=== PATIENT | female | born 1975 | race Asian ===

== ENCOUNTER 2018-06-17 10:47 | Emergency (ER) | payer OTHER, SELFPAY ==
[2018-06-17 10:55] VITALS: BP 162/89; PULSE 104; RESP 20; TEMP 36.4; O2SAT 95; BMI 39.3
[2018-06-17 11:00] VITALS: BP 148/78; PULSE 85; O2SAT 98
[2018-06-17 11:14] LABS: Bacteria Urine None Seen
--- NOTE | 2018-06-17 11:17 | DI.CT.S_ITS ---
PROCEDURE: CT KIDNEY URETER BLADDER (KUB) INDICATIONS: left flank pain TECHNIQUE: Noncontrast 5 mm thick sections acquired from the diaphragms to the symphysis. 5 mm thick coronal and sagittal reformats were then performed. For radiation dose reduction, the following was used: automated exposure control, adjustment of mA and/or kV according to patient size. COMPARISON: [facility], [place], ABDOMEN COMPLETE, 10/05/2016, 22:27. FINDINGS: Image quality: Diagnostic. Lung bases: Lung bases are clear. Heart size is normal. Urinary system: Both kidneys are normal in size. Multiple small (2-5 mm) calculi are evident within both kidneys. No ureteral calculi are evident. No hydronephrosis or perinephric fat stranding. Both ureters appear non-dilated throughout their expected courses. Bladder wall thickness is normal; no calcified bladder stones. Other solid organs: The liver is enlarged and noted to be diffusely hypodense when compared to the spleen. No obvious liver lesions are evident. The liver measures up to 25 cm in craniocaudal dimension. Gallbladder is not enlarged. Pancreas is normal in contours. Spleen is normal in size. No adrenal nodules. Peritoneum and bowel: Unenhanced bowel loops demonstrate normal wall thickness and caliber. No free fluid or air. Nodes and vessels: No retroperitoneal or mesenteric adenopathy by size criteria. Aorta and inferior vena cava are normal in caliber. There is mild aortic atherosclerosis. Other pelvic soft tissues: No free pelvic fluid. No inguinal hernias or adenopathy. The uterus is surgically absent. The ovaries are not definitely seen. Bones: No suspicious bony lesions. No vertebral body compression fractures. IMPRESSION: 1. Multiple bilateral nonobstructing renal calculi. No hydronephrosis or ureteral calculi. 2. Hepatomegaly and hepatic steatosis. 3. No bowel obstruction. Dictated by: Shan Hammonds M.D. on 06/17/2018 at 10:37 Approved by: Shan Hammonds M.D. on 06/17/2018 at 10:46
[2018-06-17 11:23] LABS: Add Manual Diff / Slide Review NO; Basophils Percent Auto 0.6 % (0-2); Eosinophils Percent Auto 3.1 % (2-4); Hematocrit 41.5 % (36-46); Hemoglobin 14.5 g/dL (12.0-16.0); Lymphocytes Percent Auto 31.8 % (25-40); Mean Corpuscular HGB Conc 34.8 % (30-36); Mean Corpuscular Hemoglobin 29.6 PG (26-34); Mean Corpuscular Volume 84.9 fL (80-100); Monocytes Percent Auto 7.3 % (3-14); Neutrophils Absolute Auto 3600 /uL (3000-5900); Neutrophils Percent Auto 57.2 % (50-75); Platelet Count 216 X10^3/uL (150-400); Red Blood Cell Count 4.89 X10^6/uL (4.0-5.2); Red Cell Distribution Width 13.6 % (11.6-14.8); White Blood Cell Count 6.2 X10^3/uL (4.5-11.0)
--- NOTE | 2018-06-17 11:23 | ED_ITS ---
HPI - Female Genitourinary General Chief complaint: Urogenital-Female Stated complaint: poss kidney stone, left side pain Time Seen by Provider: 06/17/18 11:10 Source: patient Mode of arrival: ambulatory Limitations: no limitations History of Present Illness HPI Narrative: Patient is a 43-year-old female presents with left flank pain. She says started about an hour and half ago. He does have a history of kidney stones she says this is different is mostly in her back and not radiating around to her abdomen. She said she had an ultrasound at [facility] which did show kidney stones. She feels nauseated. Related Data Home Medications Medication Instructions Recorded Confirmed albuterol sulfate 3 ml INH Q6HP PRN 06/17/18 06/17/18 albuterol sulfate [ProAir HFA] 1 puff INHALATION PRN PRN 06/17/18 06/17/18 hydroxychloroquine 200 mg PO DAILY 06/17/18 06/17/18 metoprolol succinate 50 mg PO DAILY 06/17/18 06/17/18 sulfasalazine 500 mg PO QID 06/17/18 06/17/18 Allergies Allergy/AdvReac Type Severity Reaction Status Date / Time cephalexin [From KEFLEX] Allergy Unknown Verified 06/17/18 11:24 ciprofloxacin [CIPROFLOXACIN] Allergy Unknown Verified 06/17/18 11:24 milk [MILK] Allergy Unknown Verified 06/17/18 11:24 Review of Systems Review of Systems GENERAL: Denies chills, fatigue, malaise, fever, sweats, travel HEENT: Denies sinus pain, ear pain, sore throat, difficulty swallowing, neck pain RESPIRATORY: Denies dyspnea, cough, wheezing, hemoptysis, sputum. CARDIOVASCULAR: Denies chest pain, palpitations, orthopnea, edema GASTROINTESTINAL: Denies nausea, vomiting, abdominal pain, diarrhea, constipation, melena. : See HPI MUSCULOSKELETAL: Denies weakness, joint pain, or bony pain SKIN: No rash, no erythema, no pruritus NEUROLOGIC: Denies weakness, dizziness, headache, numbness, change in speech, confusion PSYCHIATRIC: No concerning psychosocial issues. 12 point review of systems is negative except for those stated above and HPI PFSH Social History Smoking Status: Never smoker Exam Initial Vital Signs Initial Vital Signs: Vital Signs Temperature 97.5 F L 06/17/18 10:55 Pulse Rate 104 H 06/17/18 10:55 Respiratory Rate 20 06/17/18 10:55 Blood Pressure 162/89 H 06/17/18 10:55 Pulse Oximetry 95 06/17/18 10:55 GENERAL: None female appears in pain HEENT: Head atraumatic,EOMI, pupils reactive, neck is supple CARDIOVASCULAR: Regular rate and rhythm without murmurs, rubs or gallops. RESPIRATORY: Breath sounds equal bilaterally, no wheezes rales or rhonchi. ABDOMEN: Soft, nontender. Normoactive bowel sounds all 4 quadrants. No guarding or rebound. : Left CVA tenderness EXTREMITIES: Normal range of motion, no clubbing or edema. Neurovascularly intact NEUROLOGICAL: Alert and oriented x4.Normal gait and speech. SKIN: Warm, dry, no laceration, no petechiae, no rashes or lesions. Course Orders Ordered: ED Orders 06/17/18 11:00 Urine Microscopic Stat 06/17/18 11:10 Complete Blood Count AUTO DIFF Stat Comprehensive Metabolic Panel Stat Lipase Stat 06/17/18 11:17 CT kidney ureter bladder (KUB) Stat Discontinued Medications Sodium Chloride (Normal Saline 0.9%) 1,000 mls @ 1,000 mls/hr IV CONT FREDI Last Infusion: 06/17/18 12:25 Dose: 0 mls/hr Admin: 06/17/18 11:29 Dose: 1,000 mls/hr Ketorolac Tromethamine (Toradol) 30 mg IV NOW ONE Stop: 06/17/18 11:18 Last Admin: 06/17/18 11:29 Dose: 30 mg Ondansetron HCl (Zofran) 4 mg IV NOW ONE Stop: 06/17/18 11:18 Last Admin: 06/17/18 11:29 Dose: 4 mg Vital Signs - 8 hr 06/17/18 10:55 06/17/18 11:00 06/17/18 12:00 Temperature 97.5 F L Pulse Rate 104 H 85 85 Respiratory Rate 20 Blood Pressure 162/89 H Blood Pressure [Left Arm] 148/78 H 100/66 Pulse Oximetry 95 98 95 06/17/18 12:50 Temperature Pulse Rate 89 Respiratory Rate 18 Blood Pressure 121/72 Blood Pressure [Left Arm] Pulse Oximetry 99 MDM - Female Genitourinary Lab Data Attestation: I reviewed the patient's lab results. Result diagrams: 06/17/18 11:10 06/17/18 11:10 Lab Results 06/17/18 06/17/18 06/17/18 Range/Units 11:00 11:10 11:10 WBC 6.2 (4.5-11.0) X10^3/uL RBC 4.89 (4.0-5.2) X10^6/uL Hgb 14.5 (12.0-16.0) g/dL Hct 41.5 (36-46) % MCV 84.9 (80-100) fL MCH 29.6 (26-34) PG MCHC 34.8 (30-36) % RDW 13.6 (11.6-14.8) % Plt Count 216 (150-400) X10^3/uL Neut % (Auto) 57.2 (50-75) % Lymph % (Auto) 31.8 (25-40) % [place] % (Auto) 7.3 (3-14) % Eos % (Auto) 3.1 (2-4) % Baso % (Auto) 0.6 (0-2) % Neut # (Auto) 3600 (7254-1768) /uL Sodium 141 (137-145) mmol/L Potassium 4.2 (3.4-5.1) mmol/L Chloride 102 (98-107) mmol/L Carbon Dioxide 24 (22-32) mmol/L BUN 20 H (7-17) mg/dL Creatinine 0.50 L (0.52-1.04) mg/dL Estimated GFR > 60.0 (>60) mL/min BUN/Creatinine Ratio 40.0 H (6-22) Glucose 148 H (70-100) mg/dL Calcium 8.6 (8.4-10.2) mg/dL Total Bilirubin 0.6 (0.2-1.3) mg/dL AST 98 H (14-36) IU/L ALT 82 H (9-52) IU/L Alkaline Phosphatase 71 (38-126) U/L Total Protein 7.7 (6.3-8.2) g/dL Albumin 4.6 (3.5-5.0) g/dL Globulin 3.1 (1.7-4.1) g/dL Albumin/Globulin Ratio 1.5 (1.0-2.8) Lipase 99 (23-300) U/L Urine RBC 5-10/hpf H (0-5/HPF) Urine WBC 5-10/hpf H (0-5/HPF) Ur Squamous Epith Cells 10-30 /hpf H Urine Bacteria None seen (None) Hyaline Casts 1-5/lpf (None) Ur Culture Indicated? Cult not indicated Micro UA Comment Not Reportable Urine Dip Bedside Urine Glucose Negative Bedside Urine Bilirubin - Negative Bedside Urine Ketone - Negative Urine Specific [place] 1.025 Bedside Urine Occult Blood +/- Bedside Urine pH 6.0 Bedside Urine Protein + 30 Bedside Urine Urobilinogen - Negative Bedside Urine Nitrite - Negative Bedside Urine Leukocytes - Negative Esterase Imaging Data CT scan - abdomen: Radiologist's impression: PROCEDURE: CT KIDNEY URETER BLADDER (KUB) INDICATIONS: left flank pain TECHNIQUE: Noncontrast 5 mm thick sections acquired from the diaphragms to the symphysis. 5 mm thick coronal and sagittal reformats were then performed. For radiation dose reduction, the following was used: automated exposure control, adjustment of mA and/or kV according to patient size. COMPARISON: [facility], [place], ABDOMEN COMPLETE, 10/05/2016, 22:27. FINDINGS: Image quality: Diagnostic. Lung bases: Lung bases are clear. Heart size is normal. Urinary system: Both kidneys are normal in size. Multiple small (2-5 mm) calculi are evident within both kidneys. No ureteral calculi are evident. No hydronephrosis or perinephric fat stranding. Both ureters appear non-dilated throughout their expected courses. Bladder wall thickness is normal; no calcified bladder stones. Other solid organs: The liver is enlarged and noted to be diffusely hypodense when compared to the spleen. No obvious liver lesions are evident. The liver measures up to 25 cm in craniocaudal dimension. Gallbladder is not enlarged. Pancreas is normal in contours. Spleen is normal in size. No adrenal nodules. Peritoneum and bowel: Unenhanced bowel loops demonstrate normal wall thickness and caliber. No free fluid or air. Nodes and vessels: No retroperitoneal or mesenteric adenopathy by size criteria. Aorta and inferior vena cava are normal in caliber. There is mild aortic atherosclerosis. Other pelvic soft tissues: No free pelvic fluid. No inguinal hernias or adenopathy. The uterus is surgically absent. The ovaries are not definitely seen. Bones: No suspicious bony lesions. No vertebral body compression fractures. IMPRESSION: 1. Multiple bilateral nonobstructing renal calculi. No hydronephrosis or ureteral calculi. 2. Hepatomegaly and hepatic steatosis. 3. No bowel obstruction. Dictated by: Shan Hammonds M.D. on 06/17/2018 at 10:37 MDM Narrative Medical decision making narrative: No source of left flank pain. Possible muscle strain she says it feels better when she pushes on it. No Sign of infection. She feels ready and able to go. Discharge Plan Departure Patient Disposition: Home Clinical Impression: Back pain Discharge Date/Time: 06/17/18 12:50 Interventions: ED Discharge Assessment Last Done: 06/17/18 12:50 Instructions: DI for Thoracic Back Pain Activity Restrictions/Additional Instructions: *You have been diagnosed with thoracic back pain *What to do: Blood work and CT did not show any kidney stone or infection. Recommend heating pad increasing activity as tolerated, no strenuous exercise *Continue to take medications as directed Motrin 800 mg every 8 hr if needed for pain *Follow up with your primary care provider in 2-3 days *Return to ER if you should have worsening back pain, fever, or any new, worsening or concerning symptoms Prescriptions: No Action metoprolol succinate 50 mg tablet extended release 24 hr 50 mg PO DAILY RF: 0 albuterol sulfate [ProAir HFA] 90 mcg/actuation HFA aerosol inhaler 1 puff Inhalation PRN PRN (Reason: Shortness Of Breath) RF: 0 albuterol sulfate 2.5 MG/3 ML solution for nebulization 3 ml INH Q6HP PRN (Reason: Shortness Of Breath) RF: 0 hydroxychloroquine 200 mg tablet 200 mg PO DAILY RF: 0 sulfasalazine 500 mg tablet,delayed release (DR/EC) 500 mg PO QID RF: 0
[2018-06-17 11:28] LABS: RBC Urine 5-10/HPF (0-5/HPF); WBC Urine 5-10/HPF (0-5/HPF)
[2018-06-17 11:29] LABS: Culture Indicated Urine Cult Not Indicated; Hyaline Casts Urine 1-5/LPF; Squamous Epithelial Cell Urine 10-30 /HPF
[2018-06-17] MEDS: SODIUM CHLORIDE 0.9% 1,000 ML 1000 ML IV (11:29)
[2018-06-17] MEDS: ONDANSETRON 4 MG/2 ML INJ IV (11:29)
[2018-06-17] MEDS: KETOROLAC 60 MG/2 ML VIAL 30 MG IV (11:29)
[2018-06-17 11:30] LABS: Alanine Aminotransferase 82 IU/L (9-52); Albumin 4.6 g/dL (3.5-5.0); Albumin Globulin Ratio 1.5 (1.0-2.8); Alkaline Phosphatase 71 U/L (38-126); Aspartate Aminotransferase 98 IU/L (14-36); Bilirubin Total 0.6 mg/dL (0.2-1.3); Blood Urea Nitrogen 20 mg/dL (7-17); Calcium 8.6 mg/dL (8.4-10.2); Carbon Dioxide 24 mmol/L (22-32); Chloride 102 mmol/L (98-107); Estimated Glomerular Filt Rate > 60.0 mL/min (>60); Globulin 3.1 g/dL (1.7-4.1); Glucose 148 mg/dL (70-100); HEMOLYSIS 29 (0-50); Lipase 99 U/L (23-300); Potassium 4.2 mmol/L (3.4-5.1); Sodium 141 mmol/L (137-145); Total Protein 7.7 g/dL (6.3-8.2)
[2018-06-17 12:00] VITALS: BP 100/66; PULSE 85; O2SAT 95
[2018-06-17 12:50] VITALS: BP 121/72; PULSE 89; RESP 18; O2SAT 99
== END 2018-06-17 12:50 | disposition home or self-care (01) ==
PROVIDERS: Emergency Provider Emergency Medicine
DX: M54.9 Dorsalgia, unspecified (principal)
CPT/HCPCS: 36591; 74176; 80053; 81003; 81015; 83690; 85025; 96361; 96374; 96375; 99283; 99284; J1885; J2405

== ENCOUNTER 2019-03-24 07:30 | Emergency (ER) | payer OTHER, MEDICAID, SELFPAY ==
[2019-03-24 07:30] VITALS: BP 178/124; PULSE 89; RESP 24; TEMP 35.7; O2SAT 100
--- NOTE | 2019-03-24 07:39 | ED_ITS ---
HPI - Female Genitourinary General Chief complaint: Abdominal Pain Stated complaint: 'kidney stones' Time Seen by Provider: 03/24/19 07:34 Source: patient Mode of arrival: ambulatory Limitations: no limitations History of Present Illness HPI Narrative: This is a 44-year-old female [facility] of left flank pain starting to radiate around to the front. Patient states she woke up with pain this morning. She states it feels like when she had kidney stones in the past. Patient has had some nausea and vomiting this morning. No fevers. She denies any frontal abdominal pain and states just the flank kind of on the side on the left. Patient noticed a little bit of difficulty with urination but did appreciate dysuria or frequency. She has not noted any hematuria. Patient states that she typically has diarrhea but relates that to her metformin. She is on metformin for diabetes she takes medication for rheumatoid arthritis. Patient states she has had hysterectomy, appendectomy and tonsillectomy. Related Data Home Medications Medication Instructions Recorded Confirmed albuterol sulfate 3 ml INH Q6HP PRN 06/17/18 06/17/18 albuterol sulfate [ProAir HFA] 1 puff INHALATION PRN PRN 06/17/18 06/17/18 hydroxychloroquine 200 mg PO DAILY 06/17/18 06/17/18 metoprolol succinate 50 mg PO DAILY 06/17/18 06/17/18 sulfasalazine 500 mg PO QID 06/17/18 06/17/18 Previous Rx's Medication Instructions Recorded oxycodone-acetaminophen [Percocet] 1 tab PO Q4-6H PRN #14 tab 03/24/19 tamsulosin [Flomax] 0.4 mg PO DAILY #5 cap 03/24/19 Allergies Allergy/AdvReac Type Severity Reaction Status Date / Time cephalexin [From KEFLEX] Allergy Unknown Verified 03/24/19 07:45 ciprofloxacin [CIPROFLOXACIN] Allergy Unknown Verified 03/24/19 07:45 milk [MILK] Allergy Unknown Verified 03/24/19 07:45 Review of Systems Review of Systems ROS Unobtainable: All systems reviewed & are unremarkable except as noted in HPI and below Constitutional Constitutional: Denies chills and Denies fever(s) Cardiovascular Cardiovascular: Denies chest pain and Denies dyspnea Respiratory Respiratory: Denies dyspnea Gastrointestinal Gastrointestinal: Reports abdominal pain (left flank/side), Denies change in bowel habits, Denies change in stool character, Reports diarrhea, Reports nausea and Reports vomiting Genitourinary Genitourinary: Denies abnormal vaginal bleeding, Denies hematuria, Denies urinary frequency, Denies dysuria, Denies flank pain, Denies urinary incontinence, Reports urinary hesitancy and Denies urinary urgency Integumentary/Breasts Skin/Breast: Denies rash PFSH Social History Smoking Status: Never smoker Social History Smoking Status: Former smoker Exam Narrative Exam Narrative: GENERAL: Alert and oriented x three, obese female in moderate distress. HEENT: Head normocephalic, atraumatic, EOMI, pupils reactive, face symmetric, moist mucous membranes NECK: Supple, full range of motion CARDIOVASCULAR: Regular rate and rhythm without murmurs, rubs or gallops. RESPIRATORY: Breath sounds equal bilaterally, no wheezes rales or rhonchi. ABDOMEN: Soft, mild left lower quadrant. Normoactive bowel sounds all 4 quadrants. No guarding or rebound, rigidity, no mass : Mild left CVA tenderness, no right CVA tenderness. EXTREMITIES: Normal range of motion, no clubbing or edema. Neurovascularly intact NEUROLOGICAL: Cranial nerves II through XII grossly intact. Moving all extremities SKIN: Warm, dry, no petechiae, no rashes or lesions. Initial Vital Signs Initial Vital Signs: Vital Signs Temperature 96.2 F L 03/24/19 07:30 Pulse Rate 89 03/24/19 07:30 Respiratory Rate 24 03/24/19 07:30 Blood Pressure 178/124 H 03/24/19 07:30 Pulse Oximetry 100 03/24/19 07:30 Course Orders Ordered: ED Orders 03/24/19 10:01 Urine Microscopic Stat Discontinued Medications Sodium Chloride (Normal Saline 0.9%) 1,000 mls @ 1,000 mls/hr IV BOLUS ONE Stop: 03/24/19 08:37 Last Infusion: 03/24/19 08:46 Dose: 0 mls/hr Documented by: Admin: 03/24/19 07:53 Dose: 1,000 mls/hr Documented by: JOSIE Ketorolac Tromethamine (Toradol) 30 mg IV NOW ONE Stop: 03/24/19 07:39 Last Admin: 03/24/19 07:54 Dose: Not Given Documented by: JOSIE Ketorolac Tromethamine (Toradol) 30 mg IV NOW ONE Stop: 03/24/19 07:46 Last Admin: 03/24/19 07:54 Dose: Not Given Documented by: JOSIE Ketorolac Tromethamine (Toradol) 30 mg IV NOW ONE Stop: 03/24/19 08:01 Last Admin: 03/24/19 07:52 Dose: 30 mg Documented by: JOSIE Morphine Sulfate (Morphine) 4 mg IV NOW ONE Stop: 03/24/19 08:37 Last Admin: 03/24/19 08:40 Dose: 4 mg Documented by: JOSIE Morphine Sulfate (Morphine) 4 mg IV NOW ONE Stop: 03/24/19 08:38 Last Admin: 03/24/19 08:40 Dose: Not Given Documented by: JOSIE Ondansetron HCl (Zofran) 4 mg IV NOW ONE Stop: 03/24/19 07:39 Last Admin: 03/24/19 07:53 Dose: 4 mg Documented by: JOSIE Tamsulosin HCl (Flomax) 0.4 mg PO NOW ONE Stop: 03/24/19 09:15 Last Admin: 03/24/19 09:20 Dose: 0.4 mg Documented by: JOSIE Vital Signs Vital signs: Vital Signs - 8 hr 03/24/19 07:30 Temperature 96.2 F L Pulse Rate 89 Respiratory Rate 24 Blood Pressure 178/124 H Pulse Oximetry 100 MDM - Female Genitourinary Lab Data Attestation: I reviewed the patient's lab results. Result diagrams: 03/24/19 07:38 03/24/19 07:38 Labs: Lab Results 03/24/19 03/24/19 03/24/19 Range/Units 07:38 07:38 07:58 WBC 10.0 (4.5-11.0) X10^3/uL RBC 4.77 (4.0-5.2) X10^6/uL Hgb 14.3 (12.0-16.0) g/dL Hct 40.6 (36-46) % MCV 85.1 (80-100) fL MCH 29.9 (26-34) PG MCHC 35.1 (30-36) % RDW 13.7 (11.6-14.8) % Plt Count 221 (150-400) X10^3/uL Neut % (Auto) 66.7 (50-75) % Lymph % (Auto) 24.7 L (25-40) % [place] % (Auto) 5.9 (3-14) % Eos % (Auto) 2.2 (2-4) % Baso % (Auto) 0.5 (0-2) % Neut # (Auto) 6700 (2872-6128) /uL Lymph # (Auto) 2500 (1752-9071) /uL [place] # (Auto) 600 (0-900) /uL Eos # (Auto) 200 (0-450) /uL Baso # (Auto) 0 (0-100) /uL Sodium 139 (137-145) mmol/L Potassium 4.3 (3.4-5.1) mmol/L Chloride 101 (98-107) mmol/L Carbon Dioxide 22 (22-32) mmol/L BUN 14 (7-17) mg/dL Creatinine 0.50 L (0.52-1.04) mg/dL Estimated GFR > 60.0 (>60) mL/min BUN/Creatinine Ratio 28.0 H (6-22) Glucose 152 H (70-100) mg/dL Calcium 8.9 (8.4-10.2) mg/dL Total Bilirubin 0.5 (0.2-1.3) mg/dL AST 39 H (14-36) IU/L ALT 53 H (9-52) IU/L Alkaline Phosphatase 67 (38-126) U/L Total Protein 7.6 (6.3-8.2) g/dL Albumin 4.5 (3.5-5.0) g/dL Globulin 3.1 (1.7-4.1) g/dL Albumin/Globulin Ratio 1.5 (1.0-2.8) Lipase 145 (23-300) U/L Urine RBC (0-5/HPF) Urine WBC (0-5/HPF) Ur Squamous Epith Cells (0-5/HPF) Urine Bacteria (None) Ur Culture Indicated? 03/24/19 Range/Units 10:01 WBC (4.5-11.0) X10^3/uL RBC (4.0-5.2) X10^6/uL Hgb (12.0-16.0) g/dL Hct (36-46) % MCV (80-100) fL MCH (26-34) PG MCHC (30-36) % RDW (11.6-14.8) % Plt Count (150-400) X10^3/uL Neut % (Auto) (50-75) % Lymph % (Auto) (25-40) % [place] % (Auto) (3-14) % Eos % (Auto) (2-4) % Baso % (Auto) (0-2) % Neut # (Auto) (3805-8986) /uL Lymph # (Auto) (7843-2989) /uL [place] # (Auto) (0-900) /uL Eos # (Auto) (0-450) /uL Baso # (Auto) (0-100) /uL Sodium (137-145) mmol/L Potassium (3.4-5.1) mmol/L Chloride (98-107) mmol/L Carbon Dioxide (22-32) mmol/L BUN (7-17) mg/dL Creatinine (0.52-1.04) mg/dL Estimated GFR (>60) mL/min BUN/Creatinine Ratio (6-22) Glucose (70-100) mg/dL Calcium (8.4-10.2) mg/dL Total Bilirubin (0.2-1.3) mg/dL AST (14-36) IU/L ALT (9-52) IU/L Alkaline Phosphatase (38-126) U/L Total Protein (6.3-8.2) g/dL Albumin (3.5-5.0) g/dL Globulin (1.7-4.1) g/dL Albumin/Globulin Ratio (1.0-2.8) Lipase (23-300) U/L Urine RBC >100/hpf H (0-5/HPF) Urine WBC 0-1/hpf (0-5/HPF) Ur Squamous Epith Cells 1-5 /hpf D (0-5/HPF) Urine Bacteria Few (2-10) H (None) Ur Culture Indicated? Cult not indicated Urine Dip Bedside Urine Glucose Negative Bedside Urine Bilirubin - Negative Bedside Urine Ketone +/- 5 Urine Specific [place] 1.020 Bedside Urine Occult Blood +++ Bedside Urine pH 6 Bedside Urine Protein ++ 100 Bedside Urine Urobilinogen - Negative Bedside Urine Nitrite - Negative Bedside Urine Leukocytes - Negative Esterase Imaging Data CT scan - abdomen: Radiologist's impression: [address] [address] [address] Scan Report Signed Patient: Arabella Saleem MMR#: [id number] : 1975Acct:[id number] Age/Sex: 44 / FDate of Service: 03/24/19 Loc: ED Accession Number: [id number] Procedure: CT kidney ureter bladder (KUB) Ordering Provider: Candida Mata D.O. PROCEDURE: CT KIDNEY URETER BLADDER (KUB) INDICATIONS: left flank pain, hx stones, htn TECHNIQUE: Noncontrast 5 mm thick sections acquired from the diaphragms to the symphysis. 5 mm thick coronal and sagittal reformats were then performed. For radiation dose reduction, the following was used: automated exposure control, adjustment of mA and/or kV according to patient size. COMPARISON: [facility], CT, CT KIDNEY URETER BLADDER (KUB), 06/17/2018, 11:19. FINDINGS: Image quality: Excellent. Lung bases: Lung bases are clear. Heart size is normal. Urinary system: Both kidneys are normal in size. There are bilateral small kidney ranging in size from 1-3 mm. Within the proximal left ureter there is a impacted 4 mm calculus measuring 702 Hounsfield units in the radiodensity. This produces mild to moderate left-sided proximal hydroureter and hydronephrosis. No right-sided hydronephrosis or perinephric fat stranding. Both ureters appear otherwise non-dilated throughout their expected courses. Bladder wall thickness is normal; no calcified bladder stones. Other solid organs: Liver is mildly enlarged in size and is markedly fatty infiltrated. Gallbladder appears normal. Pancreas is normal in contours. Spleen is normal in size. No adrenal nodules. Peritoneum and bowel: Unenhanced bowel loops demonstrate normal wall thickness and caliber. No free fluid or air. Nodes and vessels: No retroperitoneal or mesenteric adenopathy by size criter ia. Aorta and inferior vena cava are normal in caliber. Abdominal wall: No ventral hernias. Pelvis: No free pelvic fluid. No inguinal hernias or adenopathy. Bones: No suspicious bony lesions. No vertebral body compression fractures. IMPRESSION: 1. There is an unexpected finding of markedly fatty infiltrated liver, and hepatomegaly. Please correlate clinically for the underlying cause. 2. Scattered nonobstructive calculi are present within the collecting system of each kidney, ranging in size from 1-3 mm. 3. There is mild to moderate left-sided hydronephrosis and proximal left hydroureter secondary to a 702 Hounsfield unit 4 mm calculus impacted in the proximal left ureter. Dictated by: Mika Menard M.D. on 03/24/2019 at 8:24 Approved by: Mika Menard M.D. on 03/24/2019 at 8:29 [facility] Narrative Medical decision making narrative: Recheck after medications, patient is improved. She is not pain free at this time but would like to allow the Toradol longer to work. Patient received narcotic pain medication which was more helpful. Patient does have a kidney stone on her CT, she also has hepatomegaly and fatty liver which she noted she has been told in the past and they are following. She also some slight elevation in her LFTs. Otherwise renal functi on is normal, urine does not show any signs of infection at this time. It was sent for microscopy. Patient was given a dose of Flomax orally. Discussed plans for follow-up with Urology and she does have some hydro and if her symptoms are not improving in 24 hours she should call. Patient has contact information through for [facility] urology. Was also given a more local provider if she she prefers. Patient is comfortable with the plan her pain is much more controlled at this time, we discussed signs and symptoms to return for. Discharge Plan Departure Patient Disposition: Home Clinical Impression: Kidney stone, Fatty liver Discharge Date/Time: 03/24/19 10:37 Instructions: DI for Kidney Stones Activity Restrictions/Additional Instructions: Follow-up with Urology, call for an appointment. Continue to take Flomax once daily until gone. Continue ibuprofen 800 mg every 8 hours as needed for pain. In addition you may take pain medications as needed, these medications can make you sleepy do not drive, perform hazardous activities or make any major decided since while taking them. Return to the emergency department for new or worsening symptoms, fevers greater than 100.4 F, persistent vomiting, rapidly worsening flank or abdominal pain, lightheadedness, passing out, black or bloody stools, inability urinate or other new or concerning symptoms. Prescriptions: New tamsulosin [Flomax] 0.4 mg capsule 0.4 mg PO DAILY Qty: 5 RF: 0 oxycodone-acetaminophen [Percocet] 5-325 mg tablet 1 tab PO Q4-6H PRN (Reason: pain) Qty: 14 RF: 0 No Action metoprolol succinate 50 mg tablet extended release 24 hr 50 mg PO DAILY RF: 0 albuterol sulfate [ProAir HFA] 90 mcg/actuation HFA aerosol inhaler 1 puff Inhalation PRN PRN (Reason: Shortness Of Breath) RF: 0 albuterol sulfate 2.5 MG/3 ML solution for nebulization 3 ml INH Q6HP PRN (Reason: Shortness Of Breath) RF: 0 hydroxychloroquine 200 mg tablet 200 mg PO DAILY RF: 0 sulfasalazine 500 mg tablet,delayed release (DR/EC) 500 mg PO QID RF: 0 Referrals: Gideon Gomez MD [Physician] - Stand Alone Forms: Work Release Note
--- NOTE | 2019-03-24 07:43 | DI.CT.S_ITS ---
PROCEDURE: CT KIDNEY URETER BLADDER (KUB) INDICATIONS: left flank pain, hx stones, htn TECHNIQUE: Noncontrast 5 mm thick sections acquired from the diaphragms to the symphysis. 5 mm thick coronal and sagittal reformats were then performed. For radiation dose reduction, the following was used: automated exposure control, adjustment of mA and/or kV according to patient size. COMPARISON: [facility], CT, CT KIDNEY URETER BLADDER (KUB), 06/17/2018, 11:19. FINDINGS: Image quality: Excellent. Lung bases: Lung bases are clear. Heart size is normal. Urinary system: Both kidneys are normal in size. There are bilateral small kidney ranging in size from 1-3 mm. Within the proximal left ureter there is a impacted 4 mm calculus measuring 702 Hounsfield units in the radiodensity. This produces mild to moderate left-sided proximal hydroureter and hydronephrosis. No right-sided hydronephrosis or perinephric fat stranding. Both ureters appear otherwise non-dilated throughout their expected courses. Bladder wall thickness is normal; no calcified bladder stones. Other solid organs: Liver is mildly enlarged in size and is markedly fatty infiltrated. Gallbladder appears normal. Pancreas is normal in contours. Spleen is normal in size. No adrenal nodules. Peritoneum and bowel: Unenhanced bowel loops demonstrate normal wall thickness and caliber. No free fluid or air. Nodes and vessels: No retroperitoneal or mesenteric adenopathy by size criteria. Aorta and inferior vena cava are normal in caliber. Abdominal wall: No ventral hernias. Pelvis: No free pelvic fluid. No inguinal hernias or adenopathy. Bones: No suspicious bony lesions. No vertebral body compression fractures. IMPRESSION: 1. There is an unexpected finding of markedly fatty infiltrated liver, and hepatomegaly. Please correlate clinically for the underlying cause. 2. Scattered nonobstructive calculi are present within the collecting system of each kidney, ranging in size from 1-3 mm. 3. There is mild to moderate left-sided hydronephrosis and proximal left hydroureter secondary to a 702 Hounsfield unit 4 mm calculus impacted in the proximal left ureter. Dictated by: Mika Menard M.D. on 03/24/2019 at 8:24 Approved by: Mika Menard M.D. on 03/24/2019 at 8:29
[2019-03-24 07:48] LABS: Add Manual Diff / Slide Review NO; Basophils Absolute Auto 0 /uL (0-100); Basophils Percent Auto 0.5 % (0-2); Eosinophils Absolute Auto 200 /uL (0-450); Eosinophils Percent Auto 2.2 % (2-4); Hematocrit 40.6 % (36-46); Hemoglobin 14.3 g/dL (12.0-16.0); Lymphocytes Absolute Auto 2500 /uL (1100-4500); Lymphocytes Percent Auto 24.7 % (25-40); Mean Corpuscular HGB Conc 35.1 % (30-36); Mean Corpuscular Hemoglobin 29.9 PG (26-34); Mean Corpuscular Volume 85.1 fL (80-100); Monocytes Absolute Auto 600 /uL (0-900); Monocytes Percent Auto 5.9 % (3-14); Neutrophils Absolute Auto 6700 /uL (1500-7000); Neutrophils Percent Auto 66.7 % (50-75); Platelet Count 221 X10^3/uL (150-400); Red Blood Cell Count 4.77 X10^6/uL (4.0-5.2); Red Cell Distribution Width 13.7 % (11.6-14.8)
[2019-03-24] MEDS: KETOROLAC 60 MG/2 ML VIAL 30 MG IV (07:52)
[2019-03-24] MEDS: ONDANSETRON 4 MG/2 ML INJ IV (07:53)
[2019-03-24] MEDS: SODIUM CHLORIDE 0.9% 1,000 ML 1000 ML IV (07:53)
[2019-03-24 08:00] LABS: Alanine Aminotransferase 53 IU/L (9-52); Albumin 4.5 g/dL (3.5-5.0); Albumin Globulin Ratio 1.5 (1.0-2.8); Alkaline Phosphatase 67 U/L (38-126); Aspartate Aminotransferase 39 IU/L (14-36); Bilirubin Total 0.5 mg/dL (0.2-1.3); Blood Urea Nitrogen 14 mg/dL (7-17); Calcium 8.9 mg/dL (8.4-10.2); Carbon Dioxide 22 mmol/L (22-32); Chloride 101 mmol/L (98-107); Estimated Glomerular Filt Rate > 60.0 mL/min (>60); Globulin 3.1 g/dL (1.7-4.1); Glucose 152 mg/dL (70-100); HEMOLYSIS < 15 (0-50); Potassium 4.3 mmol/L (3.4-5.1); Sodium 139 mmol/L (137-145); Total Protein 7.6 g/dL (6.3-8.2)
[2019-03-24 08:20] LABS: Lipase 145 U/L (23-300)
[2019-03-24 08:30] VITALS: BP 153/81; PULSE 91; RESP 25; O2SAT 98
[2019-03-24] MEDS: MORPHINE 4 MG/ML INJ IV (08:40)
[2019-03-24] MEDS: TAMSULOSIN 0.4 MG CAPSULE PO (09:20)
[2019-03-24 09:30] VITALS: BP 142/79; PULSE 90; RESP 15; O2SAT 98
[2019-03-24 10:15] LABS: Bacteria Urine Few (2-10); Culture Indicated Urine Cult Not Indicated; RBC Urine >100/HPF (0-5/HPF); Squamous Epithelial Cell Urine 1-5 /HPF (0-5/HPF); WBC Urine 0-1/HPF (0-5/HPF)
[2019-03-24 10:26] VITALS: BP 138/67; PULSE 90; RESP 18; O2SAT 98
== END 2019-03-24 10:37 | disposition home or self-care (01) ==
PROVIDERS: Emergency Provider Emergency Medicine
DX: N20.0 Calculus of kidney (principal); Z87.442 Personal history of urinary calculi; K76.0 Fatty (change of) liver, not elsewhere classified
CPT/HCPCS: 36591; 74176; 80053; 81003; 81015; 83690; 85025; 96361; 96374; 96375; 99283; 99284; J1885; J2270; J2405

== ENCOUNTER 2019-04-08 01:40 | Emergency (ER) | payer OTHER, MEDICAID, SELFPAY ==
[2019-04-08] VITALS (7 sets, daily range): BP systolic 143–190; BP diastolic 87–124; PULSE 80–99; RESP 15–20; TEMP 36.5; O2SAT 99–100
--- NOTE | 2019-04-08 02:18 | DI.RAD.S_ITS ---
PROCEDURE: XR CHEST 1V INDICATIONS: hypertension TECHNIQUE: One view of the chest was acquired. COMPARISON: [facility], CHEST 2 VIEW, 12/04/2016, 10:53. [facility], CHEST 2 VIEW, 11/30/2016, 23:45. FINDINGS: Surgical changes and devices: None. Lungs and pleura: Lungs are clear. No pleural effusions or pneumothorax. Mediastinum: Mediastinal contours appear normal. Heart size is normal. Bones and chest wall: No suspicious bony lesions. Overlying soft tissues appear unremarkable. IMPRESSION: Normal for age, source of current reported hypertension, CHF is not present. Dictated by: Mika Menard M.D. on 04/08/2019 at 8:46 Approved by: Mika Menard M.D. on 04/08/2019 at 8:48
--- NOTE | 2019-04-08 02:18 | DI.CT.S_ITS ---
PROCEDURE: CT HEAD/BRAIN WO CON INDICATIONS: headache and hypertension TECHNIQUE: Noncontrast 4.5 mm thick angled axial sections acquired from the foramen magnum to the vertex, with coronal and sagittal reformats. For radiation dose reduction, the following was used: automated exposure control, adjustment of mA and/or kV according to patient size. COMPARISON: None. FINDINGS: Image quality: Excellent. CSF spaces: Basal cisterns are patent. No extra-axial fluid collections. Ventricles are normal in size and shape. Brain: No midline shift. No intracranial masses or hemorrhage. Bridges-white matter interface is normal. Skull and face: Calvarium and visualized facial bones are intact, without suspicious lesions. Sinuses: Visualized sinuses and mastoids are clear. IMPRESSION: No acute process. Dictated by: David Almazan M.D. on 04/08/2019 at 7:53 Approved by: David Almazan M.D. on 04/08/2019 at 7:55
--- NOTE | 2019-04-08 02:25 | ED_ITS ---
HPI - Headache General Chief Complaint: Headache Stated Complaint: Headache, HBP Time Seen by Provider: 04/08/19 01:50 Source: patient Mode of arrival: ambulatory Limitations: no limitations History of Present Illness HPI Narrative: Patient is a 44-year-old female with history of hypertension presenting with hypertension and headache. She says she started headache a few days ago however noticed that she had significant increase in her headache and blood pressure this evening. Her blood pressure was 180 at home and now 190/124 here. She denies any weakness numbness tingling or visual changes. She has no nausea or vomiting. No chest pain or shortness of breath. She has not taken anything for pain. Related Data Home Medications Medication Instructions Recorded Confirmed albuterol sulfate 3 ml INH Q6HP PRN 06/17/18 06/17/18 albuterol sulfate [ProAir HFA] 1 puff INHALATION PRN PRN 06/17/18 06/17/18 hydroxychloroquine 200 mg PO DAILY 06/17/18 06/17/18 metoprolol succinate 50 mg PO DAILY 06/17/18 06/17/18 sulfasalazine 500 mg PO QID 06/17/18 06/17/18 Previous Rx's Medication Instructions Recorded oxycodone-acetaminophen [Percocet] 1 tab PO Q4-6H PRN #14 tab 03/24/19 tamsulosin [Flomax] 0.4 mg PO DAILY #5 cap 03/24/19 Allergies Allergy/AdvReac Type Severity Reaction Status Date / Time cephalexin [From KEFLEX] Allergy Unknown Verified 03/24/19 07:45 ciprofloxacin [CIPROFLOXACIN] Allergy Unknown Verified 03/24/19 07:45 milk [MILK] Allergy Unknown Verified 03/24/19 07:45 Review of Systems Review of Systems ROS Unobtainable: All systems reviewed & are unremarkable except as noted in HPI and below Constitutional Constitutional: Denies chills, Denies fever(s), Reports headache(s), Denies lethargy and Denies weakness Eyes Eyes: Denies change in vision, Denies eye discharge, Denies irritation and Denies loss of vision ENT Ears, Nose, Mouth, and Throat: Denies change in voice, Reports headache(s), Denies neck pain and Denies sore throat Cardiovascular Cardiovascular: Denies dyspnea and Denies dyspnea on exertion Respiratory Respiratory: Denies cough, Denies dyspnea, Denies dyspnea on exertion and Denies wheezing Gastrointestinal Gastrointestinal: Denies abdominal pain, Denies change in bowel habits, Denies diarrhea, Denies nausea and Denies vomiting Genitourinary Genitourinary: Denies hematuria, Denies flank pain, Denies urinary incontinence and Denies urinary urgency Musculoskeletal Musculoskeletal: Denies neck pain Integumentary/Breasts Skin/Breast: Denies pruritus, Denies erythema, Denies rash and Denies wounds Neurologic Neurologic: Reports headache(s), Denies lack of coordination, Denies loss of vision, Denies convulsions and Denies weakness Allergic/Immunologic Allergic/Immunologic: Denies wheezing COUNTS INCLUDE 234 BEDS AT THE [facility] Medical History Hypertension (Acute) Social History Smoking Status: Former smoker Social History Smoking Status: Former smoker Exam Initial Vital Signs Initial Vital Signs: Vital Signs Temperature 97.7 F 04/08/19 01:46 Pulse Rate 99 H 04/08/19 01:46 Respiratory Rate 20 04/08/19 01:46 Blood Pressure 190/124 H 04/08/19 01:46 Pulse Oximetry 99 04/08/19 01:46 GENERAL: Well-appearing, well-nourished and in no acute distress. HEENT: Head atraumatic,EOMI, pupils reactive, face symmetric, moist mucous membranes CARDIOVASCULAR: Regular rate and rhythm without murmurs, rubs or gallops. RESPIRATORY: Breath sounds equal bilaterally, no wheezes rales or rhonchi. ABDOMEN: Soft, nontender. Normoactive bowel sounds all 4 quadrants. No guarding or rebound. EXTREMITIES: Normal range of motion, no clubbing or edema. Neurovascularly intact NEUROLOGICAL: Alert and oriented x4.Normal gait and speech. 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 Scores NIH Stroke Scale Level of Conciousness: Alert, keenly responsive Ask month/age: Answers both questions correctly. Open/close eyes, close hand: Performs both tasks correctly Best gaze horizontal: Normal Visual mcconnell: No visual loss Facial palsy: Normal symetrical movement Left arm drift: No drift for full 10 sec Right arm drift: No drift for full 10 sec Left leg drift: No drift for full 10 sec Right leg drift: No drift for full 10 sec Limb ataxia: Absent Sensory on face/arms/legs: Normal, no sensory loss Best language: No aphasia, normal Dysarthria: Normal Extinction or inattention: No abnormality Total NIH Stroke scale score: 0 Course Orders Ordered: ED Orders 04/08/19 02:00 Complete Blood Count AUTO DIFF Stat Comprehensive Metabolic Panel Stat Lipase Stat Partial Thromboplastin Time Stat Prothrombin Time INR Stat Troponin & CK Cardiac Panel Stat 04/08/19 02:18 CT head/brain wo con Stat XR chest 1V Stat EKG-12 Lead Stat Discontinued Medications Sodium Chloride (Normal Saline 0.9%) 1,000 mls @ 150 mls/hr IV CONT FREDI Last Infusion: 04/08/19 04:00 Dose: 150 mls/hr Documented by: Admin: 04/08/19 02:32 Dose: 150 mls/hr Documented by: GERMÁN Ketorolac Tromethamine (Toradol) 30 mg IV NOW ONE Stop: 04/08/19 03:01 Last Admin: 04/08/19 03:23 Dose: 30 mg Documented by: GERMÁN Labetalol HCl (Trandate) 10 mg IV NOW ONE Stop: 04/08/19 03:01 Last Admin: 04/08/19 03:26 Dose: 10 mg Documented by: GERMÁN Vital Signs Vital signs: Vital Signs - 8 hr 04/08/19 01:46 04/08/19 03:02 04/08/19 03:26 Temperature 97.7 F Pulse Rate 99 H 97 H 80 Respiratory Rate 20 18 Blood Pressure 190/124 H 162/97 H Blood Pressure [Left Arm] 165/90 H Pulse Oximetry 99 100 04/08/19 03:34 04/08/19 03:39 04/08/19 04:01 Temperature Pulse Rate 88 90 Respiratory Rate 16 Blood Pressure 156/102 H Blood Pressure [Left Arm] 170/91 H 164/99 H Pulse Oximetry 04/08/19 04:40 Temperature Pulse Rate 82 Respiratory Rate 15 Blood Pressure 143/87 H Blood Pressure [Left Arm] Pulse Oximetry 99 MDM - Headache Lab Data Attestation: I reviewed the patient's lab results. Result diagrams: 04/08/19 02:00 04/08/19 02:00 Labs: Lab Results 04/08/19 04/08/19 04/08/19 Range/Units 02:00 02:00 02:00 WBC 8.5 (4.5-11.0) X10^3/uL RBC 4.75 (4.0-5.2) X10^6/uL Hgb 14.3 (12.0-16.0) g/dL Hct 40.5 (36-46) % MCV 85.2 (80-100) fL MCH 30.0 (26-34) PG MCHC 35.2 (30-36) % RDW 13.7 (11.6-14.8) % Plt Count 234 (150-400) X10^3/uL Neut % (Auto) 51.7 (50-75) % Lymph % (Auto) 38.1 (25-40) % [place] % (Auto) 5.7 (3-14) % Eos % (Auto) 3.9 (2-4) % Baso % (Auto) 0.6 (0-2) % Neut # (Auto) 4400 (0674-5983) /uL Lymph # (Auto) 3200 (8389-6174) /uL [place] # (Auto) 500 (0-900) /uL Eos # (Auto) 300 (0-450) /uL Baso # (Auto) 100 (0-100) /uL PT 9.7 L (10.1-12.7) SECONDS INR 0.9 (0.9-1.3) APTT 32 (26.4-36.2) SECONDS Sodium 139 (137-145) mmol/L Potassium 3.7 (3.4-5.1) mmol/L Chloride 101 (98-107) mmol/L Carbon Dioxide 25 (22-32) mmol/L BUN 13 (7-17) mg/dL Creatinine 0.40 L (0.52-1.04) mg/dL Estimated GFR > 60.0 (>60) mL/min BUN/Creatinine Ratio 32.5 H (6-22) Glucose 143 H (70-100) mg/dL Calcium 9.2 (8.4-10.2) mg/dL Total Bilirubin 0.4 (0.2-1.3) mg/dL AST 49 H (14-36) IU/L ALT 86 H (9-52) IU/L Alkaline Phosphatase 65 (38-126) U/L Total Creatine Kinase 57 (30-135) U/L CK-MB (CK-2) TNP CK-MB (CK-2) Rel Index TNP Troponin I < 0.012 (0.01-0.034) ng/mL Total Protein 7.7 (6.3-8.2) g/dL Albumin 4.6 (3.5-5.0) g/dL Globulin 3.1 (1.7-4.1) g/dL Albumin/Globulin Ratio 1.5 (1.0-2.8) Lipase 205 (23-300) U/L Imaging Data CT scan - head: Radiologist's impression: health information tech report: No acute intracranial process Chest x-ray: Attestation: I personally reviewed and interpreted this imaging study as follows: Radiologist's impression: No acute intracranial process ECG Data Attestation: I personally reviewed and interpreted this ECG as follows: Prior ECG tracings: available for review Interpretation: Normal sinus rhythm rate 96 p.r. interval 158 QRS 87 QTC 440 Q- wave noted in lead 3 unchanged from previous EKGs no ST changes MDM Narrative Medical decision making narrative: The patient blood pressure continues to be elevated in the ED she continues to have pain on the left side of her head. Head CT is negative no focal deficits. She is given a dose of labetalol and Toradol overall her symptoms improved significantly. Blood pressure also improved. Discharge Plan Departure Patient Disposition: Home Clinical Impression: Hypertension Qualifiers: Hypertension type: essential hypertension Qualified Code(s): I10 - Essential (primary) hypertension Headache Qualifiers: Headache type: unspecified Headache chronicity pattern: acute headache Intractability: not intractable Qualified Code(s): R51 - Headache Discharge Date/Time: 04/08/19 04:20 Instructions: Essential Hypertension, DI for Headache Activity Restrictions/Additional Instructions: *You have been diagnosed with headache and hypertension *What to do: Recommend take your blood pressure once daily same time every day and write it down. This will help her PCP monitor and adjust her blood pressure medications if needed *Continue to take medications as directed *Follow up with your primary care provider in 2-3 days *Return to ER if you should have worsening headache, chest pain, persistent vom iting, weakness, numbness, tingling or any new, worsening or concerning symptoms Prescriptions: No Action metoprolol succinate 50 mg tablet extended release 24 hr 50 mg PO DAILY RF: 0 albuterol sulfate [ProAir HFA] 90 mcg/actuation HFA aerosol inhaler 1 puff Inhalation PRN PRN (Reason: Shortness Of Breath) RF: 0 albuterol sulfate 2.5 MG/3 ML solution for nebulization 3 ml INH Q6HP PRN (Reason: Shortness Of Breath) RF: 0 hydroxychloroquine 200 mg tablet 200 mg PO DAILY RF: 0 sulfasalazine 500 mg tablet,delayed release (DR/EC) 500 mg PO QID RF: 0 tamsulosin [Flomax] 0.4 mg capsule 0.4 mg PO DAILY Qty: 5 RF: 0 oxycodone-acetaminophen [Percocet] 5-325 mg tablet 1 tab PO Q4-6H PRN (Reason: pain) Qty: 14 RF: 0
[2019-04-08 02:27] LABS: Add Manual Diff / Slide Review NO; Basophils Absolute Auto 100 /uL (0-100); Basophils Percent Auto 0.6 % (0-2); Eosinophils Absolute Auto 300 /uL (0-450); Eosinophils Percent Auto 3.9 % (2-4); Hematocrit 40.5 % (36-46); Hemoglobin 14.3 g/dL (12.0-16.0); Lymphocytes Absolute Auto 3200 /uL (1100-4500); Lymphocytes Percent Auto 38.1 % (25-40); Mean Corpuscular HGB Conc 35.2 % (30-36); Mean Corpuscular Volume 85.2 fL (80-100); Monocytes Absolute Auto 500 /uL (0-900); Monocytes Percent Auto 5.7 % (3-14); Neutrophils Absolute Auto 4400 /uL (1500-7000); Neutrophils Percent Auto 51.7 % (50-75); Platelet Count 234 X10^3/uL (150-400); Red Blood Cell Count 4.75 X10^6/uL (4.0-5.2); Red Cell Distribution Width 13.7 % (11.6-14.8); White Blood Cell Count 8.5 X10^3/uL (4.5-11.0)
[2019-04-08 02:29] LABS: INR 0.9 (0.9-1.3); Prothrombin Time 9.7 SECONDS (10.1-12.7)
[2019-04-08 02:31] LABS: PTT Partial Thromboplastin Tim 32 SECONDS (26.4-36.2)
[2019-04-08] MEDS: SODIUM CHLORIDE 0.9% 1,000 ML 150 ML IV (02:32)
[2019-04-08 02:33] LABS: Alanine Aminotransferase 86 IU/L (9-52); Albumin 4.6 g/dL (3.5-5.0); Albumin Globulin Ratio 1.5 (1.0-2.8); Alkaline Phosphatase 65 U/L (38-126); Aspartate Aminotransferase 49 IU/L (14-36); BUN Creatinine Ratio 32.5 (6-22); Bilirubin Total 0.4 mg/dL (0.2-1.3); Blood Urea Nitrogen 13 mg/dL (7-17); Calcium 9.2 mg/dL (8.4-10.2); Carbon Dioxide 25 mmol/L (22-32); Chloride 101 mmol/L (98-107); Creatine Kinase 57 U/L (30-135); Estimated Glomerular Filt Rate > 60.0 mL/min (>60); Globulin 3.1 g/dL (1.7-4.1); Glucose 143 mg/dL (70-100); HEMOLYSIS < 15 (0-50); Lipase 205 U/L (23-300); Potassium 3.7 mmol/L (3.4-5.1); Sodium 139 mmol/L (137-145); Total Protein 7.7 g/dL (6.3-8.2)
[2019-04-08 02:44] LABS: Troponin I < 0.012 ng/mL (0.01-0.034)
--- NOTE | 2019-04-08 03:00 | PC.NURSE ---
PT states Headache for past few days, worse tonight with elevated BP. Pt has hx of HTN. States home BP was 180 and denies any weakness numbness tingling or visual changes. Denies chest pain or shortness of breath.
[2019-04-08] MEDS: KETOROLAC 60 MG/2 ML VIAL 30 MG IV (03:23)
[2019-04-08] MEDS: LABETALOL 20 MG/4 ML SYRINGE 10 MG IV (03:26)
== END 2019-04-08 04:20 | disposition home or self-care (01) ==
PROVIDERS: Emergency Provider Emergency Medicine
DX: I10 Essential (primary) hypertension (principal); R51 Headache
CPT/HCPCS: 36591; 70450; 71045; 80053; 82550; 83690; 84484; 85025; 85610; 85730; 93005; 96361; 96374; 96375; 99283; 99285; J1885

== ENCOUNTER 2019-05-18 18:29 | Emergency (ER) | payer OTHER, MEDICAID, SELFPAY ==
[2019-05-18 18:45] VITALS: BP 199/118; PULSE 97; RESP 18; TEMP 36.4; O2SAT 100
--- NOTE | 2019-05-18 18:50 | DI.US.S_ITS ---
PROCEDURE: US ABDOMEN LIMITED INDICATIONS: RIGHT UPPER QUADRANT PAIN; NAUSEA TECHNIQUE: Real-time focused scanning was performed of the abdomen, with image documentation. COMPARISON: None. FINDINGS: Severely echogenic liver diffusely. No focal hepatic lesion identified. The liver measures 20.5 cm in length. Gallbladder sludge is present however no wall thickening or pericholecystic fluid. Positive sonographic Darden sign noted. No biliary duct dilatation. Distal common bile duct measures 5 mm. And is normal sonographically visualized. IMPRESSION: Coarse echogenic liver suggesting diffuse hepatocellular disease/fatty infiltration. Please correlate with LFTs. Gallbladder sludge and positive sonographic Darden sign however no wall thickening or pericholecystic fluid. Recommend clinical correlation with LFTs to exclude acute cholecystitis. No evidence of bile duct dilatation. Dictated by: David Almazan M.D. on 05/18/2019 at 19:55 Approved by: David Almazan M.D. on 05/18/2019 at 19:56
[2019-05-18] MEDS: SODIUM CHLORIDE 0.9% 1,000 ML 150 ML IV (18:57)
[2019-05-18] MEDS: MORPHINE 4 MG/ML INJ IV (18:57)
[2019-05-18] MEDS: ONDANSETRON 4 MG/2 ML INJ IV (18:58)
[2019-05-18 19:05] VITALS: BP 191/118; PULSE 97; RESP 18; TEMP 36.4; O2SAT 100; BMI 37.5
[2019-05-18 19:08] LABS: Add Manual Diff / Slide Review NO; Basophils Absolute Auto 0 /uL (0-100); Basophils Percent Auto 0.4 % (0-2); Eosinophils Absolute Auto 200 /uL (0-450); Eosinophils Percent Auto 2.9 % (2-4); Hematocrit 41.4 % (36-46); Hemoglobin 14.3 g/dL (12.0-16.0); Lymphocytes Absolute Auto 2800 /uL (1100-4500); Lymphocytes Percent Auto 33.9 % (25-40); Mean Corpuscular HGB Conc 34.6 % (30-36); Mean Corpuscular Hemoglobin 29.9 PG (26-34); Mean Corpuscular Volume 86.5 fL (80-100); Monocytes Absolute Auto 400 /uL (0-900); Neutrophils Absolute Auto 4800 /uL (1500-7000); Neutrophils Percent Auto 57.8 % (50-75); Platelet Count 216 X10^3/uL (150-400); Red Blood Cell Count 4.79 X10^6/uL (4.0-5.2); White Blood Cell Count 8.4 X10^3/uL (4.5-11.0)
[2019-05-18 19:24] LABS: Alanine Aminotransferase 90 IU/L (9-52); Albumin 4.8 g/dL (3.5-5.0); Albumin Globulin Ratio 1.6 (1.0-2.8); Alkaline Phosphatase 72 U/L (38-126); Aspartate Aminotransferase 67 IU/L (14-36); Bilirubin Total 0.4 mg/dL (0.2-1.3); Blood Urea Nitrogen 16 mg/dL (7-17); Calcium 9.8 mg/dL (8.4-10.2); Carbon Dioxide 28 mmol/L (22-32); Chloride 100 mmol/L (98-107); Estimated Glomerular Filt Rate > 60.0 mL/min (>60); Glucose 138 mg/dL (70-100); HEMOLYSIS < 15 (0-50); Lipase 174 U/L (23-300); Sodium 138 mmol/L (137-145); Total Protein 7.8 g/dL (6.3-8.2)
[2019-05-18 19:26] VITALS: BP 166/86; PULSE 95; O2SAT 99
--- NOTE | 2019-05-18 19:53 | ED.ABDPAIN ---
HPI - Abdominal Pain <KENISHA Ramos - Last Filed: 05/18/19 23:16> General Chief Complaint: Abdominal Pain Stated Complaint: abd/back pain 20 minutes pain level 9 Time Seen by Provider: 05/18/19 18:31 Source: patient Mode of arrival: Ambulatory Limitations: no limitations History of Present Illness HPI narrative: This is a 44 year female, former smoker, presents to ED with sudden onset of right upper quadrant pain with nausea onset at 30 minutes prior coming into ED. Patient denies fever for vomiting but reports chills. Patient has history of hysterectomy and mesh surgery in the past with complication with infection with resulted in additional surgeries. Patient denies abnormal vaginal discharge or bleeding. Patient has history of hepatomegaly and fatty infiltrated liver, kidney stones per CT scan test that was done in 03/24/2019. Patient reports this pain feels different from her kidney stone discomfort. Related Data Home Medications Medication Instructions Recorded Confirmed albuterol sulfate 3 ml INH Q6HP PRN 06/17/18 06/17/18 albuterol sulfate [ProAir HFA] 1 puff INHALATION PRN PRN 06/17/18 06/17/18 hydroxychloroquine 200 mg PO DAILY 06/17/18 06/17/18 metoprolol succinate 50 mg PO DAILY 06/17/18 06/17/18 sulfasalazine 500 mg PO QID 06/17/18 06/17/18 Previous Rx's Medication Instructions Recorded oxycodone-acetaminophen [Percocet] 1 tab PO Q4-6H PRN #14 tab 03/24/19 tamsulosin [Flomax] 0.4 mg PO DAILY #5 cap 03/24/19 omeprazole 20 mg PO DAILY #14 cap 05/18/19 Allergies Allergy/AdvReac Type Severity Reaction Status Date / Time cephalexin [From KEFLEX] Allergy Unknown Verified 05/18/19 19:04 ciprofloxacin [CIPROFLOXACIN] Allergy Unknown Verified 05/18/19 19:04 milk [MILK] Allergy Unknown Verified 05/18/19 19:04 Review of Systems <KENISHA Ramos - Last Filed: 05/18/19 23:16> Review of Systems Narrative: General: See HPI HEENT: Denies sinus pain, ear pain, sore throat, difficulty swallowing, dizziness. Respiratory: Denies dyspnea, cough, wheezing, hemoptysis, sputum. Cardiovascular: Denies chest pain, palpitations, orthopnea, edema. Gastrointestinal: HPI : Denies dysuria, frequency, incontinence, hematuria, urinary retention. Musculoskeletal: Denies weakness, joint pain or bony pain. Skin: Denies rash, skin lesions, or other. Neurologic: Denies weakness, headache, numbness, change in speech, confusion, seizures, incoordination. Psychiatric: No concerning psychosocial issues. 12-point review of systems is negative except for those stated above. 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 Head: Normal cephalic, atraumatic. No scalp or temporal tenderness, palpable mass or rash. EYES: Pupils are equal, round, and reactive to light and accommodation. Extraocular muscles are intact bilaterally. There is no subconjunctival hemorrhage, exudate and sclera non-icteric. ENT: Bilateral auditory canals and tympanic membranes clear. Hearing grossly intact. Nose without bleeding, purulent discharge or deviation. Facial sinuses nontender to palpate. Mucous membrane moist, no mucosal lesion. Throat without erythema, tonsillar hypertrophy or exudate. Uvula in midline, airway patent. Neck: Trachea in midline. No JVD, non-tender without lymphadenopathy. No masses or thyroid megaly. Supple, non-tender and no meningeal signs. CARDIAC: Normal regular rate and rhythm without murmurs, gallops, or rubs. No chest wall tenderness. No peripheral edema, cyanosis or pallor. Capillary refill is less than 2 seconds. RESPIRATORY: Lungs are clear to auscultate bilaterally. No cough, wheezes, rales, or rhonchi. No stridor, respiratory distress, increase work of breathing, or accessary muscle used. ABD: Abdomen soft and non-distended, tender on right upper abdomen with Darden's sign. No guarding or rebound tenderness to palpate. Bowel sounds are normal in all 4 quadrants. There is no palpable masses or organomegaly. EXT: Full painless ROM of all extremities with no loss of sensation, strength, effusion or edema. SKIN: Warm, dry, normal color for patient. No erythema, lesions or rash over visible areas. BACK: Nontender without deformity or crepitance. No flank tenderness. NEUROLOGICAL: Alert and oriented to place, time and person. Sensation and motor function intact bilaterally. No facial droops, dysphasia. PSYCHIATRIC: Good judgement and reason, without hallucinations, abnormal affect or abnormal behaviors during the examination. Initial Vital Signs Initial Vital Signs: Vital Signs Temperature 97.6 F 05/18/19 18:45 Pulse Rate 97 H 05/18/19 18:45 Respiratory Rate 18 05/18/19 18:45 Blood Pressure 199/118 H 05/18/19 18:45 Pulse Oximetry 100 05/18/19 18:45 <Foreign Aguilar DO - Last Filed: 05/19/19 04:58> Initial Vital Signs Initial Vital Signs: Vital Signs Temperature 97.6 F 05/18/19 18:45 Pulse Rate 97 H 05/18/19 18:45 Respiratory Rate 18 05/18/19 18:45 Blood Pressure 199/118 H 05/18/19 18:45 Pulse Oximetry 100 05/18/19 18:45 Scores <KENISHA Ramos - Last Filed: 05/18/19 23:16> GCS Ricky coma scale eye opening: Spontaneous Ricky coma scale verbal response: Orientated [place] coma scale motor response: Obey commands [place] coma scale total score: 15 Course <KENISHA Ramos - Last Filed: 05/18/19 23:16> Orders Ordered: Discontinued Medications Hydrocodone Bitart/Acetaminophen (Vicodin Prepack) 1 bottle MIS SEEINSTR ONE Stop: 05/18/19 21:42 Last Admin: 05/18/19 21:50 Dose: 1 bottle Documented by: ANGEL Sodium Chloride (Normal Saline 0.9%) 1,000 mls @ 150 mls/hr IV CONT FREDI Last Infusion: 05/18/19 21:39 Dose: 0 mls/hr Documented by: Admin: 05/18/19 18:57 Dose: 150 mls/hr Documented by: ANGEL Morphine Sulfate (Morphine) 4 mg IV NOW ONE Stop: 05/18/19 18:51 Last Admin: 05/18/19 18:57 Dose: 4 mg Documented by: ANGEL Ondansetron HCl (Zofran) 4 mg IV NOW ONE Stop: 05/18/19 18:51 Last Admin: 05/18/19 18:58 Dose: 4 mg Documented by: ANGEL Ondansetron HCl (Zofran Odt Prepack) 1 bottle MISC SEEINSTR ONE Stop: 05/18/19 21:12 Last Admin: 05/18/19 21:25 Dose: 1 bottle Documented by: ANGEL Pantoprazole Sodium (Protonix) 40 mg IV NOW ONE Stop: 05/18/19 21:12 Last Admin: 05/18/19 21:25 Dose: 40 mg Documented by: ANGEL Reevaluation(s) Reevaluation #1: pain much improved Time: 21:00 Consultations Consultation #1: Dr. Elmore-Out patient follow up for an evaluation, options for elective cholecystectomy Time: 21:25 Vital Signs Vital signs: Vital Signs - 8 hr 05/18/19 21:10 05/18/19 21:32 Pulse Rate 94 H 96 H Respiratory Rate 18 Blood Pressure [Right Arm] 148/82 H 159/61 H Pulse Oximetry 98 96 <Foreign Aguilar DO - Last Filed: 05/19/19 04:58> Orders Ordered: Discontinued Medications Hydrocodone Bitart/Acetaminophen (Vicodin Prepack) 1 bottle MISC SEEINSTR ONE Stop: 05/18/19 21:42 Last Admin: 05/18/19 21:50 Dose: 1 bottle Documented by: ANGEL Sodium Chloride (Normal Saline 0.9%) 1,000 mls @ 150 mls/hr IV CONT FREDI Last Infusion: 05/18/19 21:39 Dose: 0 mls/hr Documented by: Admin: 05/18/19 18:57 Dose: 150 mls/hr Documented by: ANGEL Morphine Sulfate (Morphine) 4 mg IV NOW ONE Stop: 05/18/19 18:51 Last Admin: 05/18/19 18:57 Dose: 4 mg Documented by: ANGEL Ondansetron HCl (Zofran) 4 mg IV NOW ONE Stop: 05/18/19 18:51 Last Admin: 05/18/19 18:58 Dose: 4 mg Documented by: ANGEL Ondansetron HCl (Zofran Odt Prepack) 1 bottle MISC SEEINSTR ONE Stop: 05/18/19 21:12 Last Admin: 05/18/19 21:25 Dose: 1 bottle Documented by: ANGEL Pantoprazole Sodium (Protonix) 40 mg IV NOW ONE Stop: 05/18/19 21:12 Last Admin: 05/18/19 21:25 Dose: 40 mg Documented by: ANGEL Vital Signs Vital signs: Vital Signs - 8 hr 05/18/19 21:10 05/18/19 21:32 Pulse Rate 94 H 96 H Respiratory Rate 18 Blood Pressure [Right Arm] 148/82 H 159/61 H Pulse Oximetry 98 96 MDM - Abdominal Pain <Lauro KENISHA Pimentel - Last Filed: 05/18/19 23:16> Differential Diagnosis Differential diagnosis: Likely pancreatitis, small bowel obstruction and other (Cholecystitis) Medical Records Attestation: I reviewed the patient's medical records. Lab Data Attestation: I reviewed the patient's lab results. Result diagrams: 05/18/19 19:02 05/18/19 19:02 Labs: Lab Results 05/18/19 05/18/19 Range/Units 19:02 19:02 WBC 8.4 (4.5-11.0) X10^3/uL RBC 4.79 (4.0-5.2) X10^6/uL Hgb 14.3 (12.0-16.0) g/dL Hct 41.4 (36-46) % MCV 86.5 (80-100) fL MCH 29.9 (26-34) PG MCHC 34.6 (30-36) % RDW 13.0 (11.6-14.8) % Plt Count 216 (150-400) X10^3/uL Neut % (Auto) 57.8 (50-75) % Lymph % (Auto) 33.9 (25-40) % [place] % (Auto) 5.0 (3-14) % Eos % (Auto) 2.9 (2-4) % Baso % (Auto) 0.4 (0-2) % Neut # (Auto) 4800 (8623-8095) /uL Lymph # (Auto) 2800 (5642-3365) /uL [place] # (Auto) 400 (0-900) /uL Eos # (Auto) 200 (0-450) /uL Baso # (Auto) 0 (0-100) /uL Sodium 138 (137-145) mmol/L Potassium 4.0 (3.4-5.1) mmol/L Chloride 100 (98-107) mmol/L Carbon Dioxide 28 (22-32) mmol/L BUN 16 (7-17) mg/dL Creatinine 0.50 L (0.52-1.04) mg/dL Estimated GFR > 60.0 (>60) mL/min BUN/Creatinine Ratio 32.0 H (6-22) Glucose 138 H (70-100) mg/dL Calcium 9.8 (8.4-10.2) mg/dL Total Bilirubin 0.4 (0.2-1.3) mg/dL AST 67 H (14-36) IU/L ALT 90 H (9-52) IU/L Alkaline Phosphatase 72 (38-126) U/L Total Protein 7.8 (6.3-8.2) g/dL Albumin 4.8 (3.5-5.0) g/dL Globulin 3.0 (1.7-4.1) g/dL Albumin/Globulin Ratio 1.6 (1.0-2.8) Lipase 174 (23-300) U/L Point of care testing: Urine Dip Bedside Urine Glucose Negative Bedside Urine Bilirubin - Negative Bedside Urine Ketone +/- 5 Urine Specific [place] 1.015 Bedside Urine Occult Blood - Negative Bedside Urine pH 6.0 Bedside Urine Protein + 30 Bedside Urine Urobilinogen - Negative Bedside Urine Nitrite - Negative Bedside Urine Leukocytes - Negative Esterase Imaging Data US-Abd limited: Radiologist's impression: [address] [address] Ultrasound Report Signed Patient: Arabella Saleem MMR#: [id number] : 1975Acct:[id number] Age/Sex: 44 / FDate of Service: 05/18/19 Loc: ED Accession Number: [id number] Procedure: US abdomen limited Ordering Provider: Lauro Pimentel PROCEDURE: US ABDOMEN LIMITED INDICATIONS: RIGHT UPPER QUADRANT PAIN; NAUSEA TECHNIQUE: Real-time focused scanning was performed of the abdomen, with image documentation. COMPARISON: None. FINDINGS: Severely echogenic liver diffusely. No focal hepatic lesion identified. The liver measures 20.5 cm in length. Gallbladder sludge is present however no wall thickening or pericholecystic fluid. Positive sonographic Darden sign noted. No biliary duct dilatation. Distal common bile duct measures 5 mm. And is normal sonographically visualized. IMPRESSION: Coarse echogenic liver suggesting diffuse hepatocellular disease/fatty infiltration. Please correlate with LFTs. Gallbladder sludge and positive sonographic Darden sign however no wall thickening or pericholecystic fluid. Recommend clinical correlation with LFTs to exclude acute cholecystitis. No evidence of bile duct dilatation. Dictated by: David Almazan M.D. on 05/18/2019 at 19:55 Approved by: David Almazan M.D. on 05/18/2019 at 19:56 ECG Data Attestation: I personally reviewed and interpreted this ECG as follows: Prior ECG tracings: available for review Interpretation: Sinus rhythm rate at 95. Normal [place]. Moderate voltage criteria for LVH. No change from previous EKG MDM Narrative Medical decision making narrative: This is a 44 year female with sudden onset of right upper quadrant pain radiating right side and to her back with nausea about 20 minutes prior coming into ED. Patient denied constitutional symptoms. Patient recently passed left kidney stone. Has a history of mildly enlarged liver with fatty infiltration with normal gallbladder, pancreas and spleen per CT scan in 05/18/19. Patient is waiting to be evaluated by a specialist for her liver conditions. For her Given patient's physical exam, ultrasound of abdomen obtained indicating gallbladder sludge without wall thickening, Pericholecystitis fluid, or biliary duct dilatation. No leukocytosis. Slightly elevated AST and ALT. Normal bilirubin. Patient has been afebrile in ED. Patient's blood pressure has been improved after the pain management to 148/82 with normal heart rate. Patient was medicated with normal saline, Zofran, morphine 4 mg, pantoprazole. Dr. Elmore, General Surgeon, was consulted and advised outpatient follow-up for elective cholecystectomy as needed. Since patient's pain improved and last abdomen CT was completed a month ago, another abdomen pelvis CT was deferred and patient agrees with this plan. Strict return precautions were discussed with the patient and patient verbalized understanding and agrees with treatment plan. Patient discharged to home with prepack Zofran and [place] prescriptions of omeprazole. Patient advised on non fatty diet. <Foreign Aguilar DO - Last Filed: 05/19/19 04:58> Lab Data Labs: Lab Results 05/18/19 05/18/19 Range/Units 19:02 19:02 WBC 8.4 (4.5-11.0) X10^3/uL RBC 4.79 (4.0-5.2) X10^6/uL Hgb 14.3 (12.0-16.0) g/dL Hct 41.4 (36-46) % MCV 86.5 (80-100) fL MCH 29.9 (26-34) PG MCHC 34.6 (30-36) % RDW 13.0 (11.6-14.8) % Plt Count 216 (150-400) X10^3/uL Neut % (Auto) 57.8 (50-75) % Lymph % (Auto) 33.9 (25-40) % [place] % (Auto) 5.0 (3-14) % Eos % (Auto) 2.9 (2-4) % Baso % (Auto) 0.4 (0-2) % Neut # (Auto) 4800 (7136-8032) /uL Lymph # (Auto) 2800 (2612-8119) /uL [place] # (Auto) 400 (0-900) /uL Eos # (Auto) 200 (0-450) /uL Baso # (Auto) 0 (0-100) /uL Sodium 138 (137-145) mmol/L Potassium 4.0 (3.4-5.1) mmol/L Chloride 100 (98-107) mmol/L Carbon Dioxide 28 (22-32) mmol/L BUN 16 (7-17) mg/dL Creatinine 0.50 L (0.52-1.04) mg/dL Estimated GFR > 60.0 (>60) mL/min BUN/Creatinine Ratio 32.0 H (6-22) Glucose 138 H (70-100) mg/dL Calcium 9.8 (8.4-10.2) mg/dL Total Bilirubin 0.4 (0.2-1.3) mg/dL AST 67 H (14-36) IU/L ALT 90 H (9-52) IU/L Alkaline Phosphatase 72 (38-126) U/L Total Protein 7.8 (6.3-8.2) g/dL Albumin 4.8 (3.5-5.0) g/dL Globulin 3.0 (1.7-4.1) g/dL Albumin/Globulin Ratio 1.6 (1.0-2.8) Lipase 174 (23-300) U/L Point of care testing: Urine Dip Bedside Urine Glucose Negative Bedside Urine Bilirubin - Negative Bedside Urine Ketone +/- 5 Urine Specific [place] 1.015 Bedside Urine Occult Blood - Negative Bedside Urine pH 6.0 Bedside Urine Protein + 30 Bedside Urine Urobilinogen - Negative Bedside Urine Nitrite - Negative Bedside Urine Leukocytes - Negative Esterase Discharge Plan Departure Patient Disposition: Home Clinical Impression: Acalculous cholecystitis Discharge Date/Time: 05/18/19 22:05 Activity Restrictions/Additional Instructions: You have been diagnosed with [right upper quadrant pain likely from gallbladder colicky pain. Your ultrasound test shows no gallstones but some slugde. Your lab test shows no infection but elevated liver function test. Please avoid fatty food or fried food since this may trigger recurring pain. Please stay on bland diet for next couple of days.]. What to do: *Take your medications as directed. I prescribed omeprazole for stomach discomfort. *Follow up with your primary care provider in 2-3 days, call for an appointment. Please contact General surgery for referral to follow up with your abdominal pain. Let them know you were seen in the ED and that we asked you to be seen in follow up. *Return to ED if you have any new, worsening, or concerning symptoms, such as [recurring severe pain, unable to tolerate fluids, chest pain, breathing difficulty, or any acute concerns]. Prescriptions: New omeprazole 20 mg capsule,delayed release(DR/EC) 20 mg PO DAILY Qty: 14 RF: 0 No Action metoprolol succinate 50 mg tablet extended release 24 hr 50 mg PO DAILY RF: 0 albuterol sulfate [ProAir HFA] 90 mcg/actuation HFA aerosol inhaler 1 puff Inhalation PRN PRN (Reason: Shortness Of Breath) RF: 0 albuterol sulfate 2.5 MG/3 ML solution for nebulization 3 ml INH Q6HP PRN (Reason: Shortness Of Breath) RF: 0 hydroxychloroquine 200 mg tablet 200 mg PO DAILY RF: 0 sulfasalazine 500 mg tablet,delayed release (DR/EC) 500 mg PO QID RF: 0 tamsulosin [Flomax] 0.4 mg capsule 0.4 mg PO DAILY Qty: 5 RF: 0 oxycodone-acetaminophen [Percocet] 5-325 mg tablet 1 tab PO Q4-6H PRN (Reason: pain) Qty: 14 RF: 0 Referrals: Candealrio Elmore MD [Physician] -
[2019-05-18 21:10] VITALS: BP 148/82; PULSE 94; RESP 18; O2SAT 98
[2019-05-18] MEDS: PANTOPRAZOLE 40 MG VIAL IV (21:25)
[2019-05-18] MEDS: ONDANSETRON 4 MG ODT PREPACK 1 BOTTLE MISC (21:25)
[2019-05-18 21:32] VITALS: BP 159/61; PULSE 96; O2SAT 96
[2019-05-18] MEDS: HYDROCODONE/ACET 5/325 PREPACK 1 BOTTLE MISC (21:50)
== END 2019-05-18 22:05 | disposition home or self-care (01) ==
PROVIDERS: Emergency Provider Nurse Practitioner Family
DX: K81.9 Cholecystitis, unspecified (principal); Z87.442 Personal history of urinary calculi; I10 Essential (primary) hypertension; R11.0 Nausea; R79.89 Other specified abnormal findings of blood chemistry; R10.11 Right upper quadrant pain
CPT/HCPCS: 36415; 76705; 80053; 81003; 83690; 85025; 93005; 93010; 96361; 96374; 96375; 99283; 99285; C9113; J2270; J2405

== ENCOUNTER 2019-07-04 09:43 | Emergency (ER) | payer OTHER, SELFPAY ==
[2019-07-04 10:00] VITALS: BP 150/99; PULSE 98; RESP 18; TEMP 36.3; O2SAT 96; BMI 38.0
--- NOTE | 2019-07-04 10:17 | ED_ITS ---
HPI - Dental/Oral <Candida Rothman, LEGAL ADVISER-BC - Last Filed: 07/04/19 11:53> General Chief complaint: Dental/Oral Stated complaint: TOOTH INFECTION Time Seen by Provider: 07/04/19 09:59 Source: patient Mode of arrival: Ambulatory Limitations: no limitations History of Present Illness HPI Narrative: The patient is a 44-year-old female former smoker with history of root canals hypertension and GERD who presents with a chief complaint of ?I've a dental infection.She states that she has pain and swelling around her right 1st upper molar. She states she was recently diagnosed with a dental infection by her dentist, not started on antibiotics, they wanted to not a root canal. However she cannot afford another root canal at this point time. She denies any fevers vomiting or diarrhea. She does endorse some nausea related to the gross taste from the tooth. She has taken ibuprofen for the pain which has helped. She is concerned about dental infection and is requesting antibiotics. The patient states that she has a history to cephalexin, that it was a rash. She states she has been able to take penicillin with no issues or reaction. Related Data Home Medications Medication Instructions Recorded Confirmed albuterol sulfate 3 ml INH Q6HP PRN 06/17/18 06/17/18 albuterol sulfate [ProAir HFA] 1 puff INHALATION PRN PRN 06/17/18 06/17/18 hydroxychloroquine 200 mg PO DAILY 06/17/18 06/17/18 metoprolol succinate 50 mg PO DAILY 06/17/18 06/17/18 sulfasalazine 500 mg PO QID 06/17/18 06/17/18 Previous Rx's Medication Instructions Recorded oxycodone-acetaminophen [Percocet] 1 tab PO Q4-6H PRN #14 tab 03/24/19 tamsulosin [Flomax] 0.4 mg PO DAILY #5 cap 03/24/19 omeprazole 20 mg PO DAILY #14 cap 05/18/19 penicillin V potassium 500 mg PO QID #40 tab 07/04/19 Allergies Allergy/AdvReac Type Severity Reaction Status Date / Time cephalexin [From KEFLEX] Allergy Unknown Verified 05/18/19 19:04 ciprofloxacin [CIPROFLOXACIN] Allergy Unknown Verified 05/18/19 19:04 milk [MILK] Allergy Unknown Verified 05/18/19 19:04 Review of Systems <LAKHWINDER Torres - Last Filed: 07/04/19 11:53> Constitutional Constitutional: Denies chills, Denies fever(s), Denies lethargy and Denies weakness Eyes Eyes: Denies change in vision, Denies eye discharge, Denies irritation and Denies loss of vision ENT Ears, Nose, Mouth, and Throat: Reports as per HPI, Denies change in voice, Khurram es neck pain and Denies sore throat Cardiovascular Cardiovascular: Denies chest pain, Denies irregular heart rhythm, Denies lightheadedness, Denies palpitations, Denies dyspnea, Denies dyspnea on exertion and Denies orthopnea Respiratory Respiratory: Denies cough, Denies dyspnea, Denies dyspnea on exertion and Denies wheezing Gastrointestinal Gastrointestinal: Reports as per HPI Musculoskeletal Musculoskeletal: Denies neck pain Integumentary/Breasts Skin/Breast: Denies pruritus, Denies erythema, Denies rash and Denies wounds Neurologic Neurologic: Denies loss of vision and Denies weakness Endocrine Endocrine: Denies palpitations Allergic/Immunologic Allergic/Immunologic: Denies wheezing Patient History <LAKHWINDER Torres - Last Filed: 07/04/19 11:53> Medical History Hypertension (Acute) Infected prosthetic mesh of abdominal wall (Acute) Surgical History H/O: hysterectomy (Acute) Social History Smoking Status: Former smoker Smoking Status: Former smoker alcohol intake frequency: holidays/special occasions only Substance Use Type: does not use Exam <LAKHWINDER Torres - Last Filed: 07/04/19 11:53> Initial Vital Signs Initial Vital Signs: Vital Signs Temperature 97.4 F L 07/04/19 10:00 Pulse Rate 98 H 07/04/19 10:00 Respiratory Rate 18 07/04/19 10:00 Blood Pressure 150/99 H 07/04/19 10:00 Pulse Oximetry 96 07/04/19 10:00 Const General: cooperative and well developed Nutritional Appearance: well nourished Orientation: alert, awake, oriented x3 and not confused [facility] Head: normal to inspection Ears: hearing grossly normal bilaterally, external ears normal and TM's normal bilaterally Nose: external nose normal and nares normal Face and sinus: normal facial exam, sinuses nontender and face symmetric Teeth and gingiva: abnormal dentition, gingiva abnormal (erythema, swelling around left front molar) edematous and tender and poor dentition Throat: posterior oropharynx normal, tonsils normal and uvula midline Chest Chest: normal inspection of the chest Resp Effort & Inspection: normal respiratory effort, able to speak in complete sentences, no respiratory distress and no use of accessory muscles Auscultation: clear to auscultation bilaterally, no rales, no rhonchi and no wheezes Cardio Rate: regular rate Rhythm: regular rhythm Heart Sounds: no click, no gallops, no murmurs and no rubs Pulses: normal peripheral pulses GI Inspection: non-distended Palpation: soft, no hepatosplenomegaly, No guarding, No pulsatile mass and No tender Auscultation: normal bowel sounds <Foreign Aguilar DO - Last Filed: 07/05/19 08:42> Initial Vital Signs Initial Vital Signs: Vital Signs Temperature 97.4 F L 07/04/19 10:00 Pulse Rate 98 H 07/04/19 10:00 Respiratory Rate 18 07/04/19 10:00 Blood Pressure 150/99 H 07/04/19 10:00 Pulse Oximetry 96 07/04/19 10:00 Course <LAKHWINDER Torres - Last Filed: 07/04/19 11:53> Vital Signs Vital signs: Vital Signs - 8 hr 07/04/19 10:00 Temperature 97.4 F L Pulse Rate 98 H Respiratory Rate 18 Blood Pressure 150/99 H Pulse Oximetry 96 <Foreign Aguilar DO - Last Filed: 07/05/19 08:42> Vital Signs Vital signs: Vital Signs - 8 hr 07/04/19 10:00 Temperature 97.4 F L Pulse Rate 98 H Respiratory Rate 18 Blood Pressure 150/99 H Pulse Oximetry 96 MDM - Dental/Oral <LAKHWINDER Torres - Last Filed: 07/04/19 11:53> [facility] Narrative Medical decision making narrative: The patient is a 44-year-old female who presents with a chief complaint of ?have a dental infection.She complains of pain and swelling, which is consistent with her exam. She has no signs of sepsis or systemic illness, is afebrile with no vomiting or diarrhea. She states that she has an allergy to cephalexin, but is able to take penicillin with no issues. I started her on penicillin. Discussed at length follow up with primary care provider, which he already has scheduled on Friday as well as following up with a dentist. Discussed monitoring for signs of systemic illness such as fever etc.. Patient has no questions or concerns and states understanding of return precautions as well as follow-up care. Discharge Plan Departure Patient Disposition: Home Clinical Impression: Dental infection Discharge Date/Time: 07/04/19 10:16 Instructions: DI for Tooth Abscess, DI for Dental Pain Activity Restrictions/Additional Instructions: Thank you for trusting us with your care today I sent in a prescription of penicillin to [facility] in [facility]. This should help you dental infection. Monitor for worsening despite antibiotics, fevers and signs of systemic illness. Please come back to emergency department for any acute concerns Please be aware that this is related to a medication that you have an allergy to. However you state that you have taken it before done well. Please take it with probiotic or yogurt Please use [id number] medications as needed for pain as well as ice packs Please follow-up with primary care provider as scheduled on Friday. Please also follow up with a dentist. Prescriptions: New penicillin V potassium 500 mg tablet 500 mg PO QID Qty: 40 RF: 0 No Action metoprolol succinate 50 mg tablet extended release 24 hr 50 mg PO DAILY RF: 0 albuterol sulfate [ProAir HFA] 90 mcg/actuation HFA aerosol inhaler 1 puff Inhalation PRN PRN (Reason: Shortness Of Breath) RF: 0 albuterol sulfate 2.5 MG/3 ML solution for nebulization 3 ml INH Q6HP PRN (Reason: Shortness Of Breath) RF: 0 hydroxychloroquine 200 mg tablet 200 mg PO DAILY RF: 0 sulfasalazine 500 mg tablet,delayed release (DR/EC) 500 mg PO QID RF: 0 tamsulosin [Flomax] 0.4 mg capsule 0.4 mg PO DAILY Qty: 5 RF: 0 oxycodone-acetaminophen [Percocet] 5-325 mg tablet 1 tab PO Q4-6H PRN (Reason: pain) Qty: 14 RF: 0 omeprazole 20 mg capsule,delayed release(DR/EC) 20 mg PO DAILY Qty: 14 RF: 0
== END 2019-07-04 10:16 | disposition home or self-care (01) ==
PROVIDERS: Emergency Provider Nurse Practitioner Family
DX: K04.7 Periapical abscess without sinus (principal)
CPT/HCPCS: 99283

== ENCOUNTER 2020-06-26 08:15 | Emergency (ER) | payer OTHER, SELFPAY ==
[2020-06-26 08:27] VITALS: BP 180/102; PULSE 108; RESP 15; TEMP 36.4; O2SAT 98; BMI 38.0
--- NOTE | 2020-06-26 08:34 | ED.EXTPRO ---
HPI - Extremity Problem General Chief complaint: Extremity Injury, Lower Stated complaint: left leg/knee numbness/pain x21 days Time Seen by Provider: 06/26/20 08:20 Source: patient Mode of arrival: Ambulatory Limitations: no limitations History of Present Illness HPI Narrative: 45-year-old female comes to the emergency department with complaint of left lower extremity pain as well as tingling and numb feet sensation. Patient states it has been going on for approximately 21 days. She states she does occasionally have back pain but does not seem to be specifically related to her lower extremity discomfort. She states that the numb tingling feeling goes down her leg through the bone all way to the foot. She states that she also has had increased pain in her left knee. She has appreciated swelling throughout her lower extremity. She has not appreciated any warmth, pallor, cyanosis or cool sensation. She states she is sitting typically from 8:00 a.m. 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 She is on estrogen supplement. She has not had any fevers. Patient has a history of hypertension, diabetes she takes metformin, rheumatoid arthritis and is on hydroxychloroquine, rosacea which she takes doxycycline. She has a history of hysterectomy followed by removal of mesh and surgical complications from infection, tonsil and adenoids as well as appendectomy. She does get a rash with Keflex. Related Data Home Medications Medication Instructions Recorded Confirmed albuterol sulfate 3 ml INH Q6HP PRN 06/17/18 06/17/18 albuterol sulfate [ProAir HFA] 1 puff INHALATION PRN PRN 06/17/18 06/17/18 hydroxychloroquine 200 mg PO DAILY 06/17/18 06/17/18 metoprolol succinate 50 mg PO DAILY 06/17/18 06/17/18 sulfasalazine 500 mg PO QID 06/17/18 06/17/18 Previous Rx's Medication Instructions Recorded oxycodone-acetaminophen [Percocet] 1 tab PO Q4-6H PRN #14 tab 03/24/19 tamsulosin [Flomax] 0.4 mg PO DAILY #5 cap 03/24/19 omeprazole 20 mg PO DAILY #14 cap 05/18/19 penicillin V potassium 500 mg PO QID #40 tab 07/04/19 gabapentin 100 mg PO TID #30 cap 06/26/20 Allergies Allergy/AdvReac Type Severity Reaction Status Date / Time cephalexin [From KEFLEX] Allergy Unknown Verified 06/26/20 17:04 ciprofloxacin [CIPROFLOXACIN] Allergy Unknown Verified 06/26/20 17:04 milk [MILK] Allergy Unknown Verified 06/26/20 17:04 Review of Systems Review of Systems ROS Unobtainable: All systems reviewed & are unremarkable except as noted in HPI and below Patient History Medical History (Updated 06/26/20 @ 09:39 by Candida Mata DO) Hypertension Infected prosthetic mesh of abdominal wall Surgical History H/O: hysterectomy Social History Smoking Status: Former smoker Smoking Status: Former smoker alcohol intake frequency: holidays/special occasions only Substance Use Type: does not use Exam Narrative Exam Narrative: GENERAL: Alert and oriented x three, obese, well-appearing female in mild distress. HEENT: Head normocephalic, atraumatic, EOMI, pupils reactive, face symmetric, moist mucous membranes NECK: Supple, full range of motion CARDIOVASCULAR: Regular rate and rhythm without murmurs, rubs or gallops. RESPIRATORY: Breath sounds equal bilaterally, no wheezes rales or rhonchi. ABDOMEN: Soft, nontender. Normoactive bowel sounds all 4 quadrants. No guarding or rebound, rigidity, no mass : No CVA tenderness BACK: No cervical, thoracic or lumbar vertebral point tenderness. Patient has normal range of motion. Patient's gait is mildly antalgic. Rectal exam is deferred. Muscle strength is 5/5 in lower extremities, DTRs are 2/4 and lower extremities. Dorsalis pedis and tibialis pulses are 2+ and lower extremities. Sensation is intact in the lower extremities to light touch. Patient does appear uncomfortable bringing her leg up to remove pants, etc. EXTREMITIES: Normal range of motion, no clubbing or edema aqppreciated by myelf. Neurovascularly intact NEUROLOGICAL: Cranial nerves II through XII grossly intact. Moving all extremities SKIN: Warm, dry, no petechiae, no rashes or lesions. Initial Vital Signs Initial Vital Signs: Vital Signs Temperature 97.5 F L 06/26/20 08:27 Pulse Rate 108 H 06/26/20 08:27 Respiratory Rate 15 06/26/20 08:27 Blood Pressure 180/102 H 06/26/20 08:27 Pulse Oximetry 98 06/26/20 08:27 Scores PERC Score Age greater than or equal to 50 years: No Heart rate greater than or equal to 100 bpm: No Room Air O2 Sat less than 95%: No Unilateral leg swelling: Yes Recent trauma or surgery: No Hemoptysis: No Prior PE or DVT: No Hormone Use: Yes Total PERC Score: 2 Course Orders Ordered: ED Orders 06/26/20 08:33 US periph venous low extrem lt Stat XR knee LT 3V Stat Vital Signs Vital signs: Vital Signs - 8 hr 06/26/20 08:27 Temperature 97.5 F L Pulse Rate 108 H Respiratory Rate 15 Blood Pressure 180/102 H Pulse Oximetry 98 MDM - Extremity (Nontraumatic) Imaging Data US - DVT: Radiologist's Impression: [address] [id number] ReportSigned Patient: Arabella Saleem [facility]#: [id number]: 1975Acct:[id number]/Sex: 45 / FDate of Service: 06/26/20Loc: EDAccession Number: [id number] Procedure: US periph venous low extrem lt Ordering Provider: Candida Mata D.O. PROCEDURE: US PERIPH VENOUS LOW EXTREM LT INDICATIONS: LEFT LEG PAIN, TINGLING, SWELLING. TECHNIQUE: Real-time imaging, as well as color and pulse Doppler interrogation, were performed of the lower extremity deep veins from the inguinal ligament to the popliteal fossa. COMPARISON: None. FINDINGS: The common femoral, femoral and popliteal veins are normally compressible, and free of intraluminal thrombus. Color and pulse Doppler demonstrate normal phasic intraluminal flow. There is normal augmentation response to distal compression maneuver. IMPRESSION: No deep venous thrombosis. Dictated by: Ame Muñiz M.D. on 06/26/2020 at 9:19 Approved by: Ame Muñiz M.D. on 06/26/2020 at 9:20 Extremity x-ray #1: Radiologist's Impression: [address] [id number] ReportSigned Patient: Arabella Saleem [facility]#: [id number]: 1975Acct:[id number]/Sex: 45 / FDate of Service: 06/26/20Loc: EDAccession Number: [id number] Procedure: XR knee LT 3V Ordering Provider: Candida Mata D.O. PROCEDURE: XR KNEE LT 3V INDICATIONS: leg/knee pain, hx of spot in bone TECHNIQUE: 3 views of the knee were acquired. COMPARISON: [facility], , KNEE 3V LEFT, 11/17/2017, 14:49. FINDINGS: Bones: No fractures or dislocations. No suspicious bony lesions. No change in sessile osteochondromas involving the medial/distal femur. Soft tissues: No joint effusion. No suspicious soft tissue calcifications. IMPRESSION: 1. No fracture. 2. No significant change in sessile osteochondroma involving the medial femoral condyle. Further assessment with nonemergent outpatient follow-up knee MRI with and without intravenous contrast is recommended to exclude underlying neoplasm. Dictated by: Nam Lopez M.D. on 06/26/2020 at 9:02 Approved by: Nam Lopez M.D. on 06/26/2020 at 9:03 [facility] Narrative Medical decision making narrative: 45-year-old female who comes in with complaint of left leg numbness, tingling and pain particularly worse in the knee. Patient has multiple medical issues that would make her high risk for DVT, she could potentially be having sciatica or radiculopathy, she also has a history of diabetes and has potential for diabetic neuropathy although this is only one-sided symptoms. She has also had history of a spot in her knee that was concerning and she followed up with Orthopedics at [facility], she was told it was not something to worry about but has not been able to attend follow-up study secondary to COVID pandemic. Patient has not had any significant change in her x-ray imaging the knee. DVT ultrasound is negative. Discussed with patient I suspect she is either having a radiculopathy or possibly diabetic neuropathy and discussed trying some gabapentin with her medications to see if this is helpful to control her symptoms. We also discussed trying to have more movement throughout the day to see if this is also helpful as she does and up stuck in a chair for prolonged periods secondary to her work. Discharge Plan Departure Patient Disposition: Home Clinical Impression: Left leg paresthesias Instructions: DI for Lumbar Radiculopathy Activity Restrictions/Additional Instructions: Follow-up with your physician in the next week for recheck. I suspect her paresthesias are secondary to either a radiculopathy or possibly a neuropathy. You may take gabapentin 1 tablet every 8 hours as needed symptoms, this medication can be titrated up to a significantly higher dose but I would discuss with your physician the best way to titrate it if needed. Prescription to [facility] You may continue tylenol and/or ibuprofen as needed with this medication. This can occasion can make you sleepy so do not drive, perform hazardous activities make any major decisions while initially taking it. Return to the ER for fevers, new weakness, inability to move her extremity, inability to walk, rapidly worsening back pain, loss of bowel or bladder control, passing out, new color changes such as pallor, cyanosis or complete loss of sensation. Prescriptions: New gabapentin 100 mg capsule 100 mg PO TID Qty: 30 RF: 0 No Action metoprolol succinate 50 mg tablet extended release 24 hr 50 mg PO DAILY RF: 0 albuterol sulfate [ProAir HFA] 90 mcg/actuation HFA aerosol inhaler 1 puff Inhalation PRN PRN (Reason: Shortness Of Breath) RF: 0 albuterol sulfate 2.5 MG/3 ML solution for nebulization 3 ml INH Q6HP PRN (Reason: Shortness Of Breath) RF: 0 hydroxychloroquine 200 mg tablet 200 mg PO DAILY RF: 0 sulfasalazine 500 mg tablet,delayed release (DR/EC) 500 mg PO QID RF: 0 penicillin V potassium 500 mg tablet 500 mg PO QID Qty: 40 RF: 0 tamsulosin [Flomax] 0.4 mg capsule 0.4 mg PO DAILY Qty: 5 RF: 0 oxycodone-acetaminophen [Percocet] 5-325 mg tablet 1 tab PO Q4-6H PRN (Reason: pain) Qty: 14 RF: 0 omeprazole 20 mg capsule,delayed release(DR/EC) 20 mg PO DAILY Qty: 14 RF: 0
[2020-06-26 09:50] VITALS: BP 156/70; PULSE 90; RESP 16; O2SAT 98
[2020-06-26 09:57] VITALS: BP 142/89; PULSE 82; RESP 15; O2SAT 99
== END 2020-06-26 09:57 | disposition home or self-care (01) ==
PROVIDERS: Emergency Provider Emergency Medicine
DX: R20.2 Paresthesia of skin (principal); M25.562 Pain in left knee; I10 Essential (primary) hypertension; E11.9 Type 2 diabetes mellitus without complications; Z90.710 Acquired absence of both cervix and uterus; E66.9 Obesity, unspecified; Z68.38 Body mass index [BMI] 38.0-38.9, adult
CPT/HCPCS: 73562; 93971

== ENCOUNTER 2020-06-26 16:45 | Emergency (ER) | payer OTHER, SELFPAY ==
[2020-06-26 17:04] VITALS: BP 183/107; PULSE 100; RESP 16; TEMP 36.5; O2SAT 96; BMI 38.0
[2020-06-26 19:55] VITALS: BP 189/95; PULSE 99; RESP 17; TEMP 36.7; O2SAT 98
--- NOTE | 2020-06-26 19:56 | ED.LOWEXIN ---
HPI - Extremity Injury (Lower) General Chief Complaint: Extremity Injury, Lower Stated Complaint: LEFT LEG SWELLING Time Seen by Provider: 06/26/20 19:53 Source: patient Mode of arrival: Ambulatory Limitations: no limitations History of Present Illness HPI Narrative: 45F former smoker with history of HTN, palpitations, returns for the second time today due to ongoing, if not worsening left leg pain and tingling. She had been seen earlier today with a complaint of left foot and leg numbness and tingling with pain for the past 3 weeks. She states that she had not had any recent injury or overuse. She denies any history of blood clot, fever or chills. She has had no trouble controlling bowel or bladder and denies any weakness of her lower extremity. She has had no fever chills and denies any history of IV drug abuse or the use of blood thinners. Her evaluation earlier was very thorough and included labs as well as an ultrasound to rule out DVT. She was given a prescription for gabapentin which she had yet to fill. Related Data Home Medications Medication Instructions Recorded Confirmed albuterol sulfate 3 ml INH Q6HP PRN 06/17/18 06/17/18 albuterol sulfate [ProAir HFA] 1 puff INHALATION PRN PRN 06/17/18 06/17/18 hydroxychloroquine 200 mg PO DAILY 06/17/18 06/17/18 metoprolol succinate 50 mg PO DAILY 06/17/18 06/17/18 sulfasalazine 500 mg PO QID 06/17/18 06/17/18 Previous Rx's Medication Instructions Recorded oxycodone-acetaminophen [Percocet] 1 tab PO Q4-6H PRN #14 tab 03/24/19 tamsulosin [Flomax] 0.4 mg PO DAILY #5 cap 03/24/19 omeprazole 20 mg PO DAILY #14 cap 05/18/19 penicillin V potassium 500 mg PO QID #40 tab 07/04/19 gabapentin 100 mg PO TID #30 cap 06/26/20 hydrocodone-acetaminophen 1 tab PO Q4-6H PRN #10 tab 06/27/20 ketorolac 10 mg PO Q6H PRN #14 tab 06/27/20 prednisone 10 mg PO DAILY #30 tab 06/27/20 Allergies Allergy/AdvReac Type Severity Reaction Status Date / Time cephalexin [From KEFLEX] Allergy Unknown Verified 06/26/20 17:04 ciprofloxacin [CIPROFLOXACIN] Allergy Unknown Verified 06/26/20 17:04 milk [MILK] Allergy Unknown Verified 06/26/20 17:04 Review of Systems Constitutional Constitutional: Denies chills, Denies fatigue, Denies fever(s), Denies frequent falls, Denies lethargy and Denies weakness Eyes Eyes: Denies change in vision, Denies eye discharge, Denies irritation and Denies loss of vision ENT Ears, Nose, Mouth, and Throat: Denies change in voice, Denies dizziness, Denies neck pain, Denies sore throat and Denies throat swelling Cardiovascular Cardiovascular: Denies chest pain, Denies irregular heart rhythm, Denies lightheadedness, Denies palpitations, Denies dyspnea, Denies dyspnea on exertion and Denies orthopnea Respiratory Respiratory: Denies cough, Denies dyspnea, Denies dyspnea on exertion and Denies wheezing Gastrointestinal Gastrointestinal: Denies abdominal pain, Denies change in bowel habits, Denies diarrhea, Denies nausea and Denies vomiting Musculoskeletal Musculoskeletal: Reports back pain, Denies neck pain, Reports numbness and Reports radiating pain into limb Integumentary/Breasts Skin/Breast: Denies pruritus, Denies erythema, Denies rash and Denies wounds Neurologic Neurologic: Denies behavioral changes, Denies confusion, Denies dizziness, Denies frequent falls, Denies loss of vision, Reports numbness and Denies weakness Psychiatric Psychiatric: Denies anxiety, Denies behavioral changes, Denies confusion, Denies depression, Denies homicidal ideation and Denies suicidal ideation Endocrine Endocrine: Denies fatigue, Denies flushing and Denies palpitations Hematologic/Lymphatic Hematologic/Lymphatic: Denies easy bruising Allergic/Immunologic Allergic/Immunologic: Denies urticaria, Denies throat swelling and Denies wheezing Patient History Medical History Hypertension Infected prosthetic mesh of abdominal wall Surgical History H/O: hysterectomy Social History Smoking Status: Former smoker Smoking Status: Former smoker alcohol intake frequency: holidays/special occasions only Substance Use Type: does not use Exam Narrative Exam Narrative: GENERAL: [45] year old patient appears stated age. Well-nourished, well-developed patient, in mild distress. Obviously uncomfortable HEAD: Atraumatic. Normocephalic. EYES: Pupils equal round and reactive. Extraocular motions intact. No scleral icterus. No injection or drainage. ENT: Nose without bleeding, purulent drainage. Throat without erythema, tonsillar hypertrophy or exudate. Airway patent. NECK: Trachea midline. Non tender, no midline pain, no change in symptoms with axial loading. No step-offs or crepitance. CARDIOVASCULAR: Regular rate and rhythm without murmurs, gallops, or rubs. RESPIRATORY: Clear to auscultation. Breath sounds equal bilaterally. No wheezes, rales, or rhonchi. GASTROINTESTINAL: Abdomen soft, non-tender, nondistended. EXTREMITIES: No edema or joint tenderness. BACK: matting press tender but free of any obvious external abnormalities. Patient exam notes decreased range of motion and muscle spasm, but no CVA tenderness, or vertebral point tenderness. There are no symptoms of cauda equina such as saddle anesthesia, and decreased reflexes, or decreased strength. NEURO: AOx3. SKIN: No rash or erythema of visible areas Initial Vital Signs Initial Vital Signs: Vital Signs Temperature 97.7 F 06/26/20 17:04 Pulse Rate 100 H 06/26/20 17:04 Respiratory Rate 16 06/26/20 17:04 Blood Pressure 183/107 H 06/26/20 17:04 Pulse Oximetry 96 06/26/20 17:04 Course Orders Ordered: ED Orders 06/26/20 20:53 CT cervical spine wo con Stat CT lumbar spine wo con Stat CT thoracic spine wo con Stat 06/26/20 21:08 C-Reactive Protein Quant Stat Complete Blood Count AUTO DIFF Stat Comprehensive Metabolic Panel Stat Discontinued Medications Hydrocodone Bitart/Acetaminophen (Hydrocodone/Acet 5/325 Prepack) 1 bottle MISC SEEINSTR ONE Stop: 06/27/20 01:35 Last Admin: 06/27/20 01:42 Dose: 1 bottle Documented by: MCKINLEY Cyclobenzaprine HCl (Cyclobenzaprine 10 Mg Prepack) 1 bottle MISC SEEINSTR ONE Stop: 06/27/20 01:35 Last Admin: 06/27/20 01:42 Dose: 1 bottle Documented by: MCKINLEY Dexamethasone (Dexamethasone 10 Mg/Ml Vial) 8 mg IV NOW ONE Stop: 06/26/20 21:51 Last Admin: 06/26/20 21:58 Dose: 8 mg Documented by: MCKINLEY Ketorolac Tromethamine (Ketorolac 60 Mg/2 Ml Vial) 15 mg IV NOW ONE Stop: 06/26/20 21:51 Last Admin: 06/26/20 21:56 Dose: 15 mg Documented by: MCKINLEY Metoprolol Tartrate (Metoprolol Ir 25 Mg Tablet) 50 mg PO NOW ONE Stop: 06/26/20 21:50 Last Admin: 06/26/20 21:56 Dose: 50 mg Documented by: MCKINLEY Consultations Consultation #1: discussed with on-call ortho. Request to tx as any radiculopathy. Outpatient followup and likely need for MRI> Vital Signs Vital signs: Vital Signs - 8 hr 06/26/20 19:55 06/26/20 21:11 06/26/20 22:08 Temperature 98.0 F Pulse Rate 99 H 95 H 94 H Respiratory Rate 17 16 Blood Pressure 189/95 H 202/87 H 168/80 H Pulse Oximetry 98 97 94 06/26/20 22:33 06/26/20 23:45 06/27/20 00:09 Temperature Pulse Rate 88 88 89 Respiratory Rate 16 Blood Pressure 162/79 H 160/72 H 148/76 H Pulse Oximetry 97 97 97 06/27/20 01:47 Temperature 97.9 F Pulse Rate 90 Respiratory Rate 20 Blood Pressure 146/67 H Pulse Oximetry 96 MDM - Extremity Injury (Lower) Lab Data Result diagrams: 06/26/20 21:08 06/26/20 21:08 Labs: Lab Results 06/26/20 06/26/20 Range/Units 21:08 21:08 WBC 8.1 (4.5-11.0) X10^3/uL RBC 4.80 (4.0-5.2) X10^6/uL Hgb 14.0 (12.0-16.0) g/dL Hct 41.5 (36-46) % MCV 86.3 (80-100) fL MCH 29.2 (26-34) PG MCHC 33.9 (30-36) % RDW 13.3 (11.6-14.8) % Plt Count 219 (150-400) X10^3/uL Neut % (Auto) 50.1 (50-75) % Lymph % (Auto) 39.7 (25-40) % Hardeman % (Auto) 5.8 (3-14) % Eos % (Auto) 3.9 (2-4) % Baso % (Auto) 0.5 (0-2) % Neut # (Auto) 4100 (7857-3557) /uL Lymph # (Auto) 3200 (2194-0338) /uL Hardeman # (Auto) 500 (0-900) /uL Eos # (Auto) 300 (0-450) /uL Baso # (Auto) 0 (0-100) /uL Sodium 138 (137-145) mmol/L Potassium 4.4 (3.4-5.1) mmol/L Chloride 103 (98-107) mmol/L Carbon Dioxide 27 (22-32) mmol/L BUN 14 (7-17) mg/dL Creatinine 0.39 L (0.52-1.04) mg/dL Estimated GFR > 60.0 (>60) mL/min BUN/Creatinine Ratio 35.9 H (6-22) Glucose 122 H (70-100) mg/dL Calcium 9.7 (8.4-10.2) mg/dL Total Bilirubin 0.7 (0.2-1.3) mg/dL AST 63 H (14-36) IU/L ALT 66 H (<35) IU/L Alkaline Phosphatase 65 (38-126) U/L C-Reactive Protein 1.6 H (<1.0) mg/dL Total Protein 8.0 (6.3-8.2) g/dL Albumin 4.7 (3.5-5.0) g/dL Globulin 3.3 (1.7-4.1) g/dL Albumin/Globulin Ratio 1.4 (1.0-2.8) Imaging Data CT - cervical spine: Radiologist's Impression: [address] [id number] Scan ReportSigned Patient: Arabella Saleem MMR#: [id number]: [id number]:[id number]/Sex: 45 / FDate of Service: 06/26/20Loc: EDAccession Number: [id number] Procedure: CT cervical spine wo con Ordering Provider: Foreign Aguilar D.O. PROCEDURE: CT CERVICAL SPINE WO CON INDICATIONS: pain in neck, radiation to arms TECHNIQUE: Noncontrast 3 mm thick sections acquired from the skull base to the T4 level. Sagittal and coronal reformats were then constructed. For radiation dose reduction, the following was used: automated exposure control, adjustment of mA and/or kV according to patient size. COMPARISON: None. FINDINGS: Image quality: Excellent. Bones: No fractures or dislocations. Mild degenerative disc height loss at C5-6 with mild circumferential endplate osteophytes. No significant central canal or foraminal stenosis. Visualized superior ribs are intact. Soft tissues: Prevertebral soft tissues are normal in thickness. No paravertebral hematomas. No apical pneumothoraces. IMPRESSION: 1. No CT evidence of acute cervical spine trauma. 2. Moderate disc and mild endplate degeneration at the C5-6 level without central canal or foraminal stenosis. Dictated by: Cher Abel M.D. on 06/26/2020 at 22:23 Approved by: Cher Abel M.D. on 06/26/2020 at 22:27 CT Thoracic Spine: Radiologist's Impression: [address] [id number] Scan ReportSigned Patient: Arabella Saleem MMR#: [id number]: [id number]:[id number]/Sex: 45 / FDate of Service: 06/26/20Loc: EDAccession Number: [id number] Procedure: CT thoracic spine wo con Ordering Provider: Foreign Aguilar D.O. P no ROCEDURE: CT THORACIC SPINE WO CON INDICATIONS: pain with palpation midline, numbness and tingling TECHNIQUE: Noncontrast 3 mm thick sections acquired through the region of interest in the thoracic spine. Sagittal and coronal reformats were then constructed. For radiation dose reduction, the following was used: automated exposure control. COMPARISON: None. FINDINGS: Image quality: Excellent. Bones: There is normal overall bony alignment. No acute vertebral body compression fractures. No suspicious sclerotic or lytic bony lesions. Central spinal canal is of normal overall caliber. Soft tissues: There is a unencapsulated area of subcutaneous soft tissue thickening measuring roughly 1.8 x 1.3 cm in the midline subdermal soft tissues at the T2 level. No other soft tissue lesions. No paravertebral masses or hematomas. Visualized posteromedial lungs appear clear. Incidental note made of severe P[place]ock steatosis and numerous bilateral nonobstructing intrarenal calculi. IMPRESSION: 1. Intact thoracic spine. 2. Subcutaneous soft tissue density at the T2 level, likely small focus of folliculitis or sebaceous cyst. 3. Extensive bilateral nonobstructing intrarenal calculi. Dictated by: Cher Abel M.D. on 06/26/2020 at 22:27 Approved by: Cher Abel M.D. on 06/26/2020 at 22:32 [facility] Narrative Medical decision making narrative: Multiple etiologies for patient's symptoms considered including: [Epidural abscess versus epidural hematoma vs. cauda equina vs. lumbar radiculopathy vs. other] Patient's symptoms improved over duration of stay with above-stated therapies. Findings and discharge diagnosis discussed with patient/family followed by verbalization of understanding Return precautions discussed with patient/family whom verbalize understanding. Discharge Plan Departure Patient Disposition: Home Clinical Impression: Acute left lumbar radiculopathy Instructions: DI for Lumbar Radiculopathy Activity Restrictions/Additional Instructions: *You have been diagnosed with [acute lumbar radiculopathy] *What to do: *Take medications as directed *Follow up with your primary care provider in 2-3 days, call for an appointment. Let them know you were seen in the Emergency Department and that we ask that you be seen in follow up. It is likely that they will help you get an outpatient MRI for further evaluation of of your back *Return to ER if you should have any new, worsening or concerning symptoms, such as [fever > 101F, worsening pain, loss of control of bowel or bladder, or other bothersome symptoms ] Prescriptions: New prednisone 10 mg tablet 10 mg PO DAILY Qty: 30 RF: 0 hydrocodone-acetaminophen 5-325 mg tablet 1 tab PO Q4-6H PRN (Reason: pain) Qty: 10 RF: 0 ketorolac 10 mg tablet 10 mg PO Q6H PRN (Reason: pain) Qty: 14 RF: 0 No Action metoprolol succinate 50 mg tablet extended release 24 hr 50 mg PO DAILY RF: 0 albuterol sulfate [ProAir HFA] 90 mcg/actuation HFA aerosol inhaler 1 puff Inhalation PRN PRN (Reason: Shortness Of Breath) RF: 0 albuterol sulfate 2.5 MG/3 ML solution for nebulization 3 ml INH Q6HP PRN (Reason: Shortness Of Breath) RF: 0 hydroxychloroquine 200 mg tablet 200 mg PO DAILY RF: 0 sulfasalazine 500 mg tablet,delayed release (DR/EC) 500 mg PO QID RF: 0 penicillin V potassium 500 mg tablet 500 mg PO QID Qty: 40 RF: 0 tamsulosin [Flomax] 0.4 mg capsule 0.4 mg PO DAILY Qty: 5 RF: 0 oxycodone-acetaminophen [Percocet] 5-325 mg tablet 1 tab PO Q4-6H PRN (Reason: pain) Qty: 14 RF: 0 omeprazole 20 mg capsule,delayed release(DR/EC) 20 mg PO DAILY Qty: 14 RF: 0 gabapentin 100 mg capsule 100 mg PO TID Qty: 30 RF: 0
--- NOTE | 2020-06-26 20:53 | DI.CT.S_ITS ---
PROCEDURE: CT CERVICAL SPINE WO CON INDICATIONS: pain in neck, radiation to arms TECHNIQUE: Noncontrast 3 mm thick sections acquired from the skull base to the T4 level. Sagittal and coronal reformats were then constructed. For radiation dose reduction, the following was used: automated exposure control, adjustment of mA and/or kV according to patient size. COMPARISON: None. FINDINGS: Image quality: Excellent. Bones: No fractures or dislocations. Mild degenerative disc height loss at C5-6 with mild circumferential endplate osteophytes. No significant central canal or foraminal stenosis. Visualized superior ribs are intact. Soft tissues: Prevertebral soft tissues are normal in thickness. No paravertebral hematomas. No apical pneumothoraces. IMPRESSION: 1. No CT evidence of acute cervical spine trauma. 2. Moderate disc and mild endplate degeneration at the C5-6 level without central canal or foraminal stenosis. Dictated by: Cher Abel M.D. on 06/26/2020 at 22:23 Approved by: Cher Abel M.D. on 06/26/2020 at 22:27
--- NOTE | 2020-06-26 20:53 | DI.CT.S_ITS ---
PROCEDURE: CT LUMBAR SPINE WO CON INDICATIONS: pain in midline with radiation down leg TECHNIQUE: Noncontrast 3 mm thick sections acquired from the T12 level to the sacrum. Sagittal and coronal reformats were constructed. For radiation dose reduction, the following was used: automated exposure control. COMPARISON: None. FINDINGS: Image quality: Excellent. Bones: There is normal bony alignment. No acute vertebral body compression fractures. No suspicious lytic or blastic bony lesions. Central spinal caliber is of normal overall caliber. No pars defects. Discs: Multilevel mild disc height loss from L1 through L5. Mild circumferential disc bulges at L2-3, L3-4, and L4-5. In combination with mild epidural lipomatosis, there may be multilevel central canal narrowing. No focal visible disc herniation. Soft tissues: No retroperitoneal masses or hematomas. Extensive bilateral nonobstructing intrarenal calculi. Severe hepatic steatosis and hepatomegaly. Visualized aorta is normal in caliber. IMPRESSION: 1. No acute bony abnormalities such as fracture or dislocation. 2. Mild multilevel disc height loss and diffuse disc bulges. There may be multilevel mild central canal narrowing. Consider MRI when the patient is able. 3. Severe hepatic steatosis. 4. Numerous nonobstructing bilateral intrarenal calculi. Dictated by: Cher Abel M.D. on 06/26/2020 at 22:32 Approved by: Cher Abel M.D. on 06/26/2020 at 22:37
--- NOTE | 2020-06-26 20:53 | DI.CT.S_ITS ---
P no ROCEDURE: CT THORACIC SPINE WO CON INDICATIONS: pain with palpation midline, numbness and tingling TECHNIQUE: Noncontrast 3 mm thick sections acquired through the region of interest in the thoracic spine. Sagittal and coronal reformats were then constructed. For radiation dose reduction, the following was used: automated exposure control. COMPARISON: None. FINDINGS: Image quality: Excellent. Bones: There is normal overall bony alignment. No acute vertebral body compression fractures. No suspicious sclerotic or lytic bony lesions. Central spinal canal is of normal overall caliber. Soft tissues: There is a unencapsulated area of subcutaneous soft tissue thickening measuring roughly 1.8 x 1.3 cm in the midline subdermal soft tissues at the T2 level. No other soft tissue lesions. No paravertebral masses or hematomas. Visualized posteromedial lungs appear clear. Incidental note made of severe P[place]ock steatosis and numerous bilateral nonobstructing intrarenal calculi. IMPRESSION: 1. Intact thoracic spine. 2. Subcutaneous soft tissue density at the T2 level, likely small focus of folliculitis or sebaceous cyst. 3. Extensive bilateral nonobstructing intrarenal calculi. Dictated by: Cher Abel M.D. on 06/26/2020 at 22:27 Approved by: Cher Abel M.D. on 06/26/2020 at 22:32
[2020-06-26 21:11] VITALS: BP 202/87; PULSE 95; RESP 16; O2SAT 97
[2020-06-26 21:17] LABS: Add Manual Diff / Slide Review NO; Basophils Absolute Auto 0 /uL (0-100); Basophils Percent Auto 0.5 % (0-2); Eosinophils Absolute Auto 300 /uL (0-450); Eosinophils Percent Auto 3.9 % (2-4); Hematocrit 41.5 % (36-46); Lymphocytes Absolute Auto 3200 /uL (1100-4500); Lymphocytes Percent Auto 39.7 % (25-40); Mean Corpuscular HGB Conc 33.9 % (30-36); Mean Corpuscular Hemoglobin 29.2 PG (26-34); Mean Corpuscular Volume 86.3 fL (80-100); Monocytes Absolute Auto 500 /uL (0-900); Monocytes Percent Auto 5.8 % (3-14); Neutrophils Absolute Auto 4100 /uL (1500-7000); Neutrophils Percent Auto 50.1 % (50-75); Platelet Count 219 X10^3/uL (150-400); Red Cell Distribution Width 13.3 % (11.6-14.8); White Blood Cell Count 8.1 X10^3/uL (4.5-11.0)
[2020-06-26 21:29] LABS: Alanine Aminotransferase 66 IU/L (<35); Albumin 4.7 g/dL (3.5-5.0); Albumin Globulin Ratio 1.4 (1.0-2.8); Alkaline Phosphatase 65 U/L (38-126); Aspartate Aminotransferase 63 IU/L (14-36); BUN Creatinine Ratio 35.9 (6-22); Bilirubin Total 0.7 mg/dL (0.2-1.3); Blood Urea Nitrogen 14 mg/dL (7-17); C-Reactive Protein Quant 1.6 mg/dL (<1.0); Calcium 9.7 mg/dL (8.4-10.2); Carbon Dioxide 27 mmol/L (22-32); Chloride 103 mmol/L (98-107); Estimated Glomerular Filt Rate > 60.0 mL/min (>60); Globulin 3.3 g/dL (1.7-4.1); Glucose 122 mg/dL (70-100); HEMOLYSIS 46 (0-50); Potassium 4.4 mmol/L (3.4-5.1); Sodium 138 mmol/L (137-145)
[2020-06-26] MEDS: METOPROLOL IR 25 MG TABLET 50 MG PO (21:56)
[2020-06-26] MEDS: KETOROLAC 60 MG/2 ML VIAL 15 MG IV (21:56)
[2020-06-26] MEDS: DEXAMETHASONE 10 MG/ML VIAL 8 MG IV (21:58)
[2020-06-26 22:08] VITALS: BP 168/80; PULSE 94; O2SAT 94
[2020-06-26 22:33] VITALS: BP 162/79; PULSE 88; RESP 16; O2SAT 97
[2020-06-26 23:45] VITALS: BP 160/72; PULSE 88; O2SAT 97
[2020-06-27 00:09] VITALS: BP 148/76; PULSE 89; O2SAT 97
[2020-06-27] MEDS: CYCLOBENZAPRINE 10 MG PREPACK 1 BOTTLE MISC (01:42)
[2020-06-27] MEDS: HYDROCODONE/ACET 5/325 PREPACK 1 BOTTLE MISC (01:42)
[2020-06-27 01:47] VITALS: BP 146/67; PULSE 90; RESP 20; TEMP 36.6; O2SAT 96
== END 2020-06-27 01:45 | disposition home or self-care (01) ==
PROVIDERS: Emergency Provider Emergency Medicine
DX: M54.2 Cervicalgia (principal); M54.16 Radiculopathy, lumbar region; R20.2 Paresthesia of skin; I10 Essential (primary) hypertension; E11.9 Type 2 diabetes mellitus without complications; Z90.710 Acquired absence of both cervix and uterus; E66.9 Obesity, unspecified; Z68.38 Body mass index [BMI] 38.0-38.9, adult
CPT/HCPCS: 36415; 72125; 72128; 72131; 73562; 80053; 85025; 86140; 93005; 93010; 93971; 96374; 96375; 99283; 99284; J1100; J1885

== ENCOUNTER 2020-10-04 18:35 | Emergency (ER) | payer OTHER, MEDICAID, SELFPAY ==
[2020-10-04] VITALS (18 sets, daily range): BP systolic 153–216; BP diastolic 77–122; PULSE 86–103; RESP 10–20; O2SAT 96–99; BMI 37.3
--- NOTE | 2020-10-04 18:40 | DI.RAD.S_ITS ---
PROCEDURE: XR CHEST 1V INDICATIONS: chest pain TECHNIQUE: One view of the chest was acquired. COMPARISON: [facility], CR, XR CHEST 1V, 04/08/2019, 2:40. FINDINGS: Surgical changes and devices: None. Lungs and pleura: Lungs are clear. No pleural effusions or pneumothorax. Mediastinum: Mediastinal contours appear normal. Heart size is normal. Bones and chest wall: No suspicious bony lesions. Overlying soft tissues appear unremarkable. IMPRESSION: No acute cardiopulmonary process demonstrated radiographically. Dictated by: Kristopher Krishnamurthy M.D. on 10/04/2020 at 19:21 Approved by: Kristopher Krishnamurthy M.D. on 10/04/2020 at 19:21
[2020-10-04 19:06] LABS: Add Manual Diff / Slide Review NO; Basophils Absolute Auto 100 /uL (0-100); Basophils Percent Auto 0.6 % (0-2); Eosinophils Absolute Auto 200 /uL (0-450); Eosinophils Percent Auto 2.6 % (2-4); Hematocrit 42.1 % (36-46); Hemoglobin 14.4 g/dL (12.0-16.0); Lymphocytes Absolute Auto 2900 /uL (1100-4500); Lymphocytes Percent Auto 31.1 % (25-40); Mean Corpuscular HGB Conc 34.1 % (30-36); Mean Corpuscular Hemoglobin 29.6 PG (26-34); Mean Corpuscular Volume 86.7 fL (80-100); Monocytes Absolute Auto 500 /uL (0-900); Monocytes Percent Auto 5.7 % (3-14); Neutrophils Absolute Auto 5600 /uL (1500-7000); Platelet Count 212 X10^3/uL (150-400); Red Blood Cell Count 4.85 X10^6/uL (4.0-5.2); Red Cell Distribution Width 13.1 % (11.6-14.8); White Blood Cell Count 9.4 X10^3/uL (4.5-11.0)
--- NOTE | 2020-10-04 19:06 | ED.GENADULT ---
HPI - General Adult General Chief complaint: Hypertension Stated complaint: states heart pain Time Seen by Provider: 10/04/20 18:57 Source: patient Mode of arrival: Ambulatory Limitations: no limitations History of Present Illness HPI narrative: The patient presents with chest pain. She has been experiencing chest pain intermittently for about a week. She currently has slight discomfort in the left upper anterior chest area. She has no associated palpitations, dyspnea, or weakness. She has no headache or visual changes. She takes Metoprolol Succinate and Losarten for hypertension. The losartan was added to her hypertension treatment in recent months. She checks her blood pressure at home. Her systolic blood pressures routinely 180-190 range. Her systolic blood pressure was greater than 200 at triage. She feels stressed and anxious when her home blood pressure checking comes back elevated. She is compliant with medications. She clearly has anxiety when the blood pressure is up, but she has no underlying history of anxiety. There seems to be in her play between the elevated blood pressure and anxiety, seemingly worsening in the situation. She is a former smoker. She has no difficulty breathing. She has intermittent right upper quadrant abdominal pain, none now. Pain increases after meals. A prior ultrasound revealed gallbladder sludge, no acute cholecystitis. Related Data Home Medications Medication Instructions Recorded Confirmed albuterol sulfate 3 ml INH Q6HP PRN 06/17/18 06/17/18 albuterol sulfate [ProAir HFA] 1 puff INHALATION PRN PRN 06/17/18 06/17/18 hydroxychloroquine 200 mg PO DAILY 06/17/18 06/17/18 metoprolol succinate 50 mg PO DAILY 06/17/18 06/17/18 sulfasalazine 500 mg PO QID 06/17/18 06/17/18 Previous Rx's Medication Instructions Recorded oxycodone-acetaminophen [Percocet] 1 tab PO Q4-6H PRN #14 tab 03/24/19 tamsulosin [Flomax] 0.4 mg PO DAILY #5 cap 03/24/19 omeprazole 20 mg PO DAILY #14 cap 05/18/19 penicillin V potassium 500 mg PO QID #40 tab 07/04/19 gabapentin 100 mg PO TID #30 cap 06/26/20 hydrocodone-acetaminophen 1 tab PO Q4-6H PRN #10 tab 06/27/20 ketorolac 10 mg PO Q6H PRN #14 tab 06/27/20 prednisone 10 mg PO DAILY #30 tab 06/27/20 Allergies Allergy/AdvReac Type Severity Reaction Status Date / Time cephalexin [From KEFLEX] Allergy Unknown Verified 06/26/20 17:04 ciprofloxacin [CIPROFLOXACIN] Allergy Unknown Verified 06/26/20 17:04 milk [MILK] Allergy Unknown Verified 06/26/20 17:04 Review of Systems Review of Systems ROS Unobtainable: All systems reviewed & are unremarkable except as noted in HPI and below Constitutional Constitutional: Denies chills, Denies fever(s), Denies headache(s) and Denies lethargy Comments: No recent illness. Eyes Eyes: Denies change in vision, Denies eye discharge, Denies irritation and Denies loss of vision ENT Ears, Nose, Mouth, and Throat: Denies vertigo, Denies dizziness and Denies headache(s) Comments: No sore throat Cardiovascular Cardiovascular: Reports chest pain, Reports rapid heart rate, Denies leg edema, Denies lightheadedness and Denies dyspnea Respiratory Respiratory: Denies cough and Denies dyspnea Gastrointestinal Gastrointestinal: Denies abdominal pain, Denies change in bowel habits, Denies diarrhea, Denies nausea and Denies vomiting Musculoskeletal Musculoskeletal: Denies back pain Integumentary/Breasts Skin/Breast: Denies rash Neurologic Neurologic: Denies confusion, Denies vertigo, Denies dizziness, Denies headache(s) and Denies loss of vision Psychiatric Psychiatric: Reports anxiety and Denies confusion Patient History Medical History (Updated 10/04/20 @ 21:22 by Aston Drake MD) Hypertension Infected prosthetic mesh of abdominal wall Surgical History H/O: hysterectomy Social History Smoking Status: Former smoker Smoking Status: Former smoker alcohol intake frequency: holidays/special occasions only Substance Use Type: does not use Exam Initial Vital Signs Initial Vital Signs: Vital Signs Pulse Rate 98 H 10/04/20 18:50 Respiratory Rate 16 10/04/20 18:50 Blood Pressure 216/122 H 10/04/20 18:50 Pulse Oximetry 99 10/04/20 18:50 Const General: cooperative and well developed Nutritional Appearance: well nourished HENNV Head: normal to inspection and normocephalic Mouth: oral mucosae normal Eyes General: appearance normal, both eyes and all related structures Eyelids: eyelids normal Conjunctivae: conjunctivae normal Sclera: sclerae normal Pupils: PERRL EOM: EOM intact bilaterally Neck Other: Nontender Chest Other: Nontender Resp Auscultation: clear to auscultation bilaterally Cardio Rate: regular rate Rhythm: regular rhythm Heart Sounds: S1 normal, S2 normal, no click, no gallops, no murmurs and no rubs Pulses: normal peripheral pulses GI Inspection: non-distended Palpation: soft, no hepatosplenomegaly, No guarding, No pulsatile mass and No tender Auscultation: normal bowel sounds Back/Spine/Pelvis Back: No CVA tenderness Skin General: no rashes or lesions noted and No petechiae Neuro General: patient alert, patient oriented x3, gait normal and no focal motor deficits Speech: speech normal Extrem General: full ROM, no clubbing, cyanosis or edema, no pedal edema and no calf tenderness Psych Affect: anxious affect Thought Process: normal Judgment: judgment good Course Course Course Narrative: The patient was hypertensive and tachycardic upon arrival. She was giving IV Lopressor. Her blood pressure and heart rate a much more controlled. She is much more relaxed. EKG, chest x-ray, and labs are reassuring. She is advised to continue her current medications. She is advised to follow-up with her doctor tomorrow. She should return the ER as necessary. Orders Ordered: ED Orders 10/04/20 18:40 XR chest 1V Stat EKG-12 Lead Stat 10/04/20 19:00 Complete Blood Count AUTO DIFF Stat Comprehensive Metabolic Panel Stat Lipase Stat Partial Thromboplastin Time Stat Prothrombin Time INR Stat Thyroid Stimulating Hormone Stat Troponin & CK Cardiac Panel Stat Discontinued Medications Metoprolol Tartrate (Metoprolol Tartrate 5 Mg/5 Ml Inj) 5 mg IV Q5M [facility] Stop: 10/04/20 19:26 Last Admin: 10/04/20 19:30 Dose: 5 mg Documented by: Admin: 10/04/20 19:20 Dose: 5 mg Documented by: Admin: 10/04/20 19:12 Dose: 5 mg Documented by: RODDY Vital Signs Vital signs: Vital Signs - 8 hr 10/04/20 18:50 10/04/20 19:00 10/04/20 19:15 Pulse Rate 98 H 103 H 100 H Respiratory Rate 16 Blood Pressure 216/122 H 195/111 H 190/103 H Pulse Oximetry 99 10/04/20 19:20 10/04/20 19:25 10/04/20 19:27 Pulse Rate 90 91 H 87 Respiratory Rate 13 Blood Pressure 183/89 H 174/89 H Pulse Oximetry 97 10/04/20 19:30 10/04/20 19:35 10/04/20 19:40 Pulse Rate 89 87 87 Respiratory Rate 20 13 10 L Blood Pressure 166/80 H 165/78 H 166/88 H Pulse Oximetry 97 97 98 10/04/20 19:45 10/04/20 19:50 10/04/20 19:55 Pulse Rate 87 86 88 Respiratory Rate 16 17 13 Blood Pressure 165/88 H 155/93 H 166/91 H Pulse Oximetry 97 96 98 10/04/20 20:00 10/04/20 20:05 10/04/20 20:10 Pulse Rate 87 87 87 Respiratory Rate 15 12 15 Blood Pressure 156/84 H 161/82 H 170/83 H Pulse Oximetry 97 98 97 10/04/20 20:33 10/04/20 20:34 10/04/20 21:00 Pulse Rate 87 88 89 Respiratory Rate 15 Blood Pressure 153/77 H Pulse Oximetry 97 97 97 Medical Decision Making Lab Data Result diagrams: 10/04/20 19:00 10/04/20 19:00 Labs: Lab Results 10/04/20 10/04/20 10/04/20 Range/Units 19:00 19:00 19:00 WBC 9.4 (4.5-11.0) X10^3/uL RBC 4.85 (4.0-5.2) X10^6/uL Hgb 14.4 (12.0-16.0) g/dL Hct 42.1 (36-46) % MCV 86.7 (80-100) fL MCH 29.6 (26-34) PG MCHC 34.1 (30-36) % RDW 13.1 (11.6-14.8) % Plt Count 212 (150-400) X10^3/uL Neut % (Auto) 60.0 (50-75) % Lymph % (Auto) 31.1 (25-40) % [place] % (Auto) 5.7 (3-14) % Eos % (Auto) 2.6 (2-4) % Baso % (Auto) 0.6 (0-2) % Neut # (Auto) 5600 (9455-0473) /uL Lymph # (Auto) 2900 (9527-9363) /uL [place] # (Auto) 500 (0-900) /uL Eos # (Auto) 200 (0-450) /uL Baso # (Auto) 100 (0-100) /uL PT 11.4 (10.1-12.7) SECONDS INR 1.0 (0.9-1.3) APTT 30 (26.4-36.2) SECONDS Sodium 135 L (137-145) mmol/L Potassium 4.0 (3.4-5.1) mmol/L Chloride 101 (98-107) mmol/L Carbon Dioxide 25 (22-32) mmol/L BUN 14 (7-17) mg/dL Creatinine 0.45 L (0.52-1.04) mg/dL Estimated GFR > 60.0 (>60) mL/min BUN/Creatinine Ratio 31.1 H (6-22) Glucose 134 H (70-100) mg/dL Calcium 9.7 (8.4-10.2) mg/dL Total Bilirubin 0.5 (0.2-1.3) mg/dL AST 61 H (14-36) IU/L ALT 67 H (<35) IU/L Alkaline Phosphatase 76 (38-126) U/L Total Creatine Kinase 69 (30-135) U/L CK-MB (CK-2) TNP CK-MB (CK-2) Rel Index TNP Troponin I < 0.012 (0.01-0.034) ng/mL Total Protein 7.6 (6.3-8.2) g/dL Albumin 4.9 (3.5-5.0) g/dL Globulin 2.7 (1.7-4.1) g/dL Albumin/Globulin Ratio 1.8 (1.0-2.8) Lipase 160 (23-300) U/L TSH (0.47-4.68) uIU/mL 10/04/20 Range/Units 19:00 WBC (4.5-11.0) X10^3/uL RBC (4.0-5.2) X10^6/uL Hgb (12.0-16.0) g/dL Hct (36-46) % MCV (80-100) fL MCH (26-34) PG MCHC (30-36) % RDW (11.6-14.8) % Plt Count (150-400) X10^3/uL Neut % (Auto) (50-75) % Lymph % (Auto) (25-40) % [place] % (Auto) (3-14) % Eos % (Auto) (2-4) % Baso % (Auto) (0-2) % Neut # (Auto) (4530-6650) /uL Lymph # (Auto) (9240-9658) /uL [place] # (Auto) (0-900) /uL Eos # (Auto) (0-450) /uL Baso # (Auto) (0-100) /uL PT (10.1-12.7) SECONDS INR (0.9-1.3) APTT (26.4-36.2) SECONDS Sodium (137-145) mmol/L Potassium (3.4-5.1) mmol/L Chloride (98-107) mmol/L Carbon Dioxide (22-32) mmol/L BUN (7-17) mg/dL Creatinine (0.52-1.04) mg/dL Estimated GFR (>60) mL/min BUN/Creatinine Ratio (6-22) Glucose (70-100) mg/dL Calcium (8.4-10.2) mg/dL Total Bilirubin (0.2-1.3) mg/dL AST (14-36) IU/L ALT (<35) IU/L Alkaline Phosphatase (38-126) U/L Total Creatine Kinase (30-135) U/L CK-MB (CK-2) CK-MB (CK-2) Rel Index Troponin I (0.01-0.034) ng/mL Total Protein (6.3-8.2) g/dL Albumin (3.5-5.0) g/dL Globulin (1.7-4.1) g/dL Albumin/Globulin Ratio (1.0-2.8) Lipase (23-300) U/L TSH 0.076 L (0.47-4.68) uIU/mL Imaging Data Chest x-ray: Radiologist's Impression: No acute cardiopulmonary process. ECG Data Attestation: I personally reviewed and interpreted this ECG as follows: (Sinus tachycardia. Normal intervals. LVH. 0DT no acute ST T wave changes. No ectopy.) Discharge Plan Departure Patient Disposition: Home Clinical Impression: Anxiety Hypertension Qualifiers: Hypertension type: essential hypertension Qualified Code(s): I10 - Essential (primary) hypertension Instructions: DI for High Blood Pressure, DI for Anxiety -- Adult Activity Restrictions/Additional Instructions: Contact your doctor tomorrow about the blood pressure readings you are getting at home. The ER evaluation reveals no evidence of acute cardiac problems. Your EKG, chest x-ray and labs are reassuring. You had tachycardia along with the elevated blood pressure upon arrival, odd considering that you are on a beta binh which tends to slow her heart rate. Your heart rate is now 80s, your blood pressure 157 systolic. Contact your doctor tomorrow, discuss your blood pressure management with your doctor. I am not convinced you need treatment for anxiety, but discussed the discomfort and concern you are experiencing between your blood pressure and the anxiety. Prescriptions: No Action metoprolol succinate 50 mg tablet extended release 24 hr 50 mg PO DAILY RF: 0 albuterol sulfate [ProAir HFA] 90 mcg/actuation HFA aerosol inhaler 1 puff Inhalation PRN PRN (Reason: Shortness Of Breath) RF: 0 albuterol sulfate 2.5 MG/3 ML solution for nebulization 3 ml INH Q6HP PRN (Reason: Shortness Of Breath) RF: 0 hydroxychloroquine 200 mg tablet 200 mg PO DAILY RF: 0 sulfasalazine 500 mg tablet,delayed release (DR/EC) 500 mg PO QID RF: 0 penicillin V potassium 500 mg tablet 500 mg PO QID Qty: 40 RF: 0 prednisone 10 mg tablet 10 mg PO DAILY Qty: 30 RF: 0 hydrocodone-acetaminophen 5-325 mg tablet 1 tab PO Q4-6H PRN (Reason: pain) Qty: 10 RF: 0 ketorolac 10 mg tablet 10 mg PO Q6H PRN (Reason: pain) Qty: 14 RF: 0 tamsulosin [Flomax] 0.4 mg capsule 0.4 mg PO DAILY Qty: 5 RF: 0 oxycodone-acetaminophen [Percocet] 5-325 mg tablet 1 tab PO Q4-6H PRN (Reason: pain) Qty: 14 RF: 0 omeprazole 20 mg capsule,delayed release(DR/EC) 20 mg PO DAILY Qty: 14 RF: 0 gabapentin 100 mg capsule 100 mg PO TID Qty: 30 RF: 0
[2020-10-04] MEDS: METOPROLOL TARTRATE 5 MG/5 ML INJ IV ×3 (19:12→19:30)
[2020-10-04 19:13] LABS: Prothrombin Time 11.4 SECONDS (10.1-12.7)
[2020-10-04 19:16] LABS: PTT Partial Thromboplastin Tim 30 SECONDS (26.4-36.2)
[2020-10-04 19:20] LABS: Blood Urea Nitrogen 14 mg/dL (7-17); Carbon Dioxide 25 mmol/L (22-32); Creatine Kinase 69 U/L (30-135); Estimated Glomerular Filt Rate > 60.0 mL/min (>60)
[2020-10-04 19:32] LABS: Troponin I < 0.012 ng/mL (0.01-0.034)
[2020-10-04 19:35] LABS: Albumin 4.9 g/dL (3.5-5.0); Albumin Globulin Ratio 1.8 (1.0-2.8); Alkaline Phosphatase 76 U/L (38-126); BUN Creatinine Ratio 31.1 (6-22); Bilirubin Total 0.5 mg/dL (0.2-1.3); Calcium 9.7 mg/dL (8.4-10.2); Chloride 101 mmol/L (98-107); Globulin 2.7 g/dL (1.7-4.1); Glucose 134 mg/dL (70-100); Lipase 160 U/L (23-300); Sodium 135 mmol/L (137-145); Total Protein 7.6 g/dL (6.3-8.2)
[2020-10-04 19:39] LABS: HEMOLYSIS < 15 (0-50)
[2020-10-04 19:40] LABS: Alanine Aminotransferase 67 IU/L (<35); Aspartate Aminotransferase 61 IU/L (14-36)
[2020-10-04 20:01] LABS: Thyroid Stimulating Hormone 0.076 uIU/mL (0.47-4.68)
== END 2020-10-04 21:34 | disposition home or self-care (01) ==
PROVIDERS: Emergency Provider Emergency Medicine
DX: F41.9 Anxiety disorder, unspecified (principal); I10 Essential (primary) hypertension; R07.9 Chest pain, unspecified
CPT/HCPCS: 36415; 71045; 80053; 82550; 83690; 84443; 84484; 85025; 85610; 85730; 93005; 93010; 96374; 99284

== ENCOUNTER 2021-01-25 21:28 | Emergency (ER) | payer OTHER, SELFPAY ==
[2021-01-25 21:50] VITALS: BP 151/82; PULSE 103; RESP 20; TEMP 36.9; O2SAT 98; BMI 36.5
--- NOTE | 2021-01-25 22:31 | PC.NURSE ---
Pain in right lower tooth, set up with dental appointment in mid January. Now has pain to neck and shoulders and swelling in right lymph node.
--- NOTE | 2021-01-25 23:19 | ED_ITS ---
HPI - General Adult General Chief complaint: Dental/Oral Stated complaint: pain mouth, neck & head Time Seen by Provider: 01/25/21 23:18 Source: patient Mode of arrival: Ambulatory Limitations: no limitations History of Present Illness HPI narrative: Patient is a 45-year-old female here for evaluation of a couple days of right-sided jaw pain and swelling in the right side of her jaw that is not causing her to have a headache. She initially thought that maybe this was a dental infection but she is not having any dental pain. No fevers. No problems breathing. Related Data Home Medications Medication Instructions Recorded Confirmed albuterol sulfate 3 ml INH Q6HP PRN 06/17/18 06/17/18 albuterol sulfate 90 mcg/actuation 1 puff INHALATION PRN PRN 06/17/18 06/17/18 aerosol inhaler hydroxychloroquine 200 mg tablet 200 mg PO DAILY 06/17/18 06/17/18 metoprolol succinate 50 mg 50 mg PO DAILY 06/17/18 06/17/18 tablet,extended release 24 hr sulfasalazine 500 mg 500 mg PO QID 06/17/18 06/17/18 tablet,delayed release Previous Rx's Medication Instructions Recorded oxycodone-acetaminophen 5 mg-325 1 tab PO Q4-6H PRN #14 tab 03/24/19 mg tablet (Percocet) tamsulosin 0.4 mg capsule (Flomax) 0.4 mg PO DAILY #5 cap 03/24/19 omeprazole 20 mg capsule,delayed 20 mg PO DAILY #14 cap 05/18/19 release penicillin V potassium 500 mg 500 mg PO QID #40 tab 07/04/19 tablet gabapentin 100 mg capsule 100 mg PO TID #30 cap 06/26/20 hydrocodone 5 mg-acetaminophen 325 1 tab PO Q4-6H PRN #10 tab 06/27/20 mg tablet ketorolac 10 mg tablet 10 mg PO Q6H PRN #14 tab 06/27/20 prednisone 10 mg tablet 10 mg PO DAILY #30 tab 06/27/20 penicillin V potassium 500 mg 500 mg PO QID 7 Days #28 tab 01/25/21 tablet Allergies Allergy/AdvReac Type Severity Reaction Status Date / Time cephalexin [From KEFLEX] Allergy Unknown Verified 01/25/21 21:50 ciprofloxacin [CIPROFLOXACIN] Allergy Unknown Verified 01/25/21 21:50 milk [MILK] Allergy Unknown Verified 01/25/21 21:50 Review of Systems Constitutional Constitutional: Reports system reviewed and no additional complaints, except as documented ENT Comments: Right-sided jaw pain, right-sided neck swelling. Cardiovascular Cardiovascular: Reports system reviewed and no additional complaints, except as documented Gastrointestinal Gastrointestinal: Reports system reviewed and no additional complaints, except as documented Musculoskeletal Musculoskeletal: Reports system reviewed and no additional complaints, except as documented Integumentary/Breasts Skin/Breast: Reports system reviewed and no additional complaints, except as documented Hematologic/Lymphatic On Anticoagulants: No Patient History Medical History Hypertension Infected prosthetic mesh of abdominal wall Surgical History H/O: hysterectomy Social History Smoking Status: Former smoker Smoking Status: Former smoker alcohol intake frequency: holidays/special occasions only Substance Use Type: does not use Exam Initial Vital Signs Initial Vital Signs: Vital Signs Temperature 98.4 F 01/25/21 21:50 Pulse Rate 103 H 01/25/21 21:50 Respiratory Rate 20 01/25/21 21:50 Blood Pressure 151/82 H 01/25/21 21:50 Pulse Oximetry 98 01/25/21 21:50 Const General: cooperative, healthy appearing and comfortable HENNE Ears: TM's normal bilaterally Nose: external nose normal Throat: posterior oropharynx normal Neck Lymphatic: lymphadenopathy Resp Effort & Inspection: normal respiratory effort Cardio Rate: regular rate Skin General: no rashes or lesions noted Neuro General: patient alert and patient awake Extrem General: capillary refill normal Course Orders Ordered: Discontinued Medications Penicillin V Potassium (Penicillin Vk 250 Mg Tablet) 500 mg PO NOW ONE Stop: 01/25/21 23:28 Last Admin: 01/25/21 23:47 Dose: 500 mg Documented by: SOFIE Vital Signs Vital signs: Vital Signs - 8 hr 01/25/21 21:50 01/25/21 23:55 Temperature 98.4 F Pulse Rate 103 H 104 H Respiratory Rate 20 17 Blood Pressure 151/82 H 116/74 Pulse Oximetry 98 97 Medical Decision Making MDM Narrative Medical decision making narrative: No respiratory distress. Does have right- sided lymphadenopathy. There is no definitive abscess seen on the oral exam however given her presentation this could very well be the possibility. Will start on antibiotics for this. She was given strict return precautions and follow-up instructions. She expressed understanding and agreement. Discharge Plan Departure Patient Disposition: Home Clinical Impression: Dental infection, Lymphadenopathy Instructions: DI for Lymphadenopathy Activity Restrictions/Additional Instructions: Recommend you start taking the antibiotics as directed. I also recommend that you make contact with your dentist to follow up as a dental origin of the infection is a very high possibility. Return to the emergency department for any new or worsening symptoms Prescriptions: New penicillin V potassium 500 mg tablet 500 mg PO QID 7 Days Qty: 28 RF: 0 No Action metoprolol succinate 50 mg tablet extended release 24 hr 50 mg PO DAILY RF: 0 albuterol sulfate [ProAir HFA] 90 mcg/actuation HFA aerosol inhaler 1 puff Inhalation PRN PRN (Reason: Shortness Of Breath) RF: 0 albuterol sulfate 2.5 MG/3 ML solution for nebulization 3 ml INH Q6HP PRN (Reason: Shortness Of Breath) RF: 0 hydroxychloroquine 200 mg tablet 200 mg PO DAILY RF: 0 sulfasalazine 500 mg tablet,delayed release (DR/EC) 500 mg PO QID RF: 0 penicillin V potassium 500 mg tablet 500 mg PO QID Qty: 40 RF: 0 prednisone 10 mg tablet 10 mg PO DAILY Qty: 30 RF: 0 hydrocodone-acetaminophen 5-325 mg tablet 1 tab PO Q4-6H PRN (Reason: pain) Qty: 10 RF: 0 ketorolac 10 mg tablet 10 mg PO Q6H PRN (Reason: pain) Qty: 14 RF: 0 tamsulosin [Flomax] 0.4 mg capsule 0.4 mg PO DAILY Qty: 5 RF: 0 oxycodone-acetaminophen [Percocet] 5-325 mg tablet 1 tab PO Q4-6H PRN (Reason: pain) Qty: 14 RF: 0 omeprazole 20 mg capsule,delayed release(DR/EC) 20 mg PO DAILY Qty: 14 RF: 0 gabapentin 100 mg capsule 100 mg PO TID Qty: 30 RF: 0
[2021-01-25] MEDS: PENICILLIN VK 250 MG TABLET 500 MG PO (23:47)
[2021-01-25 23:55] VITALS: BP 116/74; PULSE 104; RESP 17; O2SAT 97
== END 2021-01-25 23:57 | disposition home or self-care (01) ==
PROVIDERS: Emergency Provider Emergency Medicine
DX: K04.7 Periapical abscess without sinus (principal); R59.1 Generalized enlarged lymph nodes; R51.9 Headache, unspecified
CPT/HCPCS: 99283

== ENCOUNTER → 2021-02-26 15:33 | Outpatient (CLI) | payer OTHER, MEDICAID, SELFPAY ==
[2021-02-26 17:12] LABS: HEMOLYSIS 17 (0-50); Magnesium 1.6 mg/dL (1.6-2.3)
== END ==
PROVIDERS: Referring Provider Internal Medicine; Visit Provider Internal Medicine
DX: M54.2 Cervicalgia (principal)
CPT/HCPCS: 36415; 83735; 84132

== ENCOUNTER → 2021-03-27 15:54 | Outpatient (CLI) | payer OTHER, MEDICAID, SELFPAY ==
--- NOTE | 2021-03-27 15:57 | DI.MRI.S_ITS ---
PROCEDURE: MR CERVICAL SPINE WO/W CON INDICATIONS: FOLLOW UP TECHNIQUE: Noncontrast sagittal T1 spin echo and T2 fast spin echo, sagittal STIR, foraminal oblique sagittal T2 fast spin echo, axial gradient echo or T2 fast spin echo through the cervical spine. After the administration of contrast, axial and sagittal T1 spin echo with fat saturation through the cervical spine. COMPARISON: [facility], CT, CT CERVICAL SPINE WO CON, 06/26/2020, 21:17. FINDINGS: Image quality: Degraded by patient motion artifact Alignment and curvature: There is normal bony alignment. Marrow: Marrow is normal in overall signal, without suspicious enhancement. Spinal cord: Visualized spinal cord has normal size and signal. No cerebellar tonsillar herniation. No abnormal intramedullary enhancement. Paraspinous soft tissues: No paravertebral masses. Small areas of nonspecific edema and subtle postcontrast enhancement noted in the interspinous ligaments between the C4-C5 and C5-C6 spinous processes. spinous processes. C2-3: Normal appearance. C3-4: Normal appearance. C4-5: Loss of disc signal. No central stenosis. No neural foraminal narrowing. No neural compression. C5-6: Loss of disc signal. Mild, diffuse disc bulge. Mild bilateral facet hypertrophy. Moderate bilateral uncovertebral joint hypertrophy. Mild narrowing of the central canal. Severe right and moderate left neural foraminal narrowing with slight compression of the exiting right C6 nerve root. C6-7: Loss of disc signal. Mild, diffuse disc bulge. No central stenosis. No neural foraminal narrowing. No neural compression. C7-T1: Normal appearance. IMPRESSION: 1. Image quality degraded by patient motion artifact. 2. Mild multilevel degenerative disc disease. 3. Mild bilateral C5-C6 uncovertebral joint hypertrophy. 4. Mild C5-C6 central canal narrowing. 5. Severe right and moderate left C5-C6 neural foraminal narrowing with compression of the exiting right C6 nerve root. 6. Small areas of nonspecific edema and postcontrast enhancement involving the interspinous ligaments between the C4-C5 and C5-C6 spinous processes. Differential includes traumatic injury and infection. Dictated by: Shahida Hebert MD, PhD on 03/28/2021 at 10:51 Approved by: Shahida Hebert MD, PhD on 03/28/2021 at 10:59
--- NOTE | 2021-03-27 15:57 | DI.MRI.S_ITS ---
PROCEDURE: MR LUMBAR SPINE WO/W CON INDICATIONS: FOLLOW UP TECHNIQUE: Noncontrast sagittal T1 spin echo and T2 fast spin echo, sagittal STIR, axial T1 and T2 fast spin echo through the lumbar spine. In cases with scoliosis, additional coronal T2 fast spin echo may be performed. After the administration of contrast, sagittal and axial T1 spin echo with fat saturation through the lumbar spine. COMPARISON: [facility], CT, CT LUMBAR SPINE WO CON, 06/26/2020, 21:17. FINDINGS: Image quality: Degraded by patient motion artifact. Alignment and curvature: There is normal bony alignment. Marrow: Marrow is of normal overall signal. No acute vertebral body compression fractures. No suspicious marrow enhancement. Spinal cord: Conus medullaris terminates at the L1 level. Visualized spinal cord demonstrates normal signal, without suspicious enhancement. Paraspinous soft tissues: No paravertebral masses or abnormal enhancement. T12-L1: Normal appearance. L1-L2: Loss of disc signal. Mild, diffuse disc bulge. No central stenosis. No neural foraminal narrowing. No neural compression. L2-L3: Loss of disc signal and slight loss of disc height. Mild, diffuse disc bulge. Mild narrowing of the central canal. Mild bilateral neural foraminal narrowing. No neural compression. L3-L4: Loss of disc signal and height. Mild, diffuse disc bulge. Mild bilateral facet hypertrophy. Mild to moderate narrowing of the central canal. Moderate right and [id number] left neural foraminal narrowing. No neural compression. L4-L5: Loss of disc signal. Mild, diffuse disc bulge. Mild bilateral facet hypertrophy. Moderate narrowing of the central canal. Mild bilateral neural foraminal narrowing. No neural compression. Fissure noted in the posterior annulus. L5-S1: Loss of disc signal. Mild, diffuse disc bulge. Mild bilateral facet hypertrophy. Epidural lipomatosis. Severe narrowing of the central canal secondary to epidural lipomatosis disc disease and facet hypertrophy. Mild bilateral neural foraminal narrowing. IMPRESSION: 1. Multilevel degenerative disease. 2. Multilevel facet arthropathy. 3. L5-S1 epidural lipomatosis. 4. Severe L5-S1 neural foraminal narrowing 5. No severe neural foraminal narrowing. 6. No suspicious postcontrast enhancement. Dictated by: Shahida Hebert MD, PhD on 03/28/2021 at 10:46 Approved by: Shahida Hebert MD, PhD on 03/28/2021 at 10:50
== END ==
PROVIDERS: PCP Internal Medicine; Referring Provider Internal Medicine; Visit Provider Internal Medicine
DX: Z09 Encounter for follow-up examination after completed treatment for conditions other than malignant neoplasm (principal); M51.36 Other intervertebral disc degeneration, lumbar region; M51.37 Other intervertebral disc degeneration, lumbosacral region; M47.816 Spondylosis without myelopathy or radiculopathy, lumbar region; M47.817 Spondylosis without myelopathy or radiculopathy, lumbosacral region; M48.07 Spinal stenosis, lumbosacral region; M48.061 Spinal stenosis, lumbar region without neurogenic claudication; M48.02 Spinal stenosis, cervical region; M50.322 Other cervical disc degeneration at C5-C6 level; E88.2 Lipomatosis, not elsewhere classified
CPT/HCPCS: 72156; 72158; A9579

== ENCOUNTER 2021-07-06 18:46 | Emergency (ER) | payer OTHER, MEDICAID, SELFPAY ==
[2021-07-06] VITALS (11 sets, daily range): BP systolic 121–143; BP diastolic 73–100; PULSE 78–88; RESP 16–31; TEMP 36.2; O2SAT 97–99; BMI 34.9
--- NOTE | 2021-07-06 19:03 | DI.RAD.S_ITS ---
PROCEDURE: XR CHEST 1V INDICATIONS: chest pain TECHNIQUE: One view of the chest was acquired. COMPARISON: [facility], CR, XR CHEST 1V, 10/04/2020, 19:07. FINDINGS: Surgical changes and devices: None. Lungs and pleura: Lungs are clear. No pleural effusions or pneumothorax. Mediastinum: Mediastinal contours appear normal. Heart size is normal. Bones and chest wall: No suspicious bony lesions. Overlying soft tissues appear unremarkable. IMPRESSION: No acute cardiopulmonary abnormality. Dictated by: Issac Mark M.D. on 07/06/2021 at 19:27 Approved by: Issac Mark M.D. on 07/06/2021 at 19:27
--- NOTE | 2021-07-06 19:16 | ED_ITS ---
HPI - Chest Pain General Chief Complaint: Chest Pain Stated Complaint: CHEST PAIN Time Seen by Provider: 07/06/21 19:16 Source: patient Mode of arrival: Ambulatory Limitations: no limitations Limitations: no limitations History of Present Illness HPI narrative: This is a 46-year-old female comes in with complaint of chest started about 6:00 p.m.. Patient states she was out shopping with her family. She states she had several cheese cubes about 30 minutes after started having spasming and tightening in her midsternal region. She states that was for release and happen about every 3 minutes she states almost completely resolved. There is only very mild discomfort at this point. She has a history of eosinophilic esophagitis and did have an EGD a couple weeks with dilation for her symptoms. She states she has been able to drink water without issue. She does not typically have any difficulty keeping solids down after these episodes hurt. Patient was started on omeprazole week ago as well. She is scheduled to have a repeat EGD, motility NPH test in August. Patient did feel a little dizzy felt a little sweaty and mildly short of breath but states she felt very anxious about it. She felt nauseated but did not vomit she denies any syncope. No other symptoms. She has not had any other cold cough or congestive type symptoms. She does take losartan/8 CD and atenolol for hypertension and slightly elevated heart rate, she does not take an aspirin or thinner. She is on estradiol patch, metformin but no statin. She has a family history with her mother having a stroke or TIA in her 60s. Both parents have diabetes, she has multiple extended family members in the [facility] with hypertension and diabetes. She did have a stress test that did show some mild abnormalities and had been referred to Cardiology would recommend either an angiogram on the or they had discussed calcium channel scoring or both. Related Data Home Medications Medication Instructions Recorded Confirmed albuterol sulfate 3 ml INH Q6HP PRN 06/17/18 06/17/18 albuterol sulfate 90 mcg/actuation 1 puff INHALATION PRN PRN 06/17/18 06/17/18 aerosol inhaler hydroxychloroquine 200 mg tablet 200 mg PO DAILY 06/17/18 06/17/18 metoprolol succinate 50 mg 50 mg PO DAILY 06/17/18 06/17/18 tablet,extended release 24 hr sulfasalazine 500 mg 500 mg PO QID 06/17/18 06/17/18 tablet,delayed release Previous Rx's Medication Instructions Recorded oxycodone-acetaminophen 5 mg-325 1 tab PO Q4-6H PRN #14 tab 03/24/19 mg tablet (Percocet) tamsulosin 0.4 mg capsule (Flomax) 0.4 mg PO DAILY #5 cap 03/24/19 omeprazole 20 mg capsule,delayed 20 mg PO DAILY #14 cap 05/18/19 release penicillin V potassium 500 mg 500 mg PO QID #40 tab 07/04/19 tablet gabapentin 100 mg capsule 100 mg PO TID #30 cap 06/26/20 hydrocodone 5 mg-acetaminophen 325 1 tab PO Q4-6H PRN #10 tab 06/27/20 mg tablet ketorolac 10 mg tablet 10 mg PO Q6H PRN #14 tab 06/27/20 prednisone 10 mg tablet 10 mg PO DAILY #30 tab 06/27/20 Allergies Allergy/AdvReac Type Severity Reaction Status Date / Time cephalexin [From KEFLEX] Allergy Unknown Verified 07/06/21 18:59 ciprofloxacin [CIPROFLOXACIN] Allergy Unknown Verified 07/06/21 18:59 milk [MILK] Allergy Unknown Verified 07/06/21 18:59 Review of Systems Review of Systems ROS Unobtainable: All systems reviewed & are unremarkable except as noted in HPI and below Patient History Medical History (Updated 07/06/21 @ 22:06 by Candida Mata DO) Hypertension Infected prosthetic mesh of abdominal wall Surgical History H/O: hysterectomy Social History Smoking Status: Former smoker Smoking Status: Former smoker alcohol intake frequency: holidays/special occasions only Substance Use Type: does not use Exam Narrative Exam Narrative: GENERAL: Alert and oriented x three, female in mild distress. HEENT: Head normocephalic, atraumatic, EOMI, pupils reactive, face symmetric, moist mucous membranes NECK: Supple, full range of motion CARDIOVASCULAR: Regular rate and rhythm without murmurs, rubs or gallops. RESPIRATORY: Breath sounds equal bilaterally, no wheezes rales or rhonchi. ABDOMEN: Soft, nontender. Normoactive bowel sounds all 4 quadrants. No guarding or rebound, rigidity, no mass : No CVA tenderness EXTREMITIES: Normal range of motion, no clubbing or edema. Neurovascularly intact NEUROLOGICAL: Cranial nerves II through XII grossly intact. Moving all extremities SKIN: Warm, dry, no petechiae, no rashes or lesions. Initial Vital Signs Initial Vital Signs: Vital Signs Pulse Rate 88 07/06/21 18:54 Respiratory Rate 19 07/06/21 18:54 Pulse Oximetry 99 07/06/21 18:54 Scores HEART Score Heart Score history: Moderately Suspicious Heart Score EKG: Normal Heart Score Age: 45-64 years old Heart Score risk factors: 1-2 risk factors Heart Score troponin: < or = to normal limit Heart Score Total: 3 Course Orders Ordered: ED Orders 07/06/21 19:03 XR chest 1V Stat EKG-12 Lead Stat 07/06/21 19:05 Complete Blood Count AUTO DIFF Stat Comprehensive Metabolic Panel Stat Lipase Stat Magnesium Stat Troponin & CK Cardiac Panel Stat 07/06/21 20:56 Trop I [Troponin I] Stat 07/06/21 21:00 EKG-12 Lead Stat Discontinued Medications Al Hydrox/Mg Hydrox/Simethicone 20 ml/ Lidocaine HCl 15 ml 0 ml PO NOW ONE Stop: 07/06/21 20:09 Last Admin: 07/06/21 20:14 Dose: 35 ml Documented by: MOHAMUD Reevaluation(s) Reevaluation #1: Patient symptoms totally resolved after GI cocktail. Discussed plan for repeat trop/EKG. If negative observation would be recommended with her risk factors and recent abnormal stress test. Patient is reluctant and we discussed this at length. Time: 20:59 Reevaluation #2: Reviewed patient's EKG did show a difference in leads 3 although this may be location. We discussed that I do recommend observation she has multiple risk factors including a abnormal cardiac stress test. She defers admission/observation. Symptoms have continued to be resolved after her GI cocktail. 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 We discussed strict return precautions and patient is comfortable with this plan. Time: 22:34 Vital Signs Vital signs: Vital Signs - 8 hr 07/06/21 18:54 07/06/21 18:55 07/06/21 18:59 Temperature 97.1 F L Pulse Rate 88 87 85 Respiratory Rate 19 21 31 H Blood Pressure 143/100 H 143/100 H Pulse Oximetry 99 99 99 07/06/21 19:00 07/06/21 19:30 07/06/21 20:00 Temperature Pulse Rate 86 78 81 Respiratory Rate 18 20 18 Blood Pressure 130/91 H 143/95 H Pulse Oximetry 98 97 98 07/06/21 20:30 07/06/21 21:00 07/06/21 21:30 Temperature Pulse Rate 81 78 84 Respiratory Rate 16 20 19 Blood Pressure 132/95 H 121/84 Pulse Oximetry 97 98 97 07/06/21 22:00 07/06/21 22:30 Temperature Pulse Rate 80 82 Respiratory Rate 20 18 Blood Pressure 126/82 132/73 Pulse Oximetry 97 98 MDM - Chest Pain Lab Data Result diagrams: 07/06/21 19:05 07/06/21 19:05 Labs: Lab Results 07/06/21 07/06/21 07/06/21 Range/Units 19:05 19:05 20:56 WBC 8.0 (4.5-11.0) X10^3/uL RBC 4.62 (4.0-5.2) X10^6/uL Hgb 13.8 (12.0-16.0) g/dL Hct 39.5 (36-46) % MCV 85.4 (80-100) fL MCH 29.9 (26-34) PG MCHC 35.0 (30-36) % RDW 12.9 (11.6-14.8) % Plt Count 223 (150-400) X10^3/uL Neut % (Auto) 64.2 (50-75) % Lymph % (Auto) 26.3 (25-40) % [place] % (Auto) 6.4 (3-14) % Eos % (Auto) 2.6 (2-4) % Baso % (Auto) 0.5 (0-2) % Neut # (Auto) 5100 (2962-2510) /uL Lymph # (Auto) 2100 (9141-0129) /uL [place] # (Auto) 500 (0-900) /uL Eos # (Auto) 200 (0-450) /uL Baso # (Auto) 0 (0-100) /uL Sodium 135 L (137-145) mmol/L Potassium 3.5 (3.4-5.1) mmol/L Chloride 100 (98-107) mmol/L Carbon Dioxide 27 (22-32) mmol/L BUN 14 (7-17) mg/dL Creatinine 0.55 (0.52-1.04) mg/dL Estimated GFR > 60.0 (>60) mL/min BUN/Creatinine Ratio 25.5 H (6-22) Glucose 203 H (70-100) mg/dL Calcium 9.6 (8.4-10.2) mg/dL Magnesium 1.8 (1.6-2.3) mg/dL Total Bilirubin 0.8 (0.2-1.3) mg/dL AST 87 H (14-36) IU/L ALT 80 H (<35) IU/L Alkaline Phosphatase 63 (38-126) U/L Total Creatine Kinase 120 (30-135) U/L CK-MB (CK-2) 0.80 (<2.37) ng/mL CK-MB (CK-2) Rel Index 0.7 L (1.5-5.0) % Troponin I < 0.012 < 0.012 (0.01-0.034) ng/mL Total Protein 7.8 (6.3-8.2) g/dL Albumin 4.6 (3.5-5.0) g/dL Globulin 3.2 (1.7-4.1) g/dL Albumin/Globulin Ratio 1.4 (1.0-2.8) Lipase 169 (23-300) U/L Imaging Data Chest x-ray: Radiologist's Impression: [address] [address] XRay Report Signed Patient: Arabella Saleem MR#: [id number] : 1975 Acct:[id number] Age/Sex: 46 / F Date of Service: 07/06/21 Loc: ED Accession Number: [id number] ?? Procedure: XR chest 1V Ordering Provider: Candida Mata D.O. PROCEDURE:? XR CHEST 1V ? INDICATIONS:? chest pain ? TECHNIQUE:? One view of the chest was acquired.? ? COMPARISON:? [facility], CR, XR CHEST 1V, 10/04/2020, 19:07. ? FINDINGS:? ? Surgical changes and devices:? None.? ? Lungs and pleura:? Lungs are clear.? No pleural effusions or pneumothorax.? ? Mediastinum:? Mediastinal contours appear normal.? Heart size is normal.? ? Bones and chest wall:? No suspicious bony lesions.? Overlying soft tissues appear unremarkable.? ? IMPRESSION:? No acute cardiopulmonary abnormality. ? ? Dictated by: Issac Mark M.D. on 07/06/2021 at 19:27 ? ? Approved by: Issac Mark M.D. on 07/06/2021 at 19:27?? ECG Data Attestation: I personally reviewed and interpreted this ECG as follows: Prior ECG tracings: available for review Interpretation: Sinus rhythm rate of 90 SD 152 QRS of 90 QTC [address] No acute [address] changes appreciated. Patient has prior EKGs from 06/26/2020 which appears similar and a prior EKG from 10/04/2020 which appears similar except for sinus tachycardia at that time. MDM Narrative Medical decision making narrative: Patient has chest pain that started about a 1/2 hour after eating that she states feels like her son felt like esophagitis which she has had dilation for but happened to the slightly longer interval than typical and has not completely resolved. Patient does have risk factors and had a stress test she was able to pull up the report and she had no ST changes on her EKG during her stress testing with the LV EF of 60%, mild LVH but did have anteroseptal apical and inferior hypokinesis concerning for possible ischemia and is set up to have potential angiogram on the 19 of August. Discharge Plan Departure Patient Disposition: Home Clinical Impression: Chest pain Instructions: DI for Chest Pain Activity Restrictions/Additional Instructions: I do recommend observation. Please discuss with them your symptoms today and ER visit. Your lab work is reassuring but you do have significant risk factors for cardiac causes of your symptoms. Continue your home medications. Please return for new or worsening chest pain, shortness of breath, lig htheadedness or passing out, diaphoresis or sweatiness, nausea, new swelling in her extremities or other new or concerning symptoms. Prescriptions: No Action metoprolol succinate 50 mg tablet extended release 24 hr 50 mg PO DAILY 0RF albuterol sulfate [ProAir HFA] 90 mcg/actuation HFA aerosol inhaler 1 puff Inhalation PRN PRN (Reason: Shortness Of Breath) 0RF albuterol sulfate 2.5 MG/3 ML solution for nebulization 3 ml INH Q6HP PRN (Reason: Shortness Of Breath) 0RF hydroxychloroquine 200 mg tablet 200 mg PO DAILY 0RF sulfasalazine 500 mg tablet,delayed release (DR/EC) 500 mg PO QID 0RF penicillin V potassium 500 mg tablet 500 mg PO QID Qty: 40 0RF prednisone 10 mg tablet 10 mg PO DAILY Qty: 30 0RF hydrocodone-acetaminophen 5-325 mg tablet 1 tab PO Q4-6H PRN (Reason: pain) Qty: 10 0RF ketorolac 10 mg tablet 10 mg PO Q6H PRN (Reason: pain) Qty: 14 0RF tamsulosin [Flomax] 0.4 mg capsule 0.4 mg PO DAILY Qty: 5 0RF oxycodone-acetaminophen [Percocet] 5-325 mg tablet 1 tab PO Q4-6H PRN (Reason: pain) Qty: 14 0RF omeprazole 20 mg capsule,delayed release(DR/EC) 20 mg PO DAILY Qty: 14 0RF gabapentin 100 mg capsule 100 mg PO TID Qty: 30 0RF Referrals: Nurys Ash MD [Primary Care Provider] -
[2021-07-06 19:20] LABS: Add Manual Diff / Slide Review NO; Basophils Absolute Auto 0 /uL (0-100); Basophils Percent Auto 0.5 % (0-2); Eosinophils Absolute Auto 200 /uL (0-450); Eosinophils Percent Auto 2.6 % (2-4); Hematocrit 39.5 % (36-46); Hemoglobin 13.8 g/dL (12.0-16.0); Lymphocytes Absolute Auto 2100 /uL (1100-4500); Lymphocytes Percent Auto 26.3 % (25-40); Mean Corpuscular Hemoglobin 29.9 PG (26-34); Mean Corpuscular Volume 85.4 fL (80-100); Monocytes Absolute Auto 500 /uL (0-900); Monocytes Percent Auto 6.4 % (3-14); Neutrophils Absolute Auto 5100 /uL (1500-7000); Neutrophils Percent Auto 64.2 % (50-75); Platelet Count 223 X10^3/uL (150-400); Red Blood Cell Count 4.62 X10^6/uL (4.0-5.2); Red Cell Distribution Width 12.9 % (11.6-14.8)
[2021-07-06 19:29] LABS: Alanine Aminotransferase 80 IU/L (<35); Albumin 4.6 g/dL (3.5-5.0); Albumin Globulin Ratio 1.4 (1.0-2.8); Alkaline Phosphatase 63 U/L (38-126); Aspartate Aminotransferase 87 IU/L (14-36); BUN Creatinine Ratio 25.5 (6-22); Bilirubin Total 0.8 mg/dL (0.2-1.3); Blood Urea Nitrogen 14 mg/dL (7-17); Calcium 9.6 mg/dL (8.4-10.2); Carbon Dioxide 27 mmol/L (22-32); Chloride 100 mmol/L (98-107); Creatine Kinase 120 U/L (30-135); Estimated Glomerular Filt Rate > 60.0 mL/min (>60); Globulin 3.2 g/dL (1.7-4.1); Glucose 203 mg/dL (70-100); HEMOLYSIS < 15 (0-50); Lipase 169 U/L (23-300); Magnesium 1.8 mg/dL (1.6-2.3); Potassium 3.5 mmol/L (3.4-5.1); Sodium 135 mmol/L (137-145); Total Protein 7.8 g/dL (6.3-8.2)
[2021-07-06 19:44] LABS: CKMB % Relative Index 0.7 % (1.5-5.0)
[2021-07-06 19:51] LABS: Troponin I < 0.012 ng/mL (0.01-0.034)
[2021-07-06] MEDS: MAG HYDROX/ALUMINUM/SIMETH SUS 20 ML, LIDOCAINE VISCOUS 2% 15 ML PO (20:14)
[2021-07-06 21:29] LABS: Troponin I < 0.012 ng/mL (0.01-0.034)
== END 2021-07-06 22:40 | disposition home or self-care (01) ==
PROVIDERS: Emergency Provider Emergency Medicine; PCP Internal Medicine
DX: R07.9 Chest pain, unspecified (principal); I10 Essential (primary) hypertension; Z87.891 Personal history of nicotine dependence
CPT/HCPCS: 36415; 71045; 80053; 82550; 82553; 83690; 83735; 84484; 85025; 93005; 93010; 99284

== ENCOUNTER 2022-01-26 07:34 | Emergency (ER) | payer OTHER, MEDICAID, SELFPAY ==
[2022-01-26 07:54] VITALS: BP 164/80; PULSE 91; O2SAT 96
[2022-01-26 08:01] VITALS: BP 164/80; PULSE 99; RESP 18; TEMP 36.6; O2SAT 97; BMI 35.2
--- NOTE | 2022-01-26 08:33 | ED_ITS ---
HPI - Dental/Oral General Chief complaint: Dental/Oral Stated complaint: tooth ache right side Time Seen by Provider: 01/26/22 08:30 Source: patient, RN notes reviewed and old records reviewed Mode of arrival: Ambulatory Limitations: no limitations History of Present Illness HPI Narrative: This is a 46-year-old female with history of rheumatoid arthritis, hypertension, asthma and prior dental work with complaint of right lower dental pain for the past week which has been slowly increasing and patient is now having increasing pain and swelling of the right lower jaw extending down the neck towards her ear. She has not appreciated any clear drainage but does have a foul taste. She states it started with the posterior lower molar but now is causing pain to several other teeth. She has had work in that area before and believes she is supposed to have a root canal in February of 2022. Patient denies fevers. No difficulty with swelling of the airway, tongue or oropharynx. She denies any other symptoms currently. She is allergic to Keflex and amoxicillin but has tolerated penicillin without any issue several times. Related Data Home Medications Medication Instructions Recorded Confirmed albuterol sulfate 2.5 mg/3 mL 3 ml INH Q6HP PRN Shortness Of 06/17/18 06/17/18 (0.083 %) solution for nebulization Breath albuterol sulfate 90 mcg/actuation 1 puff inhalation PRN PRN 06/17/18 06/17/18 aerosol inhaler Shortness Of Breath hydroxychloroquine 200 mg tablet 200 mg PO DAILY 06/17/18 06/17/18 metoprolol succinate 50 mg 50 mg PO DAILY 06/17/18 06/17/18 tablet,extended release 24 hr sulfasalazine 500 mg 500 mg PO QID 06/17/18 06/17/18 tablet,delayed release Previous Rx's Medication Instructions Recorded oxycodone-acetaminophen 5 mg-325 1 tab PO Q4-6H PRN pain #14 tabs 03/24/19 mg tablet (Percocet) tamsulosin 0.4 mg capsule (Flomax) 0.4 mg PO DAILY #5 caps 03/24/19 omeprazole 20 mg capsule,delayed 20 mg PO DAILY #14 caps 05/18/19 release penicillin V potassium 500 mg 500 mg PO QID #40 tabs 07/04/19 tablet gabapentin 100 mg capsule 100 mg PO TID #30 caps 06/26/20 hydrocodone 5 mg-acetaminophen 325 1 tab PO Q4-6H PRN pain #10 tabs 06/27/20 mg tablet ketorolac 10 mg tablet 10 mg PO Q6H PRN pain #14 tabs 06/27/20 prednisone 10 mg tablet 10 mg PO DAILY #30 tabs 06/27/20 penicillin V potassium 500 mg 500 mg PO QID #40 tabs 01/26/22 tablet Allergies Allergy/AdvReac Type Severity Reaction Status Date / Time cephalexin [From KEFLEX] Allergy Unknown Verified 07/06/21 18:59 ciprofloxacin [CIPROFLOXACIN] Allergy Unknown Verified 07/06/21 18:59 milk [MILK] Allergy Unknown Verified 07/06/21 18:59 Review of Systems Review of Systems ROS Unobtainable: All systems reviewed & are unremarkable except as noted in HPI and below Patient History Medical History (Updated 01/26/22 @ 08:47 by Candida Mata DO) Hypertension Infected prosthetic mesh of abdominal wall Surgical History H/O: hysterectomy Social History Smoking Status: Former smoker Smoking Status: Former smoker alcohol intake frequency: holidays/special occasions only Substance Use Type: does not use Exam Narrative Exam Narrative: GEN: well nourished, well appearing female, alert and oriented x 3, patient appears to be in mild distress. HEENT: Atraumatic, pupils are equal round reactive to light, extraocular mo vements are intact, nares are clear, TMs are clear with no fluid. Throat is clear without any exudates, erythema, tonsillar enlargement or uvular deviation, patient has pain over tooth number 32. There is some mild swelling and erythema. No fluctuance or area of easily drainable fluid. Patient has some very mild swelling at the corner of the mandible on the right but no significant facial, neck swelling. Patient does not have any other bony tenderness. She has no pain with movement of the tragus. Normal speech. No trismus. No difficulty swallowing secretions. No erythema or other skin changes noted. HEART: Regular rate and rhythm without murmur, clicks, rubs. LUNGS:Lungs clear to auscultation, no wheezes, rales, crackles, chest moves symmetrically ABD:bowel sounds normal, soft, non-tender, no guarding, rebound, rigidity, no masses noted, no hepatosplenomegaly MSCL: full range of motion, normal gait NEURO:CN 2-12 intact, sensation normal Initial Vital Signs Initial Vital Signs: Vital Signs Pulse Rate 91 H 01/26/22 07:54 Blood Pressure 164/80 H 01/26/22 07:54 Pulse Oximetry 96 01/26/22 07:54 Course Vital Signs Vital signs: Vital Signs - 8 hr 01/26/22 08:01 Temperature 97.8 F Pulse Rate 99 H Respiratory Rate 18 Blood Pressure 164/80 H Pulse Oximetry 97 Oxygen Delivery Method Room Air MDM - Dental/Oral MDM Narrative Medical decision making narrative: This is a 46-year-old female with history of rheumatoid, hypertension and dental issues in the past who is having increasing pain at the molar which has been worsening over the past week. Patient is afebrile, no other red flag symptoms but started antibiotics for likely dental infection. She does have a dentist but was not plan to follow up until February and finances are somewhat issue. Was given alternative option if necessary and return precautions. Discharge Plan Departure Patient Disposition: Home Clinical Impression: Dental infection Instructions: Tooth Abscess Activity Restrictions/Additional Instructions: Follow-up with your dentist for recheck. Included as an alternate option with [facility] dental clinic in [facility] (website below) [email or web address] You may take Tylenol up to a 1000 mg every 6 hours and/or ibuprofen up to 600 mg every 6 hours. Take antibiotics until completely gone. I would expect you notice significant change in the next 24 hours with antibiotics. Prescription sent to [facility] in [place] Please return for increasing swelling, redness or pain, difficulty swallowing, swelling or tongue or airway, persistent vomiting, persistent fevers or other new or concerning symptoms Prescriptions: New penicillin V potassium 500 mg tablet 500 mg PO QID Qty: 40 0RF No Action metoprolol succinate 50 mg tablet extended release 24 hr 50 mg PO DAILY albuterol sulfate [ProAir HFA] 90 mcg/actuation HFA aerosol inhaler 1 puff Inhalation PRN PRN (Reason: Shortness Of Breath) albuterol sulfate 2.5 MG/3 ML solution for nebulization 3 ml INH Q6HP PRN (Reason: Shortness Of Breath) hydroxychloroquine 200 mg tablet 200 mg PO DAILY sulfasalazine 500 mg tablet,delayed release (DR/EC) 500 mg PO QID penicillin V potassium 500 mg tablet 500 mg PO QID Qty: 40 0RF prednisone 10 mg tablet 10 mg PO DAILY Qty: 30 0RF hydrocodone-acetaminophen 5-325 mg tablet 1 tab PO Q4-6H PRN (Reason: pain) Qty: 10 0RF ketorolac 10 mg tablet 10 mg PO Q6H PRN (Reason: pain) Qty: 14 0RF tamsulosin [Flomax] 0.4 mg capsule 0.4 mg PO DAILY Qty: 5 0RF oxycodone-acetaminophen [Percocet] 5-325 mg tablet 1 tab PO Q4-6H PRN (Reason: pain) Qty: 14 0RF omeprazole 20 mg capsule,delayed release(DR/EC) 20 mg PO DAILY Qty: 14 0RF gabapentin 100 mg capsule 100 mg PO TID Qty: 30 0RF Referrals: Nurys Ash MD [Primary Care Provider] - Visit Report Forms: Patient Portal/API
== END 2022-01-26 08:59 | disposition home or self-care (01) ==
PROVIDERS: Emergency Provider Emergency Medicine; Family Provider Internal Medicine; PCP Internal Medicine
DX: K04.7 Periapical abscess without sinus (principal)
CPT/HCPCS: 99281

== ENCOUNTER 2022-02-26 19:01 | Observation (INO) | payer OTHER, MEDICAID, SELFPAY ==
[2022-02-26] VITALS (12 sets, daily range): BP systolic 141–157; BP diastolic 80–97; PULSE 95–130; RESP 11–32; TEMP 36.4–36.5; O2SAT 96–99; BMI 34.7
--- NOTE | 2022-02-26 19:13 | DI.RAD.S_ITS ---
PROCEDURE: XR CHEST 1V INDICATIONS: Possible stroke TECHNIQUE: One view of the chest was acquired. COMPARISON: [facility], CR, XR CHEST 1V, 07/06/2021, 19:15. [facility], CR, XR CHEST 1V, 10/04/2020, 19:07. FINDINGS: Surgical changes and devices: None. Lungs and pleura: Lungs are clear. No pleural effusions or pneumothorax. Mediastinum: Mediastinal contours appear normal. Heart size is normal. Bones and chest wall: No suspicious bony lesions. Overlying soft tissues appear unremarkable. IMPRESSION: No acute radiographic abnormality. Dictated by: Willy Elizabeth M.D. on 02/26/2022 at 19:56 Approved by: Willy Elizabeth M.D. on 02/26/2022 at 19:57
--- NOTE | 2022-02-26 19:13 | DI.CT.S_ITS ---
PROCEDURE: CT ANGIO HEAD AND NECK INDICATIONS: Possible stroke TECHNIQUE: After the administration of intravenous contrast, 1 mm thick sections acquired from the aortic arch through the [place]. Post-contrast 4.5 mm thick sections then re-acquired from the foramen magnum to the vertex. 3-dimensional zdzctef-zyulmrlop-capfkjvyxg (MIP) and/or volume rendering reformats were acquired of the central intracranial vasculature and neck separately. For radiation dose reduction, the following was used: automated exposure control, adjustment of mA and/or kV according to patient size. COMPARISON: [facility], CT, CT STROKE, 02/26/2022, 19:18. FINDINGS: Image quality: Excellent. BRAIN: CSF spaces: Basal cisterns are patent. No extra-axial fluid collections. Ventricles are normal in size and shape. Brain: No intracranial hemorrhage, mass, or mass effect. Bridges-white matter interface appears preserved. No abnormal intracranial enhancement. Skull and face: Calvarium and facial bones appear intact, without suspicious lesions. Orbits appear normal. Sinuses: Sinuses and mastoids are clear. HEAD CT ANGIOGRAPHY: Anterior circulation: Intracranial internal carotid arteries are normal in size and appear patent bilaterally. There is mild atherosclerotic calcification along the cavernous segments of the internal carotid arteries. The paired anterior cerebral arteries appear patent bilaterally. The anterior communicating artery also appears patent. The middle cerebral arteries appear patent bilaterally. No high-grade stenosis, occlusion, or filling defects. No cerebral aneurysms identified. Posterior circulation: Visualized portions of the vertebral arteries demonstrate normal caliber, and join to form a patent basilar artery. The posterior cerebral arteries appears patent bilaterally. No high-grade stenosis, occlusion, or filling defects. No cerebral aneurysms identified. NECK CT ANGIOGRAPHY: Carotid system: The great vessels demonstrate a conventional anatomy as they arise from the aortic arch. The origins of the common carotid arteries appear patent. The common carotid arteries demonstrate normal caliber and courses. The carotid bulbs appear widely patent. The internal carotid arteries demonstrate normal calibers and courses. Posterior circulation: The origins of the vertebral arteries both appear patent. The more superior extracranial portions of both vertebral arteries also demonstrate normal courses and calibers. They join to form a patent basilar artery. Soft tissues: Visualized neck soft tissues demonstrate no suspicious abnormalities. Bones: No suspicious bony lesions. Visualized cervical spine appears normally aligned. IMPRESSION: 1. No high-grade stenosis or occlusion of the central intracranial arteries. 2. No high-grade stenosis or occlusion of the head and neck arteries. The carotid bulbs appear widely patent. Any quantitative measurements of stenosis were performed using NASCET criteria. Dictated by: Yang Lowe M.D. on 02/26/2022 at 20:05 Approved by: Yang Lowe M.D. on 02/26/2022 at 20:09
--- NOTE | 2022-02-26 19:13 | DI.CT.S_ITS ---
PROCEDURE: CT STROKE INDICATIONS: Positive BE-FAST, Stroke symptoms TECHNIQUE: Noncontrast 4.5 mm thick angled axial sections acquired from the foramen magnum to the vertex, with coronal reformats. For radiation dose reduction, the following was used: automated exposure control, adjustment of mA and/or kV according to patient size. COMPARISON: None. FINDINGS: Image quality: Excellent. CSF spaces: Basal cisterns are patent. No extra-axial fluid collections. Ventricles are normal in size and shape. Brain: No midline shift. No intracranial masses or hemorrhage. Bridges-white matter interface is normal. Skull and face: Calvarium and visualized facial bones are intact, without suspicious lesions. Sinuses: Visualized sinuses and mastoids are clear. IMPRESSION: No acute intracranial abnormality. CTA is pending. Communicated to ED at 7:40pm. This study fulfills neurological imaging criteria for inclusion or exclusion of acute stroke therapies based on available published neurological imaging guidelines. Dictated by: Willy Elizabeth M.D. on 02/26/2022 at 19:36 Approved by: Willy Elizabeth M.D. on 02/26/2022 at 19:38
[2022-02-26 19:39] LABS: Add Manual Diff / Slide Review NO; Basophils Absolute Auto 0 /uL (0-100); Basophils Percent Auto 0.4 % (0-2); Eosinophils Absolute Auto 300 /uL (0-450); Eosinophils Percent Auto 2.7 % (2-4); Hematocrit 40.1 % (36-46); Hemoglobin 14.3 g/dL (12.0-16.0); Lymphocytes Absolute Auto 4100 /uL (1100-4500); Lymphocytes Percent Auto 39.6 % (25-40); Mean Corpuscular HGB Conc 35.6 % (30-36); Mean Corpuscular Hemoglobin 30.2 PG (26-34); Mean Corpuscular Volume 84.8 fL (80-100); Monocytes Absolute Auto 700 /uL (0-900); Monocytes Percent Auto 7.1 % (3-14); Neutrophils Absolute Auto 5300 /uL (1500-7000); Neutrophils Percent Auto 50.2 % (50-75); Platelet Count 232 X10^3/uL (150-400); Red Blood Cell Count 4.73 X10^6/uL (4.0-5.2); Red Cell Distribution Width 13.6 % (11.6-14.8); White Blood Cell Count 10.5 X10^3/uL (4.5-11.0)
--- NOTE | 2022-02-26 19:41 | ED_ITS ---
HPI - Neuro Symptoms/Deficit General Chief Complaint: Neuro Symptoms/Deficit Stated Complaint: NOT ABLE TO SPEAK NUMBNESS OF FACE Time Seen by Provider: 02/26/22 19:32 Source: patient Mode of arrival: Ambulatory History of Present Illness HPI Narrative: Code stroke called at 7:11 p.m. Patient here for left-sided numbness and left lip drooping at 6:00 p.m. tonight. Feels much better now. Patient states in the past year she is had variable bilateral right greater than left leg numbness and weakness but she has physical therapy for that. She has off and on neck and back pain. Patient has have a high-stress lifestyle. She has ataxic child at home she is in school right now paper is due tomorrow. She is had a lot of emotional trauma in her past. She thinks she is been managing it very well. Today around 4:00 p.m. she was c ooking and felt very tired she would laid down for a nap she woke up at 6:00 p.m.. She states she is had hard time focusing and concentrating today. Still feel tired and then as she was awakening she noticed that her left side was numb and slightly weak. She is unsure she woke up with that or a developed after awakening. At this time symptoms have resolved except for slight left lip drooping. Family history of mother with TIA in her 60s. Patient denies any recent illness. No fever chills cough or congestion. No urinary complaints. No headache at this time. On Anticoagulants: No Related Data Home Medications Medication Instructions Recorded Confirmed albuterol sulfate 2.5 mg/3 mL 3 ml INH Q6HP PRN Shortness Of 06/17/18 06/17/18 (0.083 %) solution for nebulization Breath albuterol sulfate 90 mcg/actuation 1 puff inhalation PRN PRN 06/17/18 06/17/18 aerosol inhaler Shortness Of Breath hydroxychloroquine 200 mg tablet 200 mg PO DAILY 06/17/18 06/17/18 metoprolol succinate 50 mg 50 mg PO DAILY 06/17/18 06/17/18 tablet,extended release 24 hr sulfasalazine 500 mg 500 mg PO QID 06/17/18 06/17/18 tablet,delayed release Previous Rx's Medication Instructions Recorded oxycodone-acetaminophen 5 mg-325 1 tab PO Q4-6H PRN pain #14 tabs 03/24/19 mg tablet (Percocet) tamsulosin 0.4 mg capsule (Flomax) 0.4 mg PO DAILY #5 caps 03/24/19 omeprazole 20 mg capsule,delayed 20 mg PO DAILY #14 caps 05/18/19 release penicillin V potassium 500 mg 500 mg PO QID #40 tabs 07/04/19 tablet gabapentin 100 mg capsule 100 mg PO TID #30 caps 06/26/20 hydrocodone 5 mg-acetaminophen 325 1 tab PO Q4-6H PRN pain #10 tabs 06/27/20 mg tablet ketorolac 10 mg tablet 10 mg PO Q6H PRN pain #14 tabs 06/27/20 prednisone 10 mg tablet 10 mg PO DAILY #30 tabs 06/27/20 penicillin V potassium 500 mg 500 mg PO QID #40 tabs 01/26/22 tablet Allergies Allergy/AdvReac Type Severity Reaction Status Date / Time cephalexin [From KEFLEX] Allergy Unknown Verified 02/26/22 19:03 ciprofloxacin [CIPROFLOXACIN] Allergy Unknown Verified 02/26/22 19:03 milk [MILK] Allergy Unknown Verified 02/26/22 19:03 Review of Systems Review of Systems Narrative: GENERAL: Denies chills, fatigue, malaise, fever, sweats. HEENT: Denies sinus pain, ear pain, sore throat RESPIRATORY: Denies dyspnea, cough CARDIOVASCULAR: Denies chest pain, palpitations GASTROINTESTINAL: Denies nausea, vomiting, abdominal pain : Denies dysuria, frequency, hematuria MUSCULOSKELETAL: denies muscle or bony pain SKIN: Denies rash, skin lesions NEUROLOGIC: Positive for weakness, numbness ROS Unobtainable: All systems reviewed & are unremarkable except as noted in HPI and below Hematologic/Lymphatic On Anticoagulants: No Patient History Medical History (Updated 02/27/22 @ 00:30 by KENISHA Lugo) Diabetes type 2, uncontrolled Dyslipidemia Eosinophilic esophagitis Essential hypertension Hypertension Infected prosthetic mesh of abdominal wall Surgical History (Updated 02/27/22 @ 00:23 by KENISHA Lugo) H/O: hysterectomy History of appendectomy Family History (Updated 02/27/22 @ 00:28 by KENISHA Lugo) Mother CVA (cerebral vascular accident) Father CVA (cerebral vascular accident) Other Diabetes mellitus Social History household members: significant other, family and children Smoking Status: Former smoker Smoking Status: Former smoker alcohol intake frequency: holidays/special occasions only Substance Use Type: does not use Exam Narrative Exam Narrative: GENERAL: in no distress, not toxic not dyspneic HEAD: Normocephalic. EYES: Pupils equal round No scleral icterus. ENT: Mucous membranes moist. NECK: Trachea midline. CARDIOVASCULAR: Regular rate and rhythm without murmurs RESPIRATORY: Clear to auscultation. Breath sounds equal bilaterally. No wheezes, rales, or rhonchi. GASTROINTESTINAL: Abdomen soft, non-tender EXTREMITIES: No gross deformities. BACK: No flank tenderness. NEURO: AOx4. Clear speech no facial droop. ?However, slight left corner of the mouth droop. No tongue deviation. Light touch intact to bilateral face hands and legs. ?Strong equal technical marketing consultant bilaterally and ankle flexion hip flexion and knee flexion. ?Strong bilateral patellar reflexes. ?No pronator drift. ? SKIN: Warm and dry PSYCH: Not anxious, is cooperative Initial Vital Signs Initial Vital Signs: Vital Signs Temperature 97.5 F L 02/26/22 19:04 Pulse Rate 130 H 02/26/22 19:04 Respiratory Rate 17 02/26/22 19:04 Blood Pressure 157/97 H 02/26/22 19:04 Pulse Oximetry 99 02/26/22 19:04 Oxygen Delivery Method 02/26/22 19:04 Scores NIH Stroke Scale Level of Conciousness: Alert, keenly responsive Ask month/age: Answers both questions correctly. Open/close eyes, close hand: Performs both tasks correctly Best gaze horizontal: Normal Visual mcconnell: No visual loss Facial palsy: Minor paralysis, flattened nasolabial fold, asymmetry on smiling Left arm drift: No drift for full 10 sec Right arm drift: No drift for full 10 sec Left leg drift: No drift for full 5 sec Right leg drift: No drift for full 5 sec Limb ataxia: Absent Sensory on face/arms/legs: Normal, no sensory loss Best language: No aphasia, normal Dysarthria: Normal Extinction or inattention: No abnormality Total NIH Stroke scale score: 1 Course Course Course Narrative: 7:39 p.m.. Radiologist called report on head CT without contrast no acute process 1951 spoke with tele stroke, Dr. Darden. At this time no tPA. Recommends aspirin 325 mg now and Plavix 300 mg now. Admit for balance of stroke workup Orders Ordered: ED Orders 02/26/22 19:[address] angio head and neck Stat XR chest 1V Stat 02/26/22 19:20 Complete Blood Count AUTO DIFF Stat Comprehensive Metabolic Panel Stat Hemoglobin A1C% w Est Avg Glu Stat Magnesium Stat Partial Thromboplastin Time Stat Prothrombin Time INR Stat Troponin & CK Cardiac Panel Stat 02/26/22 19:43 EKG-12 Lead Stat 02/26/22 20:54 Urine Drug Screen, Rapid Stat 02/26/22 21:57 COVID19 -Nasal RAPID/Pre-Proc Stat 02/26/22 22:07 Consult to Discharge Planning Routine Consult to Occupational Therapy Evaluate & Treat Consult to Physical Therapy Evaluate & Treat Consult to Speech Therapy Evaluate & Treat Education, smoking cessation ONGOING 02/27/22 EC echo doppler complete Urgent 02/27/22 05:00 Basic Metabolic Panel DAILY Complete Blood Count AUTO DIFF DAILY Lipid Panel Routine Magnesium DAILY 02/27/22 08:00 MR stroke Stat 02/28/22 05:00 Basic Metabolic Panel DAILY Complete Blood Count AUTO DIFF DAILY Magnesium DAILY Acetaminophen (Acetaminophen 325 Mg Tablet) 650 mg PO Q6HR PRN PRN Reason: Fever/Mild Pain (1-3) Aspirin (Aspirin Ec 81 Mg Tablet) 81 mg PO DAILY [facility] Atorvastatin Calcium (Atorvastatin 20 Mg Tablet) 40 mg PO BEDTIME [facility] Clopidogrel Bisulfate (Clopidogrel 75 Mg Tablet) 75 mg PO DAILY [facility] Dextrose (Dextrose 50 % In Water 25 Gm/50 Ml Syringe) 25 gm IV PRN PRN PRN Reason: Hypoglycemia Enoxaparin Sodium (Enoxaparin 40 Mg/0.4 Ml Syringe) 40 mg SUBCUT DAILY [facility] Insulin Glargine (Insulin Glargine 100 Unit/Ml 3ml Pen) 5 unit SUBCUT BEDTIME [facility] Last Admin: 02/27/22 01:34 Dose: Not Given Documented By: CS Insulin Human Lispro (Insulin Lispro 100 Unit/Ml 3ml Vial) 0 unit SUBCUT ACHS [facility]; Protocol Ondansetron HCl (Ondansetron 4 Mg/2 Ml Inj) 4 mg IV Q6HR PRN PRN Reason: Nausea And Vomiting Reevaluation(s) Reevaluation #1: Spoke with patient results. Exam as improved likely TIA. Does agree for admission for balance of workup. Partner at bedside Time: 21:00 Consultations Consultation #1: Spoke with Dr. Darden. Please see notes above with tele stroke Time: 19:52 Consultation #2: Spoke with hospitalist, Natalie, will admit patient Time: 22:03 Vital Signs Vital signs: Vital Signs - 8 hr 02/26/22 19:34 02/26/22 20:00 02/26/22 20:00 Pulse Rate 105 H 98 H Respiratory Rate 11 L 14 Blood Pressure 141/80 H Pulse Oximetry 98 97 Oxygen Delivery Method 02/26/22 20:30 02/26/22 20:30 02/26/22 21:06 Pulse Rate 99 H 105 H Respiratory Rate 23 Blood Pressure 150/80 H Pulse Oximetry 97 Oxygen Delivery Method 02/26/22 21:30 02/26/22 22:00 02/26/22 22:07 Pulse Rate 115 H 101 H Respiratory Rate 25 H 32 H Blood Pressure Pulse Oximetry 99 97 96 Oxygen Delivery Method Room Air MDM - Neuro Symptoms/Deficit Differential Diagnosis Differential diagnosis: Likely cerebrovascular accident and transient cerebral ischemia Lab Data Result diagrams: 02/26/22 19:20 02/26/22 19:20 Labs: Lab Results 02/26/22 02/26/22 02/26/22 Range/Units 19:20 19:20 19:20 WBC 10.5 (4.5-11.0) X10^3/uL RBC 4.73 (4.0-5.2) X10^6/uL Hgb 14.3 (12.0-16.0) g/dL Hct 40.1 (36-46) % MCV 84.8 (80-100) fL MCH 30.2 (26-34) PG MCHC 35.6 (30-36) % RDW 13.6 (11.6-14.8) % Plt Count 232 (150-400) X10^3/uL Neut % (Auto) 50.2 (50-75) % Lymph % (Auto) 39.6 (25-40) % Sargent % (Auto) 7.1 (3-14) % Eos % (Auto) 2.7 (2-4) % Baso % (Auto) 0.4 (0-2) % Neut # (Auto) 5300 (1629-6762) /uL Lymph # (Auto) 4100 (7923-8238) /uL Sargent # (Auto) 700 (0-900) /uL Eos # (Auto) 300 (0-450) /uL Baso # (Auto) 0 (0-100) /uL PT 11.1 (10.1-12.7) SECONDS INR 1.0 (0.9-1.3) APTT 33 (26.4-36.2) SECONDS Sodium 137 (137-145) mmol/L Potassium TNP Chloride 101 (98-107) mmol/L Carbon Dioxide 27 (22-32) mmol/L BUN 18 H (7-17) mg/dL Creatinine 0.59 (0.52-1.04) mg/dL Estimated GFR > 60 (>60) mL/min BUN/Creatinine Ratio 30.5 H (6-22) Glucose 155 H (70-100) mg/dL Hemoglobin A1c (4.0-6.0) % Calcium 9.3 (8.4-10.2) mg/dL Magnesium 1.7 (1.6-2.3) mg/dL Total Bilirubin 0.9 (0.2-1.3) mg/dL AST 56 H (14-36) IU/L ALT 54 H (<35) IU/L Alkaline Phosphatase 52 (38-126) U/L Total Creatine Kinase 78 (30-135) U/L CK-MB (CK-2) TNP CK-MB (CK-2) Rel Index TNP Troponin I < 0.012 (0.01-0.034) ng/mL Total Protein 8.4 H (6.3-8.2) g/dL Albumin 4.7 (3.5-5.0) g/dL Globulin 3.7 (1.7-4.1) g/dL Albumin/Globulin Ratio 1.3 (1.0-2.8) U Opiates 300ng/mL cut (Negative) Ur Oxycodone Screen (Negative) Urine Methadone Screen (Negative) Ur Barbiturates Screen (Negative) U Tricyclic Antidepress (Negative) Ur Phencyclidine Scrn (Negative) Ur Amphetamines Screen (Negative) U Methamphetamines Scrn (Negative) Ur MDMA Scrn (Ecstasy) (Negative) U Benzodiazepines Scrn (Negative) Urine Cocaine Screen (Negative) U Marijuana (THC) Screen (Negative) SARS-CoV-2 (PCR) (Negative) 08/09/22 08/09/22 08/09/22 Range/Units 19:20 20:54 21:57 WBC (4.5-11.0) X10^3/uL RBC (4.0-5.2) X10^6/uL Hgb (12.0-16.0) g/dL Hct (36-46) % MCV (80-100) fL MCH (26-34) PG MCHC (30-36) % RDW (11.6-14.8) % Plt Count (150-400) X10^3/uL Neut % (Auto) (50-75) % Lymph % (Auto) (25-40) % Sargent % (Auto) (3-14) % Eos % (Auto) (2-4) % Baso % (Auto) (0-2) % Neut # (Auto) (1454-0609) /uL Lymph # (Auto) (2990-8050) /uL Sargent # (Auto) (0-900) /uL Eos # (Auto) (0-450) /uL Baso # (Auto) (0-100) /uL PT (10.1-12.7) SECONDS INR (0.9-1.3) APTT (26.4-36.2) SECONDS Sodium (137-145) mmol/L Potassium Chloride (98-107) mmol/L Carbon Dioxide (22-32) mmol/L BUN (7-17) mg/dL Creatinine (0.52-1.04) mg/dL Estimated GFR (>60) mL/min BUN/Creatinine Ratio (6-22) Glucose (70-100) mg/dL Hemoglobin A1c 7.5 H (4.0-6.0) % Calcium (8.4-10.2) mg/dL Magnesium (1.6-2.3) mg/dL Total Bilirubin (0.2-1.3) mg/dL AST (14-36) IU/L ALT (<35) IU/L Alkaline Phosphatase (38-126) U/L Total Creatine Kinase (30-135) U/L CK-MB (CK-2) CK-MB (CK-2) Rel Index Troponin I (0.01-0.034) ng/mL Total Protein (6.3-8.2) g/dL Albumin (3.5-5.0) g/dL Globulin (1.7-4.1) g/dL Albumin/Globulin Ratio (1.0-2.8) U Opiates 300ng/mL cut Negative (Negative) Ur Oxycodone Screen Negative (Negative) Urine Methadone Screen Negative (Negative) Ur Barbiturates Screen Negative (Negative) U Tricyclic Antidepress Negative (Negative) Ur Phencyclidine Scrn Negative (Negative) Ur Amphetamines Screen Negative (Negative) U Methamphetamines Scrn Negative (Negative) Ur MDMA Scrn (Ecstasy) Negative (Negative) U Benzodiazepines Scrn Negative (Negative) Urine Cocaine Screen Negative (Negative) U Marijuana (THC) Screen Negative (Negative) SARS-CoV-2 (PCR) Negative (Negative) Point of Care Testing Glucose POC 148 Urine Dip Bedside Urine Glucose Negative Bedside Urine Bilirubin - Negative Bedside Urine Ketone - Negative Urine Specific [place] 1.010 Bedside Urine Occult Blood - Negative Bedside Urine pH 6 Bedside Urine Urobilinogen - Negative Bedside Urine Nitrite - Negative Bedside Urine Leukocytes - Negative Esterase Imaging Data CT scan - head: Radiologist's Impression: [place] [address] CT Scan Report Signed Patient: Arabella Saleem MR#: [id number] : 1975 Acct:[id number] Age/Sex: 47 / F Date of Service: 02/26/22 Loc: ED Accession Number: [id number] ?? Procedure: CT Stroke Ordering Provider: Avery Nina MD PROCEDURE:? CT STROKE ? INDICATIONS:? Positive BE-FAST, Stroke symptoms ? TECHNIQUE:? Noncontrast 4.5 mm thick angled axial sections acquired from the foramen magnum to the vertex, with coronal reformats.? For radiation dose reduction, the following was used:? automated exposure control, adjustment of mA and/or kV according to patient size.? ? COMPARISON:? None. ? FINDINGS:? Image quality:? Excellent.? ? CSF spaces:? Basal cisterns are patent.? No extra-axial fluid collections.? Vent ricles are normal in size and shape.? ? Brain:? No midline shift.? No intracranial masses or hemorrhage.? Bridges-white matter interface is normal.? ? Skull and face:? Calvarium and visualized facial bones are intact, without suspicious lesions.? ? Sinuses:? Visualized sinuses and mastoids are clear.? ? IMPRESSION:? No acute intracranial abnormality.? CTA is pending. ? Communicated to ED at 7:40pm. ? This study fulfills neurological imaging criteria for inclusion or exclusion of acute stroke therapies based on available published neurological imaging guidelines.? ? ? Dictated by: Willy Elizabeth M.D. on 02/26/2022 at 19:36 ? ? Approved by: Willy Elizabeth M.D. on 02/26/2022 at 19:38 ? ECG Data Interpretation: Sinus tachycardia rate [address] elevation or depression MDM Narrative Medical decision making narrative: Appropriate for admission for balance of stroke workup. Reviewed patient agrees. Review with tele stroke and agrees with plan. No tPA as symptoms resolving Discharge Plan Departure Patient Disposition: Admitted as Observation Clinical Impression: Transient cerebral ischemia Admit Date/Time: 02/26/22 22:22 Admit Provider: Pennie Almazan
[2022-02-26 19:50] LABS: Prothrombin Time 11.1 SECONDS (10.1-12.7)
[2022-02-26 19:51] LABS: PTT Partial Thromboplastin Tim 33 SECONDS (26.4-36.2)
[2022-02-26 20:03] LABS: Alanine Aminotransferase 54 IU/L (<35); Albumin 4.7 g/dL (3.5-5.0); Albumin Globulin Ratio 1.3 (1.0-2.8); Alkaline Phosphatase 52 U/L (38-126); Aspartate Aminotransferase 56 IU/L (14-36); BUN Creatinine Ratio 30.5 (6-22); Bilirubin Total 0.9 mg/dL (0.2-1.3); Blood Urea Nitrogen 18 mg/dL (7-17); Calcium 9.3 mg/dL (8.4-10.2); Carbon Dioxide 27 mmol/L (22-32); Chloride 101 mmol/L (98-107); Creatine Kinase 78 U/L (30-135); Estimated Glomerular Filt Rate > 60 mL/min (>60); Globulin 3.7 g/dL (1.7-4.1); Glucose 155 mg/dL (70-100); Magnesium 1.7 mg/dL (1.6-2.3); Sodium 137 mmol/L (137-145); Total Protein 8.4 g/dL (6.3-8.2)
[2022-02-26 20:08] LABS: HEMOLYSIS 122 (0-50)
[2022-02-26 20:15] LABS: Troponin I < 0.012 ng/mL (0.01-0.034)
[2022-02-26 21:51] LABS: Ur Creatinine Normal (Normal); Ur Specific Gravity Normal (Normal); Urine pH Normal (Normal)
[2022-02-26 21:52] LABS: UR Morphine/Opiate cutoff 300 Negative (Negative); Urine Amphetamines Negative (Negative); Urine Barbiturates Negative (Negative); Urine Benzodiazepines Negative (Negative); Urine Cocaine Negative (Negative); Urine MDMA Negative (Negative); Urine Methadone Negative (Negative); Urine Methamphetamines Negative (Negative); Urine Oxycodone Negative (Negative); Urine Phencyclidine Negative (Negative); Urine Tetrahydrocannabinol Negative (Negative); Urine Tricyclic Antidepressant Negative (Negative)
[2022-02-26 22:18] LABS: COVID19 -Nasal RAPID Negative (Negative)
[2022-02-26 22:57] LABS: Hemoglobin A1C% w Est Avg Glu 7.5 % (4.0-6.0)
--- NOTE | 2022-02-26 23:26 | P.HP_ITS ---
History of Present Illness History of Present Illness Chief complaint: NOT ABLE TO SPEAK NUMBNESS OF FACE Narrative: Arabella Liu is a 47-year-old female with a history of diabetes type 2, hypertension, hyperlipidemia and hysterectomy in 2010 presented after waking up at around 6:00 p.m. with facial numbing on her left side and left-sided upper and lower extremity weakness. The upper and lower extremity weakness seemed to resolve when she got up to move around. She did have what she described as ?mushy speech? and her partner her stated that she seemed to be running words together. She also complains of having headaches for the past couple of weeks she states that feels like somebody hit her when she wakes up. She also has light sensitivity and a prior history of migraines. She receives most of her specialty and primary care at [facility] in [place] and had several imaging studies done of her head of which the first one she stated indicated some sort of abnormality but did not indicate the same abnormality on 2nd imaging. She has a rather extensive review of systems which I have outlined below. She denies a history of having acquired COVID-19 and is fully vaccinated but has not had either of the 2 boosters. She is currently in physical therapy for neck back and knee pain. 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 Head CT done in the emergency department was negative for any acute intracranial process. Head and neck CTA were also negative for high-grade stenosis. She is afebrile, blood pressure 148/95, heart rate 95, respiratory rate 20, oxygen saturation of 96% on room air she weighs 88.9 kg with a BMI of 34.7. Her CBC is unremarkable BUN is 18 glucose is 155 with an A1c of 7.5 AST is 56 ALT 54 urine toxicology is negative, and COVID-19 PCR is negative. She received loading dose of Plavix 300 mg and aspirin full strength in the emergency department. Patient History Medical History (Updated 02/27/22 @ 00:30 by KENISHA Lugo) Diabetes type 2, uncontrolled Dyslipidemia Eosinophilic esophagitis Essential hypertension Hypertension Infected prosthetic mesh of abdominal wall Surgical History (Updated 02/27/22 @ 00:23 by KENISHA Lugo) H/O: hysterectomy History of appendectomy Family & Social History Family History (Updated 02/27/22 @ 00:28 by KENISHA Lugo) Mother CVA (cerebral vascular accident) Father CVA (cerebral vascular accident) Other Diabetes mellitus Safety & Behavioral: Feels Safe in Current Yes Environment Been Physically Hurt or No Threatened By a Person Tobacco & Substance use: Smoking Status Former smoker alcohol intake frequency holiday/special occasion Substance Use Type does not use Meds Home Medications and Allergies Home Medications Medication Instructions Recorded Confirmed Type albuterol sulfate 2.5 mg/3 mL 3 ml INH Q6HP PRN Shortness Of 06/17/18 06/17/18 History (0.083 %) solution for nebulization Breath albuterol sulfate 90 mcg/actuation 1 puff inhalation PRN PRN 06/17/18 06/17/18 History aerosol inhaler Shortness Of Breath hydroxychloroquine 200 mg tablet 200 mg PO DAILY 06/17/18 06/17/18 History metoprolol succinate 50 mg 50 mg PO DAILY 06/17/18 06/17/18 History tablet,extended release 24 hr sulfasalazine 500 mg 500 mg PO QID 06/17/18 06/17/18 History tablet,delayed release oxycodone-acetaminophen 5 mg-325 1 tab PO Q4-6H PRN pain #14 tabs 03/24/19 Rx mg tablet (Percocet) tamsulosin 0.4 mg capsule (Flomax) 0.4 mg PO DAILY #5 caps 03/24/19 Rx omeprazole 20 mg capsule,delayed 20 mg PO DAILY #14 caps 05/18/19 Rx release penicillin V potassium 500 mg 500 mg PO QID #40 tabs 07/04/19 Rx tablet gabapentin 100 mg capsule 100 mg PO TID #30 caps 06/26/20 Rx hydrocodone 5 mg-acetaminophen 325 1 tab PO Q4-6H PRN pain #10 tabs 06/27/20 Rx mg tablet ketorolac 10 mg tablet 10 mg PO Q6H PRN pain #14 tabs 06/27/20 Rx prednisone 10 mg tablet 10 mg PO DAILY #30 tabs 06/27/20 Rx penicillin V potassium 500 mg 500 mg PO QID #40 tabs 01/26/22 Rx tablet Allergies Allergy/AdvReac Type Severity Reaction Status Date / Time cephalexin [From KEFLEX] Allergy Unknown Verified 02/26/22 19:03 ciprofloxacin [CIPROFLOXACIN] Allergy Unknown Verified 02/26/22 19:03 milk [MILK] Allergy Unknown Verified 02/26/22 19:03 Review of Systems Constitutional Constitutional: Reports headache(s) (a few weeks, feels like someone hit her in the head when she wakes up.) Eyes Comments: Light senstive ENT Ears, Nose, Mouth, and Throat: Yes dysphagia (diagnosis of eosinphillic esophagitis), Yes headache(s) (a few weeks, feels like someone hit her in the head when she wakes up.) and Yes neck pain (stiffness, pain working w/PT, warm compresses) Cardiovascular Cardiovascular: Reports rapid heart rate (133-140s) and Reports palpitations Respiratory Respiratory: Reports system reviewed and no additional complaints, except as documented Gastrointestinal Gastrointestinal: Reports dysphagia (diagnosis of eosinphillic esophagitis), Reports nausea (few weeks) and Reports other (alternating diarrhea and constipation, constipated for 3-5 days at a time) Genitourinary Genitourinary: Reports other (long standing urinary frequency) Musculoskeletal Musculoskeletal: Reports back pain (working w/PT, using ice), Reports neck pain (stiffness, pain working w/PT, warm compresses) and Reports other (chronic lower extremity swelling, particularly when ambulating.) Integumentary/Breasts Skin/Breast: Denies non-healing lesions and Denies skin ulcer Neurologic Neurologic: Reports headache(s) (a few weeks, feels like someone hit her in the head when she wakes up.) and Reports other (Brain fog) Endocrine Endocrine: Reports polyuria and Reports palpitations Comments: Diabetic, improving A1c, recently d/c'd metformin and taking Rybelsus, due for new A1c, previously 9. Exam Vital Signs (past 8 hours): - 02/26/22 19:04 02/26/22 19:34 02/26/22 20:00 Temperature 97.5 F L Pulse Rate 130 H 105 H Respiratory Rate 17 11 L Blood Pressure 157/97 H 141/80 H Pulse Oximetry 99 98 Oxygen Delivery Method Room Air 02/26/22 20:00 02/26/22 20:30 02/26/22 20:30 Temperature Pulse Rate 98 H 99 H Respiratory Rate 14 23 Blood Pressure 150/80 H Pulse Oximetry 97 97 Oxygen Delivery Method 02/26/22 21:06 02/26/22 21:30 02/26/22 22:00 Temperature Pulse Rate 105 H 115 H 101 H Respiratory Rate 25 H 32 H Blood Pressure Pulse Oximetry 99 97 Oxygen Delivery Method 02/26/22 22:30 02/26/22 23:00 Temperature Pulse Rate 96 H 97 H Respiratory Rate 18 18 Blood Pressure Pulse Oximetry 97 97 Oxygen Delivery Method Oxygen Delivery Method Room Air Narrative Exam Narrative: Gen: Alert, oriented, well-developed 47 y.o. [place] female, NAD HEENT: normocephalic, atraumatic, conjunctiva clear, sclera non-icteric, oral mucosa pink and moist Neck: supple, full ROM, no JVD, trachea is midline Resp: Lungs CTA, non-labored breathing CV: RRR, no murmur or rubs Abd: soft, non-tender, normoactive BTs Skin: no lesions or rashes, dry and intact Neuro: Alert and oriented X 4 w/no focal deficits. Speech clear and coherent. Extremities: moves all 4 extremities, is ambulatory, negative Timothy?s sign Psyche: normal mood and affect. Objective Labs Result Diagrams: 02/26/22 19:20 02/26/22 19:20 Labs: Laboratory Results - last 24 hr 02/26/22 02/26/22 02/26/22 19:20 19:20 19:20 WBC 10.5 RBC 4.73 Hgb 14.3 Hct 40.1 MCV 84.8 MCH 30.2 MCHC 35.6 RDW 13.6 Plt Count 232 Neut % (Auto) 50.2 Lymph % (Auto) 39.6 Band[place] % (Auto) 7.1 Eos % (Auto) 2.7 Baso % (Auto) 0.4 Neut # (Auto) 5300 Lymph # (Auto) 4100 [place] # (Auto) 700 Eos # (Auto) 300 Baso # (Auto) 0 PT 11.1 INR 1.0 APTT 33 Sodium 137 Potassium TNP Chloride 101 Carbon Dioxide 27 BUN 18 H Creatinine 0.59 Estimated GFR > 60 BUN/Creatinine Ratio 30.5 H Glucose 155 H Hemoglobin A1c Calcium 9.3 Magnesium 1.7 Total Bilirubin 0.9 AST 56 H ALT 54 H Alkaline Phosphatase 52 Total Creatine Kinase 78 CK-MB (CK-2) TNP CK-MB (CK-2) Rel Index TNP Troponin I < 0.012 Total Protein 8.4 H Albumin 4.7 Globulin 3.7 Albumin/Globulin Ratio 1.3 U Opiates 300ng/mL cut Ur Oxycodone Screen Urine Methadone Screen Ur Barbiturates Screen U Tricyclic Antidepress Ur Phencyclidine Scrn Ur Amphetamines Screen U Methamphetamines Scrn Ur MDMA Scrn (Ecstasy) U Benzodiazepines Scrn Urine Cocaine Screen U Marijuana (THC) Screen SARS-CoV-2 (PCR) 02/26/22 02/26/22 02/26/22 19:20 20:54 21:57 WBC RBC Hgb Hct MCV MCH MCHC RDW Plt Count Neut % (Auto) Lymph % (Auto) [place] % (Auto) Eos % (Auto) Baso % (Auto) Neut # (Auto) Lymph # (Auto) [place] # (Auto) Eos # (Auto) Baso # (Auto) PT INR APTT Sodium Potassium Chloride Carbon Dioxide BUN Creatinine Estimated GFR BUN/Creatinine Ratio Glucose Hemoglobin A1c 7.5 H Calcium Magnesium Total Bilirubin AST ALT Alkaline Phosphatase Total Creatine Kinase CK-MB (CK-2) CK-MB (CK-2) Rel Index Troponin I Total Protein Albumin Globulin Albumin/Globulin Ratio U Opiates 300ng/mL cut Negative Ur Oxycodone Screen Negative Urine Methadone Screen Negative Ur Barbiturates Screen Negative U Tricyclic Antidepress Negative Ur Phencyclidine Scrn Negative Ur Amphetamines Screen Negative U Methamphetamines Scrn Negative Ur MDMA Scrn (Ecstasy) Negative U Benzodiazepines Scrn Negative Urine Cocaine Screen Negative U Marijuana (THC) Screen Negative SARS-CoV-2 (PCR) Negative Assessment & Plan Assessment & Plan narrative: Arabella Saleem will be observed overnight for further evaluation and workup of a TIA and risk stratification. TIA/Stroke * Cardiac telemetry * NIH score greater than no, NIH scoring and neuro checks q shift * Dual antiplatelet therapy: Yes[X] initiate dual antiplatelet therapy with clopidogrel 75 mg p.o. daily and aspirin 81 mg p.o. daily * MR stroke scheduled for 02/28 * Complete Echo with bubble study for 02/28 * PT/OT/ST evaluation Hypertension, acute with an admission bp of 164/80, present on admission * Allow for permissive hypertension of 220/110 HR 60 to allow for brain perfusion * Consider metoprolol for rate control, currently taking atenolol 100 mg daily Diabetes type 2 with suboptimal control * A1c is 7.5 * She is initiated on glargine 5 units at bedtime and low-dose correctional scale * Carb controlled diet HLD * Fasting lipid panel, pending for 0500 labs * Atorvastatin 40 mg po at bedtime, she has discontinued fenofibrate * TSH and free T4 in the morning Risk stratification * Fasting lipid panel pending for the morning * A1c is 7.5, suboptimal control VTE Prophylaxis: Wells risk score 0 [X]Enoxaparin 40 mg subQ once daily [X] Sia mireles SCDs Patient is placed into observation as her stay is not expected to exceed 2 midnights. FEN: IV fluids: saline lock, diet: carb control diet, labs: CBC, C/BMP, liver enzymes, Mag, PT/INR Consultants None Dispo: probable d/c to home Code status: as discussed with the patient who identifies her significant other as Yonny Gonzalez her surrogate and POA. [X] I have utilized all available immediate resources to obtain, update, or review of the patient's current medications COVID-19 COVID-19 status: Negative Result date/Date tested (Pos, Neg/Pending): 02/27/22 Scores Wells' Criteria for PE Clinical signs and symptoms of DVT: No PE is #1 Dx or equally likely: No Heart rate > 100: No Immobilization at least 3 days or surg in previous 4 weeks: No History of PE or DVT: No Hemoptysis: No Malignancy w/Treatment within 6 months or palliative: No Wells' PE Score total: 0 Quality VTE Deep Vein Thrombosis/Pulmonary Embolism Present on Admission: No MIPS - Admit I confirm the patient?s Advance Care Plan is present, Code status is documented, Surrogate decision maker is in patient?s record [If Yes, STOP here]: No MIPS - DC The patient has current or prior documentation of left ventricular ejection fraction (LVEF) less than 40%, or moderate or severely depressed left ventricular systolic function.: No
--- NOTE | 2022-02-27 | DI.ECHO.S_ITS ---
[facility] +---------+ [facility] +---------+ : : [address] [place] : : : : [id number] : : : : Phone: [phone] Echocardiogram Report + + :Name: EDUARD JUNE Study Date: 02/27/2022 Height: 63 in : :[facility] ReadingLocation: Weight: 196 lb : : Gender: Female BSA: 1.9 m2 : :: 1975 Age: 47 yrs BP: 116/77 mmHg: :Reason For Study: TIA : :Ordering Physician: CELESTE, : :BARNEY Performed By: Corey Root : :Referring: BARNEY ALONSO : + + Interpretation Summary 1) Normal left ventricular thickness, size, wall motion, and systolic function (EF 55-60%). 2) Normal right ventricular size and function. 3) No significant valvular abnormalities. 4) Injection of contrast documented no interatrial shunt. 5) No prior Echo available for comparison. Procedure: A two-dimensional transthoracic echocardiogram with color flow and Doppler was performed. The study quality was technically adequate. There is no prior echocardiogram noted for this patient. A saline contrast injection was performed to assess for cardiac shunting. The patient was in normal sinus rhythm during the exam. Left Ventricle: The left ventricle is normal in size and wall thickness. Left ventricular systolic function is normal. The ejection fraction is estimated to be 55-60%. There are no focal wall motion abnormalities. Diastolic parameters suggest probable normal left ventricular diastolic function and normal filling pressures. Right Ventricle: The right ventricle is normal in size and function. Atria: Both atria are normal in size. The interatrial septum grossly appears intact with no obvious evidence for an atrial septal defect. Injection of contrast documented no interatrial shunt. Mitral Valve: The mitral valve is normal in structure and function. There is trace mitral regurgitation. Aortic Valve: The aortic valve is normal in structure and function. There is no aortic valve stenosis. No aortic regurgitation is present. Tricuspid Valve: The tricuspid valve is normal in structure and function. There is mild tricuspid regurgitation. The right ventricular systolic pressure is estimated to be at least 20 mmHg based on an estimated right atrial pressure of 3 mm Hg. Pulmonic Valve: The pulmonic valve is normal in structure and function. There is no pulmonic valvular regurgitation. Great Vessels: The aortic root is normal size. The dimensions of the ascending aorta are normal. The IVC is of normal diameter and collapses greater than 50% with a sniff. This suggests a low right atrial pressure of 3 mm Hg. Pericardium/ Pleura There is no pericardial effusion. There is no pleural effusion. MMode/2D Measurements & Calculations LVIDd: 4.6 cm LVOT diam: 2.2 cm LVIDs: 3.1 cm Ao root diam: 3.1 cm FS: 32.3 % asc Aorta Diam: 3.2 cm IVSd: 0.91 cm LVPWd: 0.91 cm LV javier. diameter/BSA (cm/m^2): 2.4 LV sys. diameter/BSA (cm/m^2): 1.6 LA A2 area: 15.2 cm2 RA long axis: 4.6 cm LA A4 area: 13.2 cm2 RA area: 10.9 cm2 LA length (vol): 4.5 cm RA vol: 22.0 ml LA vol: 38.2 ml RA : 11.5 ml/m2 LA vol index: 19.9 ml/m2 TAPSE: 2.2 cm Doppler Measurements & Calculations Ao V2 max: 110.8 cm/sec LVOT Max Jayden: 89.3 cm/sec Ao V2 mean: 76.0 cm/sec LV V1 max P.2 mmHg Ao max P.9 mmHg LV V1 VTI: 15.8 cm Ao mean P.6 mmHg SARA(I,D): 3.3 cm2 Ao V2 VTI: 18.4 cm SARA(V,D): 3.1 cm2 sev ratio: 0.86 SARA indexed to BSA (cm^2/m^2): 1.7 MV E max jayden: 73.8 cm/sec TR max jayden: 208.1 cm/sec MV A max jayden: 95.5 cm/sec TR max P.3 mmHg MV E/A: 0.77 Med Peak E' Jayden: 5.0 cm/sec E/E' med: 14.8 Lat Peak E' Jayden: 9.7 cm/sec E/E' lat: 7.6 E/e' average: 11.2 MV dec time: 0.24 sec SVJUDD): 60.5 ml Reading Physician:10:15 AM
[2022-02-27 04:07] VITALS: O2SAT 96
[2022-02-27 05:24] LABS: Add Manual Diff / Slide Review NO; Basophils Absolute Auto 0 /uL (0-100); Basophils Percent Auto 0.3 % (0-2); Eosinophils Absolute Auto 300 /uL (0-450); Eosinophils Percent Auto 3.5 % (2-4); Hematocrit 37.4 % (36-46); Hemoglobin 13.4 g/dL (12.0-16.0); Lymphocytes Absolute Auto 3700 /uL (1100-4500); Lymphocytes Percent Auto 40.2 % (25-40); Mean Corpuscular HGB Conc 35.8 % (30-36); Mean Corpuscular Hemoglobin 30.3 PG (26-34); Mean Corpuscular Volume 84.7 fL (80-100); Monocytes Absolute Auto 700 /uL (0-900); Monocytes Percent Auto 7.2 % (3-14); Neutrophils Absolute Auto 4500 /uL (1500-7000); Neutrophils Percent Auto 48.8 % (50-75); Platelet Count 207 X10^3/uL (150-400); Red Blood Cell Count 4.41 X10^6/uL (4.0-5.2); Red Cell Distribution Width 13.3 % (11.6-14.8); White Blood Cell Count 9.3 X10^3/uL (4.5-11.0)
[2022-02-27 05:31] LABS: BUN Creatinine Ratio 23.2 (6-22); Blood Urea Nitrogen 13 mg/dL (7-17); Carbon Dioxide 29 mmol/L (22-32); Chloride 103 mmol/L (98-107); Cholesterol 216 mg/dL (140-199); Estimated Glomerular Filt Rate > 60 mL/min (>60); Glucose 129 mg/dL (70-100); HDL Cholesterol 24 mg/dL (40-60); HEMOLYSIS < 15 (0-50); LDL Cholesterol Calculated 134 mg/dL (<100); Magnesium 1.7 mg/dL (1.6-2.3); Potassium 3.4 mmol/L (3.4-5.1); Sodium 138 mmol/L (137-145); Triglycerides 290 mg/dL (35-150)
[2022-02-27 05:47] VITALS: BP 116/77; PULSE 92; RESP 18; TEMP 36.3; O2SAT 96
[2022-02-27 07:50] VITALS: BP 108/77; PULSE 101; RESP 21; TEMP 36.6; O2SAT 97
--- NOTE | 2022-02-27 08:00 | DI.MRI.S_ITS ---
PROCEDURE: MR HEAD/BRAIN WO CON INDICATIONS: TIA? TECHNIQUE: Noncontrast axial T1 spin echo, axial T2 fast spin echo, sagittal and axial FLAIR, coronal T2 fast spin echo, axial gradient echo, axial diffusion and ADC through the brain. COMPARISON: 02/26/2022 CT and CTA FINDINGS: Image quality: Excellent. CSF Spaces: Basal cisterns are patent. No extra-axial fluid collections. Ventricles are normal in size and shape. Brain: No intracranial masses or hemorrhage. Bridges/white matter interface is normal. Brainstem appears normal. Diffusion-weighted images demonstrate no acute ischemic insult. Mild periventricular FLAIR signal could be from chronic small vessel disease. She Normal intravascular flow voids are present. Skull and face: Calvarium has normal marrow signal. Orbits appear normal. Sinuses: Sinuses and mastoids are clear. IMPRESSION: No acute intracranial abnormality. No hemorrhage or acute stroke. Dictated by: Willy Elizabeth M.D. on 02/27/2022 at 10:15 Approved by: Willy Elizabeth M.D. on 02/27/2022 at 10:17
[2022-02-27 08:34] VITALS: O2SAT 97
[2022-02-27] MEDS: CLOPIDOGREL 75 MG TABLET PO (08:36)
[2022-02-27] MEDS: ASPIRIN EC 81 MG TABLET PO (08:36)
[2022-02-27] MEDS: ENOXAPARIN 40 MG/0.4 ML SYRINGE SUBCUT (08:36)
[2022-02-27] MEDS: LORazepam 1 MG TABLET PO (09:34)
--- NOTE | 2022-02-27 10:54 | OT.IPNOTE ---
Per Dr. Baker pt does not have any OT needs and okay to discharge OT eval orders at this time.
--- NOTE | 2022-02-27 10:56 | ST.IPSCREEN ---
Pt was seated upright in bed when VENTILATING ENGINEER arrived. She presented with clear speech and was alert and oriented x3. Pt reported no difficulty with cognition or swallowing and stated her speech is fine, though a little slower than usual. Pt stated she is currently experiencing a headache. Completed oral motor exam. Pt presented with symmetrical structures at rest and in motion with strength and ROM WNL. Slowed motion with elevation and depression of tongue, though WNL. Structure and function of oral mechanism appears WNL for the purposes of speech and swallowing. Pt presented with clear speech, minimally slow rate of speech, though this may be due to current headache pt is experiencing. Speech therapy is not indicated at this time.
--- NOTE | 2022-02-27 12:08 | PT.IIE ---
Surgical History (Last Updated 02/27/22 @ 00:23 by KENISHA Lugo) H/O: hysterectomy History of appendectomy Medical History (Last Updated 02/27/22 @ 00:30 by KENISHA Lugo) Diabetes type 2, uncontrolled Dyslipidemia Eosinophilic esophagitis Essential hypertension Hypertension Infected prosthetic mesh of abdominal wall Physical Therapy Inpatient Evaluation/Re-Eval M1 PT/OT-IP Prior Functional Status Start: 02/27/22 14:07 Freq: NEEDED Status: Active Protocol: Document 02/27/22 12:08 AB (Rec: 02/27/22 14:[email or web address] Medical Review Prior Functional Status Medical History Reviewed No Communication able to make needs known Mobility and Gait pt stated that she is modified independent with all mobilities and ambulation without AD; stated that she uses 2 trekking pole when hiking and has chronic cervical and low back issues that she goes to outpt PT tx for. pt usually holds on to her spouse to do stair climbing Social History Household Members significant other,children Living Arrangements House Number of Floors (Floors) One Floor Number of Stairs To Enter/Railing? 3 steps without rails to enter Home Environment Standard Height Toilet,Tub/ Shower Home Equipment Hand Held Shower Employment Status Student Additional Social History Comment pt has her spouse and 2 children at home to assist her pt stated that she is studying to get her degree for special education M2 PT-IP Current Condition Start: 02/27/22 14:07 Freq: NEEDED Status: Active Protocol: Document 02/27/22 12:08 AB (Rec: 02/27/22 14:21 AB [email or web address]) Physical Therapy Current Condition Current Condition Evaluation Date 02/27/22 Treatment Diagnosis TIA; difficulty in walking Onset Date 02/26/22 M3 PT-IP Subjective Start: 02/27/22 14:07 Freq: NEEDED Status: Active Protocol: Document 02/27/22 12:08 AB (Rec: 02/27/22 14:21 AB [email or web address]) Subjective Physical Therapy Visit Type Type Initial Evaluation Visit Start Time 12:08 Visit Stop Time 12:35 Total Visit Minutes 27 Number of TRIM ATTACHER Visits 0 Physical Therapy Visit Comments Patient Comments agreeable to do PT M4 PT-IP Mobility and Gait Start: 02/27/22 14:07 Freq: NEEDED Status: Active Protocol: Document 02/27/22 12:08 AB (Rec: 02/27/22 14:21 AB [id number]) PT-Bed Mobility Assessment Supine to Sit Supine to Sit Standby Assistance PT-Transfer Assessment Sit to and From Stand Sit to and from Stand Standby Assistance,1 Person Assistance,Use of Upper Extremities Equipment Transfer Assistive Device None,Gait Belt,Straight Cane Orthotic/Prosthetic Devices or Brace: No Transfers Transfer Destination Toilet Transfer Technique ambulated Transfer Ability Level of Assist Standby Assistance,Contact Guard Assistance,1 Person Assistance,Use of Upper Extremities Comments Mobility Comments c/o 01/27 headache. completed supine to sit SBA. able to sit on EOB SBA. completed is to stand SBA and ambulated in room without AD ~ 20ft with initial CGA and midway min A with increase antalgic gait. educated pt on safety. educated on SPC use and assessed ambulation using SPC. completed ~ 20 ft using SPC CGA and initial cues. continues to have antalgic gait with increase steadiness. pt agreed that she feels more stable with SPC and use and will acquire one for home use. completed up/down step stool using SPC CGA to min A with initial cues for technniques but able to do another set CGA without cues needed. pt then requested to use the toilet. ambulated to the toilet using SPC CGA. completed toileting needs SBA. ambulated to the sink using SPC SBA to CGA using SPC and was able to maintain standing balance by the sink sBA. agreed to sit up on the chair. ambulated to the chair SBA using SPC. positioned on the chair. call light and table placed within reach Gait Assessment Gait Gait Assistance Required: Standby Assistance,Contact Guard Assist Distance (Feet) 25 Able to Maintain Weight Bearing Status Yes During Gait Assistive Devices Assistive Device Gait Belt,Straight Cane Orthotic/Prosthetic Devices or Brace: No Gait Deviations General Gait Pattern Antalgic,Decreased Stride Length,Decreased Feet Clearance,Step-to Gait Factors Limiting Gait Function Factors Limiting Gait Function Decreased Activity Tolerance, Decreased Strength,Pain,Poor Balance,Poor Safety Awareness Stair Climbing Assessment Evaluation Level of Assist On Stairs Contact Guard Assistance, Minimal Assistance,1 Person Assistance Devices Stair Climbing Assistive Devices Straight Cane Technique/Endurance Stair Climbing Technique Step to Step Number of Steps Climbed 1 Query Text: Stair Climbing Set # Repetitions (reps) 2 Comments Stair Climbing Comments pls refer to mobility section for details PT-Balance Assessment Sitting Balance and Reactions Static Sitting Balance Ability Good Dynamic Sitting Balance Ability Good Standing Balance and Reactions Static Standing Balance Ability Fair Dynamic Standing Balance Ability Poor Device Used without AD M5 PT-IP Objective Assessments Start: 02/27/22 14:07 Freq: NEEDED Status: Active Protocol: Document 02/27/22 12:08 AB (Rec: 02/27/22 14:21 AB [email or web address]) Orientation Orientation/Cognition Level of Alertness Alert Orientation Name,Place,Situation Language Function Ability No Deficits Noted Safety Awareness Decreased Safety Awareness Memory Description No Deficits Noted Gross Range of Motion Lower Extremity ROM Assessment Within Functional Limits Strength Lower Extremity Strength Assessment Left Impaired Hip 3+/5 Knee 3+/5 Sensation Assessment Sensation Gross Sensation Left LE Impaired Sensation Description Numbness Comments Sensation Comments stated chronic LLE numbness but worse at this time Muscle Tone Muscle Tone WNL Yes M6 PT-IP Treatment Start: 02/27/22 14:07 Freq: NEEDED Status: Active Protocol: Document 02/27/22 12:08 AB (Rec: 02/27/22 14:21 AB [email or web address]) Physical Therapy Treatment Education Education Provided Safety M7 PT-IP Assessment and Plan Start: 02/27/22 14:07 Freq: NEEDED Status: Active Protocol: Document 02/27/22 12:08 AB (Rec: 02/27/22 14:21 AB [email or web address]) PT Summary Assessment and Plan Potential Rehabilitation Potential Fair Status of Condition at Evaluation Stable Summary Impairments Pain,ROM,Strength,Balance, Coordination,Sensation,Tone, Cognition,Bed Mobility, Transfers,Gait,Activity Tolerance Assessment Summary pt requiring CGA to min A with ambulation without AD and recommending use of SPC at this time for mobility and safety. Pt agreed and will acquire a SPC for home use. pt will need continued outpt PT. Goals Bed Mobility Goal Independent Transfer Goal Independent,Cane Gait Goal Independent,Cane Gait Distance 300 Other Goals improve ambulation without AD 350 ft mod I up/down 3 steps without AD mod I Days to Meet Goals 5 Frequency of Treatment Frequency Of Treatment Once a Day Treatment Plan Physical Therapy Treatment Plan Bed Mobility Training,Transfer Training,Gait Training, Therapeutic Exercise,Balance Retraining,Discharge Planning, Hot or Cold Pack,Neuromuscular Re-ed,Coordination Retraining ,Manual Therapy Precautions Other Precautions falls Recommendations To Nursing Amount of Assist Needed 1 Person Assist Discharge Recommendations PT Discharge Recommendations Home with Assistance, Outpatient PT Equipment Needed for Home Before SPC Discharge Transportation Needs at Discharge Private Vehicle
--- NOTE | 2022-02-27 12:16 | CM.DANOTE ---
DCP: Case received, EMR reviewed and met with patient. Introduced self and role. Was able to obtain information regarding patient's baseline activity status prior to her hospitalization. DCP assessment completed with information currently available. Patient is a 47 year old female who admitted yesterday evening to the care of the hospitalist team. PCP: Dr. Ash. Payer: confirmed: [employer]/Medicaid. Patient came to the hospital via private vehicle secondary to having symptoms of left-sided numbness and left lip drooping. During ER visit, admitted to feeling better. According to the notes, patient had been having bilateral right leg numbness. Patient is getting physical therapy here at [facility]. Notes also indicate that patient has been dealing with emotional trauma in her past, and has an ataxic child at home. Patient holds diagnosis of TIA. She had MRI already. Met with patient in her room. She is alert and oriented, pleasant. Confirmed that she resides here in [place] with her partner, Yonny Laguerre. She is independent at her baseline, but stated, she does have balance issues, which is why she's working with P.T here at the hospital. P: Patient has discharge orders for today, and has been cleared with speech, O.T. Halie Egan RN/Spinner Frame Discharge Planning/Care Management CM Discharge Assessment Start: 02/27/22 12:13 Freq: Status: Active Protocol: Document 02/27/22 12:14 (Rec: 02/27/22 12:16 [id number]) Discharge Planning Assessment Assigned Crm Manager Halie Egan RN/Spinner Frame Advance Directives? No History Provided By Patient,Medical Record Prior Living Arrangements House Household Members significant other,family, children Type of transporation used prior to Drives own vehicle admit Independent with ADL's Yes Is patient alert and oriented? Yes Caregiver for Another No Patient/Family Preference OP PT Therapy Comment Patient indicated, she is a current patient at outpatient P.T. at [facility]. Barriers to Discharge No Discharge Plan Home Transportation Arrangement Partner Referrals Initiated None needed Whiteboard Updated in Patient Room with Yes name and ext. # of Crm Manager Review Status In Process Next Review Type Continued Stay Review
[2022-02-27] MEDS: IBUPROFEN 400 MG TABLET 800 MG PO (13:38)
[2022-02-27] MEDS: SUMAtriptan 25 MG TABLET 50 MG PO (13:38)
--- NOTE | 2022-02-27 14:32 | PM.DS.1 ---
History of Present Illness History of Present Illness Date Patient Seen: 02/27/22 Chief complaint: NOT ABLE TO SPEAK NUMBNESS OF FACE Narrative: Per KENISHA Lugo: Arabella Liu is a 47-year-old female with a history of diabetes type 2, hypertension, hyperlipidemia and hysterectomy in 2010 presented after waking up at around 6:00 p.m. with facial numbing on her left side and left-sided upper and lower extremity weakness. The upper and lower extremity weakness seemed to resolve when she got up to move around. She did have what she described as ?mushy speech? and her partner her stated that she seemed to be running words together. She also complains of having headaches for the past couple of weeks she states that feels like somebody hit her when she wakes up. She also has light sensitivity and a prior history of migraines. She receives most of her specialty and primary care at [facility] in [place] and had several imaging studies done of her head of which the first one she stated indicated some sort of abnormality but did not indicate the same abnormality on 2nd imaging. She has a rather extensive review of systems which I have outlined below. She denies a history of having acquired COVID-19 and is fully vaccinated but has not had either of the 2 boosters. She is currently in physical therapy for neck back and knee pain. 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 Head CT done in the emergency department was negative for any acute intracranial process. Head and neck CTA were also negative for high-grade stenosis. She is afebrile, blood pressure 148/95, heart rate 95, respiratory rate 20, oxygen saturation of 96% on room air she weighs 88.9 kg with a BMI of 34.7. Her CBC is unremarkable BUN is 18 glucose is 155 with an A1c of 7.5 AST is 56 ALT 54 urine toxicology is negative, and COVID-19 PCR is negative. She received loading dose of Plavix 300 mg and aspirin full strength in the emergency department. Discharge Providers Provider Date of admission: 02/26/22 22:22 Discharge Date: 02/27/22 Primary care physician: Nurys Ash MD Consults: 02/26/22 22:07 Consult to Discharge Planning Routine Comment: Consult to Occupational Therapy Evaluate & Treat Comment: Physician Instructions: Evaluate and treat Consult to Physical Therapy Evaluate & Treat Comment: Physician Instructions: Evaluate and Treat Consult to Speech Therapy Evaluate & Treat Comment: Physician Instructions: Evaluate and treat Discharge provider: Polo Baker DO Summary Hospital Course Discharge Diagnosis: TIA Hypertension, acute with an admission bp of 164/80, present on admission Diabetes type 2 HLD Hospital Course: This is a 47 year old female with PMH of HTN, DM2, HLD, recent neck pain and headaches admitted for further evaluation after she reported left sided numbness, weakness, left sided facial droop and word finding difficulites. Symptoms improved to just mild reported numbness at the time of discharge. MRI was negative for acute ischemia. Sumatriptan and ibuprofen were attempted for possible complex migraine without relief of her symptoms further. She was started on aspirin and plavix and high intensity statin therapy given probable TIA. Recommend further evaluation with primary care provider for possible holter monitor and possible antihypertensive adjustments. Echocardiogram showed no PFO, and was otherwise unremarkable. Exam Vital Signs (past 8 hours): - 02/27/22 07:50 02/27/22 08:34 Temperature 97.8 F Pulse Rate 101 H Respiratory Rate 21 Blood Pressure 108/77 Pulse Oximetry 97 97 Oxygen Delivery Method Room Air Oxygen Flow Rate 0 Oxygen Delivery Method Room Air Oxygen Flow Rate 0 Narrative Exam Narrative: Gen: Alert, oriented, well-developed 47 y.o. female, NAD CV: RRR Neuro: Alert and oriented X 4, reports decreased sensation to Left face, arm, leg much improved. Extremities: no edema or joint effusion Psyche: normal mood and affect. Objective Labs Result Diagrams: 02/27/22 04:52 02/27/22 04:52 Labs: Laboratory Results - last 24 hr 02/26/22 02/26/22 02/26/22 19:20 19:20 19:20 WBC 10.5 RBC 4.73 Hgb 14.3 Hct 40.1 MCV 84.8 MCH 30.2 MCHC 35.6 RDW 13.6 Plt Count 232 Neut % (Auto) 50.2 Lymph % (Auto) 39.6 [place] % (Auto) 7.1 Eos % (Auto) 2.7 Baso % (Auto) 0.4 Neut # (Auto) 5300 Lymph # (Auto) 4100 [place] # (Auto) 700 Eos # (Auto) 300 Baso # (Auto) 0 PT 11.1 INR 1.0 APTT 33 Sodium 137 Potassium TNP Chloride 101 Carbon Dioxide 27 BUN 18 H Creatinine 0.59 Estimated GFR > 60 BUN/Creatinine Ratio 30.5 H Glucose 155 H Hemoglobin A1c Calcium 9.3 Magnesium 1.7 Total Bilirubin 0.9 AST 56 H ALT 54 H Alkaline Phosphatase 52 Total Creatine Kinase 78 CK-MB (CK-2) TNP CK-MB (CK-2) Rel Index TNP Troponin I < 0.012 Total Protein 8.4 H Albumin 4.7 Globulin 3.7 Albumin/Globulin Ratio 1.3 Triglycerides Cholesterol LDL Cholesterol, Calc HDL Cholesterol U Opiates 300ng/mL cut Ur Oxycodone Screen Urine Methadone Screen Ur Barbiturates Screen U Tricyclic Antidepress Ur Phencyclidine Scrn Ur Amphetamines Screen U Methamphetamines Scrn Ur MDMA Scrn (Ecstasy) U Benzodiazepines Scrn Urine Cocaine Screen U Marijuana (THC) Screen SARS-CoV-2 (PCR) 02/26/22 02/26/22 02/26/22 19:20 20:54 21:57 WBC RBC Hgb Hct MCV MCH MCHC RDW Plt Count Neut % (Auto) Lymph % (Auto) [place] % (Auto) Eos % (Auto) Baso % (Auto) Neut # (Auto) Lymph # (Auto) [place] # (Auto) Eos # (Auto) Baso # (Auto) PT INR APTT Sodium Potassium Chloride Carbon Dioxide BUN Creatinine Estimated GFR BUN/Creatinine Ratio Glucose Hemoglobin A1c 7.5 H Calcium Magnesium Total Bilirubin AST ALT Alkaline Phosphatase Total Creatine Kinase CK-MB (CK-2) CK-MB (CK-2) Rel Index Troponin I Total Protein Albumin Globulin Albumin/Globulin Ratio Triglycerides Cholesterol LDL Cholesterol, Calc HDL Cholesterol U Opiates 300ng/mL cut Negative Ur Oxycodone Screen Negative Urine Methadone Screen Negative Ur Barbiturates Screen Negative U Tricyclic Antidepress Negative Ur Phencyclidine Scrn Negative Ur Amphetamines Screen Negative U Methamphetamines Scrn Negative Ur MDMA Scrn (Ecstasy) Negative U Benzodiazepines Scrn Negative Urine Cocaine Screen Negative U Marijuana (THC) Screen Negative SARS-CoV-2 (PCR) Negative 02/27/22 02/27/22 04:52 04:52 WBC 9.3 RBC 4.41 Hgb 13.4 Hct 37.4 MCV 84.7 MCH 30.3 MCHC 35.8 RDW 13.3 Plt Count 207 Neut % (Auto) 48.8 L Lymph % (Auto) 40.2 H Living[place] % (Auto) 7.2 Eos % (Auto) 3.5 Baso % (Auto) 0.3 Neut # (Auto) 4500 Lymph # (Auto) 3700 [place] # (Auto) 700 Eos # (Auto) 300 Baso # (Auto) 0 PT INR APTT Sodium 138 Potassium 3.4 Chloride 103 Carbon Dioxide 29 BUN 13 Creatinine 0.56 Estimated GFR > 60 BUN/Creatinine Ratio 23.2 H Glucose 129 H Hemoglobin A1c Calcium 9.0 Magnesium 1.7 Total Bilirubin AST ALT Alkaline Phosphatase Total Creatine Kinase CK-MB (CK-2) CK-MB (CK-2) Rel Index Troponin I Total Protein Albumin Globulin Albumin/Globulin Ratio Triglycerides 290 H Cholesterol 216 H LDL Cholesterol, Calc 134 H HDL Cholesterol 24 L U Opiates 300ng/mL cut Ur Oxycodone Screen Urine Methadone Screen Ur Barbiturates Screen U Tricyclic Antidepress Ur Phencyclidine Scrn Ur Amphetamines Screen U Methamphetamines Scrn Ur MDMA Scrn (Ecstasy) U Benzodiazepines Scrn Urine Cocaine Screen U Marijuana (THC) Screen SARS-CoV-2 (PCR) [facility] Medical History (Updated 02/27/22 @ 00:30 by KENISHA Lugo) Diabetes type 2, uncontrolled Dyslipidemia Eosinophilic esophagitis Essential hypertension Hypertension Infected prosthetic mesh of abdominal wall Surgical History (Updated 02/27/22 @ 00:23 by KENISHA Lugo) H/O: hysterectomy History of appendectomy Family History (Updated 02/27/22 @ 00:28 by KENISHA Lugo) Mother CVA (cerebral vascular accident) Father CVA (cerebral vascular accident) Other Diabetes mellitus Social History household members: significant other, family and children Smoking Status: Former smoker Discharge Plan Discharge Plan Patient Disposition: Home Provider Discharge Comment: You were admitted to the hospital with symptoms of a possible stroke. MRI was negative and your symptoms largely improved. You were started on medications for stroke prevention, though the cause of your symptoms is not entirely clear at this time. Please follow up with your PCP in 1-2 weeks to check on your symptoms and discuss medication changes. Discharge orders & Medications Prescriptions: New clopidogrel 75 mg Tablet 75 mg PO DAILY 20 Days Qty: 20 0RF aspirin 81 mg Tablet,Delayed Release (Dr/Ec) 81 mg PO DAILY 30 Days Qty: 30 0RF atorvastatin 40 mg tablet 40 mg PO BEDTIME 30 Days Qty: 30 0RF Continued metoprolol succinate 50 mg tablet extended release 24 hr 50 mg PO DAILY albuterol sulfate 90 mcg/actuation HFA aerosol inhaler 1 puff Inhalation PRN PRN (Reason: Shortness Of Breath) albuterol sulfate 2.5 MG/3 ML solution for nebulization 3 ml INH Q6HP PRN (Reason: Shortness Of Breath) hydroxychloroquine 200 mg tablet 200 mg PO DAILY sulfasalazine 500 mg tablet,delayed release (DR/EC) 500 mg PO QID penicillin V potassium 500 mg tablet 500 mg PO QID Qty: 40 0RF prednisone 10 mg tablet 10 mg PO DAILY Qty: 30 0RF hydrocodone-acetaminophen 5-325 mg tablet 1 tab PO Q4-6H PRN (Reason: pain) Qty: 10 0RF ketorolac 10 mg tablet 10 mg PO Q6H PRN (Reason: pain) Qty: 14 0RF tamsulosin [Flomax] 0.4 mg capsule 0.4 mg PO DAILY Qty: 5 0RF oxycodone-acetaminophen [Percocet] 5-325 mg tablet 1 tab PO Q4-6H PRN (Reason: pain) Qty: 14 0RF omeprazole 20 mg capsule,delayed release(DR/EC) 20 mg PO DAILY Qty: 14 0RF gabapentin 100 mg capsule 100 mg PO TID Qty: 30 0RF penicillin V potassium 500 mg tablet 500 mg PO QID Qty: 40 0RF Follow up/Referrals: Nurys Ash MD [Primary Care Provider] - Diet/Activity/Treatments Diet: Diet as Tolerated Activity: As tolerated Visit Report/Discharge Packet Instructions: DI for Transient Ischemic Attack Discharge Data Primary Care Provider: Nurys Ash Attending Provider: Pennie Almazan VTE Deep Vein Thrombosis/Pulmonary Embolism Present on Admission: No
== END 2022-02-27 15:10 | disposition home or self-care (01) ==
LOC: ED 19:48 → AC 22:23
PROVIDERS: Admitting Provider Nurse Practitioner Family; Emergency Provider Emergency Medicine; Family Provider Internal Medicine; PCP Internal Medicine; Visit Provider Nurse Practitioner Family
DX: R20.0 Anesthesia of skin (principal); R29.810 Facial weakness; R47.01 Aphasia; R29.701 NIHSS score 1; E11.9 Type 2 diabetes mellitus without complications; I10 Essential (primary) hypertension; E78.5 Hyperlipidemia, unspecified; Z20.822 Contact with and (suspected) exposure to COVID-19
CPT/HCPCS: 36415; 70450; 70496; 70498; 70551; 71045; 80048; 80053; 80061; 80305; 81003; 82550; 82962; 83036; 83735; 84484; 85025; 85610; 85730; 87635; 93005; 93010; 93306; 94760; 96372; 97161; 99285; C9803; G0378; J1650; J1815; Q9967

== ENCOUNTER 2022-07-29 08:15 | Outpatient (RCR) | payer OTHER, MEDICAID, SELFPAY ==
--- NOTE | 2021-12-27 16:00 | PT.OPPOC ---
Physical, Occupational & Speech Therapy At [facility] Current Diagnoses Pain in unspecified knee (12/27/21) Cervicalgia (12/27/21) Dorsalgia, unspecified (12/27/21) Visit Care Team Role Provider Type Nurys Ash MD Attending Provider Non-Staff Family Provider Primary Care Provider Referring Provider Specialty: Internal Medicine Address: [address] [place] [address] Email: Plan Of Care PT-OP-T Assessment and Plan Start: 12/26/21 16:22 Freq: Status: Active Protocol: Document 12/27/21 11:19 SAK (Rec: 12/31/21 16:36 SAK [id number]) Physical Therapy Assessment Rehab Potential Rehabilitation Potential Good Evaluation Complexity Number of Personal Factors/Comorbidities 1-2 Number of Body Systems Impaired 3 Clinical Presentation at Evaluation Evolving Impairments Impairments Activity Tolerance,Pain, Posture,ROM,Strength Goals Five Impairment lower extremity functional scale 38% Impairment decreased activity tolerance related to knee pain Short Term Goal (STG) Improve LEFS score to at least 55% STG Duration 02/07/22 Long-Term Goal (LTG) Improve LEFS to at least 75% as measure of improved activity tolerance LTG Duration 03/31/22 Four Impairment Oswestry disability index score 62% Impairment decreased activity tolerance related to LBP Short Term Goal (STG) Decrease Oswestry score to no greater than 45% STG Duration 02/07/22 Checker/Stocker Goal (LTG) Decrease Oswestry disability index score to no greater than 20% as measure of improved activity tolerance LTG Duration 03/31/22 Three Impairment weakness, postural dysfunction Impairment no tolerance for HEP Short Term Goal (STG) Patient will be instructed in gentle HEP for purposes of ROM , strengthening, postural correction and stabilization and initiate aquatic therapy STG Duration 01/26/22 Long-Term Goal (LTG) Patient will be able to tolerate HEP and aquatic exercise program without an increase in symptoms and demonstrate improvement in strength to at least 4/5 throughout. LTG Duration 03/31/22 Two Impairment low back pain as high as 8/10 Impairment unable to stand or walk greater than 10 min without an increase in low back pain and knee pain Checker/Stocker Goal (LTG) Patient will be able to stand/ walk at least 30 min with minimal LBP or left knee pain to allow her to return to taking walks LTG Duration 03/31/22 One Impairment Neck pain limiting rotation to right Impairment Unable to turn her head for safe driving Long-Term Goal (LTG) Decrease neck pain and improve right rotation sufficient to allow patient to turn head with ease while driving to improve safety. LTG Duration 03/31/22 Assessment Summary Assessment Patient presents to PT with function-limiting pain in her neck, back, and left knee. Patient has long history of pain and has diagnosis of RA, DM, and asthma. Her activity level has gradually worsened due to her multiple areas of pain and she is no longer able to run for exercise, take long walks, play tennis or dance due to severity of her pain. She has postural dysfunction that appears to contribute to her neck and back pain. Signs and symptoms in her left knee are consistent with meniscal involvement and she will be seeing a specialist at the end of this month. She is most interested in aquatic therapy which we will start after a few sessions of land-based PT to help her establish a progressive, individualized HEP that she can tolerate at home. A combination of therapeutic land and aquatic- based exercise should be helpful to improve patient strength, ROM, pain, and activity tolerance and help her return to a more active lifestyle. Physical Therapy Plan Frequency and Duration Frequency of Treatment 2x/Week Duration of Treatment 12 weeks Plan of Care Start Date 12/27/21 Plan of Care End Date 03/31/22 Therapeutic Interventions Therapeutic Interventions Aquatic Therapy,Home Exercise Program,Manual Therapy, Neuromuscular Re-education, Patient/Caregiver Education, Self-Care/Home Management,Soft Tissue Mobilization, Therapeutic Activities, Therapeutic Exercises Modalities Cold Pack/Ice Massage,Electric Stimulation,Hot Packs, Infrared Therapy,Iontophoresis ,Ultrasound Next Visit Focus/Plan Next Note Type Treatment Note Next Visit Plan start with gentle recumbant elliptical, review HEP and gently progress therapeutic exercise program with emphasis on postural correction and core stabilization. End with modalities as indicated for pain reduction; trial moist heat today to cervical and lumbar spines and left knee. Plan of Care Dates Plan of Care Start Date 12/27/21 Plan of Care End Date 03/31/22 Electronically Signed by: Angie Ramos, PT 01/01/22 4025 If you are in agreement with this Plan of Care, please return a signed and dated copy. I have reviewed this Plan of Care and certify that the skilled therapy services above are required to meet the patient?s needs. Physician Signature Date Printed Name and Credentials Clinical Instructor Signature Printed Name and Credentials
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
--- NOTE | 2022-04-29 10:07 | PT-OP ANOTE ---
cancelled due to father in ICU
--- NOTE | 2022-05-01 08:04 | PT-OP ANOTE ---
cancelled due to father in hospital ICU in [place]
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
== END 2022-12-11 11:07 ==
LOC: PHYS 08:15
PROVIDERS: Family Provider Internal Medicine; PCP Internal Medicine; Referring Provider Internal Medicine; Visit Provider Internal Medicine
DX: M54.2 Cervicalgia (principal); M54.9 Dorsalgia, unspecified; M25.569 Pain in unspecified knee
CPT/HCPCS: 97110; 97113; 97140; 97162; 97530; 97535

== ENCOUNTER 2022-08-14 19:46 | Emergency (ER) | payer OTHER, MEDICAID, SELFPAY ==
[2022-02-26 23:56] VITALS: BMI 34.7
[2022-08-14] VITALS (10 sets, daily range): BP systolic 133–171; BP diastolic 72–110; PULSE 89–118; RESP 16–25; TEMP 36.6; O2SAT 98–100; BMI 32.9
--- NOTE | 2022-08-14 19:58 | DI.RAD.S_ITS ---
PROCEDURE: XR CHEST 1V INDICATIONS: chest pain TECHNIQUE: One view of the chest was acquired. COMPARISON: [facility], CR, XR CHEST 1V, 02/26/2022, 19:15. FINDINGS: Surgical changes and devices: None. Lungs and pleura: Lungs are clear. No pleural effusions or pneumothorax. Mediastinum: Mediastinal contours appear normal. Heart size is normal. Bones and chest wall: No suspicious bony lesions. Overlying soft tissues appear unremarkable. IMPRESSION: 1. No acute cardiopulmonary disease. Dictated by: Yang Lowe M.D. on 08/14/2022 at 20:40 Approved by: Yang Lowe M.D. on 08/14/2022 at 20:40
[2022-08-14 20:28] LABS: Add Manual Diff / Slide Review NO; Basophils Absolute Auto 100 /uL (0-100); Basophils Percent Auto 0.5 % (0-2); Eosinophils Absolute Auto 200 /uL (0-450); Hematocrit 40.9 % (36-46); Hemoglobin 14.4 g/dL (12.0-16.0); Lymphocytes Absolute Auto 4100 /uL (1100-4500); Mean Corpuscular HGB Conc 35.2 % (30-36); Mean Corpuscular Hemoglobin 30.3 PG (26-34); Mean Corpuscular Volume 86.3 fL (80-100); Monocytes Absolute Auto 700 /uL (0-900); Monocytes Percent Auto 6.9 % (3-14); Neutrophils Absolute Auto 5400 /uL (1500-7000); Neutrophils Percent Auto 51.6 % (50-75); Platelet Count 241 X10^3/uL (150-400); Red Blood Cell Count 4.74 X10^6/uL (4.0-5.2); Red Cell Distribution Width 13.2 % (11.6-14.8); White Blood Cell Count 10.6 X10^3/uL (4.5-11.0)
[2022-08-14 20:35] LABS: Prothrombin Time 11.7 SECONDS (10.1-12.7)
[2022-08-14 20:37] LABS: PTT Partial Thromboplastin Tim 29 SECONDS (26-36)
[2022-08-14 20:42] LABS: Alanine Aminotransferase 25 IU/L (<35); Albumin 4.6 g/dL (3.5-5.0); Albumin Globulin Ratio 1.3 (1.0-2.8); Alkaline Phosphatase 65 U/L (38-126); Aspartate Aminotransferase 23 IU/L (14-36); BUN Creatinine Ratio 28.6 (6-22); Bilirubin Total 0.6 mg/dL (0.2-1.3); Blood Urea Nitrogen 16 mg/dL (7-17); Calcium 9.2 mg/dL (8.4-10.2); Carbon Dioxide 28 mmol/L (22-32); Chloride 97 mmol/L (98-107); Creatine Kinase 54 U/L (30-135); Estimated Glomerular Filt Rate > 60 mL/min (>60); Globulin 3.6 g/dL (1.7-4.1); Glucose 133 mg/dL (70-100); HEMOLYSIS < 15 (0-50); Lipase 223 U/L (23-300); Magnesium 1.7 mg/dL (1.6-2.3); Potassium 3.3 mmol/L (3.4-5.1); Sodium 138 mmol/L (137-145); Total Protein 8.2 g/dL (6.3-8.2)
[2022-08-14 20:47] LABS: Influenza A - CEPHEID Flu A NEGATIVE (NEGATIVE); Influenza B - CEPHEID Flu B NEGATIVE (NEGATIVE); Respiratory Syncytial Virus Negative (Negative)
[2022-08-14 20:53] LABS: Troponin I < 0.012 ng/mL (0.01-0.034)
[2022-08-14 20:54] LABS: COVID-19 CEPHEID 4-PLEX PCR Negative (Negative)
[2022-08-14 20:56] LABS: D Dimer < 215 ng/ml (<500)
--- NOTE | 2022-08-14 23:09 | ED.CHESTPAIN ---
HPI - Chest Pain General Chief Complaint: Chest Pain Stated Complaint: Problems breathing, Racing heart, Dizzy Time Seen by Provider: 08/14/22 22:26 Source: patient Mode of arrival: Ambulatory Limitations: no limitations History of Present Illness HPI narrative: Patient is a 47-year-old female history of rheumatoid arthritis, diabetes, hypertension presenting today with palpitations. She says that she has for awhile head frequent episodes of palpitations 3 4 times a week lasting for a couple minutes. Her dad unexpectedly last week. She was lying on her bed talking with her daughter esme when her heart started racing. She wears a watch tongege it went up to 143 but has been as high as 167. She drinks a cup of coffee a day she does not drink alcohol no marijuana or methamphetamine or drug use. 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 She does have an appointment with her stenciling machine tender this week. She denies any dizziness or syncope. No fever or chills. No chest pain. When she is having an episode she does get a little dizzy and does have some shortness of breath but it does not last long. Related Data Home Medications Medication Instructions Recorded Confirmed albuterol sulfate 2.5 mg/3 mL 3 ml INH Q6HP PRN Shortness Of 06/17/18 06/17/18 (0.083 %) solution for nebulization Breath albuterol sulfate 90 mcg/actuation 1 puff inhalation PRN PRN 06/17/18 06/17/18 aerosol inhaler Shortness Of Breath hydroxychloroquine 200 mg tablet 200 mg PO DAILY 06/17/18 06/17/18 metoprolol succinate 50 mg 50 mg PO DAILY 06/17/18 06/17/18 tablet,extended release 24 hr sulfasalazine 500 mg 500 mg PO QID 06/17/18 06/17/18 tablet,delayed release Previous Rx's Medication Instructions Recorded oxycodone-acetaminophen 5 mg-325 1 tab PO Q4-6H PRN pain #14 tabs 03/24/19 mg tablet (Percocet) tamsulosin 0.4 mg capsule (Flomax) 0.4 mg PO DAILY #5 caps 03/24/19 omeprazole 20 mg capsule,delayed 20 mg PO DAILY #14 caps 05/18/19 release penicillin V potassium 500 mg 500 mg PO QID #40 tabs 07/04/19 tablet gabapentin 100 mg capsule 100 mg PO TID #30 caps 06/26/20 hydrocodone 5 mg-acetaminophen 325 1 tab PO Q4-6H PRN pain #10 tabs 06/27/20 mg tablet ketorolac 10 mg tablet 10 mg PO Q6H PRN pain #14 tabs 06/27/20 prednisone 10 mg tablet 10 mg PO DAILY #30 tabs 06/27/20 penicillin V potassium 500 mg 500 mg PO QID #40 tabs 01/26/22 tablet Allergies Allergy/AdvReac Type Severity Reaction Status Date / Time cephalexin [From KEFLEX] Allergy Unknown Rash Verified 08/14/22 19:49 ciprofloxacin [CIPROFLOXACIN] Allergy Unknown Rash Verified 08/14/22 19:49 milk [MILK] Allergy Unknown Verified 02/26/22 19:03 Review of Systems Review of Systems ROS Unobtainable: All systems reviewed & are unremarkable except as noted in HPI and below Patient History Medical History Diabetes type 2, uncontrolled Dyslipidemia Eosinophilic esophagitis Essential hypertension Hypertension Infected prosthetic mesh of abdominal wall Surgical History H/O: hysterectomy History of appendectomy Family History Mother CVA (cerebral vascular accident) Father CVA (cerebral vascular accident) Other Diabetes mellitus Social History household members: significant other, family and children Smoking Status: Former smoker Smoking Status: Former smoker alcohol intake frequency: holidays/special occasions only Substance Use Type: does not use Exam Initial Vital Signs Initial Vital Signs: Vital Signs Temperature 98 F 08/14/22 19:49 Pulse Rate 118 H 08/14/22 19:49 Respiratory Rate 20 08/14/22 19:49 Blood Pressure 171/110 H 08/14/22 19:49 Pulse Oximetry 100 08/14/22 19:49 Oxygen Delivery Method 08/14/22 19:49 GENERAL: Alert pleasant 47-year-old female and in no acute distress. HEENT: Head atraumatic,EOMI, pupils reactive, face symmetric, moist mucous membranes CARDIOVASCULAR: Regular rate and rhythm without murmurs, rubs or gallops. RESPIRATORY: Breath sounds equal bilaterally, no wheezes rales or rhonchi. ABDOMEN: Soft, nontender. Normoactive bowel sounds all 4 quadrants. No guarding or rebound. EXTREMITIES: Normal range of motion, no clubbing or edema. Neurovascularly intact NEUROLOGICAL: Alert and oriented x4. SKIN: Warm, dry, no laceration, no petechiae, no rashes or lesions. Scores PERC Score Age greater than or equal to 50 years: No Heart rate greater than or equal to 100 bpm: Yes Room Air O2 Sat less than 95%: No Unilateral leg swelling: No Recent trauma or surgery: No Hemoptysis: No Prior PE or DVT: No Hormone Use: No Total PERC Score: 1 Course Orders Ordered: ED Orders 08/14/22 19:58 XR chest 1V Stat EKG-12 Lead Stat 08/14/22 20:00 Covid-19 + FLU A/B + RSV - PCR Stat 08/14/22 20:15 Complete Blood Count AUTO DIFF Stat Comprehensive Metabolic Panel Stat D Dimer Stat Lipase Stat Magnesium Stat Partial Thromboplastin Time Stat Prothrombin Time INR Stat Troponin & CK Cardiac Panel Stat Vital Signs Vital signs: Vital Signs - 8 hr 08/14/22 19:49 08/14/22 20:50 08/14/22 20:50 Temperature 98 F Pulse Rate 118 H 93 H Respiratory Rate 20 Blood Pressure 171/110 H 133/81 Pulse Oximetry 100 99 Oxygen Delivery Method Room Air 08/14/22 21:00 08/14/22 21:15 08/14/22 21:15 Temperature Pulse Rate 93 H 96 H Respiratory Rate 20 Blood Pressure 145/86 H Pulse Oximetry Oxygen Delivery Method 08/14/22 23:46 08/14/22 21:30 08/14/22 22:00 Temperature Pulse Rate 89 95 H 94 H Respiratory Rate 16 23 25 H Blood Pressure 140/72 Pulse Oximetry 98 Oxygen Delivery Method 08/14/22 22:30 08/14/22 23:00 08/14/22 23:30 Temperature Pulse Rate 96 H 95 H 93 H Respiratory Rate 17 18 Blood Pressure Pulse Oximetry Oxygen Delivery Method MDM - Chest Pain Lab Data 08/14/22 20:15 08/14/22 20:15 Labs: Lab Results 08/14/22 08/14/22 08/14/22 Range/Units 20:00 20:15 20:15 WBC 10.6 (4.5-11.0) X10^3/uL RBC 4.74 (4.0-5.2) X10^6/uL Hgb 14.4 (12.0-16.0) g/dL Hct 40.9 (36-46) % MCV 86.3 (80-100) fL MCH 30.3 (26-34) PG MCHC 35.2 (30-36) % RDW 13.2 (11.6-14.8) % Plt Count 241 (150-400) X10^3/uL Neut % (Auto) 51.6 (50-75) % Lymph % (Auto) 39.0 (25-40) % Harding % (Auto) 6.9 (3-14) % Eos % (Auto) 2.0 (2-4) % Baso % (Auto) 0.5 (0-2) % Neut # (Auto) 5400 (8191-8191) /uL Lymph # (Auto) 4100 (3653-6704) /uL Harding # (Auto) 700 (0-900) /uL Eos # (Auto) 200 (0-450) /uL Baso # (Auto) 100 (0-100) /uL PT 11.7 (10.1-12.7) SECONDS INR 1.0 (0.9-1.3) APTT 29 (26-36) SECONDS D-Dimer (<500) ng/ml Sodium (137-145) mmol/L Potassium (3.4-5.1) mmol/L Chloride (98-107) mmol/L Carbon Dioxide (22-32) mmol/L BUN (7-17) mg/dL Creatinine (0.52-1.04) mg/dL Estimated GFR (>60) mL/min BUN/Creatinine Ratio (6-22) Glucose (70-100) mg/dL Calcium (8.4-10.2) mg/dL Magnesium (1.6-2.3) mg/dL Total Bilirubin (0.2-1.3) mg/dL AST (14-36) IU/L ALT (<35) IU/L Alkaline Phosphatase (38-126) U/L Total Creatine Kinase (30-135) U/L CK-MB (CK-2) CK-MB (CK-2) Rel Index Troponin I (0.01-0.034) ng/mL Total Protein (6.3-8.2) g/dL Albumin (3.5-5.0) g/dL Globulin (1.7-4.1) g/dL Albumin/Globulin Ratio (1.0-2.8) Lipase (23-300) U/L SARS-CoV-2 (PCR) Negative (Negative) Influenza A (RT-PCR) Flu a negative (NEGATIVE) Influenza B (RT-PCR) Flu b negative (NEGATIVE) RSV (PCR) Negative (Negative) 08/14/22 08/14/22 Range/Units 20:15 20:15 WBC (4.5-11.0) X10^3/uL RBC (4.0-5.2) X10^6/uL Hgb (12.0-16.0) g/dL Hct (36-46) % MCV (80-100) fL MCH (26-34) PG MCHC (30-36) % RDW (11.6-14.8) % Plt Count (150-400) X10^3/uL Neut % (Auto) (50-75) % Lymph % (Auto) (25-40) % Harding % (Auto) (3-14) % Eos % (Auto) (2-4) % Baso % (Auto) (0-2) % Neut # (Auto) (0397-4174) /uL Lymph # (Auto) (3205-3575) /uL Harding # (Auto) (0-900) /uL Eos # (Auto) (0-450) /uL Baso # (Auto) (0-100) /uL PT (10.1-12.7) SECONDS INR (0.9-1.3) APTT (26-36) SECONDS D-Dimer < 215 (<500) ng/ml Sodium 138 (137-145) mmol/L Potassium 3.3 L (3.4-5.1) mmol/L Chloride 97 L (98-107) mmol/L Carbon Dioxide 28 (22-32) mmol/L BUN 16 (7-17) mg/dL Creatinine 0.56 (0.52-1.04) mg/dL Estimated GFR > 60 (>60) mL/min BUN/Creatinine Ratio 28.6 H (6-22) Glucose 133 H (70-100) mg/dL Calcium 9.2 (8.4-10.2) mg/dL Magnesium 1.7 (1.6-2.3) mg/dL Total Bilirubin 0.6 (0.2-1.3) mg/dL AST 23 (14-36) IU/L ALT 25 (<35) IU/L Alkaline Phosphatase 65 (38-126) U/L Total Creatine Kinase 54 (30-135) U/L CK-MB (CK-2) TNP CK-MB (CK-2) Rel Index TNP Troponin I < 0.012 (0.01-0.034) ng/mL Total Protein 8.2 (6.3-8.2) g/dL Albumin 4.6 (3.5-5.0) g/dL Globulin 3.6 (1.7-4.1) g/dL Albumin/Globulin Ratio 1.3 (1.0-2.8) Lipase 223 (23-300) U/L SARS-CoV-2 (PCR) (Negative) Influenza A (RT-PCR) (NEGATIVE) Influenza B (RT-PCR) (NEGATIVE) RSV (PCR) (Negative) Imaging Data Chest x-ray: Radiologist's Impression: XRay Report Signed Patient: Arabella Saleem MR#: [id number] : 1975 Acct:[id number] Age/Sex: 47 / F Date of Service: 08/14/22 Loc: Accession Number: [id number] ?? Procedure: XR chest 1V Ordering Provider: Gabriella Rodriguez D.O. PROCEDURE:? XR CHEST 1V ? INDICATIONS:? chest pain ? TECHNIQUE:? One view of the chest was acquired.? ? COMPARISON:? [facility], , XR CHEST 1V, 02/26/2022, 19:15. ? FINDINGS:? ? Surgical changes and devices:? None.? ? Lungs and pleura:? Lungs are clear.? No pleural effusions or pneumothorax.? ? Mediastinum:? Mediastinal contours appear normal.? Heart size is normal.? ? Bones and chest wall:? No suspicious bony lesions.? Overlying soft tissues appear unremarkable.? ? IMPRESSION:? ? 1.? No acute cardiopulmonary disease. ? ? ? Dictated by: Yang Lowe M.D. on 08/14/2022 at 20:40 ? ? ECG Data Interpretation: Sinus tachycardia rate 108 CO interval 142 QRS [address] changes no T-wave inversion MDM Narrative Medical decision making narrative: Patient has had frequent episodes of palpitations ongoing for awhile. Today she finally came to the ER for evaluation. Blood work is overall reassuring D-dimer is negative troponin is negative heart rate is now below 90. At this time she does need further outpatient workup including ZIO patch. Unlikely to be pulmonary embolism. Probable arrhythmia. She is not passed out or had a syncopal episode. Hydroxychloroquine can cause QT prolongation and ventricular arrhythmia is strongly encourage her to get a monitor. MDM * differential diagnosis includes but not limited to: Cardiac arrhythmia, anxiety, pulmonary embolism, acute coronary syndrome * Prior records reviewed: Previous admission 03/09/2010 * My lab interpretation: As above * My imaging interpretation: As above * Clinical Decision Rules/Scores evaluated: Perc * Independent discussions with: None * Social Considerations: None * Shared Decision Making: With partner *Disposition: see below, along with detailed discharge instructions that have been reviewed with patient as well as indications for ED re-evaluation and additional outpatient follow up Discharge Plan Departure Patient Disposition: Home Clinical Impression: Heart palpitations Instructions: DI for Palpitations Activity Restrictions/Additional Instructions: *You have been diagnosed with palpitations *What to do: At this time your workup in the ED is overall reassuring. However encourage you to get a ZIO patch and wear it for some time to help figure out what is going on. This may or may not be a medication reaction. Hydroxychloroquine can cause some cardiac arrhythmias. *Continue to take medications as directed *Follow up with your primary care provider in 2-3 days or call [phone] *Return to ER if you should have increasing palpitations in length or frequency, passing out, chest pain [or] any new, worsening or concerning symptoms Prescriptions: No Action metoprolol succinate 50 mg tablet extended release 24 hr 50 mg PO DAILY albuterol sulfate 90 mcg/actuation HFA aerosol inhaler 1 puff Inhalation PRN PRN (Reason: Shortness Of Breath) albuterol sulfate 2.5 MG/3 ML solution for nebulization 3 ml INH Q6HP PRN (Reason: Shortness Of Breath) hydroxychloroquine 200 mg tablet 200 mg PO DAILY sulfasalazine 500 mg tablet,delayed release (DR/EC) 500 mg PO QID penicillin V potassium 500 mg tablet 500 mg PO QID Qty: 40 0RF prednisone 10 mg tablet 10 mg PO DAILY Qty: 30 0RF hydrocodone-acetaminophen 5-325 mg tablet 1 tab PO Q4-6H PRN (Reason: pain) Qty: 10 0RF ketorolac 10 mg tablet 10 mg PO Q6H PRN (Reason: pain) Qty: 14 0RF tamsulosin [Flomax] 0.4 mg capsule 0.4 mg PO DAILY Qty: 5 0RF oxycodone-acetaminophen [Percocet] 5-325 mg tablet 1 tab PO Q4-6H PRN (Reason: pain) Qty: 14 0RF omeprazole 20 mg capsule,delayed release(DR/EC) 20 mg PO DAILY Qty: 14 0RF gabapentin 100 mg capsule 100 mg PO TID Qty: 30 0RF penicillin V potassium 500 mg tablet 500 mg PO QID Qty: 40 0RF Referrals: Nurys Ash MD [Primary Care Provider] - Stand Alone Forms: Patient Portal/API
== END 2022-08-14 23:47 | disposition home or self-care (01) ==
PROVIDERS: Emergency Provider Emergency Medicine; Family Provider Internal Medicine; PCP Internal Medicine
DX: R00.2 Palpitations (principal); R00.0 Tachycardia, unspecified
CPT/HCPCS: 0241U; 36415; 71045; 80053; 82550; 83690; 83735; 84484; 85025; 85379; 85610; 85730; 93005; 99283

== ENCOUNTER 2022-09-12 09:50 | Emergency (ER) | payer OTHER, MEDICAID, SELFPAY ==
[2022-02-26 23:56] VITALS: BMI 34.7
[2022-09-12 09:55] VITALS: BP 147/90; PULSE 117; RESP 15; TEMP 36.6; O2SAT 95; BMI 32.8
--- NOTE | 2022-09-12 09:58 | DI.MRI.S_ITS ---
PROCEDURE: MR LUMBAR SPINE WO CON INDICATIONS: back pain, left leg weakness TECHNIQUE: Noncontrast sagittal T1 spin echo and T2 fast echo, sagittal STIR, and T2 fast spin echo through the lumbar spine. In cases with scoliosis, additional coronal T2 fast spin echo may be performed. COMPARISON: [facility], MR, MR LUMBAR SPINE WO/W CON, 03/27/2021, 15:58. FINDINGS: Image quality: Excellent. Alignment and Curvature: There is normal bony alignment. Bone Marrow: Marrow is of normal overall signal. No acute vertebral body compression fractures. Spinal Cord: Conus medullaris terminates at the L1-L2 level. Visualized cord demonstrates normal signal and size. Paraspinous Soft Tissues: No paravertebral masses. T12-L1: Normal appearance. L1-L2: Unchanged. Mild disc bulge. No canal stenosis or foraminal stenosis. L2-L3: Unchanged. Mild disc bulge. No canal stenosis or foraminal stenosis. L3-L4: Unchanged. Mild diffuse disc bulge. Facet hypertrophy. Mild canal stenosis. Far right lateral disc protrusion abutting the inferior aspect of the exiting right L3 nerve root in the foramen. This far right lateral disc protrusion previous had high signal and now is low signal. It was difficult to see previously secondary to patient motion artifact. L4-L5: Slight interval progression. Previous disc bulge period now broad-based posterior disc protrusion. Facet hypertrophy. Moderate canal stenosis. There is mild impingement on the right L5 nerve root in the right lateral recess. No significant foraminal stenosis. L5-S1: Diffuse disc bulge. Facet hypertrophy. Mild canal stenosis. No significant foraminal stenosis. IMPRESSION: 1. There is underlying multilevel facet hypertrophy. 2. At L3-L4, there is a unchanged far right lateral disc protrusion abutting the inferior aspect of the exiting right L3 nerve root. There is mild central canal dist level. 3. Interval progression at L4-L5. Posterior disc protrusion. Moderate canal stenosis. Mild impingement on the right L5 nerve root in the right lateral recess. 4. There is mild canal stenosis at L5-S1. Dictated by: Bari Loza M.D. on 09/12/2022 at 12:19 Approved by: Bari Loza M.D. on 09/12/2022 at 12:26
--- NOTE | 2022-09-12 09:58 | ED.BACK ---
HPI - Back Pain/Injury General Chief Complaint: Back Pain/Injury Stated Complaint: numbness/pain lt leg & lower back Time Seen by Provider: 09/12/22 09:52 History of Present Illness HPI Narrative: 47-year-old female former smoker with history of diabetes and hypertension presents with a chief complaint of severe left lower back pain with radiation down her leg. She states it has been gradually worsening over the past few days and now is so bad that she can barely walk. She denies any significant or memorable trauma. She does not take blood thinners and denies any fever. She is had no loss of control of bowel or bladder. Her pain is worse when she moves and improves with rest. It is sharp and stabbing and feels hot and burning. Related Data Home Medications Medication Instructions Recorded Confirmed albuterol sulfate 2.5 mg/3 mL 3 ml INH Q6HP PRN Shortness Of 06/17/18 06/17/18 (0.083 %) solution for nebulization Breath albuterol sulfate 90 mcg/actuation 1 puff inhalation PRN PRN 06/17/18 06/17/18 aerosol inhaler Shortness Of Breath hydroxychloroquine 200 mg tablet 200 mg PO DAILY 06/17/18 06/17/18 metoprolol succinate 50 mg 50 mg PO DAILY 06/17/18 06/17/18 tablet,extended release 24 hr sulfasalazine 500 mg 500 mg PO QID 06/17/18 06/17/18 tablet,delayed release Previous Rx's Medication Instructions Recorded oxycodone-acetaminophen 5 mg-325 1 tab PO Q4-6H PRN pain #14 tabs 03/24/19 mg tablet (Percocet) tamsulosin 0.4 mg capsule (Flomax) 0.4 mg PO DAILY #5 caps 03/24/19 omeprazole 20 mg capsule,delayed 20 mg PO DAILY #14 caps 05/18/19 release penicillin V potassium 500 mg 500 mg PO QID #40 tabs 07/04/19 tablet gabapentin 100 mg capsule 100 mg PO TID #30 caps 06/26/20 hydrocodone 5 mg-acetaminophen 325 1 tab PO Q4-6H PRN pain #10 tabs 06/27/20 mg tablet ketorolac 10 mg tablet 10 mg PO Q6H PRN pain #14 tabs 06/27/20 prednisone 10 mg tablet 10 mg PO DAILY #30 tabs 06/27/20 penicillin V potassium 500 mg 500 mg PO QID #40 tabs 01/26/22 tablet cyclobenzaprine 10 mg tablet 10 mg PO TID PRN muscle spasm #14 09/12/22 tabs hydrocodone 5 mg-acetaminophen 325 1 tab PO Q4-6H PRN pain #10 tabs 09/12/22 mg tablet ketorolac 10 mg tablet 10 mg PO Q6H PRN pain #14 tabs 09/12/22 methylprednisolone 4 mg tablets in See Rx Instructions PO .COMPLEX 09/12/22 a dose pack (Medrol (Ashish)) #21 ea Allergies Allergy/AdvReac Type Severity Reaction Status Date / Time cephalexin [From KEFLEX] Allergy Unknown Rash Verified 09/12/22 10:00 ciprofloxacin [CIPROFLOXACIN] Allergy Unknown Rash Verified 09/12/22 10:00 milk [MILK] Allergy Unknown Verified 09/12/22 10:00 gabapentin Allergy Verified 09/12/22 10:00 Review of Systems Review of Systems Narrative: GENERAL: Denies chills, fatigue, malaise, fever, sweats. HEENT: Denies sinus pain, ear pain, sore throat, difficulty swallowing, dizziness. RESPIRATORY: Denies dyspnea, cough, wheezing, hemoptysis, sputum. CARDIOVASCULAR: Denies chest pain, palpitations, orthopnea, edema, GASTROINTESTINAL: Denies nausea, vomiting, abdominal pain, diarrhea, constipation, melena. : Denies dysuria, frequency, incontinence, hematuria, urinary retention. MUSCULOSKELETAL: See HPI SKIN: Denies rash, skin lesions, or other NEUROLOGIC: See HPI PSYCHIATRIC: No concerning psychosocial issues. 12 point review of systems is negative except for those stated above Patient History Medical History Diabetes type 2, uncontrolled Dyslipidemia Eosinophilic esophagitis Essential hypertension Hypertension Infected prosthetic mesh of abdominal wall Surgical History H/O: hysterectomy History of appendectomy Family History Mother CVA (cerebral vascular accident) Father CVA (cerebral vascular accident) Other Diabetes mellitus Social History household members: significant other, family and children Smoking Status: Former smoker Smoking Status: Former smoker alcohol intake frequency: holidays/special occasions only Substance Use Type: does not use Exam Narrative Exam Narrative: GENERAL: [47] year old patient appears stated age. Well-developed patient, in mild distress. HEAD: Atraumatic. Normocephalic. EYES: Pupils equal round and reactive. Extraocular motions intact. No scleral icterus. No injection or drainage. ENT: Nose without bleeding, purulent drainage. Throat without erythema, tonsillar hypertrophy or exudate. Airway patent. NECK: Trachea midline. Non tender CARDIOVASCULAR: Regular rate and rhythm without murmurs, gallops, or rubs. RESPIRATORY: Clear to auscultation. Breath sounds equal bilaterally. No wheezes, rales, or rhonchi. GASTROINTESTINAL: Abdomen soft, non-tender, nondistended. EXTREMITIES: No edema or joint tenderness. BACK: slurry tank tender but free of any obvious external abnormalities. Patient exam notes decreased range of motion and muscle spasm, but no CVA tenderness, or vertebral point tenderness. There are no symptoms of cauda equina such as saddle anesthesia, and decreased reflexes. Left lower extremity strength hard to evaluate but maybe slightly decreased (4/5 at most), reflexes intact. NEURO: AOx3. SKIN: No rash or erythema of visible areas Initial Vital Signs Initial Vital Signs: Vital Signs Temperature 97.8 F 09/12/22 09:55 Pulse Rate 117 H 09/12/22 09:55 Respiratory Rate 15 09/12/22 09:55 Blood Pressure 147/90 H 09/12/22 09:55 Pulse Oximetry 95 09/12/22 09:55 Oxygen Delivery Method 09/12/22 09:55 Course Orders Ordered: Discontinued Medications Ketorolac Tromethamine (Ketorolac 30 Mg/Ml Vial) 30 mg IM NOW ONE Stop: 09/12/22 09:59 Last Admin: 09/12/22 10:09 Dose: 30 mg Documented By: WINNIE Lorazepam (Lorazepam 0.5 Mg Tablet) 0.5 mg PO NOW ONE Stop: 09/12/22 09:59 Last Admin: 09/12/22 10:57 Dose: Not Given Documented By: WINNIE(2) Lorazepam (Lorazepam 0.5 Mg Tablet) 0.5 mg PO NOW ONE Stop: 09/12/22 11:00 Last Admin: 09/12/22 10:57 Dose: 0.5 mg Documented By: WINNIE(2) Prednisone (Prednisone 20 Mg Tablet) 40 mg PO NOW ONE Stop: 09/12/22 09:59 Last Admin: 09/12/22 10:09 Dose: 40 mg Documented By: WINNIE Vital Signs Vital signs: Vital Signs - 8 hr 09/12/22 09:55 09/12/22 13:00 Temperature 97.8 F Pulse Rate 117 H 77 Respiratory Rate 15 18 Blood Pressure 147/90 H Pulse Oximetry 95 99 Oxygen Delivery Method Room Air Room Air MDM - Back Pain/Injury Imaging Data Lumbar MRI: Radiologist's Impression: Disc protrusion of L3/L4 and posterior disc protrusion of L4/L5 MDM Narrative Medical decision making narrative: 47-year-old female with severe low back pain with radiation down left leg, there is numbness and tingling but no weakness or loss of control of bowel or bladder [] Patient is primary source Multiple etiologies for patient's symptoms considered including, but not limited to: [Spasm, cauda equina, epidural abscess, epidural hematoma, lumbar radiculopathy versus other] Prior Charts reviewed: Prior notes reviewed Imaging reviewed: no cauda, epidural abscess/hematoma Patient's symptoms improved Patient's symptoms improved over duration of stay with above-stated therapies. Findings and discharge diagnosis discussed with patient/family followed by verbalization of understanding Return precautions discussed with patient/family whom verbalize understanding of diagnosis and plan Discharge Plan Departure Patient Disposition: Home Clinical Impression: Acute lumbar radiculopathy Instructions: DI for Lumbar Radiculopathy Activity Restrictions/Additional Instructions: *You have been diagnosed with [lumbar radiculopathy] *What to do: *Please continue to take your regular medications as directed. [x ] New medication prescriptions sent to your pharmacy: [ [facility]] [ ] New medication written as a paper prescription [ ] No new medications given *Please follow up with your primary care provider in 2-3 days, call for an appointment. Let them know you were seen in the Emergency Department and that we ask that you be seen in follow up. We will electronically transmit a record of today's note if your PCP is in our system *If you do not have a primary care provider please contact the [facility] Resource line at [phone]. They will ask some questions about your medical history and help get you set up with a doctor in the community. * also, as we discussed I have given you contact information for to ?back specialists? that work out of [facility]. Their contact information is listed below. Please call, let them know you were seen in the emergency department and we would like you seen in follow-up *Return to Emergency Department if you should have any new, worsening or concerning symptoms, such as [fever greater than 101 F, shaking chills, worsening pain, persistent vomiting or other bothersome symptoms] You have been prescribed a short course of narcotic medications. These are potentially dangerous and addictive medications that should be used carefully. While on these medications you cannot drive or operate heavy machinery. Additionally, you cannot sign legal documents or perform any duties such as this. Many people get constipated on narcotic medications so it would be advisable to discuss stool softeners with the pharmacist when you worm picker your prescription. Please understand that we cannot provide further refills of narcotics or controlled substances through the ED and your pain management will need to be through your Primary Care Provider Prescriptions: New cyclobenzaprine 10 mg tablet 10 mg PO TID PRN (Reason: muscle spasm) Qty: 14 0RF hydrocodone-acetaminophen 5-325 mg tablet 1 tab PO Q4-6H PRN (Reason: pain) Qty: 10 0RF ketorolac 10 mg tablet 10 mg PO Q6H PRN (Reason: pain) Qty: 14 0RF methylprednisolone [Medrol (Ashish)] 4 mg tablets,dose pack See Rx Instructions .ROUTE .COMPLEX Qty: 21 0RF Rx Instructions: orally per package directions No Action metoprolol succinate 50 mg tablet extended release 24 hr 50 mg PO DAILY albuterol sulfate 90 mcg/actuation HFA aerosol inhaler 1 puff Inhalation PRN PRN (Reason: Shortness Of Breath) albuterol sulfate 2.5 MG/3 ML solution for nebulization 3 ml INH Q6HP PRN (Reason: Shortness Of Breath) hydroxychloroquine 200 mg tablet 200 mg PO DAILY sulfasalazine 500 mg tablet,delayed release (DR/EC) 500 mg PO QID penicillin V potassium 500 mg tablet 500 mg PO QID Qty: 40 0RF prednisone 10 mg tablet 10 mg PO DAILY Qty: 30 0RF hydrocodone-acetaminophen 5-325 mg tablet 1 tab PO Q4-6H PRN (Reason: pain) Qty: 10 0RF ketorolac 10 mg tablet 10 mg PO Q6H PRN (Reason: pain) Qty: 14 0RF tamsulosin [Flomax] 0.4 mg capsule 0.4 mg PO DAILY Qty: 5 0RF oxycodone-acetaminophen [Percocet] 5-325 mg tablet 1 tab PO Q4-6H PRN (Reason: pain) Qty: 14 0RF omeprazole 20 mg capsule,delayed release(DR/EC) 20 mg PO DAILY Qty: 14 0RF gabapentin 100 mg capsule 100 mg PO TID Qty: 30 0RF penicillin V potassium 500 mg tablet 500 mg PO QID Qty: 40 0RF Referrals: Aston Bella DO [Physician] - Nurys Ash MD [Primary Care Provider] - Juan Shane MD [Physician] - Stand Alone Forms: Patient Portal/API, Work Release Note
[2022-09-12] MEDS: predniSONE 20 MG TABLET 40 MG PO (10:09)
[2022-09-12] MEDS: KETOROLAC 30 MG/ML VIAL IM (10:09)
--- NOTE | 2022-09-12 10:14 | PC.NURSE ---
Pt declined 0.5 ativan after discussion at bedside. Med wasted with CS EDRN in med room cactus
[2022-09-12] MEDS: LORazepam 0.5 MG TABLET PO (10:57)
--- NOTE | 2022-09-12 11:01 | PC.NURSE ---
Pt declined 0.5 ativan so it was wasted in the pixis with witnessed RN CS/KB. Pts MRI was moved up so now a stock med was drawn to give to pt and pixis not given was undone to allow stock med to be scanned. Cgarge and physician aware,.
[2022-09-12 13:00] VITALS: PULSE 77; RESP 18; O2SAT 99
== END 2022-09-12 13:01 | disposition home or self-care (01) ==
PROVIDERS: Emergency Provider Emergency Medicine; Family Provider Internal Medicine; PCP Internal Medicine
DX: M54.16 Radiculopathy, lumbar region (principal)
CPT/HCPCS: 72148; 96372; 99283; J1885

== ENCOUNTER 2022-09-20 11:11 | Emergency (ER) | payer OTHER, MEDICAID, SELFPAY ==
[2022-02-26 23:56] VITALS: BMI 34.7
[2022-09-20 11:28] VITALS: BP 125/74; PULSE 114; RESP 16; TEMP 36; O2SAT 98; BMI 32.9
--- NOTE | 2022-09-20 11:40 | DI.CT.S_ITS ---
PROCEDURE: CT STROKE INDICATIONS: Positive BE-FAST, Stroke symptoms TECHNIQUE: Noncontrast 4.5 mm thick angled axial sections acquired from the foramen magnum to the vertex, with coronal reformats. For radiation dose reduction, the following was used: automated exposure control, adjustment of mA and/or kV according to patient size. COMPARISON: [facility], CT, CT STROKE, 02/26/2022, 19:18. FINDINGS: Image quality: Excellent. CSF spaces: Basal cisterns are patent. No extra-axial fluid collections. Ventricles are normal in size and shape. Brain: No midline shift. No intracranial masses or hemorrhage. Bridges-white matter interface is normal. Skull and face: Calvarium and visualized facial bones are intact, without suspicious lesions. Sinuses: Visualized sinuses and mastoids are clear. IMPRESSION: CT head without acute intracranial abnormalities. No acute hemorrhage. No mass or mass effect. Findings were discussed with Dr. Rodriguez at 11:49 a.m. This study fulfills neurological imaging criteria for inclusion or exclusion of acute stroke therapies based on available published neurological imaging guidelines. Dictated by: Tony Viera M.D. on 09/20/2022 at 11:48 Approved by: Tony Viera M.D. on 09/20/2022 at 11:50
--- NOTE | 2022-09-20 11:40 | DI.RAD.S_ITS ---
PROCEDURE: XR CHEST 1V INDICATIONS: Possible stroke TECHNIQUE: One view of the chest was acquired. COMPARISON: [facility], CR, XR CHEST 1V, 08/14/2022, 20:12. FINDINGS: Surgical changes and devices: None. Lungs and pleura: Lungs are clear. No pleural effusions or pneumothorax. Mediastinum: Mediastinal contours appear normal. Heart size is normal. Bones and chest wall: No suspicious bony lesions. Overlying soft tissues appear unremarkable. IMPRESSION: No evidence acute pulmonary process. Dictated by: Bari Loza M.D. on 09/20/2022 at 11:58 Approved by: Bari Loza M.D. on 09/20/2022 at 11:59
--- NOTE | 2022-09-20 11:44 | DI.CT.S_ITS ---
PROCEDURE: CT ANGIO HEAD AND NECK INDICATIONS: left arm numbness TECHNIQUE: After the administration of intravenous contrast, 1 mm thick sections acquired from the aortic arch through the [place] of [place]. Post-contrast 4.5 mm thick sections then re-acquired from the foramen magnum to the vertex. 3-dimensional oothimd-dhnbsdiku-awbfxnsocp (MIP) and/or volume rendering reformats were acquired of the central intracranial vasculature and neck separately. For radiation dose reduction, the following was used: automated exposure control, adjustment of mA and/or kV according to patient size. COMPARISON: [facility], CT, CT STROKE, 09/20/2022, 11:37. [facility], CT, CT ANGIO HEAD AND NECK, 02/26/2022, 19:18. FINDINGS: Image quality: Excellent. BRAIN: CSF spaces: Ventricles are normal in size and shape. Basal cisterns are patent. No extra-axial fluid collections. Brain: No midline shift. No intracranial bleeds or masses. Bridges-white matter interface appears intact. Skull and face: Calvarium and facial bones appear intact, without suspicious lesions. Orbits appear normal. Sinuses: Sinuses and mastoids are clear. HEAD CT ANGIOGRAPHY: Anterior circulation: Intracranial internal carotid arteries are normal in size and flow. The flow within the paired anterior cerebral arteries is normal and symmetric. The flow within the middle cerebral arteries is normal and symmetric. The anterior communicating artery is seen. No aneurysms are seen. Posterior circulation: Visualized portions of the vertebral arteries demonstrate normal caliber, and join to form a normal appearing basilar artery. Flow within the posterior cerebral arteries is normal and symmetric. No aneurysms are seen. NECK CT ANGIOGRAPHY: Carotid system: The great vessels demonstrate a conventional anatomy as they arise from the aortic arch. The origins of the common carotid arteries appear patent. The common carotid arteries demonstrate normal caliber and courses. The bifurcation regions are both widely patent. The internal carotid arteries demonstrate normal calibers and courses. Posterior circulation: The origins of the vertebral arteries both appear widely patent. The more superior extracranial portions of both vertebral arteries also demonstrate normal courses and calibers. They join to form a normal appearing basilar artery. Soft tissues: Visualized neck soft tissues demonstrate no suspicious abnormalities. Bones: No suspicious bony lesions. Visualized cervical spine appears normally aligned. IMPRESSION: 1. No evidence acute intracranial process. 2. Unremarkable CTA head. No stenosis, aneurysm, occlusion, or focal filling defect. 3. Widely patent carotids. Comment: Findings were discussed with Dr. Rodriguez on 09/20/2022 at 1206 hours Any quantitative measurements of stenosis were performed using NASCET criteria. Dictated by: Bari Loza M.D. on 09/20/2022 at 12:02 Approved by: Bari Loza M.D. on 09/20/2022 at 12:07
[2022-09-20 11:53] LABS: Add Manual Diff / Slide Review NO; Basophils Absolute Auto 100 /uL (0-100); Basophils Percent Auto 0.5 % (0-2); Eosinophils Absolute Auto 300 /uL (0-450); Eosinophils Percent Auto 2.7 % (2-4); Hematocrit 40.9 % (36-46); Hemoglobin 14.2 g/dL (12.0-16.0); Lymphocytes Absolute Auto 3300 /uL (1100-4500); Lymphocytes Percent Auto 30.8 % (25-40); Mean Corpuscular HGB Conc 34.7 % (30-36); Mean Corpuscular Hemoglobin 29.8 PG (26-34); Monocytes Absolute Auto 700 /uL (0-900); Monocytes Percent Auto 6.8 % (3-14); Neutrophils Absolute Auto 6300 /uL (1500-7000); Neutrophils Percent Auto 59.2 % (50-75); Platelet Count 244 X10^3/uL (150-400); Red Blood Cell Count 4.76 X10^6/uL (4.0-5.2); Red Cell Distribution Width 12.6 % (11.6-14.8); White Blood Cell Count 10.6 X10^3/uL (4.5-11.0)
[2022-09-20 11:56] LABS: Prothrombin Time 11.9 SECONDS (10.1-12.7)
[2022-09-20 11:58] LABS: PTT Partial Thromboplastin Tim 30 SECONDS (26-36)
[2022-09-20 12:01] LABS: Alanine Aminotransferase 29 IU/L (<35); Albumin 4.4 g/dL (3.5-5.0); Albumin Globulin Ratio 1.3 (1.0-2.8); Alkaline Phosphatase 54 U/L (38-126); Aspartate Aminotransferase 24 IU/L (14-36); BUN Creatinine Ratio 22.4 (6-22); Bilirubin Total 0.5 mg/dL (0.2-1.3); Blood Urea Nitrogen 15 mg/dL (7-17); Calcium 8.5 mg/dL (8.4-10.2); Carbon Dioxide 28 mmol/L (22-32); Chloride 98 mmol/L (98-107); Creatine Kinase 64 U/L (30-135); Estimated Glomerular Filt Rate > 60 mL/min (>60); Globulin 3.4 g/dL (1.7-4.1); Glucose 204 mg/dL (70-100); HEMOLYSIS 15 (0-50); Magnesium 1.8 mg/dL (1.6-2.3); Potassium 3.7 mmol/L (3.4-5.1); Sodium 136 mmol/L (137-145); Total Protein 7.8 g/dL (6.3-8.2)
[2022-09-20 12:13] LABS: Troponin I < 0.012 ng/mL (0.01-0.034)
[2022-09-20 16:04] VITALS: BP 115/86; PULSE 115; O2SAT 96
[2022-09-20 16:07] VITALS: PULSE 106; O2SAT 99
--- NOTE | 2022-09-20 16:17 | ED.NEUROSD ---
HPI - Neuro Symptoms/Deficit General Chief Complaint: Neuro Symptoms/Deficit Stated Complaint: heart racing/numb LT side of body/hard to breathe Time Seen by Provider: 09/20/22 11:43 History of Present Illness HPI Narrative: Patient is a 47-year-old female history of type 2 diabetes hypertension hyperlipidemia previous TIA presenting today with some left-sided numbness. She her last known well was 10:00 a.m. she reports waking up dropping kids off at school going back home sitting in bed to do her own school work when she fell asleep. She thinks she fell asleep roughly for about 30 minutes and when she woke up she had some numbness in her left neck and down her arm and face. Previously during her last TIA in February of 2022 she had some speech difficulties as well. She was admitted overnight had an MRI echo, thought to possibly be some sort of complex migraine. She denies any speech difficulty today no blurry vision no chest pain she does have palpitations regularly. Patient reports she was previously on lots of medication after her last TI however her PCP took her off most of her meds since then she is not sure if she is taking aspirin. Discharge summary suggest aspirin Plavix On Anticoagulants: No Related Data Home Medications Medication Instructions Recorded Confirmed albuterol sulfate 2.5 mg/3 mL 3 ml INH Q6HP PRN Shortness Of 06/17/18 06/17/18 (0.083 %) solution for nebulization Breath albuterol sulfate 90 mcg/actuation 1 puff inhalation PRN PRN 06/17/18 06/17/18 aerosol inhaler Shortness Of Breath hydroxychloroquine 200 mg tablet 200 mg PO DAILY 06/17/18 06/17/18 metoprolol succinate 50 mg 50 mg PO DAILY 06/17/18 06/17/18 tablet,extended release 24 hr sulfasalazine 500 mg 500 mg PO QID 06/17/18 06/17/18 tablet,delayed release Previous Rx's Medication Instructions Recorded oxycodone-acetaminophen 5 mg-325 1 tab PO Q4-6H PRN pain #14 tabs 03/24/19 mg tablet (Percocet) tamsulosin 0.4 mg capsule (Flomax) 0.4 mg PO DAILY #5 caps 03/24/19 omeprazole 20 mg capsule,delayed 20 mg PO DAILY #14 caps 05/18/19 release penicillin V potassium 500 mg 500 mg PO QID #40 tabs 07/04/19 tablet gabapentin 100 mg capsule 100 mg PO TID #30 caps 06/26/20 hydrocodone 5 mg-acetaminophen 325 1 tab PO Q4-6H PRN pain #10 tabs 06/27/20 mg tablet ketorolac 10 mg tablet 10 mg PO Q6H PRN pain #14 tabs 06/27/20 prednisone 10 mg tablet 10 mg PO DAILY #30 tabs 06/27/20 penicillin V potassium 500 mg 500 mg PO QID #40 tabs 01/26/22 tablet cyclobenzaprine 10 mg tablet 10 mg PO TID PRN muscle spasm #14 09/12/22 tabs hydrocodone 5 mg-acetaminophen 325 1 tab PO Q4-6H PRN pain #10 tabs 09/12/22 mg tablet ketorolac 10 mg tablet 10 mg PO Q6H PRN pain #14 tabs 09/12/22 methylprednisolone 4 mg tablets in See Rx Instructions PO .COMPLEX 09/12/22 a dose pack (Medrol (Ashish)) #21 ea atorvastatin 40 mg tablet 40 mg PO BEDTIME #60 tabs 09/20/22 clopidogrel 75 mg tablet (Plavix) 75 mg PO DAILY #60 tabs 09/20/22 Allergies Allergy/AdvReac Type Severity Reaction Status Date / Time cephalexin [From KEFLEX] Allergy Unknown Rash Verified 09/12/22 10:00 ciprofloxacin [CIPROFLOXACIN] Allergy Unknown Rash Verified 09/12/22 10:00 milk [MILK] Allergy Unknown Verified 09/12/22 10:00 gabapentin Allergy Verified 09/12/22 10:00 Review of Systems Review of Systems ROS Unobtainable: All systems reviewed & are unremarkable except as noted in HPI and below Hematologic/Lymphatic On Anticoagulants: No Patient History Medical History Diabetes type 2, uncontrolled Dyslipidemia Eosinophilic esophagitis Essential hypertension Hypertension Infected prosthetic mesh of abdominal wall Surgical History H/O: hysterectomy History of appendectomy Family History Mother CVA (cerebral vascular accident) Father CVA (cerebral vascular accident) Other Diabetes mellitus Social History household members: significant other, family and children Smoking Status: Former smoker Smoking Status: Former smoker alcohol intake frequency: holidays/special occasions only Substance Use Type: does not use Exam Initial Vital Signs Initial Vital Signs: Vital Signs Temperature 96.8 F L 09/20/22 11:28 Pulse Rate 114 H 09/20/22 11:28 Respiratory Rate 16 09/20/22 11:28 Blood Pressure 125/74 09/20/22 11:28 Pulse Oximetry 98 09/20/22 11:28 Oxygen Delivery Method Room Air 09/20/22 11:28 GENERAL: Alert pleasant 47-year-old female and in no acute distress. HEENT: Head atraumatic,EOMI, pupils reactive, face symmetric, moist mucous membranes CARDIOVASCULAR: Regular rate and rhythm without murmurs, rubs or gallops. RESPIRATORY: Breath sounds equal bilaterally, no wheezes rales or rhonchi. ABDOMEN: Soft, nontender. Normoactive bowel sounds all 4 quadrants. No guarding or rebound. EXTREMITIES: Normal range of motion, no clubbing or edema. Neurovascularly intact NEUROLOGICAL: Alert and oriented x4.Normal gait and speech. Cranial nerves II through XII grossly intact. Good [id number], good druf-va-bpen, strength equal bilaterally, no dysarthria or aphasia, sensation in tact to soft touch bilaterally, no visual changes, no facial droop SKIN: Warm, dry, no laceration, no petechiae, no rashes or lesions. Scores NIH Stroke Scale Level of Conciousness: Alert, keenly responsive Ask month/age: Answers both questions correctly. Open/close eyes, close hand: Performs both tasks correctly Best gaze horizontal: Normal Visual mcconnell: No visual loss Facial palsy: Normal symetrical movement Left arm drift: No drift for full 10 sec Right arm drift: No drift for full 10 sec Left leg drift: No drift for full 5 sec Right leg drift: No drift for full 5 sec Limb ataxia: Absent Sensory on face/arms/legs: Mild to moderate sensory loss, can tell touch Best language: No aphasia, normal Dysarthria: Normal Extinction or inattention: No abnormality Total NIH Stroke scale score: 1 Course Orders Ordered: Discontinued Medications Aspirin (Aspirin 81 Mg Chew Tab) 324 mg PO NOW ONE Stop: 09/20/22 18:39 Last Admin: 09/20/22 18:44 Dose: 324 mg Documented By: SATISH Lorazepam (Lorazepam 2 Mg/Ml Inj) 1 mg IV NOW ONE Stop: 09/20/22 17:05 Last Admin: 09/20/22 17:13 Dose: 0.5 mg Documented By: WINNIE Ondansetron HCl (Ondansetron 4 Mg/2 Ml Inj) 4 mg IV NOW PRN PRN Reason: Nausea And Vomiting Vital Signs Vital signs: Vital Signs - 8 hr 09/20/22 11:28 09/20/22 16:04 09/20/22 16:07 Temperature 96.8 F L Pulse Rate 114 H 115 H 106 H Respiratory Rate 16 Blood Pressure 125/74 115/86 Pulse Oximetry 98 96 99 Oxygen Delivery Method Room Air Room Air 09/20/22 16:30 09/20/22 16:30 09/20/22 17:00 Temperature Pulse Rate 103 H Respiratory Rate Blood Pressure 125/58 L 131/83 Pulse Oximetry 99 Oxygen Delivery Method 09/20/22 17:00 09/20/22 17:37 Temperature Pulse Rate 99 H 104 H Respiratory Rate 14 Blood Pressure Pulse Oximetry 99 82 L Oxygen Delivery Method Room Air MDM - Neuro Symptoms/Deficit Lab Data 09/20/22 11:37 09/20/22 11:37 Labs: Lab Results 09/20/22 09/20/22 09/20/22 Range/Units 11:37 11:37 11:37 WBC 10.6 (4.5-11.0) X10^3/uL RBC 4.76 (4.0-5.2) X10^6/uL Hgb 14.2 (12.0-16.0) g/dL Hct 40.9 (36-46) % MCV 86.0 (80-100) fL MCH 29.8 (26-34) PG MCHC 34.7 (30-36) % RDW 12.6 (11.6-14.8) % Plt Count 244 (150-400) X10^3/uL Neut % (Auto) 59.2 (50-75) % Lymph % (Auto) 30.8 (25-40) % Whitfield % (Auto) 6.8 (3-14) % Eos % (Auto) 2.7 (2-4) % Baso % (Auto) 0.5 (0-2) % Neut # (Auto) 6300 (2561-9697) /uL Lymph # (Auto) 3300 (4275-2957) /uL Whitfield # (Auto) 700 (0-900) /uL Eos # (Auto) 300 (0-450) /uL Baso # (Auto) 100 (0-100) /uL PT 11.9 (10.1-12.7) SECONDS INR 1.0 (0.9-1.3) APTT 30 (26-36) SECONDS Sodium 136 L (137-145) mmol/L Potassium 3.7 (3.4-5.1) mmol/L Chloride 98 (98-107) mmol/L Carbon Dioxide 28 (22-32) mmol/L BUN 15 (7-17) mg/dL Creatinine 0.67 (0.52-1.04) mg/dL Estimated GFR > 60 (>60) mL/min BUN/Creatinine Ratio 22.4 H (6-22) Glucose 204 H (70-100) mg/dL Calcium 8.5 (8.4-10.2) mg/dL Magnesium 1.8 (1.6-2.3) mg/dL Total Bilirubin 0.5 (0.2-1.3) mg/dL AST 24 (14-36) IU/L ALT 29 (<35) IU/L Alkaline Phosphatase 54 (38-126) U/L Total Creatine Kinase 64 (30-135) U/L CK-MB (CK-2) TNP CK-MB (CK-2) Rel Index TNP Troponin I < 0.012 (0.01-0.034) ng/mL Total Protein 7.8 (6.3-8.2) g/dL Albumin 4.4 (3.5-5.0) g/dL Globulin 3.4 (1.7-4.1) g/dL Albumin/Globulin Ratio 1.3 (1.0-2.8) SARS-CoV-2 (PCR) (Negative) 09/20/22 Range/Units 16:06 WBC (4.5-11.0) X10^3/uL RBC (4.0-5.2) X10^6/uL Hgb (12.0-16.0) g/dL Hct (36-46) % MCV (80-100) fL MCH (26-34) PG MCHC (30-36) % RDW (11.6-14.8) % Plt Count (150-400) X10^3/uL Neut % (Auto) (50-75) % Lymph % (Auto) (25-40) % Whitfield % (Auto) (3-14) % Eos % (Auto) (2-4) % Baso % (Auto) (0-2) % Neut # (Auto) (6960-7272) /uL Lymph # (Auto) (2613-7164) /uL Whitfield # (Auto) (0-900) /uL Eos # (Auto) (0-450) /uL Baso # (Auto) (0-100) /uL PT (10.1-12.7) SECONDS INR (0.9-1.3) APTT (26-36) SECONDS Sodium (137-145) mmol/L Potassium (3.4-5.1) mmol/L Chloride (98-107) mmol/L Carbon Dioxide (22-32) mmol/L BUN (7-17) mg/dL Creatinine (0.52-1.04) mg/dL Estimated GFR (>60) mL/min BUN/Creatinine Ratio (6-22) Glucose (70-100) mg/dL Calcium (8.4-10.2) mg/dL Magnesium (1.6-2.3) mg/dL Total Bilirubin (0.2-1.3) mg/dL AST (14-36) IU/L ALT (<35) IU/L Alkaline Phosphatase (38-126) U/L Total Creatine Kinase (30-135) U/L CK-MB (CK-2) CK-MB (CK-2) Rel Index Troponin I (0.01-0.034) ng/mL Total Protein (6.3-8.2) g/dL Albumin (3.5-5.0) g/dL Globulin (1.7-4.1) g/dL Albumin/Globulin Ratio (1.0-2.8) SARS-CoV-2 (PCR) Negative (Negative) Imaging Data CT scan - head: Radiologist's Impression: PROCEDURE:? CT STROKE ? INDICATIONS:? Positive BE-FAST, Stroke symptoms ? TECHNIQUE:? Noncontrast 4.5 mm thick angled axial sections acquired from the foramen magnum to the vertex, with coronal reformats.? For radiation dose reduction, the following was used:? automated exposure control, adjustment of mA and/or kV according to patient size.? ? COMPARISON:? [facility], CT, CT STROKE, 02/26/2022, 19:18. ? FINDINGS:? Image quality:? Excellent.? ? CSF spaces:? Basal cisterns are patent.? No extra-axial fluid collections.? Ventricles are normal in size and shape.? ? Brain:? No midline shift.? No intracranial masses or hemorrhage.? Bridges-white matter interface is normal.? ? Skull and face:? Calvarium and visualized facial bones are intact, without suspicious lesions.? ? Sinuses:? Visualized sinuses and mastoids are clear.? ? IMPRESSION:? CT head without acute intracranial abnormalities.? No acute hemorrhage.? No mass or mass effect. ? Findings were discussed with Dr. Rodriguez at 11:49 a.m. ? This study fulfills neurological imaging criteria for inclusion or exclusion of acute stroke therapies based on available published neurological imaging guidelines.? ? ? Dictated by: Tony Viera M.D. on 09/20/2022 at 11:48 ? ? CTA - brain/neck: Radiologist's Impression: PROCEDURE:? CT ANGIO HEAD AND NECK ? INDICATIONS:? left arm numbness ? TECHNIQUE:? After the administration of intravenous contrast, 1 mm thick sections acquired from the aortic arch through the [place] of [place].? Post-contrast 4.5 mm thick sections then re-acquired from the foramen magnum to the vertex.? 3-dimensional iqkojej-yiknosdnr-ecfvqnjoyw (MIP) and/or volume rendering reformats were acquired of the central intracranial vasculature and neck separately. For radiation dose reduction, the following was used:? automated exposure control, adjustment of mA and/or kV according to patient size.? ? COMPARISON:? [facility], CT, CT STROKE, 09/20/2022, 11:37.? [facility], CT, CT ANGIO HEAD AND NECK, 02/26/2022, 19:18. ? FINDINGS:? Image quality:? Excellent.? ? BRAIN:? CSF spaces:? Ventricles are normal in size and shape.? Basal cisterns are patent.? No extra-axial fluid collections.? ? Brain:? No midline shift.? No intracranial bleeds or masses.? Bridges-white matter interface appears intact.? ? Skull and face:? Calvarium and facial bones appear intact, without suspicious lesions.? Orbits appear normal.? ? Sinuses:? Sinuses and mastoids are clear.? ? HEAD CT ANGIOGRAPHY:? Anterior circulation:? Intracranial internal carotid arteries are normal in size and flow.? The flow within the paired anterior cerebral arteries is normal and symmetric.? The flow within the middle cerebral arteries is normal and symmetric.? The anterior communicating artery is seen.? No aneurysms are seen.? ? Posterior circulation:? Visualized portions of the vertebral arteries demonstrate normal caliber, and join to form a normal appearing basilar artery.? Flow within the posterior cerebral arteries is normal and symmetric.? No aneurysms are seen.? ? NECK CT ANGIOGRAPHY:? Carotid system:? The great vessels demonstrate a conventional anatomy as they arise from the aortic arch.? The origins of the common carotid arteries appear patent.? The common carotid arteries demonstrate normal caliber and courses.? The bifurcation regions are both widely patent.? The internal carotid arteries demonstrate normal calibers and courses.? ? Posterior circulation:? The origins of the vertebral arteries both appear widely patent.? The more superior extracranial portions of both vertebral arteries also demonstrate normal courses and calibers.? They join to form a normal appearing basilar artery.? ? Soft tissues:? Visualized neck soft tissues demonstrate no suspicious abnormalities.? ? Bones:? No suspicious bony lesions.? Visualized cervical spine appears normally aligned.? IMPRESSION:? ? 1. No evidence acute intracranial process.? ? 2. Unremarkable CTA head.? No stenosis, aneurysm, occlusion, or focal filling defect. ? 3. Widely patent carotids. ? Comment: Findings were discussed with Dr. Rodriguez on? 09/20/2022 at 1206 hours ? ? Any quantitative measurements of stenosis were performed using NASCET criteria.? ? ? Dictated by: Bari Loza M.D. on 09/20/2022 at 12:02 ? ? Chest x-ray: Radiologist's Impression: PROCEDURE:? XR CHEST 1V ? INDICATIONS:? Possible stroke ? TECHNIQUE:? One view of the chest was acquired.? ? COMPARISON:? [facility], CR, XR CHEST 1V, 08/14/2022, 20:12. ? FINDINGS:? ? Surgical changes and devices:? None.? ? Lungs and pleura:? Lungs are clear.? No pleural effusions or pneumothorax.? ? Mediastinum:? Mediastinal contours appear normal.? Heart size is normal.? ? Bones and chest wall:? No suspicious bony lesions.? Overlying soft tissues appear unremarkable.? ? IMPRESSION:? No evidence acute pulmonary process. ? ? ? Dictated by: Bari Loza M.D. on 09/20/2022 at 11:58 ?? MR brain: Radiologist's Impression: PROCEDURE:? MR HEAD/BRAIN WO CON ? INDICATIONS:? left arm numbness ? TECHNIQUE:? Noncontrast axial T1 spin echo, axial T2 fast spin echo, sagittal and axial FLAIR, coronal T2 fast spin echo, axial gradient echo, axial diffusion and ADC through the brain.? ? COMPARISON:? [facility], CT, CT STROKE, 09/20/2022, 11:37.? [facility], CT, CT ANGIO HEAD AND NECK, 09/20/2022, 11:42.? [facility], MR, MR HEAD/BRAIN WO CON, 02/27/2022, 9:47. ? FINDINGS:? Image quality:? Excellent.? ? CSF Spaces:? Basal cisterns are patent.? No extra-axial fluid collections.? Ventricles are normal in size and shape.? ? Brain:? No intracranial masses or hemorrhage.? Bridges/white matter interface is normal.? Brainstem appears normal.? Diffusion-weighted images demonstrate no acute ischemic insult.? No chronic ischemic insults.? Normal intravascular flow voids are present.? ? Skull and face:? Calvarium has normal marrow signal.? Orbits appear normal.? ? Sinuses:? Sinuses and mastoids are clear.? ? IMPRESSION:? No findings of acute or subacute infarction can be seen. ? Brain MRI within normal limits. ? ? Dictated by: Rony Tucker M.D. on 09/20/2022 at 17:13 ? ECG Data Interpretation: Sinus rhythm rate 102 ME interval 144 QRS [address] changes no T-wave inversion MDM Narrative Medical decision making narrative: Patient initially presented as acute stroke with some numbness left arm. NIH stroke scale is 1. She has had some numbness in her left leg. She previously had a TIA with speech difficulty actually thought to be more complex migraine. She is not taking aspirin or Plavix. Workup today is negative. Negative head CT CT angio and negative MRI. At this time still having some numbness in her left arm MRI is negative. It is possible she slept on it funny. She and I did discuss possibility of observation versus going home. She would like to go home. I did recommend that she restart her aspirin and Plavix. She had a full workup less than 6 months ago. Blood pressure is stable. Will restart her on atorvastatin aspirin and Plavix. I spoke with both her and her partner about strict return precautions Discharge Plan Departure Patient Disposition: Home Clinical Impression: Neuropathy Instructions: Peripheral Neuropathy, DI for Transient Ischemic Attack Activity Restrictions/Additional Instructions: *You have been diagnosed with peripheral neuropathy *What to do: At this time workup in the emergency department is overall reassuring. Possible 2nd small TIA although your MRI is negative. I do recommend that he restart her aspirin and Plavix. Please continue taking her other medications as prescribed. Please follow-up with your primary care provider for any further possible evaluation. *Continue to take medications as directed--> sent to [facility] Aspirin 81 mg daily Plavix 75 mg daily Atorvastatin 40 mg daily *Follow up with your primary care provider in 2-3 days or call [phone] *Return to ER if you should have increasing weakness speech difficulty visual changes chest pain difficulty walking or any new, worsening or concerning symptoms Prescriptions: New atorvastatin 40 mg tablet 40 mg PO BEDTIME Qty: 60 0RF clopidogrel [Plavix] 75 mg tablet 75 mg PO DAILY Qty: 60 0RF No Action metoprolol succinate 50 mg tablet extended release 24 hr 50 mg PO DAILY albuterol sulfate 90 mcg/actuation HFA aerosol inhaler 1 puff Inhalation PRN PRN (Reason: Shortness Of Breath) albuterol sulfate 2.5 MG/3 ML solution for nebulization 3 ml INH Q6HP PRN (Reason: Shortness Of Breath) hydroxychloroquine 200 mg tablet 200 mg PO DAILY sulfasalazine 500 mg tablet,delayed release (DR/EC) 500 mg PO QID penicillin V potassium 500 mg tablet 500 mg PO QID Qty: 40 0RF prednisone 10 mg tablet 10 mg PO DAILY Qty: 30 0RF hydrocodone-acetaminophen 5-325 mg tablet 1 tab PO Q4-6H PRN (Reason: pain) Qty: 10 0RF ketorolac 10 mg tablet 10 mg PO Q6H PRN (Reason: pain) Qty: 14 0RF cyclobenzaprine 10 mg tablet 10 mg PO TID PRN (Reason: muscle spasm) Qty: 14 0RF hydrocodone-acetaminophen 5-325 mg tablet 1 tab PO Q4-6H PRN (Reason: pain) Qty: 10 0RF ketorolac 10 mg tablet 10 mg PO Q6H PRN (Reason: pain) Qty: 14 0RF methylprednisolone [Medrol (Ashish)] 4 mg tablets,dose pack See Rx Instructions .ROUTE .COMPLEX Qty: 21 0RF Rx Instructions: orally per package directions tamsulosin [Flomax] 0.4 mg capsule 0.4 mg PO DAILY Qty: 5 0RF oxycodone-acetaminophen [Percocet] 5-325 mg tablet 1 tab PO Q4-6H PRN (Reason: pain) Qty: 14 0RF omeprazole 20 mg capsule,delayed release(DR/EC) 20 mg PO DAILY Qty: 14 0RF gabapentin 100 mg capsule 100 mg PO TID Qty: 30 0RF penicillin V potassium 500 mg tablet 500 mg PO QID Qty: 40 0RF Referrals: Nurys Ash MD [Primary Care Provider] - Stand Alone Forms: Patient Portal/API
[2022-09-20 16:27] LABS: COVID19 -Nasal RAPID Negative (Negative)
[2022-09-20 16:30] VITALS: BP 125/58; PULSE 103; O2SAT 99
--- NOTE | 2022-09-20 16:43 | DI.MRI.S_ITS ---
PROCEDURE: MR HEAD/BRAIN WO CON INDICATIONS: left arm numbness TECHNIQUE: Noncontrast axial T1 spin echo, axial T2 fast spin echo, sagittal and axial FLAIR, coronal T2 fast spin echo, axial gradient echo, axial diffusion and ADC through the brain. COMPARISON: [facility], CT, CT STROKE, 09/20/2022, 11:37. [facility], CT, CT ANGIO HEAD AND NECK, 09/20/2022, 11:42. [facility], MR, MR HEAD/BRAIN WO CON, 02/27/2022, 9:47. FINDINGS: Image quality: Excellent. CSF Spaces: Basal cisterns are patent. No extra-axial fluid collections. Ventricles are normal in size and shape. Brain: No intracranial masses or hemorrhage. Bridges/white matter interface is normal. Brainstem appears normal. Diffusion-weighted images demonstrate no acute ischemic insult. No chronic ischemic insults. Normal intravascular flow voids are present. Skull and face: Calvarium has normal marrow signal. Orbits appear normal. Sinuses: Sinuses and mastoids are clear. IMPRESSION: No findings of acute or subacute infarction can be seen. Brain MRI within normal limits. Dictated by: Rony Tucker M.D. on 09/20/2022 at 17:13 Approved by: Rony Tucker M.D. on 09/20/2022 at 17:15
[2022-09-20 17:00] VITALS: BP 131/83; PULSE 99; RESP 14; O2SAT 99
[2022-09-20] MEDS: LORazepam 2 MG/ML INJ 1 MG IV (17:13)
[2022-09-20 17:37] VITALS: PULSE 104; O2SAT 82
[2022-09-20] MEDS: ASPIRIN 81 MG CHEW TAB 324 MG PO (18:44)
== END 2022-09-20 18:51 | disposition home or self-care (01) ==
PROVIDERS: Emergency Provider Emergency Medicine; Family Provider Internal Medicine; PCP Internal Medicine
DX: G62.9 Polyneuropathy, unspecified (principal); R29.701 NIHSS score 1; R00.2 Palpitations; R29.818 Other symptoms and signs involving the nervous system; Z86.73 Personal history of transient ischemic attack (TIA), and cerebral infarction without residual deficits; Z20.822 Contact with and (suspected) exposure to COVID-19
CPT/HCPCS: 36415; 70450; 70496; 70498; 70551; 71045; 80053; 82550; 83735; 84484; 85025; 85610; 85730; 87635; 93005; 96374; 99284; 99285; C9803; J2060; Q9967

== ENCOUNTER 2022-11-25 21:22 | Emergency (ER) | payer OTHER, MEDICAID, SELFPAY ==
[2022-02-26 23:56] VITALS: BMI 34.7
[2022-11-25 21:42] VITALS: BP 140/78; PULSE 102; RESP 16; TEMP 36.9; O2SAT 98; BMI 32.9
[2022-11-25 22:02] LABS: Appearance Urine UA CLEAR; Bilirubin Urine UA NEGATIVE (NEGATIVE); Color Urine UA YELLOW; Glucose Urine UA NEGATIVE (Negative); Ketones Urine UA NEGATIVE (NEGATIVE); Leukocyte Esterase Urine UA NEGATIVE (NEGATIVE); Nitrite Urine UA NEGATIVE (Negative); Occult Blood Urine UA NEGATIVE (Negative); Protein Urine UA NEGATIVE (Negative); Urobilinogen Urine UA 0.2 E.U./dL (0.2)
[2022-11-25 22:10] LABS: Bacteria Urine Occasional (0-1); RBC Urine None Seen (0-5/HPF); Squamous Epithelial Cell Urine 10-30 /HPF (0-5/HPF); WBC Urine 0-1/HPF (0-5/HPF)
[2022-11-25 22:11] LABS: Culture Indicated Urine Cult Not Indicated
--- NOTE | 2022-11-25 22:34 | ED.BACK ---
HPI - Back Pain/Injury General Chief Complaint: Back Pain/Injury Stated Complaint: ABD pain, thru lower back and leg, Rt side Time Seen by Provider: 11/25/22 22:01 Source: patient History of Present Illness HPI Narrative: 47-year-old female nonsmoker with history of asthma, diabetes, hypertension, prior kidney stones presents with family in the chief complaint of right flank pain with radiation around her side that started while doing an enema in preparation for a colonoscopy in his rapidly worsened in the aftermath of that colonoscopy. She denies fever or chills and has been nauseated but has no vomiting. Pain is sharp and stabbing and at times has made worse by motion and improves with rest and at other times seems to worsen without any obvious trigger. She is had no fever or chills and denies diarrhea or constipation. Related Data Home Medications Medication Instructions Recorded Confirmed albuterol sulfate 2.5 mg/3 mL 3 ml INH Q6HP PRN Shortness Of 06/17/18 06/17/18 (0.083 %) solution for nebulization Breath albuterol sulfate 90 mcg/actuation 1 puff inhalation PRN PRN 06/17/18 06/17/18 aerosol inhaler Shortness Of Breath hydroxychloroquine 200 mg tablet 200 mg PO DAILY 06/17/18 06/17/18 metoprolol succinate 50 mg 50 mg PO DAILY 06/17/18 06/17/18 tablet,extended release 24 hr sulfasalazine 500 mg 500 mg PO QID 06/17/18 06/17/18 tablet,delayed release Previous Rx's Medication Instructions Recorded oxycodone-acetaminophen 5 mg-325 1 tab PO Q4-6H PRN pain #14 tabs 03/24/19 mg tablet (Percocet) tamsulosin 0.4 mg capsule (Flomax) 0.4 mg PO DAILY #5 caps 03/24/19 omeprazole 20 mg capsule,delayed 20 mg PO DAILY #14 caps 05/18/19 release penicillin V potassium 500 mg 500 mg PO QID #40 tabs 07/04/19 tablet gabapentin 100 mg capsule 100 mg PO TID #30 caps 06/26/20 hydrocodone 5 mg-acetaminophen 325 1 tab PO Q4-6H PRN pain #10 tabs 06/27/20 mg tablet ketorolac 10 mg tablet 10 mg PO Q6H PRN pain #14 tabs 06/27/20 prednisone 10 mg tablet 10 mg PO DAILY #30 tabs 06/27/20 penicillin V potassium 500 mg 500 mg PO QID #40 tabs 01/26/22 tablet cyclobenzaprine 10 mg tablet 10 mg PO TID PRN muscle spasm #14 09/12/22 tabs hydrocodone 5 mg-acetaminophen 325 1 tab PO Q4-6H PRN pain #10 tabs 09/12/22 mg tablet ketorolac 10 mg tablet 10 mg PO Q6H PRN pain #14 tabs 09/12/22 methylprednisolone 4 mg tablets in See Rx Instructions PO .COMPLEX 09/12/22 a dose pack (Medrol (Ashish)) #21 ea atorvastatin 40 mg tablet 40 mg PO BEDTIME #60 tabs 09/20/22 clopidogrel 75 mg tablet (Plavix) 75 mg PO DAILY #60 tabs 09/20/22 cyclobenzaprine 10 mg tablet 10 mg PO TID PRN muscle spasm #14 11/26/22 tabs hydrocodone 5 mg-acetaminophen 325 1 tab PO Q4-6H PRN pain #10 tabs 11/26/22 mg tablet ketorolac 10 mg tablet 10 mg PO Q6H PRN pain #14 tabs 11/26/22 Allergies Allergy/AdvReac Type Severity Reaction Status Date / Time cephalexin [From KEFLEX] Allergy Unknown Rash Verified 09/12/22 10:00 ciprofloxacin [CIPROFLOXACIN] Allergy Unknown Rash Verified 09/12/22 10:00 milk [MILK] Allergy Unknown Verified 09/12/22 10:00 gabapentin Allergy Verified 09/12/22 10:00 Review of Systems Review of Systems Narrative: GENERAL: Denies chills, fatigue, malaise, fever, sweats. HEENT: Denies sinus pain, ear pain, sore throat, difficulty swallowing, dizziness. RESPIRATORY: Denies dyspnea, cough, wheezing, hemoptysis, sputum. CARDIOVASCULAR: Denies chest pain, palpitations, orthopnea, edema, GASTROINTESTINAL: See HPI : See HPI MUSCULOSKELETAL: See HPI SKIN: Denies rash, skin lesions, or other NEUROLOGIC: Denies weakness, headache, numbness, change in speech, confusion, seizures, incoordination. PSYCHIATRIC: No concerning psychosocial issues. 12 point review of systems is negative except for those stated above Patient History Medical History Diabetes type 2, uncontrolled Dyslipidemia Eosinophilic esophagitis Essential hypertension Hypertension Infected prosthetic mesh of abdominal wall Surgical History H/O: hysterectomy History of appendectomy Family History Mother CVA (cerebral vascular accident) Father CVA (cerebral vascular accident) Other Diabetes mellitus Social History household members: significant other, family and children Smoking Status: Former smoker Smoking Status: Former smoker alcohol intake frequency: holidays/special occasions only Substance Use Type: does not use Exam Narrative Exam Narrative: GENERAL: [47] year old patient appears stated age. Well-developed patient, in mild distress. Obviously uncomfortable, rubbing her right flank HEAD: Atraumatic. Normocephalic. EYES: Pupils equal round and reactive. Extraocular motions intact. No scleral icterus. No injection or drainage. ENT: Nose without bleeding, purulent drainage. Throat without erythema, tonsillar hypertrophy or exudate. Airway patent. NECK: Trachea midline. Non tender CARDIOVASCULAR: Regular rate and rhythm without murmurs, gallops, or rubs. RESPIRATORY: Clear to auscultation. Breath sounds equal bilaterally. No wheezes, rales, or rhonchi. GASTROINTESTINAL: Abdomen soft, non-tender, nondistended. EXTREMITIES: No edema or joint tenderness. BACK: Nontender without deformity or crepitance. Some right flank tenderness which is worse with palpation NEURO: AOx3. SKIN: No rash or erythema of visible areas Initial Vital Signs Initial Vital Signs: Vital Signs Temperature 98.4 F 11/25/22 21:42 Pulse Rate 102 H 11/25/22 21:42 Respiratory Rate 16 11/25/22 21:42 Blood Pressure 140/78 11/25/22 21:42 Pulse Oximetry 98 11/25/22 21:42 Oxygen Delivery Method Room Air 11/25/22 21:42 Course Orders Ordered: Discontinued Medications Hydrocodone Bitart/Acetaminophen (Hydrocodone/Acet 5/325 Prepack) 1 bottle MISC SEEINSTR ONE Stop: 11/26/22 00:44 Last Admin: 11/26/22 01:03 Dose: 1 bottle Documented By: VIET Cyclobenzaprine HCl (Cyclobenzaprine 10 Mg Prepack) 1 bottle MISC SEEINSTR ONE Stop: 11/26/22 00:44 Last Admin: 11/26/22 01:03 Dose: 1 bottle Documented By: VIET Hydromorphone HCl (Hydromorphone 0.5 Mg Inj) 0.5 mg IV NOW ONE Stop: 11/25/22 23:03 Last Admin: 11/25/22 23:29 Dose: 0.5 mg Documented By: VALENTÍN Sodium Chloride (Normal Saline 0.9%) 1,000 mls @ 1,000 mls/hr IV BOLUS ONE Stop: 11/25/22 23:00 Last Infusion: 11/26/22 00:56 Dose: 0 mls/hr Documented By: Admin: 11/25/22 22:44 Dose: 1,000 mls/hr Documented By: TABITHA Ondansetron HCl (Ondansetron 4 Mg/2 Ml Inj) 4 mg IV NOW ONE Stop: 11/25/22 23:03 Last Admin: 11/25/22 23:29 Dose: 4 mg Documented By: VALENTÍN Vital Signs Vital signs: Vital Signs - 8 hr 11/25/22 21:42 Temperature 98.4 F Pulse Rate 102 H Respiratory Rate 16 Blood Pressure 140/78 Pulse Oximetry 98 Oxygen Delivery Method Room Air MDM - Back Pain/Injury Lab Data 11/25/22 22:45 11/25/22 22:45 Labs: Lab Results 11/25/22 11/25/22 11/25/22 Range/Units 21:50 22:45 22:45 WBC 10.1 (4.5-11.0) X10^3/uL RBC 4.63 (4.0-5.2) X10^6/uL Hgb 14.2 (12.0-16.0) g/dL Hct 39.5 (36-46) % MCV 85.3 (80-100) fL MCH 30.7 (26-34) PG MCHC 36.0 (30-36) % RDW 12.7 (11.6-14.8) % Plt Count 266 (150-400) X10^3/uL Neut % (Auto) 57.2 (50-75) % Lymph % (Auto) 33.9 (25-40) % Drew % (Auto) 5.4 (3-14) % Eos % (Auto) 2.9 (2-4) % Baso % (Auto) 0.6 (0-2) % Neut # (Auto) 5800 (8037-6083) /uL Lymph # (Auto) 3400 (0538-8184) /uL Drew # (Auto) 500 (0-900) /uL Eos # (Auto) 300 (0-450) /uL Baso # (Auto) 100 (0-100) /uL Sodium 137 (137-145) mmol/L Potassium 3.6 (3.4-5.1) mmol/L Chloride 100 (98-107) mmol/L Carbon Dioxide 25 (22-32) mmol/L BUN 13 (7-17) mg/dL Creatinine 0.49 L (0.52-1.04) mg/dL Estimated GFR > 60 (>60) mL/min BUN/Creatinine Ratio 26.5 H (6-22) Glucose 203 H (70-100) mg/dL Calcium 8.3 L (8.4-10.2) mg/dL Total Bilirubin 0.4 (0.2-1.3) mg/dL AST 28 (14-36) IU/L ALT 29 (<35) IU/L Alkaline Phosphatase 66 (38-126) U/L Total Protein 8.1 (6.3-8.2) g/dL Albumin 4.5 (3.5-5.0) g/dL Globulin 3.6 (1.7-4.1) g/dL Albumin/Globulin Ratio 1.3 (1.0-2.8) Lipase 373 H (23-300) U/L Urine Color Yellow Urine Appearance Clear Urine pH 6.0 (4.5-8.0) Ur Specific [place] 1.020 (1.000-1.035) Urine Protein Negative (Negative) Urine Glucose (UA) Negative (Negative) g/dL Urine Ketones Negative (NEGATIVE) Urine Occult Blood Negative (Negative) Urine Nitrate Negative (Negative) Urine Bilirubin Negative (NEGATIVE) Urine Urobilinogen 0.2 (0.2) E.U./dL Ur Leukocyte Esterase Negative (NEGATIVE) Urine RBC None seen (0-5/HPF) Urine WBC 0-1/hpf (0-5/HPF) Ur Squamous Epith Cells 10-30 /hpf H D (0-5/HPF) Urine Bacteria Occasional (0-1) (None) Ur Culture Indicated? Cult not indicated MDM Narrative Medical decision making narrative: [47] year old patient presents with flank pain after enema and colonoscopy Multiple etiologies for patient's symptoms considered including, but not limited to: [Kidney stone, pyelonephritis, musculoskeletal, bowel problems such as obstruction or perforation versus other] Prior Charts reviewed in our EMR Primary Historian: patient Labs reviewed and interpreted by myself: No leukocytosis or left shift, no signs of anemia, electrolytes and renal function within normal, urine without signs of blood or infection Imaging reviewed: CT KUB without obvious abnormality Patient's symptoms improved over duration of stay with above-stated therapies. Urine, labs and imaging reassuring and no evidence of kidney stone or kidney infection. Imaging suggest against obstruction or perforation. Distribution of discomfort and reproducibility with otherwise essentially negative workup suggestive of a possible musculoskeletal source versus I potentially missed or passed kidney stone. At this time she is well-appearing, no signs of sepsis or renal failure, pain is well controlled, she is tolerating orals and otherwise well Findings and discharge diagnosis discussed with patient/family followed by verbalization of understanding Return precautions discussed with patient/family whom verbalize understanding of diagnosis and plan Discharge Plan Departure Patient Disposition: Home Clinical Impression: Acute right flank pain Instructions: DI for Back Spasm Activity Restrictions/Additional Instructions: *You have been diagnosed with [right low back pain and flank pain. As we discussed your history and physical exam as well as labs and imaging are reassuring and there is no evidence of kidney stone, perforation of her bowel, bowel obstruction or other significant diagnosis requiring a specific treatment] *What to do: *Please continue to take your regular medications as directed. [x ] New medication prescriptions sent to your pharmacy: [[facility] ] [ ] New medication written as a paper prescription [ ] No new medications given *Please follow up with your primary care provider in 2-3 days, call for an appointment. Let them know you were seen in the Emergency Department and that we ask that you be seen in follow up. We will electronically transmit a record of today's note if your PCP is in our system *If you do not have a primary care provider please contact the [facility] Resource line at [phone]. They will ask some questions about your medical history and help get you set up with a doctor in the community. *Return to Emergency Department if you should have any new, worsening or concerning symptoms, such as [fever greater than 101 F, shaking chills, worsening pain, persistent vomiting or other bothersome symptoms] Prescriptions: New cyclobenzaprine 10 mg tablet 10 mg PO TID PRN (Reason: muscle spasm) Qty: 14 0RF hydrocodone-acetaminophen 5-325 mg tablet 1 tab PO Q4-6H PRN (Reason: pain) Qty: 10 0RF ketorolac 10 mg tablet 10 mg PO Q6H PRN (Reason: pain) Qty: 14 0RF No Action metoprolol succinate 50 mg tablet extended release 24 hr 50 mg PO DAILY albuterol sulfate 90 mcg/actuation HFA aerosol inhaler 1 puff Inhalation PRN PRN (Reason: Shortness Of Breath) albuterol sulfate 2.5 MG/3 ML solution for nebulization 3 ml INH Q6HP PRN (Reason: Shortness Of Breath) hydroxychloroquine 200 mg tablet 200 mg PO DAILY sulfasalazine 500 mg tablet,delayed release (DR/EC) 500 mg PO QID penicillin V potassium 500 mg tablet 500 mg PO QID Qty: 40 0RF prednisone 10 mg tablet 10 mg PO DAILY Qty: 30 0RF hydrocodone-acetaminophen 5-325 mg tablet 1 tab PO Q4-6H PRN (Reason: pain) Qty: 10 0RF ketorolac 10 mg tablet 10 mg PO Q6H PRN (Reason: pain) Qty: 14 0RF cyclobenzaprine 10 mg tablet 10 mg PO TID PRN (Reason: muscle spasm) Qty: 14 0RF hydrocodone-acetaminophen 5-325 mg tablet 1 tab PO Q4-6H PRN (Reason: pain) Qty: 10 0RF ketorolac 10 mg tablet 10 mg PO Q6H PRN (Reason: pain) Qty: 14 0RF methylprednisolone [Medrol (Ashish)] 4 mg tablets,dose pack See Rx Instructions .ROUTE .COMPLEX Qty: 21 0RF Rx Instructions: orally per package directions atorvastatin 40 mg tablet 40 mg PO BEDTIME Qty: 60 0RF clopidogrel [Plavix] 75 mg tablet 75 mg PO DAILY Qty: 60 0RF tamsulosin [Flomax] 0.4 mg capsule 0.4 mg PO DAILY Qty: 5 0RF oxycodone-acetaminophen [Percocet] 5-325 mg tablet 1 tab PO Q4-6H PRN (Reason: pain) Qty: 14 0RF omeprazole 20 mg capsule,delayed release(DR/EC) 20 mg PO DAILY Qty: 14 0RF gabapentin 100 mg capsule 100 mg PO TID Qty: 30 0RF penicillin V potassium 500 mg tablet 500 mg PO QID Qty: 40 0RF Referrals: Nurys Ash MD [Primary Care Provider] - Stand Alone Forms: Patient Portal/API
[2022-11-25] MEDS: SODIUM CHLORIDE 0.9% 1,000 ML 1000 ML IV (22:44)
--- NOTE | 2022-11-25 22:57 | DI.CT.S_ITS ---
PROCEDURE: CT ABDOMEN PELVIS W CON INDICATIONS: back flank pain, hx stones, recent scope, started after that TECHNIQUE: After the administration of IV contrast, axial sections were acquired from the lung bases to the pubic symphysis. Coronal and sagittal reformats were performed. For radiation dose reduction, the following was used: automated exposure control, adjustment of mA and/or kV according to patient size. COMPARISON: [facility], CT, CT KIDNEY URETER BLADDER (KUB), 03/24/2019, 7:55. FINDINGS: Image quality: Excellent. Lung bases: Unremarkable. Heart: Heart is normal in size. ABDOMEN: Liver: No mass lesion. Gallbladder: Within normal limits without calcified gallstones. Biliary ducts: No biliary ductal dilatation. Pancreas: Unremarkable. Spleen: Normal in size. Adrenal Glands: No adrenal nodules. Kidneys and Ureters: No hydronephrosis. There are numerous bilateral small nonobstructing renal stones, with at least 7 on the right the largest of which measures 0.3 cm and at least 8 on the left the largest of which measures 0.4 cm. No hydroureter or discrete ureteral stones. Stomach and Bowel: Stomach, small bowel loops, and colon are normal in caliber and wall thickness. The appendix is surgically absent. Peritoneum: No abnormal intraperitoneal fluid. No free air. Ventral Wall: No hernia. Abdominal Nodes: No retroperitoneal or mesenteric adenopathy by size criteria. Vessels: Aorta and inferior vena cava are normal in size. PELVIS: Pelvic Organs: Uterus is surgically absent. Bladder: Unremarkable. Pelvic Nodes: No enlarged lymph nodes. Miscellaneous: No inguinal hernias are seen. Bones: Visualized osseous structures demonstrate no suspicious focal lesions. IMPRESSION: 1. Bilateral nephrolithiasis without evidence of obstructive uropathy. Dictated by: Yang Lowe M.D. on 11/26/2022 at 0:07 Approved by: Yang Lowe M.D. on 11/26/2022 at 0:11
[2022-11-25 22:58] LABS: Add Manual Diff / Slide Review NO; Basophils Absolute Auto 100 /uL (0-100); Basophils Percent Auto 0.6 % (0-2); Eosinophils Absolute Auto 300 /uL (0-450); Eosinophils Percent Auto 2.9 % (2-4); Hematocrit 39.5 % (36-46); Hemoglobin 14.2 g/dL (12.0-16.0); Lymphocytes Absolute Auto 3400 /uL (1100-4500); Lymphocytes Percent Auto 33.9 % (25-40); Mean Corpuscular Hemoglobin 30.7 PG (26-34); Mean Corpuscular Volume 85.3 fL (80-100); Monocytes Absolute Auto 500 /uL (0-900); Monocytes Percent Auto 5.4 % (3-14); Neutrophils Absolute Auto 5800 /uL (1500-7000); Neutrophils Percent Auto 57.2 % (50-75); Platelet Count 266 X10^3/uL (150-400); Red Blood Cell Count 4.63 X10^6/uL (4.0-5.2); Red Cell Distribution Width 12.7 % (11.6-14.8); White Blood Cell Count 10.1 X10^3/uL (4.5-11.0)
[2022-11-25 23:24] VITALS: BP 148/77; PULSE 107; O2SAT 99
[2022-11-25] MEDS: ONDANSETRON 4 MG/2 ML INJ IV (23:29)
[2022-11-25] MEDS: HYDROMORPHONE 0.5 MG INJ IV (23:29)
[2022-11-25 23:42] LABS: Alanine Aminotransferase 29 IU/L (<35); Albumin 4.5 g/dL (3.5-5.0); Albumin Globulin Ratio 1.3 (1.0-2.8); Alkaline Phosphatase 66 U/L (38-126); Aspartate Aminotransferase 28 IU/L (14-36); BUN Creatinine Ratio 26.5 (6-22); Bilirubin Total 0.4 mg/dL (0.2-1.3); Blood Urea Nitrogen 13 mg/dL (7-17); Calcium 8.3 mg/dL (8.4-10.2); Carbon Dioxide 25 mmol/L (22-32); Chloride 100 mmol/L (98-107); Estimated Glomerular Filt Rate > 60 mL/min (>60); Globulin 3.6 g/dL (1.7-4.1); Glucose 203 mg/dL (70-100); HEMOLYSIS 43 (0-50); Lipase 373 U/L (23-300); Potassium 3.6 mmol/L (3.4-5.1); Sodium 137 mmol/L (137-145); Total Protein 8.1 g/dL (6.3-8.2)
[2022-11-26] MEDS: CYCLOBENZAPRINE 10 MG PREPACK 1 BOTTLE MISC (01:03)
[2022-11-26] MEDS: HYDROCODONE/ACET 5/325 PREPACK 1 BOTTLE MISC (01:03)
[2022-11-26 01:07] VITALS: BP 133/79; PULSE 96; RESP 18; O2SAT 100
== END 2022-11-26 01:08 | disposition home or self-care (01) ==
PROVIDERS: Emergency Provider Emergency Medicine; Family Provider Internal Medicine; PCP Internal Medicine
DX: R10.9 Unspecified abdominal pain (principal); Z79.899 Other long term (current) drug therapy
CPT/HCPCS: 36415; 74177; 80053; 81001; 83690; 85025; 96361; 96374; 96375; 99284; J1170; J2405; Q9967

== ENCOUNTER 2023-03-10 09:30 | Outpatient (RCR) | payer OTHER, MEDICAID, SELFPAY ==
[2022-02-26 23:56] VITALS: BMI 34.7
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
--- NOTE | 2022-10-21 08:30 | PT-OP ANOTE ---
NO show- called and left voicemail
--- NOTE | 2022-11-01 12:00 | PT.OPPOC ---
Physical, Occupational & Speech Therapy At [facility] Current Diagnoses Dyspareunia not due to a substance or known physiological condition (11/01/22) Pain in unspecified knee (11/01/22) Cervicalgia (11/01/22) Dorsalgia, unspecified (11/01/22) Other specified disorders of muscle (11/01/22) Stress incontinence (female) (male) (11/01/22) Cystocele, unspecified (11/01/22) Visit Care Team Role Provider Type Nurys Ash MD Attending Provider Non-Staff Family Provider Primary Care Provider Referring Provider Specialty: Internal Medicine Address: [address] [place] [address], [facility] Email: Plan Of Care PT-OP-T Assessment and Plan Start: 08/07/22 16:39 Freq: Status: Active Protocol: Document 11/01/22 10:35 AMB (Rec: 11/01/22 11:15 AMB [id number]) Physical Therapy Assessment Goals Four Impairment pelvic pain Impairment low abdominal pain from hysterectomy, dyspareunia, [facility] Goal (LTG) Arabella will report she is able to engage in intercourse without disassociation and with pain of 3/10 or less. LTG Duration Progressin weeks Three Impairment pelvic floor strength Impairment stress urinary incontinence Short Term Goal (STG) Arabella will be independent and consistent with a pelvic floor HEP to improve her pelvic floor strength. STG Duration 6 weeks Electro Winning Operator Goal (LTG) Arabella will show improved pelvic floor strength by evita her pelvic floor while moving from sit to stand without breath holding or abdominal compensations. LTG Duration NOT yet met: 12 weeks Two Impairment walking/standing tolerance Impairment unable to stand or walk greater than 10 min without an increase in low back pain and knee pain Short Term Goal (STG) Arabella will stand for 30 minutes to make dinner with low back/knee pain of 3/10 or less. STG Duration Not yet met: 6 weeks [facility] Goal (LTG) Arabella will ambulate for 1 mile with low back/knee pain of 3/10 or less. Progress: pt is able to walk one mile but pain increases. LTG Duration 12 weeks One Impairment Cervical ROM Impairment Unable to turn her head for safe driving Short Term Goal (STG) Arabella will improve her cervical rotation ROM to at least 60 degrees bilaterally with pain of 5/10 or less. : R 6/10; L7-8/10 both to 60 degrees. STG Duration 6 weeks Assessment Summary Assessment Pt states L lower back has been more painful, overall feeling sick. Wants to focus on HEP which is excellent, however pt's currentHEP while previously well tolerated is currently increasing pt's back pain and nausea. Pt has had increasing L sided numbness ( lumbar MRI suggests neural impingment is worse on the R). So we have really had to completely re-define pt's HEP lately as previoulsy well tolerated exercises have been flaring sx. Physical Therapy Plan Frequency and Duration Frequency of Treatment 2x/Week Duration of treatment (weeks) 12 Plan of Care Start Date 11/01/22 Plan of Care End Date 01/24/23 Therapeutic Interventions Therapeutic Interventions Home Exercise Program,Manual Therapy,Neuromuscular Re- education,Self-Care/Home Management,Therapeutic Activities,Therapeutic Exercises Modalities Biofeedback,Cold Pack/Ice Massage,Electric Stimulation, Traction- Mechanical Next Visit Focus/Plan Next Note Type Treatment Note Next Visit Plan Reassess HEP: TA, TA/ LTR, adduction isometric, POC: Check Pelvic floor strengthening for prolapse manual for abdominal pain/ hysterectomy and mesh pain, further education re constipation/ rectocele. Work to improve overall tolerance to movement in regards to spine pain. Plan of Care Dates Plan of Care Start Date 11/01/22 Plan of Care End Date 01/24/23 Electronically Signed by: Anali Valiente, PT 11/03/22 0942 If you are in agreement with this Plan of Care, please return a signed and dated copy. I have reviewed this Plan of Care and certify that the skilled therapy services above are required to meet the patient?s needs. Physician Signature Date Printed Name and Credentials Clinical Instructor Signature Printed Name and Credentials
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
--- NOTE | 2023-01-06 13:52 | PT.OPPOC ---
Physical, Occupational & Speech Therapy At [facility] Current Diagnoses Dyspareunia not due to a substance or known physiological condition (01/06/23) Pain in unspecified knee (01/06/23) Cervicalgia (01/06/23) Dorsalgia, unspecified (01/06/23) Other specified disorders of muscle (01/06/23) Stress incontinence (female) (male) (01/06/23) Cystocele, unspecified (01/06/23) Visit Care Team Role Provider Type Nurys Ash MD Attending Provider Non-Staff Family Provider Primary Care Provider Referring Provider Specialty: Internal Medicine Address: [address] [place] [address], [facility] Email: Plan Of Care PT-OP-T Assessment and Plan Start: 08/07/22 16:39 Freq: Status: Active Protocol: Document 01/06/23 08:25 AMB (Rec: 01/06/23 09:03 AMB [id number]) Physical Therapy Assessment Goals Four Impairment pelvic pain Impairment low abdominal pain from hysterectomy, dyspareunia, Penitentiary Goal (LTG) Arabella will report she is able to engage in intercourse without disassociation and with pain of 3/10 or less. LTG Duration HOLD Three Impairment pelvic floor strength Impairment stress urinary incontinence Short Term Goal (STG) Arabella will be independent and consistent with a pelvic floor HEP to improve her pelvic floor strength. STG Duration HOLD Penitentiary Goal (LTG) Arabella will show improved pelvic floor strength by evita her pelvic floor while moving from sit to stand without breath holding or abdominal compensations. LTG Duration HOLD Two Impairment walking/standing tolerance Impairment unable to stand or walk greater than 10 min without an increase in low back pain and knee pain Short Term Goal (STG) Arabella will stand for 30 minutes to make dinner with low back/knee pain of 3/10 or less. STG Duration Not yet met: 6 weeks Penitentiary Goal (LTG) Arabella will ambulate for 1 mile with low back/knee pain of 3/10 or less. Progress: pt is able to walk one mile but pain increases. LTG Duration 12 weeks One Impairment Cervical ROM Impairment Unable to turn her head for safe driving Short Term Goal (STG) Arabella will improve her cervical rotation ROM to at least 60 degrees bilaterally with pain of 5/10 or less. : R 6/10; L7-8/10 both to 60 degrees. STG Duration 6 weeks Assessment Summary Assessment Discussed plan of care at length with Arabella. This therapist will no longer be available (leaving clinic). Arabella does not feel ready to start over with a different pelvic floor therapist at this time. She will continue to work on the strengthening, breathing, and prolapse reduction techniques, and will focus the rest of her time in physical therapy on her back/ pelvis, knee and neck, for which she is currently being seen. Will put pelvic floor goals on hold for now (pt had been making progress, but given the severity of her prolapse and trauma continues to need to make gains). Continued physical therapy will continue to work on core strength and pain reduction with improved body mechanics, posture and ROM as seen in goals. Pt's progress has been slow as she has had several significant pain increases associated with her back during therapy, but she will continue to benefit from physical therapy focusing on her orthopedic function and pain. Physical Therapy Plan Frequency and Duration Frequency of Treatment 2x/Week Duration of treatment (weeks) 10 Plan of Care Start Date 01/06/23 Plan of Care End Date 03/17/23 Therapeutic Interventions Therapeutic Interventions Home Exercise Program,Manual Therapy,Neuromuscular Re- education,Self-Care/Home Management,Therapeutic Activities,Therapeutic Exercises Modalities Biofeedback,Cold Pack/Ice Massage,Electric Stimulation, Traction- Mechanical Next Visit Focus/Plan Next Note Type Treatment Note Next Visit Plan Reassess HEP: TA, TA/ LTR, adduction isometric, Work to improve overall tolerance to movement in regards to spine pain. Plan of Care Dates Plan of Care Start Date 01/06/23 Plan of Care End Date 03/17/23 Electronically Signed by: Anali Valiente, PT 01/09/23 1610 If you are in agreement with this Plan of Care, please return a signed and dated copy. I have reviewed this Plan of Care and certify that the skilled therapy services above are required to meet the patient?s needs. Physician Signature Date Printed Name and Credentials Clinical Instructor Signature Printed Name and Credentials
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
--- NOTE | 2023-03-17 07:56 | PT-OP ANOTE ---
cancelled PT appt
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
== END 2023-03-28 13:28 | disposition home or self-care (01) ==
LOC: PHYS 09:30
PROVIDERS: Family Provider Internal Medicine; PCP Internal Medicine; Referring Provider Internal Medicine; Visit Provider Internal Medicine
DX: M54.2 Cervicalgia (principal); M54.9 Dorsalgia, unspecified; M25.569 Pain in unspecified knee; M62.89 Other specified disorders of muscle; N39.3 Stress incontinence (female) (male); F52.6 Dyspareunia not due to a substance or known physiological condition; N81.10 Cystocele, unspecified
CPT/HCPCS: 97010; 97110; 97112; 97140; 97162; 97530; 97535

== ENCOUNTER 2023-05-25 03:31 | Emergency (ER) | payer OTHER, SELFPAY ==
[2022-02-26 23:56] VITALS: BMI 34.7
[2023-05-25 03:40] VITALS: BP 153/82; PULSE 106; RESP 16; TEMP 36.6; O2SAT 100; BMI 33.6
--- NOTE | 2023-05-25 03:46 | ED.GENADULT ---
HPI - General Adult General Chief complaint: Dental/Oral Stated complaint: CROWN BROKE OFF FACE SWELLEN/DIZZY Time Seen by Provider: 05/25/23 03:40 Source: patient Mode of arrival: Ambulatory History of Present Illness HPI narrative: Patient is a 48-year-old female who several weeks ago had a crown that broke on her left lower back teeth. She has followed up with a dentist. There was other dental work that they wanted to take care of 1st so this issue has not been addressed. She states that over the past 24 hours and specifically over the past 12 hours she had swelling to her left lower jaw. She did take an oxycodone that she would leftover because of a prior back injury prior to arrival. Related Data Home Medications Medication Instructions Recorded Confirmed albuterol sulfate 2.5 mg/3 mL 3 ml INH Q6HP PRN Shortness Of 06/17/18 06/17/18 (0.083 %) solution for nebulization Breath albuterol sulfate 90 mcg/actuation 1 puff inhalation PRN PRN 06/17/18 06/17/18 aerosol inhaler Shortness Of Breath hydroxychloroquine 200 mg tablet 200 mg PO DAILY 06/17/18 06/17/18 metoprolol succinate 50 mg 50 mg PO DAILY 06/17/18 06/17/18 tablet,extended release 24 hr sulfasalazine 500 mg 500 mg PO QID 06/17/18 06/17/18 tablet,delayed release Previous Rx's Medication Instructions Recorded oxycodone-acetaminophen 5 mg-325 1 tab PO Q4-6H PRN pain #14 tabs 03/24/19 mg tablet (Percocet) tamsulosin 0.4 mg capsule (Flomax) 0.4 mg PO DAILY #5 caps 03/24/19 omeprazole 20 mg capsule,delayed 20 mg PO DAILY #14 caps 05/18/19 release penicillin V potassium 500 mg 500 mg PO QID #40 tabs 07/04/19 tablet gabapentin 100 mg capsule 100 mg PO TID #30 caps 06/26/20 hydrocodone 5 mg-acetaminophen 325 1 tab PO Q4-6H PRN pain #10 tabs 06/27/20 mg tablet ketorolac 10 mg tablet 10 mg PO Q6H PRN pain #14 tabs 06/27/20 prednisone 10 mg tablet 10 mg PO DAILY #30 tabs 06/27/20 penicillin V potassium 500 mg 500 mg PO QID #40 tabs 01/26/22 tablet cyclobenzaprine 10 mg tablet 10 mg PO TID PRN muscle spasm #14 09/12/22 tabs hydrocodone 5 mg-acetaminophen 325 1 tab PO Q4-6H PRN pain #10 tabs 09/12/22 mg tablet ketorolac 10 mg tablet 10 mg PO Q6H PRN pain #14 tabs 09/12/22 methylprednisolone 4 mg tablets in See Rx Instructions PO .COMPLEX 09/12/22 a dose pack (Medrol (Ashish)) #21 ea atorvastatin 40 mg tablet 40 mg PO BEDTIME #60 tabs 09/20/22 clopidogrel 75 mg tablet (Plavix) 75 mg PO DAILY #60 tabs 09/20/22 cyclobenzaprine 10 mg tablet 10 mg PO TID PRN muscle spasm #14 11/26/22 tabs hydrocodone 5 mg-acetaminophen 325 1 tab PO Q4-6H PRN pain #10 tabs 11/26/22 mg tablet ketorolac 10 mg tablet 10 mg PO Q6H PRN pain #14 tabs 11/26/22 penicillin V potassium 500 mg 500 mg PO QID 7 days #28 tabs 05/25/23 tablet Allergies Allergy/AdvReac Type Severity Reaction Status Date / Time cephalexin [From KEFLEX] Allergy Unknown Rash Verified 09/12/22 10:00 ciprofloxacin [CIPROFLOXACIN] Allergy Unknown Rash Verified 09/12/22 10:00 milk [MILK] Allergy Unknown Verified 09/12/22 10:00 gabapentin Allergy Verified 09/12/22 10:00 Review of Systems Constitutional Constitutional: Reports system reviewed and no additional complaints, except as documented ENT Ears, Nose, Mouth, and Throat: Reports system reviewed and no additional complaints, except as documented Integumentary/Breasts Skin/Breast: Reports system reviewed and no additional complaints, except as documented Neurologic Neurologic: Reports system reviewed and no additional complaints, except as documented Patient History Medical History Eosinophilic esophagitis Essential hypertension Dyslipidemia Diabetes type 2, uncontrolled Infected prosthetic mesh of abdominal wall Hypertension Surgical History H/O: hysterectomy History of appendectomy Family History Mother CVA (cerebral vascular accident) Father CVA (cerebral vascular accident) Other Diabetes mellitus Social History household members: significant other, family and children Smoking Status: Former smoker Smoking Status: Former smoker alcohol intake frequency: holidays/special occasions only Substance Use Type: does not use Exam Initial Vital Signs Initial Vital Signs: Vital Signs Temperature 97.8 F 05/25/23 03:40 Pulse Rate 106 H 05/25/23 03:40 Respiratory Rate 16 05/25/23 03:40 Blood Pressure 153/82 H 05/25/23 03:40 Pulse Oximetry 109 H 05/25/23 03:40 Oxygen Delivery Method Room Air 05/25/23 03:40 HENMT Face and sinus: other (Swelling left lower mandibular ridge) Teeth and gingiva: fair dentition and other (Left lower 2nd molar missing with surrounding gum erythema) Skin General: no rashes or lesions noted Course Orders Ordered: Discontinued Medications Oxycodone/Acetaminophen (Oxycodone/Apap 5/325 Prepack) 1 bottle MISC SEEINSTR ONE Stop: 05/25/23 03:48 Last Admin: 05/25/23 03:51 Dose: 1 bottle Penicillin V Potassium (Penicillin Vk 250 Mg Tablet) 500 mg PO NOW ONE Stop: 05/25/23 03:48 Last Admin: 05/25/23 03:51 Dose: 500 mg Vital Signs Vital signs: Vital Signs - 8 hr 05/25/23 03:40 Temperature 97.8 F Pulse Rate 106 H Respiratory Rate 16 Blood Pressure 153/82 H Pulse Oximetry 109 H Oxygen Delivery Method Room Air Medical Decision Making MDM Narrative Medical decision making narrative: No respiratory distress. Does have findings that are consistent with a dental infection. There is no drainable abscess noted here in the ER. Patient does require antibiotics. First dose given here in the emergency department a prescription was sent to the pharmacy of her choice. She was instructed that she needs to follow-up with her primary dentist for further evaluation and definitive treatment. Discharge Plan Departure Patient Disposition: Home Clinical Impression: Dental abscess Instructions: Tooth Abscess Activity Restrictions/Additional Instructions: It is important that you take the antibiotics as directed. On Friday morning contact your dentist as you are going to need a follow-up for more definitive treatment. Return to the emergency department for new symptoms. Prescriptions: New penicillin V potassium 500 mg tablet 500 mg PO QID 7 Days Qty: 28 0RF No Action metoprolol succinate 50 mg tablet extended release 24 hr 50 mg PO DAILY albuterol sulfate 90 mcg/actuation HFA aerosol inhaler 1 puff Inhalation PRN PRN (Reason: Shortness Of Breath) albuterol sulfate 2.5 MG/3 ML solution for nebulization 3 ml INH Q6HP PRN (Reason: Shortness Of Breath) hydroxychloroquine 200 mg tablet 200 mg PO DAILY sulfasalazine 500 mg tablet,delayed release (DR/EC) 500 mg PO QID penicillin V potassium 500 mg tablet 500 mg PO QID Qty: 40 0RF prednisone 10 mg tablet 10 mg PO DAILY Qty: 30 0RF hydrocodone-acetaminophen 5-325 mg tablet 1 tab PO Q4-6H PRN (Reason: pain) Qty: 10 0RF ketorolac 10 mg tablet 10 mg PO Q6H PRN (Reason: pain) Qty: 14 0RF cyclobenzaprine 10 mg tablet 10 mg PO TID PRN (Reason: muscle spasm) Qty: 14 0RF hydrocodone-acetaminophen 5-325 mg tablet 1 tab PO Q4-6H PRN (Reason: pain) Qty: 10 0RF ketorolac 10 mg tablet 10 mg PO Q6H PRN (Reason: pain) Qty: 14 0RF methylprednisolone [Medrol (Ashish)] 4 mg tablets,dose pack See Rx Instructions .ROUTE .COMPLEX Qty: 21 0RF Rx Instructions: orally per package directions atorvastatin 40 mg tablet 40 mg PO BEDTIME Qty: 60 0RF clopidogrel [Plavix] 75 mg tablet 75 mg PO DAILY Qty: 60 0RF cyclobenzaprine 10 mg tablet 10 mg PO TID PRN (Reason: muscle spasm) Qty: 14 0RF hydrocodone-acetaminophen 5-325 mg tablet 1 tab PO Q4-6H PRN (Reason: pain) Qty: 10 0RF ketorolac 10 mg tablet 10 mg PO Q6H PRN (Reason: pain) Qty: 14 0RF tamsulosin [Flomax] 0.4 mg capsule 0.4 mg PO DAILY Qty: 5 0RF oxycodone-acetaminophen [Percocet] 5-325 mg tablet 1 tab PO Q4-6H PRN (Reason: pain) Qty: 14 0RF omeprazole 20 mg capsule,delayed release(DR/EC) 20 mg PO DAILY Qty: 14 0RF gabapentin 100 mg capsule 100 mg PO TID Qty: 30 0RF penicillin V potassium 500 mg tablet 500 mg PO QID Qty: 40 0RF Referrals: Nurys Ash MD [Primary Care Provider] - Stand Alone Forms: Patient Portal/API
[2023-05-25] MEDS: OXYCODONE/APAP 5/325 PREPACK 1 BOTTLE MISC (03:51)
[2023-05-25] MEDS: PENICILLIN VK 250 MG TABLET 500 MG PO (03:51)
== END 2023-05-25 04:02 | disposition home or self-care (01) ==
PROVIDERS: Emergency Provider Emergency Medicine; Family Provider Internal Medicine; PCP Internal Medicine
DX: K04.7 Periapical abscess without sinus (principal)
CPT/HCPCS: 99283

== ENCOUNTER 2023-09-17 03:21 | Emergency (ER) | payer OTHER, SELFPAY ==
[2022-02-26 23:56] VITALS: BMI 34.7
[2023-09-17] VITALS (8 sets, daily range): BP systolic 126–185; BP diastolic 69–96; PULSE 103–124; RESP 10–22; TEMP 36.6; O2SAT 97–99; BMI 33.6
--- NOTE | 2023-09-17 03:37 | DI.CT.S_ITS ---
PROCEDURE: CT HEAD/BRAIN WO CON INDICATIONS: dizziness TECHNIQUE: Noncontrast 4.5 mm thick angled axial sections acquired from the foramen magnum to the vertex, with coronal and sagittal reformats. For radiation dose reduction, the following was used: automated exposure control, adjustment of mA and/or kV according to patient size. COMPARISON: [facility], CT, CT STROKE, 09/20/2022, 11:37. FINDINGS: Image quality: Diagnostic. CSF spaces: Basal cisterns are patent. No extra-axial fluid collections. Ventricles are normal in size and shape. Brain: No midline shift. No intracranial masses or hemorrhage. Bridges-white matter interface is normal. Skull and face: Calvarium and visualized facial bones are intact, without suspicious lesions. Sinuses: Visualized sinuses and mastoids are clear. IMPRESSION: No evidence acute intracranial process. Comment: Final report is concordant with preliminary interpretation provided by [facility]. Dictated by: Bari Loza M.D. on 09/17/2023 at 7:48 Approved by: Bari Loza M.D. on 09/17/2023 at 7:49
[2023-09-17 03:54] LABS: Add Manual Diff / Slide Review NO; Basophils Absolute Auto 0 /uL (0-100); Basophils Percent Auto 0.3 % (0-2); Eosinophils Absolute Auto 200 /uL (0-450); Eosinophils Percent Auto 2.8 % (2-4); Hematocrit 38.1 % (36-46); Hemoglobin 13.3 g/dL (12.0-16.0); Lymphocytes Absolute Auto 3400 /uL (1100-4500); Lymphocytes Percent Auto 39.8 % (25-40); Mean Corpuscular HGB Conc 34.9 % (30-36); Mean Corpuscular Hemoglobin 29.3 PG (26-34); Mean Corpuscular Volume 84.1 fL (80-100); Monocytes Absolute Auto 700 /uL (0-900); Monocytes Percent Auto 7.9 % (3-14); Neutrophils Absolute Auto 4100 /uL (1500-7000); Neutrophils Percent Auto 49.2 % (50-75); Platelet Count 225 X10^3/uL (150-400); Red Blood Cell Count 4.53 X10^6/uL (4.0-5.2); Red Cell Distribution Width 13.4 % (11.6-14.8); White Blood Cell Count 8.4 X10^3/uL (4.5-11.0)
[2023-09-17 03:58] LABS: Alanine Aminotransferase 31 IU/L (<35); Albumin 4.3 g/dL (3.5-5.0); Albumin Globulin Ratio 1.3 (1.0-2.8); Alkaline Phosphatase 56 U/L (38-126); Aspartate Aminotransferase 25 IU/L (14-36); BUN Creatinine Ratio 42.6 (6-22); Bilirubin Total 0.8 mg/dL (0.2-1.3); Blood Urea Nitrogen 23 mg/dL (7-17); Calcium 8.7 mg/dL (8.4-10.2); Carbon Dioxide 25 mmol/L (22-32); Chloride 106 mmol/L (98-107); Estimated Glomerular Filt Rate > 60 mL/min (>60); Globulin 3.4 g/dL (1.7-4.1); Glucose 193 mg/dL (70-100); HEMOLYSIS < 15 (0-50); Lipase 248 U/L (23-300); Potassium 3.4 mmol/L (3.4-5.1); Sodium 140 mmol/L (137-145); Total Protein 7.7 g/dL (6.3-8.2)
--- NOTE | 2023-09-17 04:14 | ED_ITS ---
HPI - General Adult General Chief complaint: Dizziness Stated complaint: dizziness, something wrong on left side not Time Seen by Provider: 09/17/23 03:24 Source: patient Mode of arrival: Ambulatory History of Present Illness HPI narrative: Patient is a 48-year-old female who stated that she woke up shortly before arrival here in the emergency department in order to go to the bathroom and had an immediate onset a room spinning sensation. She states that it is worse when she opens her eyes and when she moves her head. Initially denied sinus congestion however after medications here to treat the vertigo and when she was feeling better she then stated that she was having some frontal sinus congestion. No ear pain. No headache. She also states that she is having some weakness to her left leg that upon further questioning is not new. No arm symptoms reported to myself. Chest pain or shortness of breath. She has not had symptoms like this in the past. Related Data Home Medications Medication Instructions Recorded Confirmed albuterol sulfate 2.5 mg/3 mL 3 ml INH Q6HP PRN Shortness Of 06/17/18 06/17/18 (0.083 %) solution for nebulization Breath albuterol sulfate 90 mcg/actuation 1 puff inhalation PRN PRN 06/17/18 06/17/18 aerosol inhaler Shortness Of Breath hydroxychloroquine 200 mg tablet 200 mg PO DAILY 06/17/18 06/17/18 metoprolol succinate 50 mg 50 mg PO DAILY 06/17/18 06/17/18 tablet,extended release 24 hr sulfasalazine 500 mg 500 mg PO QID 06/17/18 06/17/18 tablet,delayed release Previous Rx's Medication Instructions Recorded oxycodone-acetaminophen 5 mg-325 1 tab PO Q4-6H PRN pain #14 tabs 03/24/19 mg tablet (Percocet) tamsulosin 0.4 mg capsule (Flomax) 0.4 mg PO DAILY #5 caps 03/24/19 omeprazole 20 mg capsule,delayed 20 mg PO DAILY #14 caps 05/18/19 release penicillin V potassium 500 mg 500 mg PO QID #40 tabs 07/04/19 tablet gabapentin 100 mg capsule 100 mg PO TID #30 caps 06/26/20 hydrocodone 5 mg-acetaminophen 325 1 tab PO Q4-6H PRN pain #10 tabs 06/27/20 mg tablet ketorolac 10 mg tablet 10 mg PO Q6H PRN pain #14 tabs 06/27/20 prednisone 10 mg tablet 10 mg PO DAILY #30 tabs 06/27/20 penicillin V potassium 500 mg 500 mg PO QID #40 tabs 01/26/22 tablet cyclobenzaprine 10 mg tablet 10 mg PO TID PRN muscle spasm #14 09/12/22 tabs hydrocodone 5 mg-acetaminophen 325 1 tab PO Q4-6H PRN pain #10 tabs 09/12/22 mg tablet ketorolac 10 mg tablet 10 mg PO Q6H PRN pain #14 tabs 09/12/22 methylprednisolone 4 mg tablets in See Rx Instructions PO .COMPLEX 09/12/22 a dose pack (Medrol (Ashish)) #21 ea atorvastatin 40 mg tablet 40 mg PO BEDTIME #60 tabs 09/20/22 clopidogrel 75 mg tablet (Plavix) 75 mg PO DAILY #60 tabs 09/20/22 cyclobenzaprine 10 mg tablet 10 mg PO TID PRN muscle spasm #14 11/26/22 tabs hydrocodone 5 mg-acetaminophen 325 1 tab PO Q4-6H PRN pain #10 tabs 11/26/22 mg tablet ketorolac 10 mg tablet 10 mg PO Q6H PRN pain #14 tabs 11/26/22 meclizine 25 mg tablet 25 mg PO BID PRN dizziness #20 tabs 09/17/23 ondansetron 4 mg disintegrating 4 mg PO Q6H PRN nausea and 09/17/23 tablet vomiting #14 tabs Allergies Allergy/AdvReac Type Severity Reaction Status Date / Time cephalexin [From KEFLEX] Allergy Unknown Rash Verified 09/12/22 10:00 ciprofloxacin [CIPROFLOXACIN] Allergy Unknown Rash Verified 09/12/22 10:00 milk [MILK] Allergy Unknown Verified 09/12/22 10:00 gabapentin Allergy Verified 09/12/22 10:00 Review of Systems Constitutional Constitutional: Reports system reviewed and no additional complaints, except as documented Eyes Eyes: Reports system reviewed and no additional complaints, except as documented ENT Ears, Nose, Mouth, and Throat: Reports system reviewed and no additional complaints, except as documented Cardiovascular Cardiovascular: Reports system reviewed and no additional complaints, except as documented Respiratory Respiratory: Reports system reviewed and no additional complaints, except as documented Gastrointestinal Gastrointestinal: Reports system reviewed and no additional complaints, except as documented Integumentary/Breasts Skin/Breast: Reports system reviewed and no additional complaints, except as documented Neurologic Neurologic: Reports system reviewed and no additional complaints, except as documented Hematologic/Lymphatic On Anticoagulants: No Patient History Medical History Eosinophilic esophagitis Essential hypertension Dyslipidemia Diabetes type 2, uncontrolled Infected prosthetic mesh of abdominal wall Hypertension Surgical History H/O: hysterectomy History of appendectomy Family History Mother CVA (cerebral vascular accident) Father CVA (cerebral vascular accident) Other Diabetes mellitus Social History household members: significant other, family and children Smoking Status: Former smoker Smoking Status: Former smoker alcohol intake frequency: holidays/special occasions only Substance Use Type: does not use Exam Initial Vital Signs Initial Vital Signs: Vital Signs Temperature 98 F 09/17/23 03:25 Pulse Rate 122 H 09/17/23 03:25 Respiratory Rate 22 09/17/23 03:25 Blood Pressure 185/96 H 09/17/23 03:25 Pulse Oximetry 97 09/17/23 03:25 Oxygen Delivery Method Room Air 09/17/23 03:25 Const General: cooperative, comfortable and No ill appearing HENMT Head: normal to inspection and normocephalic Ears: TM's normal bilaterally Face and sinus: normal facial exam Mouth: oral mucosae normal Eyes Alignment and Position: alignment normal and position normal Pupils: PERRL EOM: EOM intact bilaterally Resp Effort & Inspection: normal respiratory effort Auscultation: clear to auscultation bilaterally Cardio Rate: regular rate Skin General: no rashes or lesions noted Neuro General: patient alert, patient awake, patient oriented x3 and moves all extremities Cognition: normal cognition Speech: speech normal Extrem General: normal to inspection and capillary refill normal Scores GCS Ricky coma scale eye opening: Spontaneous Ricky coma scale verbal response: Orientated Ney coma scale motor response: Obey commands Ricky coma scale total score: 15 Course Orders Ordered: ED Orders 09/17/23 03:30 Complete Blood Count AUTO DIFF Stat Comprehensive Metabolic Panel Stat Lipase Stat 09/17/23 03:37 CT head/brain wo con Stat EKG-12 Lead Stat Discontinued Medications Diazepam (Diazepam 10 Mg/2 Ml Syringe) 2 mg IV NOW ONE Stop: 09/17/23 04:13 Last Admin: 09/17/23 04:34 Dose: 2 mg Documented By: YAW Sodium Chloride (Normal Saline 0.9%) 1,000 mls @ 1,000 mls/hr IV BOLUS ONE Stop: 09/17/23 05:11 Last Admin: 09/17/23 04:30 Dose: 1,000 mls/hr Documented By: YAW Meclizine HCl (Meclizine Hcl 12.5 Mg Tablet) 25 mg PO NOW ONE Stop: 09/17/23 05:29 Last Admin: 09/17/23 05:41 Dose: 25 mg Ondansetron HCl (Ondansetron 4 Mg/2 Ml Inj) 4 mg IV NOW ONE Stop: 09/17/23 04:13 Last Admin: 09/17/23 04:31 Dose: 4 mg Documented By: YAW Ondansetron HCl (Ondansetron 4 Mg Odt Prepack) 1 bottle MISC DIRECTED ONE Stop: 09/17/23 05:29 Last Admin: 09/17/23 05:41 Dose: 1 bottle Vital Signs Vital signs: Vital Signs - 8 hr 09/17/23 03:25 09/17/23 03:26 09/17/23 03:30 Temperature 98 F Pulse Rate 122 H 124 H 116 H Respiratory Rate 22 13 Blood Pressure 185/96 H Pulse Oximetry 97 98 98 Oxygen Delivery Method Room Air Room Air Room Air 09/17/23 03:48 09/17/23 03:48 09/17/23 04:04 Temperature Pulse Rate 115 H 108 H Respiratory Rate 10 L Blood Pressure 159/93 H Pulse Oximetry 98 Oxygen Delivery Method Room Air 09/17/23 04:30 09/17/23 04:30 09/17/23 05:00 Temperature Pulse Rate 104 H Respiratory Rate 12 Blood Pressure 158/94 H 133/74 Pulse Oximetry 99 Oxygen Delivery Method Room Air 09/17/23 05:00 09/17/23 05:30 09/17/23 05:30 Temperature Pulse Rate 105 H 103 H Respiratory Rate 17 20 Blood Pressure 126/69 Pulse Oximetry 98 98 Oxygen Delivery Method Room Air Room Air Medical Decision Making Medical Records Medical records reviewed: Yes I reviewed the patient's medical records. Lab Data Lab results reviewed: Yes I reviewed the patient's lab results. 09/17/23 03:30 09/17/23 03:30 Labs: Lab Results 09/17/23 Range/Units 03:30 WBC 8.4 (4.5-11.0) X10^3/uL RBC 4.53 (4.0-5.2) X10^6/uL Hgb 13.3 (12.0-16.0) g/dL Hct 38.1 (36-46) % MCV 84.1 (80-100) fL MCH 29.3 (26-34) PG MCHC 34.9 (30-36) % RDW 13.4 (11.6-14.8) % Plt Count 225 (150-400) X10^3/uL Neut % (Auto) 49.2 L (50-75) % Lymph % (Auto) 39.8 (25-40) % [place] % (Auto) 7.9 (3-14) % Eos % (Auto) 2.8 (2-4) % Baso % (Auto) 0.3 (0-2) % Neut # (Auto) 4100 (1421-1370) /uL Lymph # (Auto) 3400 (7486-9947) /uL [place] # (Auto) 700 (0-900) /uL Eos # (Auto) 200 (0-450) /uL Baso # (Auto) 0 (0-100) /uL Sodium 140 (137-145) mmol/L Potassium 3.4 (3.4-5.1) mmol/L Chloride 106 (98-107) mmol/L Carbon Dioxide 25 (22-32) mmol/L BUN 23 H (7-17) mg/dL Creatinine 0.54 (0.52-1.04) mg/dL Estimated GFR > 60 (>60) mL/min BUN/Creatinine Ratio 42.6 H (6-22) Glucose 193 H (70-100) mg/dL Calcium 8.7 (8.4-10.2) mg/dL Total Bilirubin 0.8 (0.2-1.3) mg/dL AST 25 (14-36) IU/L ALT 31 (<35) IU/L Alkaline Phosphatase 56 (38-126) U/L Total Protein 7.7 (6.3-8.2) g/dL Albumin 4.3 (3.5-5.0) g/dL Globulin 3.4 (1.7-4.1) g/dL Albumin/Globulin Ratio 1.3 (1.0-2.8) Lipase 248 (23-300) U/L Imaging Data CT scan - head: Radiologist's Impression: No acute intracranial abnormality ECG Data Attestation: I personally reviewed and interpreted this ECG as follows: Interpretation: Sinus tachycardia Ventricular rate of 112 Normal axis Normal QRS Normal QTC No ST T wave changes MDM Narrative Medical decision making narrative: Difficult to do a Malika-Hallpike maneuver on the patient because every time she tried to move her head or open her eyes she became very vertiginous. Her head CT is unremarkable. The weakness/fatigue/numbness she was having on her left side after further questioning is not new. The symptoms that she presents with she thinks woke her from sleep. She had a vast improvement of symptoms after treatment here in the ER. They have a very high suspicion that this is peripheral vertigo. I did discuss this with her. We discussed the Rick maneuver. Also sent home with nausea medication and meclizine. She was given return precautions. She expressed understanding agreement. Discharge Plan Departure Patient Disposition: Home Clinical Impression: Vertigo Instructions: DI for Vertigo Activity Restrictions/Additional Instructions: I recommend that you look up videos on what is called the Rick maneuver. This can be beneficial in helping the symptoms that you presented with today. Use the nausea medication and the meclizine as needed and as directed. Contact your primary care doctor for a follow-up. Return to the emergency department for new or worsening symptoms. Prescriptions: New meclizine 25 mg tablet 25 mg PO BID PRN (Reason: dizziness) Qty: 20 0RF ondansetron 4 mg tablet,disintegrating 4 mg PO Q6H PRN (Reason: nausea and vomiting) Qty: 14 0RF No Action metoprolol succinate 50 mg tablet extended release 24 hr 50 mg PO DAILY albuterol sulfate 90 mcg/actuation HFA aerosol inhaler 1 puff Inhalation PRN PRN (Reason: Shortness Of Breath) albuterol sulfate 2.5 MG/3 ML solution for nebulization 3 ml INH Q6HP PRN (Reason: Shortness Of Breath) hydroxychloroquine 200 mg tablet 200 mg PO DAILY sulfasalazine 500 mg tablet,delayed release (DR/EC) 500 mg PO QID penicillin V potassium 500 mg tablet 500 mg PO QID Qty: 40 0RF prednisone 10 mg tablet 10 mg PO DAILY Qty: 30 0RF hydrocodone-acetaminophen 5-325 mg tablet 1 tab PO Q4-6H PRN (Reason: pain) Qty: 10 0RF ketorolac 10 mg tablet 10 mg PO Q6H PRN (Reason: pain) Qty: 14 0RF cyclobenzaprine 10 mg tablet 10 mg PO TID PRN (Reason: muscle spasm) Qty: 14 0RF hydrocodone-acetaminophen 5-325 mg tablet 1 tab PO Q4-6H PRN (Reason: pain) Qty: 10 0RF ketorolac 10 mg tablet 10 mg PO Q6H PRN (Reason: pain) Qty: 14 0RF methylprednisolone [Medrol (Ashish)] 4 mg tablets,dose pack See Rx Instructions .ROUTE .COMPLEX Qty: 21 0RF Rx Instructions: orally per package directions atorvastatin 40 mg tablet 40 mg PO BEDTIME Qty: 60 0RF clopidogrel [Plavix] 75 mg tablet 75 mg PO DAILY Qty: 60 0RF cyclobenzaprine 10 mg tablet 10 mg PO TID PRN (Reason: muscle spasm) Qty: 14 0RF hydrocodone-acetaminophen 5-325 mg tablet 1 tab PO Q4-6H PRN (Reason: pain) Qty: 10 0RF ketorolac 10 mg tablet 10 mg PO Q6H PRN (Reason: pain) Qty: 14 0RF tamsulosin [Flomax] 0.4 mg capsule 0.4 mg PO DAILY Qty: 5 0RF oxycodone-acetaminophen [Percocet] 5-325 mg tablet 1 tab PO Q4-6H PRN (Reason: pain) Qty: 14 0RF omeprazole 20 mg capsule,delayed release(DR/EC) 20 mg PO DAILY Qty: 14 0RF gabapentin 100 mg capsule 100 mg PO TID Qty: 30 0RF penicillin V potassium 500 mg tablet 500 mg PO QID Qty: 40 0RF Referrals: Nurys Ash MD [Primary Care Provider] - Stand Alone Forms: Patient Portal/API
[2023-09-17] MEDS: SODIUM CHLORIDE 0.9% 1,000 ML 1000 ML IV (04:30)
[2023-09-17] MEDS: ONDANSETRON 4 MG/2 ML INJ IV (04:31)
[2023-09-17] MEDS: diazePAM 10 MG/2 ML SYRINGE 2 MG IV (04:34)
[2023-09-17] MEDS: ONDANSETRON 4 MG ODT PREPACK 1 BOTTLE MISC (05:41)
[2023-09-17] MEDS: MECLIZINE HCL 12.5 MG TABLET 25 MG PO (05:41)
== END 2023-09-17 05:50 | disposition home or self-care (01) ==
PROVIDERS: Emergency Provider Emergency Medicine; Family Provider Internal Medicine; PCP Internal Medicine
DX: R42 Dizziness and giddiness (principal); R00.0 Tachycardia, unspecified; Z79.899 Other long term (current) drug therapy
CPT/HCPCS: 36415; 70450; 80053; 83690; 85025; 93005; 96361; 96374; 96375; 99284; J2405; J3360

== ENCOUNTER 2023-12-31 14:58 | Emergency (ER) | payer OTHER, SELFPAY ==
[2022-02-26 23:56] VITALS: BMI 34.7
[2023-12-31 15:03] VITALS: BP 134/84; PULSE 99; RESP 18; TEMP 36.6; O2SAT 98; BMI 31.8
== END 2023-12-31 17:45 | disposition left against medical advice (07) ==
PROVIDERS: Emergency Provider Emergency Medicine; Family Provider Internal Medicine; PCP Internal Medicine
CPT/HCPCS: 99281

== ENCOUNTER 2024-01-27 17:30 | Emergency (ER) | payer OTHER, SELFPAY ==
[2022-02-26 23:56] VITALS: BMI 34.7
[2024-01-27 17:38] VITALS: BP 120/87; PULSE 104; RESP 18; TEMP 36.8; O2SAT 98; BMI 31.8
--- NOTE | 2024-01-27 17:50 | DI.RAD.S_ITS ---
PROCEDURE: XR CHEST 1V INDICATIONS: chest pain TECHNIQUE: One view of the chest was acquired. COMPARISON: [facility], CR, XR CHEST 1V, 09/20/2022, 11:41. FINDINGS: Surgical changes and devices: None. Lungs and pleura: Lungs are clear. No pleural effusions or pneumothorax. Mediastinum: Mediastinal contours appear normal. Heart size is normal. Bones and chest wall: No suspicious bony lesions. Overlying soft tissues appear unremarkable. IMPRESSION: No acute cardiopulmonary abnormality is seen. Dictated by: Tony Viera M.D. on 01/27/2024 at 18:37 Approved by: Tony Viera M.D. on 01/27/2024 at 18:37
--- NOTE | 2024-01-27 18:02 | EKG_ITS ---
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
[2024-01-27 18:26] LABS: Add Manual Diff / Slide Review NO; Basophils Absolute Auto 100 /uL (0-100); Basophils Percent Auto 0.6 % (0-2); Eosinophils Absolute Auto 300 /uL (0-450); Eosinophils Percent Auto 3.3 % (2-4); Hematocrit 39.8 % (36-46); Hemoglobin 13.9 g/dL (12.0-16.0); Lymphocytes Absolute Auto 3000 /uL (1100-4500); Lymphocytes Percent Auto 30.8 % (25-40); Mean Corpuscular Hemoglobin 30.3 PG (26-34); Mean Corpuscular Volume 86.6 fL (80-100); Monocytes Absolute Auto 600 /uL (0-900); Monocytes Percent Auto 5.8 % (3-14); Neutrophils Absolute Auto 5800 /uL (1500-7000); Neutrophils Percent Auto 59.5 % (50-75); Platelet Count 218 X10^3/uL (150-400); Red Cell Distribution Width 12.7 % (11.6-14.8); White Blood Cell Count 9.7 X10^3/uL (4.5-11.0)
[2024-01-27 18:34] LABS: PTT Partial Thromboplastin Tim 35 SECONDS (25.1-36.5)
[2024-01-27 18:37] LABS: Alanine Aminotransferase 20 IU/L (<35); Albumin 4.3 g/dL (3.5-5.0); Albumin Globulin Ratio 1.3 (1.0-2.8); Alkaline Phosphatase 54 U/L (38-126); Aspartate Aminotransferase 23 IU/L (14-36); BUN Creatinine Ratio 30.3 (6-22); Bilirubin Total 0.5 mg/dL (0.2-1.3); Blood Urea Nitrogen 20 mg/dL (7-17); Calcium 8.6 mg/dL (8.4-10.2); Carbon Dioxide 25 mmol/L (22-32); Chloride 104 mmol/L (98-107); Creatine Kinase 49 U/L (30-135); Estimated Glomerular Filt Rate > 60 mL/min (>60); Globulin 3.2 g/dL (1.7-4.1); Glucose 139 mg/dL (70-100); HEMOLYSIS < 15 (0-50); Lipase 303 U/L (23-300); Potassium 3.9 mmol/L (3.4-5.1); Sodium 138 mmol/L (137-145); Total Protein 7.5 g/dL (6.3-8.2)
[2024-01-27 18:49] LABS: NT-proBNP (BNP-Adult 18+) < 20 pg/mL (<125); Troponin I < 0.012 ng/mL (0.01-0.034)
[2024-01-27 20:15] VITALS: BP 121/80; PULSE 87; RESP 18; O2SAT 95
[2024-01-27 20:30] VITALS: BP 124/87; PULSE 95; RESP 22; O2SAT 98
--- NOTE | 2024-01-27 20:30 | ED_ITS ---
HPI - General Adult General Chief complaint: Dizziness Stated complaint: stiff neck, bilateral ear pain Time Seen by Provider: 01/27/24 20:25 Source: patient Mode of arrival: Ambulatory History of Present Illness HPI narrative: 48-year-old female with history of hypertension, Odell's esophagitis, eosinophilic esophagitis, diabetes, dyslipidemia who presents with complaint of dizziness, right ear pain and now developing some left ear pain. Patient states worse with movements particularly flexing her head upwards. She states she has had some sensation of swelling and discomfort behind the ear as well as the ear itself with movement. She states a little bit of drainage that has not been blood. She states that has been from the right ear. Patient denies any fevers. No headache, she has had some mild nausea but no vomiting, no chills or fever. No syncope. She has had episodes of vertigo in the past but states this feels different. Denies any other current symptoms. Medications include losartan, atenolol, omeprazole, Ozempic, fish oil and multivitamin. States prior surgeries include appendectomy, hysterectomy did develop complications and required surgical intervention afterwards as well as oral surgery. Patient states she is allergic to Cipro as well as cephalexin. Former smoker, occasional alcohol, no recreational drugs. Related Data Home Medications Medication Instructions Recorded Confirmed albuterol sulfate 2.5 mg/3 mL 3 ml INH Q6HP PRN Shortness Of 06/17/18 01/27/24 (0.083 %) solution for nebulization Breath albuterol sulfate 90 mcg/actuation 1 puff inhalation PRN PRN 06/17/18 01/27/24 aerosol inhaler Shortness Of Breath atenolol 50 mg tablet 50 mg PO DAILY 01/27/24 01/27/24 losartan 100 1 tab PO DAILY 01/27/24 01/27/24 mg-hydrochlorothiazide 25 mg tablet semaglutide 2 mg/dose (8 mg/3 mL) 2 mg SUBCUT WEEKLY 01/27/24 01/27/24 subcutaneous pen injector (Ozempic) Previous Rx's Medication Instructions Recorded oxycodone-acetaminophen 5 mg-325 1 tab PO Q4-6H PRN pain #14 tabs 03/24/19 mg tablet (Percocet) omeprazole 20 mg capsule,delayed 20 mg PO DAILY #14 caps 05/18/19 release ondansetron 4 mg disintegrating 4 mg PO Q6H PRN nausea and 09/17/23 tablet vomiting #14 tabs amoxicillin 875 mg-potassium 1 tab PO BID #20 tabs 01/27/24 clavulanate 125 mg tablet ombmtmhy-pghvvqrzh-onxgazkou 3.5 4 drp otic (ear) TID 10 days #10 mL 01/27/24 mg/mL-10,000 unit/mL-1 % ear solution Allergies Allergy/AdvReac Type Severity Reaction Status Date / Time cephalexin [From KEFLEX] Allergy Unknown Rash Verified 09/12/22 10:00 ciprofloxacin [CIPROFLOXACIN] Allergy Unknown Rash Verified 09/12/22 10:00 milk [MILK] Allergy Unknown Verified 09/12/22 10:00 gabapentin Allergy Verified 09/12/22 10:00 Review of Systems Review of Systems ROS Unobtainable: All systems reviewed & are unremarkable except as noted in HPI and below Patient History Medical History Eosinophilic esophagitis Essential hypertension Dyslipidemia Diabetes type 2, uncontrolled Infected prosthetic mesh of abdominal wall Hypertension Surgical History History of appendectomy H/O: hysterectomy Family History Mother CVA (cerebral vascular accident) Father CVA (cerebral vascular accident) Other Diabetes mellitus Social History household members: significant other, family and children Smoking Status: Former smoker Smoking Status: Former smoker alcohol intake frequency: holidays/special occasions only Substance Use Type: does not use Exam Narrative Exam Narrative: GEN: well nourished, well appearing male, alert and oriented x 3, patient appears to be in mild distress. HEENT: Atraumatic, pupils are equal round reactive to light, extraocular movements are intact, nares are clear, patient's left TM is retracted but no fluid, canal clear, right TM slightly retracted, patient does have fluid behind the TM, canal is swollen with some erythema, no blood, there is no conjunctival pallor. Nontender over the tragus, external ear is normal. Throat is clear without any exudates, erythema, tonsillar enlargement or uvular deviation, patient has some mild submandibular lymphadenopathy. HEART: Regular rate and rhythm without murmur, clicks, rubs. LUNGS:Lungs clear to auscultation, no wheezes, rales, crackles, chest moves symmetrically ABD:bowel sounds normal, soft, non-tender, no guarding, rebound, rigidity, no masses noted, no hepatosplenomegaly MSCL: Non-tender, no muscle atrophy, muscles strength 5/5 upper and lower extremities, full range of motion, normal gait NEURO:CN 2-12 intact, sensation normal SKIN: Rash, erythema or other skin changes. Initial Vital Signs Initial Vital Signs: Vital Signs Temperature 98.2 F 01/27/24 17:38 Pulse Rate 104 H 01/27/24 17:38 Respiratory Rate 18 01/27/24 17:38 Blood Pressure 120/87 01/27/24 17:38 Pulse Oximetry 98 01/27/24 17:38 Oxygen Delivery Method Room Air 01/27/24 17:38 Course Orders Ordered: Discontinued Medications Neomycin/Polymyxin/Hydrocortisone (Neomy/Polym B/Hc Otic 10 Ml) 4 drops EAR- BOTH NOW ONE Stop: 01/27/24 20:57 Last Admin: 01/27/24 21:34 Dose: Not Given Documented By: BS Vital Signs Vital signs: Vital Signs - 8 hr 01/27/24 17:38 01/27/24 20:15 01/27/24 20:15 Temperature 98.2 F Pulse Rate 104 H 87 Respiratory Rate 18 18 Blood Pressure 120/87 121/80 Pulse Oximetry 98 95 Oxygen Delivery Method Room Air Medical Decision Making Lab Data 01/27/24 18:10 01/27/24 18:10 Labs: Lab Results 01/27/24 Range/Units 18:10 WBC 9.7 (4.5-11.0) X10^3/uL RBC 4.60 (4.0-5.2) X10^6/uL Hgb 13.9 (12.0-16.0) g/dL Hct 39.8 (36-46) % MCV 86.6 (80-100) fL MCH 30.3 (26-34) PG MCHC 35.0 (30-36) % RDW 12.7 (11.6-14.8) % Plt Count 218 (150-400) X10^3/uL Neut % (Auto) 59.5 (50-75) % Lymph % (Auto) 30.8 (25-40) % [place] % (Auto) 5.8 (3-14) % Eos % (Auto) 3.3 (2-4) % Baso % (Auto) 0.6 (0-2) % Neut # (Auto) 5800 (0976-5907) /uL Lymph # (Auto) 3000 (6899-1848) /uL [place] # (Auto) 600 (0-900) /uL Eos # (Auto) 300 (0-450) /uL Baso # (Auto) 100 (0-100) /uL PT 11.0 (9.4-12.5) SECONDS INR 1.0 (0.9-1.3) APTT 35 (25.1-36.5) SECONDS Sodium 138 (137-145) mmol/L Potassium 3.9 (3.4-5.1) mmol/L Chloride 104 (98-107) mmol/L Carbon Dioxide 25 (22-32) mmol/L BUN 20 H (7-17) mg/dL Creatinine 0.66 (0.52-1.04) mg/dL Estimated GFR > 60 (>60) mL/min BUN/Creatinine Ratio 30.3 H (6-22) Glucose 139 H (70-100) mg/dL Calcium 8.6 (8.4-10.2) mg/dL Magnesium 2.0 (1.6-2.3) mg/dL Total Bilirubin 0.5 (0.2-1.3) mg/dL AST 23 (14-36) IU/L ALT 20 (<35) IU/L Alkaline Phosphatase 54 (38-126) U/L Total Creatine Kinase 49 (30-135) U/L Troponin I < 0.012 (0.01-0.034) ng/mL NT-Pro-B Natriuret Pep < 20 (<125) pg/mL Total Protein 7.5 (6.3-8.2) g/dL Albumin 4.3 (3.5-5.0) g/dL Globulin 3.2 (1.7-4.1) g/dL Albumin/Globulin Ratio 1.3 (1.0-2.8) Lipase 303 H (23-300) U/L Urine Dip Bedside Urine Glucose Negative Bedside Urine Bilirubin - Negative Bedside Urine Ketone - Negative Urine Specific [place] 1.005 Bedside Urine Occult Blood - Negative Bedside Urine pH 6.0 Bedside Urine Protein - Negative Bedside Urine Urobilinogen - Negative Bedside Urine Nitrite - Negative Bedside Urine Leukocytes - Negative Esterase Point of care testing: Urine Dip Bedside Urine Glucose Negative Bedside Urine Bilirubin - Negative Bedside Urine Ketone - Negative Urine Specific [place] 1.005 Bedside Urine Occult Blood - Negative Bedside Urine pH 6.0 Bedside Urine Protein - Negative Bedside Urine Urobilinogen - Negative Bedside Urine Nitrite - Negative Bedside Urine Leukocytes - Negative Esterase Imaging Data Chest x-ray: Radiologist's Impression: [address] [address] XRay Report Signed Patient: Arabella Saleem MR#: [id number] : 1975 Acct:[id number] Age/Sex: 48 / F Date of Service: 01/27/24 Loc: ED Accession Number: [id number] Procedure: XR chest 1V Ordering Provider: Avery Nina MD PROCEDURE: XR CHEST 1V INDICATIONS: chest pain TECHNIQUE: One view of the chest was acquired. COMPARISON: [facility], , XR CHEST 1V, 09/20/2022, 11:41. FINDINGS: Surgical changes and devices: None. Lungs and pleura: Lungs are clear. No pleural effusions or pneumothorax. Mediastinum: Mediastinal contours appear normal. Heart size is normal. Bones and chest wall: No suspicious bony lesions. Overlying soft tissues appear unremarkable. IMPRESSION: No acute cardiopulmonary abnormality is seen. Dictated by: Tony Viera M.D. on 01/27/2024 at 18:37 Approved by: Tony Viera M.D. on 01/27/2024 at 18:37 ECG Data Attestation: I personally reviewed and interpreted this ECG as follows: Prior ECG tracings: available for review Interpretation: Sinus rhythm rate of 96 IN 146 QRS 84 QTC 439, no acute ST elevation or depression noted. Prior from 09/17/2023 appears similar. MDM Narrative Medical decision making narrative: 48-year-old had an IO placed by nursing. Patient's CBC, coags, CMP, troponin and BNP normal. Point of care urine negative. EKG shows sinus rhythm with any acute changes. Negative chest x-ray. Examination shows otitis externa, we will start with antibiotic eardrops. Patient does have some discomfort behind the ear as well so discussed if she has not improving over the next 2 days to go ahead and start oral antibiotics. She does have a history of diabetes. Discharge Plan Departure Patient Disposition: Home Clinical Impression: Dizziness Otitis externa Qualifiers: Chronicity: acute Laterality: right Instructions: DI for Otitis Externa Activity Restrictions/Additional Instructions: Use antibiotic ear drops, 4 drops to the affected ear 3 times daily for 7-10 days. If you are not having significant improvement symptoms over the next 48 hours, start oral antibiotics. Prescription printed and included in your discharge papers. Please return for fevers, rapidly worsening redness, swelling, bleeding or new drainage from your ear, passing out, persistent vomiting or other new or concerning changes. Prescriptions: New amoxicillin-pot clavulanate 875-125 mg tablet 1 tab PO BID Qty: 20 0RF rsvfuikb-lyqrfwqdc-MP 3.5-10,000-1 mg/mL-unit/mL-% solution 4 drp otic (ear) TID 10 Days Qty: 10 0RF No Action albuterol sulfate 90 mcg/actuation HFA aerosol inhaler 1 puff Inhalation PRN PRN (Reason: Shortness Of Breath) albuterol sulfate 2.5 MG/3 ML solution for nebulization 3 ml INH Q6HP PRN (Reason: Shortness Of Breath) oxycodone-acetaminophen [Percocet] 5-325 mg tablet 1 tab PO Q4-6H PRN (Reason: pain) Qty: 14 0RF omeprazole 20 mg capsule,delayed release(DR/EC) 20 mg PO DAILY Qty: 14 0RF ondansetron 4 mg tablet,disintegrating 4 mg PO Q6H PRN (Reason: nausea and vomiting) Qty: 14 0RF losartan-hydrochlorothiazide 100-25 mg tablet 1 tab PO DAILY atenolol 50 mg tablet 50 mg PO DAILY Ozempic 2 mg/dose (8 mg/3 mL) pen injector 2 mg SUBCUT WEEKLY Patient Comments: [NO ORIGINAL SIG] Referrals: Nurys Ash MD [Primary Care Provider] - Stand Alone Forms: Patient Portal/API
[2024-01-27 21:00] VITALS: BP 133/75; PULSE 92; RESP 16; O2SAT 97
[2024-01-27 21:16] VITALS: BP 134/74; PULSE 94; RESP 15; O2SAT 97
== END 2024-01-27 21:40 | disposition home or self-care (01) ==
PROVIDERS: Emergency Medicine; Emergency Provider Emergency Medicine; Family Provider Internal Medicine; PCP Internal Medicine
DX: R42 Dizziness and giddiness (principal); H60.91 Unspecified otitis externa, right ear; H92.02 Otalgia, left ear; R07.9 Chest pain, unspecified
CPT/HCPCS: 36415; 71045; 80053; 81003; 82550; 83690; 83735; 83880; 84484; 85025; 85610; 85730; 93005; 99283; 99284

== ENCOUNTER 2024-02-09 12:29 | Emergency (ER) | payer OTHER, SELFPAY ==
[2022-02-26 23:56] VITALS: BMI 34.7
[2024-02-09 12:57] VITALS: BP 150/101; PULSE 94; RESP 18; TEMP 36.9; O2SAT 98; BMI 32.8
--- NOTE | 2024-02-09 15:11 | DI.CT.S_ITS ---
PROCEDURE: CT FACIAL BONES W CON INDICATIONS: R jaw swelling, pain TECHNIQUE: After the administration of intravenous contrast, 2.5 mm axial sections acquired from the mid-neck to the frontal sinuses, with coronal and sagittal reformats. For radiation dose reduction, the following was used: automated exposure control, adjustment of mA and/or kV according to patient size. COMPARISON: [facility], CT, CT ANGIO HEAD AND NECK, 09/20/2022, 11:42. [facility], CT, CT HEAD/BRAIN WO CON, 09/17/2023, 4:07. FINDINGS: Image quality: Excellent. Soft tissues: Soft tissue inflammatory change can be seen within the right perimandibular region. No soft tissue gas is seen. No focal fluid collection is seen to suggest soft tissue abscess. Vascular: Visualized vascular structures appear patent throughout. Bony vascular foramina and canals appear normal. Bones: Facial bones appear intact, without fractures, erosions, or destruction. Visualized portions of the skull base and auditory canals also appear normal. Sinuses: Paranasal sinuses are aerated without fluid levels, mucosal thickening, or mucoceles. Mastoid air cells are aerated. IMPRESSION: Inflammatory change can be seen within the right perimandibular region, with an imaging appearance most consistent with cellulitis. No soft tissue gas or abscess can be seen. Dictated by: Rony Tucker M.D. on 02/09/2024 at 15:25 Approved by: Rony Tucker M.D. on 02/09/2024 at 15:27
[2024-02-09 15:17] LABS: Add Manual Diff / Slide Review NO; Basophils Absolute Auto 0 /uL (0-100); Basophils Percent Auto 0.4 % (0-2); Eosinophils Absolute Auto 300 /uL (0-450); Eosinophils Percent Auto 3.6 % (2-4); Hemoglobin 13.6 g/dL (12.0-16.0); Lymphocytes Absolute Auto 2700 /uL (1100-4500); Lymphocytes Percent Auto 34.5 % (25-40); Mean Corpuscular HGB Conc 34.8 % (30-36); Mean Corpuscular Hemoglobin 30.1 PG (26-34); Mean Corpuscular Volume 86.4 fL (80-100); Monocytes Absolute Auto 400 /uL (0-900); Monocytes Percent Auto 5.4 % (3-14); Neutrophils Absolute Auto 4400 /uL (1500-7000); Neutrophils Percent Auto 56.1 % (50-75); Platelet Count 241 X10^3/uL (150-400); Red Blood Cell Count 4.52 X10^6/uL (4.0-5.2); Red Cell Distribution Width 12.7 % (11.6-14.8); White Blood Cell Count 7.8 X10^3/uL (4.5-11.0)
--- NOTE | 2024-02-09 15:28 | ED_ITS ---
HPI - Recheck/Abnormal Lab/Rx <Zurdo Arango PA-C - Last Filed: 02/09/24 16:48> General Chief Complaint: Recheck/Abnormal Lab/Rx Stated Complaint: neck swelling, headache Time Seen by Provider: 02/09/24 13:56 History of Present Illness HPI narrative: 48-year-old female with past medical history hypertension, Odell's esophagitis, eosinophilic esophagitis, diabetes, dyslipidemia presents to the ED for right-sided tooth and jaw pain. Patient was seen in the ED on 01/27/2024 for ear pain and dizziness, was prescribed Augmentin for otitis externa. Patient has completed the course of antibiotics, with good resolution of the ear symptoms. Patient states that she is here today for right lower dental pain. Patient denies fever, chills, chest pain, shortness of breath, vomiting. Patient endorses that she has had some dental problems in 1 of the teeth in that area. Patient is currently in between dentist and is slated to see her new dentist on February 18. Patient has been taking extra-strength Tylenol with minimal relief. Related Data Home Medications Medication Instructions Recorded Confirmed albuterol sulfate 2.5 mg/3 mL 3 ml INH Q6HP PRN Shortness Of 06/17/18 01/27/24 (0.083 %) solution for nebulization Breath albuterol sulfate 90 mcg/actuation 1 puff inhalation PRN PRN 06/17/18 01/27/24 aerosol inhaler Shortness Of Breath atenolol 50 mg tablet 50 mg PO DAILY 01/27/24 01/27/24 losartan 100 1 tab PO DAILY 01/27/24 01/27/24 mg-hydrochlorothiazide 25 mg tablet semaglutide 2 mg/dose (8 mg/3 mL) 2 mg SUBCUT WEEKLY 01/27/24 01/27/24 subcutaneous pen injector (Ozempic) Previous Rx's Medication Instructions Recorded oxycodone-acetaminophen 5 mg-325 1 tab PO Q4-6H PRN pain #14 tabs 03/24/19 mg tablet (Percocet) omeprazole 20 mg capsule,delayed 20 mg PO DAILY #14 caps 05/18/19 release ondansetron 4 mg disintegrating 4 mg PO Q6H PRN nausea and 09/17/23 tablet vomiting #14 tabs amoxicillin 875 mg-potassium 1 tab PO BID #20 tabs 01/27/24 clavulanate 125 mg tablet clindamycin HCl 150 mg capsule 450 mg (3 x 150 mg) PO TID 10 days 02/09/24 #90 caps Allergies Allergy/AdvReac Type Severity Reaction Status Date / Time cephalexin [From KEFLEX] Allergy Unknown Rash Verified 09/12/22 10:00 ciprofloxacin [CIPROFLOXACIN] Allergy Unknown Rash Verified 09/12/22 10:00 milk [MILK] Allergy Unknown Verified 09/12/22 10:00 gabapentin Allergy Verified 09/12/22 10:00 Review of Systems <Zurdo Arango PA-C - Last Filed: 02/09/24 16:48> Constitutional Constitutional: Denies chills, Denies fatigue, Denies fever(s), Denies frequent falls, Denies lethargy and Denies weakness Eyes Eyes: Denies change in vision, Denies eye discharge, Denies irritation and Denies loss of vision ENT Ears, Nose, Mouth, and Throat: Denies change in voice, Reports dental pain, Denies dizziness, Denies neck pain, Denies sore throat and Denies throat swelling Cardiovascular Cardiovascular: Denies chest pain, Denies irregular heart rhythm, Denies lightheadedness, Denies palpitations, Denies dyspnea, Denies dyspnea on exertion and Denies orthopnea Respiratory Respiratory: Denies cough, Denies dyspnea, Denies dyspnea on exertion and Denies wheezing Gastrointestinal Gastrointestinal: Denies abdominal pain, Denies change in bowel habits, Denies diarrhea, Denies nausea and Denies vomiting Musculoskeletal Musculoskeletal: Denies neck pain and Denies numbness Integumentary/Breasts Skin/Breast: Denies pruritus, Denies erythema, Denies rash and Denies wounds Neurologic Neurologic: Denies behavioral changes, Denies confusion, Denies dizziness, Denies frequent falls, Denies loss of vision, Denies numbness and Denies weakness Psychiatric Psychiatric: Denies anxiety, Denies behavioral changes, Denies confusion, Denies depression, Denies homicidal ideation and Denies suicidal ideation Endocrine Endocrine: Denies fatigue, Denies flushing and Denies palpitations Hematologic/Lymphatic Hematologic/Lymphatic: Denies easy bruising Allergic/Immunologic Allergic/Immunologic: Denies urticaria, Denies throat swelling and Denies wheezing Patient History <Zurdo Arango PA-C - Last Filed: 02/09/24 16:48> Medical History Eosinophilic esophagitis Essential hypertension Dyslipidemia Diabetes type 2, uncontrolled Infected prosthetic mesh of abdominal wall Hypertension Surgical History History of appendectomy H/O: hysterectomy Family History Mother CVA (cerebral vascular accident) Father CVA (cerebral vascular accident) Other Diabetes mellitus Social History household members: significant other, family and children Smoking Status: Former smoker Smoking Status: Former smoker alcohol intake frequency: holidays/special occasions only Substance Use Type: does not use Exam <Zurdo Arango PA-C - Last Filed: 02/09/24 16:48> Narrative Exam Narrative: Const General:?cooperative, healthy appearing and comfortable HENMT Head:?normal to inspection Ears:?hearing grossly normal bilaterally Nose:?external nose normal Face and sinus:?normal facial exam and sinuses nontender Mouth:?oral mucosae normal; there is tenderness to palpation of the right lower teeth and gums. No abscess visualized on exam. Handling secretions appropriately. Throat:?posterior oropharynx normal Eyes General:?appearance normal, both eyes and all related structures Neck Neck:?normal visual inspection and no lymphadenopathy noted Resp Effort & Inspection:?normal respiratory effort Auscultation:?clear to auscultation bilaterally Cardio Rate:?regular rate Rhythm:?regular rhythm Neuro General:?patient alert, patient awake and patient oriented x3 Initial Vital Signs Initial Vital Signs: Vital Signs Temperature 98.4 F 02/09/24 12:57 Pulse Rate 94 H 02/09/24 12:57 Respiratory Rate 18 02/09/24 12:57 Blood Pressure 150/101 H 02/09/24 12:57 Pulse Oximetry 98 02/09/24 12:57 Oxygen Delivery Method Room Air 02/09/24 12:57 <Gabriella Rodriguez DO - Last Filed: 02/16/24 17:23> Initial Vital Signs Initial Vital Signs: Vital Signs Temperature 98.4 F 02/09/24 12:57 Pulse Rate 94 H 02/09/24 12:57 Respiratory Rate 18 02/09/24 12:57 Blood Pressure 150/101 H 02/09/24 12:57 Pulse Oximetry 98 02/09/24 12:57 Oxygen Delivery Method Room Air 02/09/24 12:57 Course <Zurdo Arango PA-C - Last Filed: 02/09/24 16:48> Orders Ordered: ED Orders 02/09/24 15:00 CMP [Comprehensive Metabolic Panel] Stat Complete Blood Count AUTO DIFF Stat 02/09/24 15:11 CT facial bones w con Stat Vital Signs Vital signs: Vital Signs - 8 hr 02/09/24 12:57 Temperature 98.4 F Pulse Rate 94 H Respiratory Rate 18 Blood Pressure 150/101 H Pulse Oximetry 98 Oxygen Delivery Method Room Air <Gabriella Rodriguez DO - Last Filed: 02/16/24 17:23> Orders Ordered: ED Orders 02/09/24 15:00 CMP [Comprehensive Metabolic Panel] Stat Complete Blood Count AUTO DIFF Stat 02/09/24 15:11 CT facial bones w con Stat Vital Signs Vital signs: Vital Signs - 8 hr 02/09/24 12:57 Temperature 98.4 F Pulse Rate 94 H Respiratory Rate 18 Blood Pressure 150/101 H Pulse Oximetry 98 Oxygen Delivery Method Room Air MDM - Recheck/Abnormal Lab/Rx <Zurdo Arango PA-C - Last Filed: 02/09/24 16:48> Lab Data 02/09/24 15:00 02/09/24 15:00 Labs: Lab Results 02/09/24 Range/Units 15:00 WBC 7.8 (4.5-11.0) X10^3/uL RBC 4.52 (4.0-5.2) X10^6/uL Hgb 13.6 (12.0-16.0) g/dL Hct 39.0 (36-46) % MCV 86.4 (80-100) fL MCH 30.1 (26-34) PG MCHC 34.8 (30-36) % RDW 12.7 (11.6-14.8) % Plt Count 241 (150-400) X10^3/uL Neut % (Auto) 56.1 (50-75) % Lymph % (Auto) 34.5 (25-40) % [place] % (Auto) 5.4 (3-14) % Eos % (Auto) 3.6 (2-4) % Baso % (Auto) 0.4 (0-2) % Neut # (Auto) 4400 (2114-8072) /uL Lymph # (Auto) 2700 (2974-0902) /uL [place] # (Auto) 400 (0-900) /uL Eos # (Auto) 300 (0-450) /uL Baso # (Auto) 0 (0-100) /uL Sodium 138 (137-145) mmol/L Potassium 4.1 (3.4-5.1) mmol/L Chloride 106 (98-107) mmol/L Carbon Dioxide 25 (22-32) mmol/L BUN 13 (7-17) mg/dL Creatinine 0.51 L (0.52-1.04) mg/dL Estimated GFR > 60 (>60) mL/min BUN/Creatinine Ratio 25.5 H (6-22) Glucose 93 (70-100) mg/dL Calcium 8.6 (8.4-10.2) mg/dL Total Bilirubin 0.5 (0.2-1.3) mg/dL AST 25 (14-36) IU/L ALT 22 (<35) IU/L Alkaline Phosphatase 61 (38-126) U/L Total Protein 7.4 (6.3-8.2) g/dL Albumin 4.3 (3.5-5.0) g/dL Globulin 3.1 (1.7-4.1) g/dL Albumin/Globulin Ratio 1.4 (1.0-2.8) MDM Narrative Medical decision making narrative: 48-year-old female with past medical history hypertension, Odell's esophagitis, eosinophilic esophagitis, diabetes, dyslipidemia presents to the ED for right-sided tooth and jaw pain. Concern for odontogenic infection versus abscess versus other. Will obtain labs, CT. Labs within normal limits. CT shows inflammatory changes within the right perimandibular region most consistent with cellulitis. No soft tissue gas or abscess seen. Discussed findings with patient. Prescribed clindamycin. Recommend follow-up with dentist as soon as possible. ED return precautions discussed with patient. Patient verbalized understanding. Medical records reviewed: Yes <Gabriella Rodriguez DO - Last Filed: 02/16/24 17:23> Lab Data Labs: Lab Results 02/09/24 Range/Units 15:00 WBC 7.8 (4.5-11.0) X10^3/uL RBC 4.52 (4.0-5.2) X10^6/uL Hgb 13.6 (12.0-16.0) g/dL Hct 39.0 (36-46) % MCV 86.4 (80-100) fL MCH 30.1 (26-34) PG MCHC 34.8 (30-36) % RDW 12.7 (11.6-14.8) % Plt Count 241 (150-400) X10^3/uL Neut % (Auto) 56.1 (50-75) % Lymph % (Auto) 34.5 (25-40) % [place] % (Auto) 5.4 (3-14) % Eos % (Auto) 3.6 (2-4) % Baso % (Auto) 0.4 (0-2) % Neut # (Auto) 4400 (2729-4855) /uL Lymph # (Auto) 2700 (2243-3434) /uL [place] # (Auto) 400 (0-900) /uL Eos # (Auto) 300 (0-450) /uL Baso # (Auto) 0 (0-100) /uL Sodium 138 (137-145) mmol/L Potassium 4.1 (3.4-5.1) mmol/L Chloride 106 (98-107) mmol/L Carbon Dioxide 25 (22-32) mmol/L BUN 13 (7-17) mg/dL Creatinine 0.51 L (0.52-1.04) mg/dL Estimated GFR > 60 (>60) mL/min BUN/Creatinine Ratio 25.5 H (6-22) Glucose 93 (70-100) mg/dL Calcium 8.6 (8.4-10.2) mg/dL Total Bilirubin 0.5 (0.2-1.3) mg/dL AST 25 (14-36) IU/L ALT 22 (<35) IU/L Alkaline Phosphatase 61 (38-126) U/L Total Protein 7.4 (6.3-8.2) g/dL Albumin 4.3 (3.5-5.0) g/dL Globulin 3.1 (1.7-4.1) g/dL Albumin/Globulin Ratio 1.4 (1.0-2.8) Discharge Plan Departure Patient Disposition: Home Clinical Impression: Toothache Instructions: DI for Dental Pain Activity Restrictions/Additional Instructions: You were evaluated in the ED today for right-sided tooth and jaw pain. Your labs were normal. Your CT scan showed some cellulitis which is a soft tissue infection. You are being prescribed a different antibiotic to take for the next few days. Please follow-up with your dentist as soon as possible for further evaluation and treatment. Return to the ED if you have worsening symptoms. Prescriptions: New clindamycin HCl 150 mg capsule 450 mg PO TID 10 Days Qty: 90 0RF No Action albuterol sulfate 90 mcg/actuation HFA aerosol inhaler 1 puff Inhalation PRN PRN (Reason: Shortness Of Breath) albuterol sulfate 2.5 MG/3 ML solution for nebulization 3 ml INH Q6HP PRN (Reason: Shortness Of Breath) oxycodone-acetaminophen [Percocet] 5-325 mg tablet 1 tab PO Q4-6H PRN (Reason: pain) Qty: 14 0RF omeprazole 20 mg capsule,delayed release(DR/EC) 20 mg PO DAILY Qty: 14 0RF ondansetron 4 mg tablet,disintegrating 4 mg PO Q6H PRN (Reason: nausea and vomiting) Qty: 14 0RF losartan-hydrochlorothiazide 100-25 mg tablet 1 tab PO DAILY atenolol 50 mg tablet 50 mg PO DAILY Ozempic 2 mg/dose (8 mg/3 mL) pen injector 2 mg SUBCUT WEEKLY Patient Comments: [NO ORIGINAL SIG] amoxicillin-pot clavulanate 875-125 mg tablet 1 tab PO BID Qty: 20 0RF Referrals: Nruys Ash MD [Primary Care Provider] - Stand Alone Forms: Patient Portal/API ED Sign-out <Gabriella Rodriguez DO - Last Filed: 02/16/24 17:23> Cosign ED Attending Cosignature Attestation: I was available for consultation.
[2024-02-09 15:34] LABS: Alanine Aminotransferase 22 IU/L (<35); Albumin 4.3 g/dL (3.5-5.0); Albumin Globulin Ratio 1.4 (1.0-2.8); Alkaline Phosphatase 61 U/L (38-126); Aspartate Aminotransferase 25 IU/L (14-36); BUN Creatinine Ratio 25.5 (6-22); Bilirubin Total 0.5 mg/dL (0.2-1.3); Blood Urea Nitrogen 13 mg/dL (7-17); Calcium 8.6 mg/dL (8.4-10.2); Carbon Dioxide 25 mmol/L (22-32); Chloride 106 mmol/L (98-107); Estimated Glomerular Filt Rate > 60 mL/min (>60); Globulin 3.1 g/dL (1.7-4.1); Glucose 93 mg/dL (70-100); HEMOLYSIS < 15 (0-50); Potassium 4.1 mmol/L (3.4-5.1); Sodium 138 mmol/L (137-145); Total Protein 7.4 g/dL (6.3-8.2)
[2024-02-09 16:54] VITALS: BP 161/91; PULSE 78; RESP 18; O2SAT 100
== END 2024-02-09 16:55 | disposition home or self-care (01) ==
PROVIDERS: Emergency Provider Student in an Organized Health Care Education/Training Program; Family Provider Internal Medicine; PCP Internal Medicine
DX: K08.89 Other specified disorders of teeth and supporting structures (principal); L03.211 Cellulitis of face
CPT/HCPCS: 36415; 70487; 80053; 85025; 99283; 99284; Q9967

== ENCOUNTER 2024-02-23 05:30 | Emergency (ER) | payer OTHER, SELFPAY ==
[2022-02-26 23:56] VITALS: BMI 34.7
[2024-02-23 05:35] VITALS: PULSE 102; O2SAT 96
[2024-02-23 05:38] VITALS: BP 190/105; PULSE 98; RESP 16; TEMP 36.2; O2SAT 96
--- NOTE | 2024-02-23 05:55 | EKG_ITS ---
[address] [address] Test Date: 2024-02-23 Pat Name: Arabella Saleem Department: 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
--- NOTE | 2024-02-23 05:55 | ED.DIZZY ---
HPI - Dizziness General Chief Complaint: Dizziness Stated Complaint: dizzy, weak and body shaking has diabetes Time Seen by Provider: 02/23/24 05:40 Source: patient Mode of arrival: Ambulatory History of Present Illness HPI Narrative: 49yoF presents by private vehicle from home for dizziness and shaking. Patient has been seen several times over the last month for ear and dental issues. She states that she has been seen by a dentist, however they recommended the bad tooth be pulled, and patient cannot afford the $900 to have the tooth removed. Patient states that she will intermittently wake up some nights feeling shaky and lightheaded. This morning patient woke up with the sensation that her blood sugar was low. She checked her glucose and it was 90. She ate a mint and went to the kitchen, but her entire body felt weak and shaky. She states that she was told by her dentist to come to the ER if she felt dizziness she should come to the ED for evaluation. Patient did drive herself to the ED. States she tried to make a PCP appointment this month, but it was cancelled. Related Data Home Medications Medication Instructions Recorded Confirmed albuterol sulfate 2.5 mg/3 mL 3 ml INH Q6HP PRN Shortness Of 06/17/18 01/27/24 (0.083 %) solution for nebulization Breath albuterol sulfate 90 mcg/actuation 1 puff inhalation PRN PRN 06/17/18 01/27/24 aerosol inhaler Shortness Of Breath atenolol 50 mg tablet 50 mg PO DAILY 01/27/24 01/27/24 losartan 100 1 tab PO DAILY 01/27/24 01/27/24 mg-hydrochlorothiazide 25 mg tablet semaglutide 2 mg/dose (8 mg/3 mL) 2 mg SUBCUT WEEKLY 01/27/24 01/27/24 subcutaneous pen injector (Ozempic) Previous Rx's Medication Instructions Recorded oxycodone-acetaminophen 5 mg-325 1 tab PO Q4-6H PRN pain #14 tabs 03/24/19 mg tablet (Percocet) omeprazole 20 mg capsule,delayed 20 mg PO DAILY #14 caps 05/18/19 release ondansetron 4 mg disintegrating 4 mg PO Q6H PRN nausea and 09/17/23 tablet vomiting #14 tabs amoxicillin 875 mg-potassium 1 tab PO BID #20 tabs 01/27/24 clavulanate 125 mg tablet Allergies Allergy/AdvReac Type Severity Reaction Status Date / Time cephalexin [From KEFLEX] Allergy Unknown Rash Verified 09/12/22 10:00 ciprofloxacin [CIPROFLOXACIN] Allergy Unknown Rash Verified 09/12/22 10:00 milk [MILK] Allergy Unknown Verified 09/12/22 10:00 gabapentin Allergy Verified 09/12/22 10:00 Patient History Medical History Eosinophilic esophagitis Essential hypertension Dyslipidemia Diabetes type 2, uncontrolled Infected prosthetic mesh of abdominal wall Hypertension Surgical History History of appendectomy H/O: hysterectomy Family History Mother CVA (cerebral vascular accident) Father CVA (cerebral vascular accident) Other Diabetes mellitus Social History household members: significant other, family and children Smoking Status: Former smoker Smoking Status: Former smoker alcohol intake frequency: holidays/special occasions only Substance Use Type: does not use Exam Initial Vital Signs Initial Vital Signs: Vital Signs Pulse Rate 102 H 02/23/24 05:35 Pulse Oximetry 96 02/23/24 05:35 Const: Awake, alert, no acute distress, nontoxic appearing HEENT: Isolated area of scalp tenderness occipital R scalp, TM normal bilaterally, no facial swelling, EOMI Cardiac: regular rate, regular rhythm RESP: unlabored, clear bilaterally, no wheezing Skin: Warm, Dry, intact, no rashes Neuro: AO x3, CN II-XII grossly intact, moves all extremities Course Orders Ordered: ED Orders 02/23/24 05:55 EKG-12 Lead Stat 02/23/24 06:05 CBC Auto Diff [Complete Blood Count AUTO DIFF] Stat CMP [Comprehensive Metabolic Panel] Stat Vital Signs Vital signs: Vital Signs - 8 hr 02/23/24 05:38 Temperature 97.1 F L Pulse Rate 98 H Respiratory Rate 16 Blood Pressure 190/105 H Pulse Oximetry 96 Oxygen Delivery Method Room Air MDM - Dizziness Lab Data 02/23/24 06:05 02/23/24 06:05 Labs: Lab Results 08/05/24 Range/Units 06:05 WBC 7.6 (4.5-11.0) X10^3/uL RBC 4.35 (4.0-5.2) X10^6/uL Hgb 13.0 (12.0-16.0) g/dL Hct 37.5 (36-46) % MCV 86.2 (80-100) fL MCH 30.0 (26-34) PG MCHC 34.8 (30-36) % RDW 12.8 (11.6-14.8) % Plt Count 197 (150-400) X10^3/uL Neut % (Auto) 54.6 (50-75) % Lymph % (Auto) 34.0 (25-40) % [place] % (Auto) 6.2 (3-14) % Eos % (Auto) 4.8 H (2-4) % Baso % (Auto) 0.4 (0-2) % Neut # (Auto) 4200 (0997-1889) /uL Lymph # (Auto) 2600 (6724-1421) /uL [place] # (Auto) 500 (0-900) /uL Eos # (Auto) 400 (0-450) /uL Baso # (Auto) 0 (0-100) /uL Sodium 137 (137-145) mmol/L Potassium 3.2 L (3.4-5.1) mmol/L Chloride 107 (98-107) mmol/L Carbon Dioxide 25 (22-32) mmol/L BUN 15 (7-17) mg/dL Creatinine 0.54 (0.52-1.04) mg/dL Estimated GFR > 60 (>60) mL/min BUN/Creatinine Ratio 27.8 H (6-22) Glucose 161 H (70-100) mg/dL Calcium 8.4 (8.4-10.2) mg/dL Total Bilirubin 0.4 (0.2-1.3) mg/dL AST 22 (14-36) IU/L ALT 21 (<35) IU/L Alkaline Phosphatase 51 (38-126) U/L Total Protein 7.1 (6.3-8.2) g/dL Albumin 4.0 (3.5-5.0) g/dL Globulin 3.1 (1.7-4.1) g/dL Albumin/Globulin Ratio 1.3 (1.0-2.8) Point of Care Testing Glucose POC 170 Urine Dip Bedside Urine Glucose Negative Bedside Urine Bilirubin - Negative Bedside Urine Ketone - Negative Urine Specific [place] 1.005 Bedside Urine Occult Blood - Negative Bedside Urine pH 6.0 Bedside Urine Protein - Negative Bedside Urine Urobilinogen - Negative Bedside Urine Nitrite - Negative Bedside Urine Leukocytes - Negative Esterase MDM Narrative Medical decision making narrative: Well-appearing patient with nonspecific dizziness, intermittently for the last month. Patient ambulatory without any ataxia, no physical exam abnormalities. No focal deficits to indicate need for brain imaging at this time. Patient reports a more global lightheaded or shaky sensation. She does point to an area on the back of her head that seems to make her dizziness worse, however not related to mastoids and unlikely to be related to symptoms at this time. Laboratory work reviewed, relatively unremarkable. No leukocytosis, normal liver enzymes, normal kidney function, glucose 161. Potassium slightly low at 3.2, however all other findings are normal. EKG normal sinus rhythm without concerning arrhythmia. Patient reassessed, she was resting comfortably in ED bed. Counseled patient on lab and imaging findings, recommended close follow up with her PCP. Discharge Plan Departure Patient Disposition: Home Clinical Impression: Dizziness Instructions: DI for Dizziness-Nonvertigo Activity Restrictions/Additional Instructions: Your laboratory work today showed that you have a very mild low serum potassium, but otherwise everything else was normal. It was not appear that you have an infection in your blood or urine and your other electrolytes were normal. Your sugar here was 161. I highly recommend that you continue to try to follow up with your primary care doctor if you continue to feel dizzy. Getting your tooth removed may help some of your symptoms, but it is unlikely that the tooth is related to your posterior head pain today. Prescriptions: No Action albuterol sulfate 90 mcg/actuation HFA aerosol inhaler 1 puff Inhalation PRN PRN (Reason: Shortness Of Breath) albuterol sulfate 2.5 MG/3 ML solution for nebulization 3 ml INH Q6HP PRN (Reason: Shortness Of Breath) oxycodone-acetaminophen [Percocet] 5-325 mg tablet 1 tab PO Q4-6H PRN (Reason: pain) Qty: 14 0RF omeprazole 20 mg capsule,delayed release(DR/EC) 20 mg PO DAILY Qty: 14 0RF ondansetron 4 mg tablet,disintegrating 4 mg PO Q6H PRN (Reason: nausea and vomiting) Qty: 14 0RF losartan-hydrochlorothiazide 100-25 mg tablet 1 tab PO DAILY atenolol 50 mg tablet 50 mg PO DAILY Ozempic 2 mg/dose (8 mg/3 mL) pen injector 2 mg SUBCUT WEEKLY Patient Comments: [NO ORIGINAL SIG] amoxicillin-pot clavulanate 875-125 mg tablet 1 tab PO BID Qty: 20 0RF Referrals: Nurys Ash MD [Primary Care Provider] - Stand Alone Forms: Patient Portal/API
[2024-02-23 06:00] VITALS: BP 155/75; PULSE 97; O2SAT 97
[2024-02-23 06:12] LABS: Add Manual Diff / Slide Review NO; Basophils Absolute Auto 0 /uL (0-100); Basophils Percent Auto 0.4 % (0-2); Eosinophils Absolute Auto 400 /uL (0-450); Eosinophils Percent Auto 4.8 % (2-4); Hematocrit 37.5 % (36-46); Lymphocytes Absolute Auto 2600 /uL (1100-4500); Mean Corpuscular HGB Conc 34.8 % (30-36); Mean Corpuscular Volume 86.2 fL (80-100); Monocytes Absolute Auto 500 /uL (0-900); Monocytes Percent Auto 6.2 % (3-14); Neutrophils Absolute Auto 4200 /uL (1500-7000); Neutrophils Percent Auto 54.6 % (50-75); Platelet Count 197 X10^3/uL (150-400); Red Blood Cell Count 4.35 X10^6/uL (4.0-5.2); Red Cell Distribution Width 12.8 % (11.6-14.8); White Blood Cell Count 7.6 X10^3/uL (4.5-11.0)
[2024-02-23 06:24] LABS: Alanine Aminotransferase 21 IU/L (<35); Albumin Globulin Ratio 1.3 (1.0-2.8); Alkaline Phosphatase 51 U/L (38-126); Aspartate Aminotransferase 22 IU/L (14-36); BUN Creatinine Ratio 27.8 (6-22); Bilirubin Total 0.4 mg/dL (0.2-1.3); Blood Urea Nitrogen 15 mg/dL (7-17); Calcium 8.4 mg/dL (8.4-10.2); Carbon Dioxide 25 mmol/L (22-32); Chloride 107 mmol/L (98-107); Estimated Glomerular Filt Rate > 60 mL/min (>60); Globulin 3.1 g/dL (1.7-4.1); Glucose 161 mg/dL (70-100); HEMOLYSIS < 15 (0-50); Potassium 3.2 mmol/L (3.4-5.1); Sodium 137 mmol/L (137-145); Total Protein 7.1 g/dL (6.3-8.2)
[2024-02-23 06:30] VITALS: BP 149/95; PULSE 93; O2SAT 99
[2024-02-23 06:43] VITALS: BP 152/91; PULSE 94; RESP 18; O2SAT 98
[2024-02-23 07:00] VITALS: BP 144/89; PULSE 89; RESP 16; O2SAT 97
== END 2024-02-23 07:06 | disposition home or self-care (01) ==
PROVIDERS: Emergency Provider Emergency Medicine; Family Provider Internal Medicine; PCP Internal Medicine
DX: R42 Dizziness and giddiness (principal); R07.9 Chest pain, unspecified
CPT/HCPCS: 36415; 80053; 81003; 82962; 85025; 93005; 99283; 99284

== ENCOUNTER → 2024-11-04 11:00 | Outpatient (RCR) | payer OTHER, SELFPAY ==
[2022-02-26 23:56] VITALS: BMI 34.7
--- NOTE | 2023-08-21 16:00 | PT.OIE ---
Current Diagnoses Rheumatoid arthritis, unspecified (08/21/23) Pain in unspecified knee (08/21/23) Cervicalgia (08/21/23) Dorsalgia, unspecified (08/21/23) Other specified disorders of muscle (08/21/23) Past Medical History (Last Reviewed 05/25/23 @ 03:58 by Rohan Saleh DO) Diabetes type 2, uncontrolled Dyslipidemia Eosinophilic esophagitis Essential hypertension Hypertension Infected prosthetic mesh of abdominal wall Past Surgical History (Last Reviewed 12/03/22 @ 02:55 by Foreign Aguilar DO) H/O: hysterectomy History of appendectomy Visit Care Team Role Provider Type Nurys Ash MD Attending Provider Non-Staff Family Provider Primary Care Provider Referring Provider Specialty: Internal Medicine Address: [address] [place] [address] Email: Physical Therapy Initial Evaluation PT-OP-A Visit Information Start: 08/19/23 08:09 Freq: Status: Active Protocol: Document 08/21/23 15:15 [facility] (Rec: 08/21/23 15:44 [facility] [id number]) Out-Patient Physical Therapy Visit Information Visit Information Visit Type Initial Evaluation Visit Start Time 15:15 Visit Stop Time 16:00 Visit Number 1 Evaluation Information Evaluation Date 08/21/23 PT-OP-B Current Condition Start: 08/19/23 08:09 Freq: Status: Active Protocol: Document 08/21/23 15:15 [facility] (Rec: 08/21/23 15:44 [facility] [id number]) Current Condition History of Current Condition Onset Date April 2011 Current Complaints urinary leakge, pelvic pressure and heaviness History of Current Condition 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 She has a history of 8 deliveries, 6 of them were home births. After her last baby she underwent a hysterectomy and bladder lift with mesh in April 2011. After this surgery Arabella notes she ended up getting a bad infection x 3 months and she was on 8 different antibiotics and had a IV injection at the end. The infection was in her pelvic region. She had to go under surgery 4 times to attempt to clean out the infection. She ended up having the mesh removed around 2013 from a different doctor. At this point Arabella feels like things are falling out especially by the end of the day when she feels increased pelvic pressure. Arabella notes she will go up to 4-5 days without having a bowel movement. She can feel increased pelvic pressure when she is not able to have a daily bowelment. Past medical history also includes a apendectomy at 15 years old PT-OP-C Subjective Start: 08/19/23 08:09 Freq: Status: Active Protocol: Document 08/21/23 15:15 [facility] (Rec: 08/26/23 14:14 [facility] [id number]) Patient Questionnaires Pelvic Pain and Urgency/Frequency Patient Symptom Scale Pelvic Pain Score 22 OP-PT Pain Assessment Location bilateral low back pain Intensity 5 Scale Used Numeric (0 - 10) PT-OP-I Pelvic Floor Start: 08/19/23 08:09 Freq: Status: Active Protocol: Document 08/21/23 15:15 [facility] (Rec: 08/21/23 16:12 [facility] [id number]) Pelvic Floor Assessment Urine Pelvic Floor Surgery Yes: hysterectomy with bladder lift/ mesh now removed Urinary Symptoms Urge Sensation,Prolapse, Falling Out Feeling/Heavy Leakage Size Large Leakage Cause Cough,Exercise,Lifting,Sneeze, Urge Leaks Per Day 1-2 Voiding Frequency 5 Nocturia 3 Urine Pad Type Panty Liner Pelvic Clock Pelvic Clock 12-3 Atrophy Pelvic Clock 3-6 Atrophy Pelvic Clock 6-9 Atrophy Pelvic Clock 9-12 Atrophy Prolapse Cystocele Grade 1 Prolapse Comments grade 1 prolapse felt but pt notes increased pressure by the end of the day from standing Contraction Ability Voluntary Contraction Weak Voluntary Relaxation Weak Manual Muscle Testing Left 2 Manual Muscle Testing Right 2 Manual Muscle Testing Anterior 2 Manual Muscle Testing Posterior 2 PT-OP-M Strength Start: 08/26/23 15:27 Freq: Status: Active Protocol: Document 08/21/23 15:15 [facility] (Rec: 08/26/23 15:32 [facility] [id number]) Trunk Strength Trunk Manual Muscle Testing Testing Position Supine Flexion 2+ Poor+ Core Stabilization poor core stabilization ability PT-OP-Q Treatments Start: 08/19/23 08:09 Freq: Status: Active Protocol: Document 08/21/23 15:15 [facility] (Rec: 08/21/23 16:11 AM[facility] [id number]) Therapeutic Exercises Supine Exercises supine ball squeeze Reps/Minutes x 10 reps holding 5 seconds and relaxing 10 sec PT-OP-T Assessment and Plan Start: 08/19/23 08:09 Freq: Status: Active Protocol: Document 08/21/23 15:15 [facility] (Rec: 08/26/23 14:14 [facility] [id number]) Physical Therapy Assessment Goals 3 Impairment Poor endurance of pelvic floor contractions Short Term Goal (STG) Arabella is able to sustain a pelvic floor contraction in supine x 10 seconds STG Duration 5 weeks Retirement Goal (LTG) Arabella is able to sustain a pelvic floor contraction in standing x 5 seconds LTG Duration 12 weeks Two Impairment Pelvic floor weakness with MMT of 2/5 for all lewis of the levator ani Short Term Goal (STG) Arabella is able to increase her pelvic floor strength to 3/5 MMT for improved bladder support STG Duration 5 weeks Engineering Program Analyst Goal (LTG) Arabella is able to increase her strength of her pelvic floor to 4/5 or better for improved support of her bladder LTG Duration 12 weeks One Impairment urinary leakage that is happening 1-2 times per day where Arabella is leaking through her underware Retirement Goal (LTG) Arabella reports a overall reduction of urinary leakage and is no longer leaking on a daily basis Assessment Summary Assessment Arabella is a 48 year old female referred to PT with complaints of pelvic floor weakness with urinary leakage. She has a history of a hysterectomy with bladder sling with mesh that became infected after her surgery in 2010. She underwent a multiple doses of antibiotics as well as subsequent surgerys to iliminate the infection and ended up having the mesh removed in 2013. At this time she feels pelvic pressure and heaviness from her bladder and by the end of the day she has a great amount of pressure. She reports urinary leakage 1-2 times per day where she will wet through her underware. With exam today Arabella is weak in her core muscles and tests 2/5 MMT for her pelvic floor. She has poor endurance of pelvic floor contractions. I am only able to feel a grade 1 cystocele today in a supine position. I feel Arabella would benefit from pelvic floor strengthening as well as endurance training and overall core conditioning. She is a good candidate for Pelvic floor PT. Physical Therapy Plan Frequency and Duration Frequency of Treatment 1x/Week Duration of treatment (weeks) 12 Plan of Care Start Date 08/21/23 Plan of Care End Date 11/13/23 Therapeutic Interventions Therapeutic Interventions Home Exercise Program, Neuromuscular Re-education, Patient/Caregiver Education, Self-Care/Home Management, Therapeutic Exercises Modalities Biofeedback Next Visit Focus/Plan Next Note Type Treatment Note Next Visit Plan Begin working with EMG biofeedback for pelvic floor strength and endurance training next visit
--- NOTE | 2023-08-21 16:00 | PT.OPPOC ---
Physical, Occupational & Speech Therapy At [facility] Current Diagnoses Rheumatoid arthritis, unspecified (08/21/23) Pain in unspecified knee (08/21/23) Cervicalgia (08/21/23) Dorsalgia, unspecified (08/21/23) Other specified disorders of muscle (08/21/23) Visit Care Team Role Provider Type Nurys Ash MD Attending Provider Non-Staff Family Provider Primary Care Provider Referring Provider Specialty: Internal Medicine Address: [address] [place] [address] Email: Plan Of Care PT-OP-T Assessment and Plan Start: 08/19/23 08:09 Freq: Status: Active Protocol: Document 08/21/23 15:15 [facility] (Rec: 08/26/23 14:14 [facility] [id number]) Physical Therapy Assessment Goals 3 Impairment Poor endurance of pelvic floor contractions Short Term Goal (STG) Arabella is able to sustain a pelvic floor contraction in supine x 10 seconds STG Duration 5 weeks Skilled Nursing Goal (LTG) Arabella is able to sustain a pelvic floor contraction in standing x 5 seconds LTG Duration 12 weeks Two Impairment Pelvic floor weakness with MMT of 2/5 for all lewis of the levator ani Short Term Goal (STG) Arabella is able to increase her pelvic floor strength to 3/5 MMT for improved bladder support STG Duration 5 weeks Skilled Nursing Goal (LTG) Arabella is able to increase her strength of her pelvic floor to 4/5 or better for improved support of her bladder LTG Duration 12 weeks One Impairment urinary leakage that is happening 1-2 times per day where Arabella is leaking through her underware Postal Supervisor Goal (LTG) Arabella reports a overall reduction of urinary leakage and is no longer leaking on a daily basis Assessment Summary Assessment Arabella is a 48 year old female referred to PT with complaints of pelvic floor weakness with urinary leakage. She has a history of a hysterectomy with bladder sling with mesh that became infected after her surgery in 2010. She underwent a multiple doses of antibiotics as well as subsequent surgeries to eliminate the infection and ended up having the mesh removed in 2013. At this time she feels pelvic pressure and heaviness from her bladder and by the end of the day she has a great amount of pressure. She reports urinary leakage 1-2 times per day where she will wet through her undertake. With exam today Arabella is weak in her core muscles and tests 2/5 MMT for her pelvic floor. She has poor endurance of pelvic floor contractions. I am only able to feel a grade 1 cystocele today in a supine position. I feel Arabella would benefit from pelvic floor strengthening as well as endurance training and overall core conditioning. She is a good candidate for Pelvic floor PT. Physical Therapy Plan Frequency and Duration Frequency of Treatment 1x/Week Duration of treatment (weeks) 12 Plan of Care Start Date 08/21/23 Plan of Care End Date 11/13/23 Therapeutic Interventions Therapeutic Interventions Home Exercise Program, Neuromuscular Re-education, Patient/Caregiver Education, Self-Care/Home Management, Therapeutic Exercises Modalities Biofeedback Next Visit Focus/Plan Next Note Type Treatment Note Next Visit Plan Begin working with EMG biofeedback for pelvic floor strength and endurance training next visit Plan of Care Dates Plan of Care Start Date 08/21/23 Plan of Care End Date 11/13/23 Electronically Signed by: Emy Orellana, PT 08/26/23 [id number] If you are in agreement with this Plan of Care, please return a signed and dated copy. I have reviewed this Plan of Care and certify that the skilled therapy services above are required to meet the patient?s needs. Physician Signature Date Printed Name and Credentials Clinical Instructor Signature Printed Name and Credentials
--- NOTE | 2024-11-02 11:32 | PT.OPDS ---
Current Diagnoses Rheumatoid arthritis, unspecified (08/21/23) Pain in unspecified knee (08/21/23) Cervicalgia (08/21/23) Dorsalgia, unspecified (08/21/23) Other specified disorders of muscle (08/21/23) Visit Care Team Role Provider Type Nurys Ash MD Attending Provider Non-Staff Family Provider Primary Care Provider Referring Provider Specialty: Internal Medicine Address: [address] [place] [address], [facility] Email: Visit Number Visit Number 1 Discharge Summary PT-OP-B Current Condition Start: 08/19/23 08:09 Freq: Status: Active Protocol: Document 08/21/23 15:15 [facility] (Rec: 08/21/23 15:44 [facility] [id number]) Current Condition History of Current Condition Onset Date April 2011 Current Complaints urinary leakge, pelvic pressure and heaviness History of Current Condition 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 She has a history of 8 deliveries, 6 of them were home births. After her last baby she underwent a hysterectomy and bladder lift with mesh in April 2011. After this surgery Arabella notes she ended up getting a bad infection x 3 months and she was on 8 different antibiotics and had a IV injection at the end. The infection was in her pelvic region. She had to go under surgery 4 times to attempt to clean out the infection. She ended up having the mesh removed around 2013 from a different doctor. At this point Arabella feels like things are falling out especially by the end of the day when she feels increased pelvic pressure. Arabella notes she will go up to 4-5 days without having a bowel movement. She can feel increased pelvic pressure when she is not able to have a daily bowelment. Past medical history also includes a apendectomy at 15 years old PT-OP-C Subjective Start: 08/19/23 08:09 Freq: Status: Active Protocol: Document 08/21/23 15:15 [facility] (Rec: 08/26/23 14:14 [facility] [id number]) Patient Questionnaires Pelvic Pain and Urgency/Frequency Patient Symptom Scale Pelvic Pain Score 22 OP-PT Pain Assessment Location bilateral low back pain Intensity 5 Scale Used Numeric (0 - 10) PT-OP-I Pelvic Floor Start: 08/19/23 08:09 Freq: Status: Active Protocol: Document 08/21/23 15:15 [facility] (Rec: 08/21/23 16:12 [facility] [id number]) Pelvic Floor Assessment Urine Pelvic Floor Surgery Yes: hysterectomy with bladder lift/ mesh now removed Urinary Symptoms Urge Sensation,Prolapse, Falling Out Feeling/Heavy Leakage Size Large Leakage Cause Cough,Exercise,Lifting,Sneeze, Urge Leaks Per Day 1-2 Voiding Frequency 5 Nocturia 3 Urine Pad Type Panty Liner Pelvic Clock Pelvic Clock 12-3 Atrophy Pelvic Clock 3-6 Atrophy Pelvic Clock 6-9 Atrophy Pelvic Clock 9-12 Atrophy Prolapse Cystocele Grade 1 Prolapse Comments grade 1 prolapse felt but pt notes increased pressure by the end of the day from standing Contraction Ability Voluntary Contraction Weak Voluntary Relaxation Weak Manual Muscle Testing Left 2 Manual Muscle Testing Right 2 Manual Muscle Testing Anterior 2 Manual Muscle Testing Posterior 2 PT-OP-M Strength Start: 08/26/23 15:27 Freq: Status: Active Protocol: Document 08/21/23 15:15 [facility] (Rec: 08/26/23 15:32 [facility] [id number]) Trunk Strength Trunk Manual Muscle Testing Testing Position Supine Flexion 2+ Poor+ Core Stabilization poor core stabilization ability PT-OP-T Assessment and Plan Start: 08/19/23 08:09 Freq: Status: Active Protocol: Document 11/02/24 11:31 [facility] (Rec: 11/02/24 11:32 [facility] [id number]) Physical Therapy Assessment Assessment Summary Assessment Pt was seen for initial evaluation only and she was unable to continue PT after that visit. She will be discharged from PT at this time Physical Therapy Plan Discharge Physical Therapy Discharge Reasons No Longer Attending PT
== END | disposition home or self-care (01) ==
LOC: PHYS 08-21 15:11
PROVIDERS: Family Provider Internal Medicine; PCP Internal Medicine; Referring Provider Internal Medicine; Visit Provider Internal Medicine
DX: M54.2 Cervicalgia (principal); M62.89 Other specified disorders of muscle; M54.9 Dorsalgia, unspecified; M25.569 Pain in unspecified knee; M06.9 Rheumatoid arthritis, unspecified
CPT/HCPCS: 97110; 97162